=== PATIENT | female | born 1965 | race Caucasian/White ===

== ENCOUNTER 2019-08-15 15:04 | Outpatient (CLI) | payer MEDICARE, MEDICAID, SELFPAY ==
--- NOTE | ~2019-08-15 | MM_ITS ---
EXAMINATION: MM screening [facility] BI w maribel HISTORY: Screening mammogram TECHNIQUE: Craniocaudal and mediolateral oblique 3-D tomosynthesis images were obtained and synthetic 2-D images were generated. CAD analysis was submitted and interpreted. COMPARISON: 06/09/2018, 07/30/2016, 02/11/2015 BREAST PARENCHYMAL COMPOSITION: The breasts are almost entirely fatty. FINDINGS: There is no evidence of suspicious mass, calcification, or architectural distortion to sugg est malignancy in either breast. There has been no suspicious interval change. IMPRESSION: 1. No mammographic evidence of malignancy. 2. Recommend routine screening mammography in one year. BI-RADS Category 1: Negative Reviewed, dictated and finalized at location A.
== END 2019-08-15 15:05 | disposition home or self-care (01) ==
PROVIDERS: PCP Family Medicine; Visit Provider Student in an Organized Health Care Education/Training Program
DX: Z12.31 Encounter for screening mammogram for malignant neoplasm of breast (principal)
CPT/HCPCS: 77063; 77067

== ENCOUNTER 2019-12-21 09:03 | Outpatient (CLI) | payer MEDICARE, MEDICAID, SELFPAY ==
[2019-12-21 09:48] LABS: Alanine Aminotransferase 51 U/L (4-35); Albumin Level 4.1 g/dL (3.5-5.1); Alkaline Phosphatase 206 U/L (38-126); Anion Gap 9 mmol/L (8-16); Aspartate Amino Transferase 47 U/L (14-36); Bilirubin,Total 0.4 mg/dL (0.2-1.3); Blood Urea Nitrogen 17 mg/dL (7-17); Calcium 9.5 mg/dL (8.4-10.2); Carbon Dioxide 31 mmol/L (22-30); Chloride 97 mmol/L (98-107); Cholesterol 134 mg/dL (0-200); Estimated Glomerular Filt Rate > 60; Glucose 156 mg/dL (65-105); HDL Direct 33 mg/dL; Potassium 2.9 mmol/L (3.4-5.0); Sodium 137 mmol/L (137-145); Triglycerides 119 mg/dL (<150)
[2019-12-21 09:59] LABS: LDL Cholesterol Direct 84 mg/dL
[2019-12-21 10:09] LABS: Creatinine Urine 115.7 mg/dL
[2019-12-21 10:12] LABS: MALB Creatinine Ratio 16.4 mg/g (0-30)
== END 2019-12-21 09:04 | disposition home or self-care (01) ==
PROVIDERS: Referring Provider Internal Medicine Endocrinology, Diabetes & Metabolism; Visit Provider Internal Medicine Cardiovascular Disease
DX: E78.5 Hyperlipidemia, unspecified (principal); E11.9 Type 2 diabetes mellitus without complications
CPT/HCPCS: 36415; 80053; 80061; 82043; 83735

== ENCOUNTER 2019-12-28 09:49 | Outpatient (CLI) | payer MEDICARE, MEDICAID, SELFPAY ==
[2019-12-28 10:27] LABS: Potassium 3.7 mmol/L (3.4-5.0)
[2019-12-28 10:42] LABS: Anion Gap 8 mmol/L (8-16); Blood Urea Nitrogen 17 mg/dL (7-17); Carbon Dioxide 27 mmol/L (22-30); Chloride 102 mmol/L (98-107); Estimated Glomerular Filt Rate > 60; Glucose 201 mg/dL (65-105); Sodium 137 mmol/L (137-145)
== END 2019-12-28 09:50 | disposition home or self-care (01) ==
LOC: ANHLAB 09:53
PROVIDERS: PCP Internal Medicine Cardiovascular Disease; Visit Provider Internal Medicine Cardiovascular Disease
DX: R89.9 Unspecified abnormal finding in specimens from other organs, systems and tissues (principal)
CPT/HCPCS: 36415; 80048

== ENCOUNTER 2020-07-06 11:05 | Outpatient (CLI) | payer MEDICARE, MEDICAID, SELFPAY ==
--- NOTE | ~2020-07-06 | MR_ITS ---
EXAMINATION: MR lumbar spine wo con EXAM DATE: 07/06/2020 12:12 INDICATION: Low back pain. History of non-Hodgkin's lymphoma. TECHNIQUE: Multi-sequential, multiplanar MR images of the lumbar spine were obtained without contrast . Sagittal T1, T2, T2 fat saturation images. Axial T2 weighted images. Comparison is made to prior examination from 12/22/2016. FINDINGS: Previous exam had multiple abnormal bone signal abnormalities, probably due to hematologica l malignancy as above. These signal abnormalities have normalized following treatment. No abnormal pa raspinal soft tissue. Mild loss of the L3-4 disc height. The vertebral body and disc heights are otherwise well maintained. The vertebral bodies are aligned in the AP dimension. The conus medullaris terminates at the T12-L1 level and has normal signal intensity and morphology. Level by level evaluation: T12-L1: Disc does not extend beyond the endplate margin. Facet arthropathy: Mild bilateral. Neural foraminal stenosis: No stenosis. Central canal stenosis: No stenosis. L1-L2: Disc does not extend beyond the endplate margin. Facet arthropathy: Mild bilateral. Neural foraminal stenosis: No stenosis. Central canal stenosis: No stenosis. L2-L3: Disc does not extend beyond the endplate margin. Facet arthropathy: Mild to moderate bilateral. Neural foraminal stenosis: No stenosis. Central canal stenosis: No stenosis. L3-L4: There is a mild diffuse disc bulge. Facet arthropathy: Moderate bilateral. Neural foraminal stenosis: Mild bilateral. Central canal stenosis: No stenosis. L4-L5: There is a mild diffuse disc bulge. Facet arthropathy: Mild to moderate bilateral. Neural foraminal stenosis: Mild bilateral. Central canal stenosis: Mild. L5-S1: Disc does not extend beyond the endplate margin. Facet arthropathy: Mild bilateral. Neural foraminal stenosis: No stenosis. Central canal stenosis: No stenosis. IMPRESSION: 1. Mild lumbar spondylosis. 2. Interval resolution of previously seen infiltrative bone marrow process. Reviewed, dictated and finalized at location A. GER STARS
== END 2020-07-06 11:06 | disposition home or self-care (01) ==
PROVIDERS: Visit Provider Nurse Practitioner Family
DX: M47.896 Other spondylosis, lumbar region (principal)
CPT/HCPCS: 72148

== ENCOUNTER 2020-07-11 14:14 | Outpatient (CLI) | payer MEDICARE, MEDICAID, SELFPAY ==
[2020-07-11 16:29] LABS: Alanine Aminotransferase 38 U/L (4-35); Albumin Level 4.2 g/dL (3.5-5.1); Alkaline Phosphatase 173 U/L (38-126); Anion Gap 7 mmol/L (8-16); Aspartate Amino Transferase 31 U/L (14-36); Bilirubin,Total 0.3 mg/dL (0.2-1.3); Blood Urea Nitrogen 22 mg/dL (7-17); Calcium 9.9 mg/dL (8.4-10.2); Carbon Dioxide 31 mmol/L (22-30); Chloride 103 mmol/L (98-107); Estimated Glomerular Filt Rate 57; Glucose 174 mg/dL (65-105); Potassium 4.1 mmol/L (3.4-5.0); Sodium 141 mmol/L (137-145)
== END 2020-07-11 14:15 | disposition home or self-care (01) ==
PROVIDERS: Visit Provider Internal Medicine Endocrinology, Diabetes & Metabolism
DX: B37.9 Candidiasis, unspecified (principal); E11.65 Type 2 diabetes mellitus with hyperglycemia; Z79.4 Long term (current) use of insulin
CPT/HCPCS: 36415; 80053; 82607

== ENCOUNTER 2020-07-16 14:33 | Outpatient (CLI) | payer MEDICARE, MEDICAID, SELFPAY | END 2020-07-16 14:34 | disposition home or self-care (01) | LOC: ANHCOVIDVC 14:33 | PROVIDERS: PCP Student in an Organized Health Care Education/Training Program | DX: Z23 Encounter for immunization (principal) | CPT/HCPCS: 0001A; 91300 ==

== ENCOUNTER 2020-08-06 14:33 | Outpatient (CLI) | payer MEDICARE, MEDICAID, SELFPAY | END 2020-08-06 14:34 | disposition home or self-care (01) | LOC: ANHCOVIDVC 14:33 | PROVIDERS: PCP Student in an Organized Health Care Education/Training Program | DX: Z23 Encounter for immunization (principal) | CPT/HCPCS: 0002A; 91300 ==

== ENCOUNTER 2020-08-21 08:10 | Outpatient (CLI) | payer MEDICARE, MEDICAID, SELFPAY ==
--- NOTE | 2020-08-21 08:23 | ECHO_ITS ---
Patient Info Name: Evangelina Lovelace Age: 55 years : 1965 Gender: Female Ht: 63 in Wt: 198 lbs BSA: 2.04 m2 HR: 87 bpm BP: 120 / 67 mmHg Technical Quality: Good Exam Date: 08/21/2020 8:54 AM Exam Location: [facility] Patient Status: Outpatient Admit Date: 08/21/2020 Staff Ordering Physician: Sterling Penaloza DO Grinder Carbon Plant: Farzaneh Limon RDCS Attending Provider: Sterling Penaloza DO Exam Type: CA echo doppler color flow Study Info Complete two-dimensional, color flow and Doppler transthoracic echocardiogram is performed. Summary 1. Complete two-dimensional, color flow and Doppler transthoracic echocardiogram is performed. 2. Left ventricular chamber dimension is normal. 3. Left ventricular systolic function is normal, estimated at 60-65%. 4. The left ventricular diastolic function is grade I diastolic dysfunction. 5. E/e' 10 is mildly elevated. 6. There is mild aortic valve sclerosis. 7. There is mild aortic valve regurgitation. 8. No pulmonary hypertension, estimated pulmonary arterial systolic pressure is 23 mmHg. Left Ventricle E/e' 10 is mildly elevated. Left ventricular chamber dimension is normal. Left ventricular systolic function is normal, estimated at 60-65%. The left ventricular diastolic function is grade I diastolic dysfunction. Right Ventricle Right ventricular chamber dimension is normal. Right ventricular systolic function is normal. Left Atria Left atrial chamber dimension is normal. Right Atria Right atrial chamber dimension is normal. Aortic Valve The aortic valve is trileaflet. There is mild aortic valve sclerosis. There is no aortic valve stenosis. There is mild aortic valve regurgitation. Pulmonic Valve There is no pulmonic regurgitation. Mitral Valve There is no mitral valve stenosis. There is no mitral valve regurgitation. Tricuspid Valve There is no tricuspid valve regurgitation. No pulmonary hypertension, estimated pulmonary arterial systolic pressure is 23 mmHg. Pericardium/Pleural There is no pericardial effusion. Inferior Vena Cava Normal inferior vena cava with >50% collapse upon inspiration consistent with normal right atrial pressure, 5 mmHg. Aorta The aortic root size at the sinus of Valsalva is normal. Left Ventricular Outflow Tract Name Value Normal LVOT 2D LVOT Diameter 2.0 cm LVOT Doppler LVOT Peak Gradient 5 mmHg LVOT Mean Gradient 4 mmHg LVOT VTI 25 cm LVOT VTI/AV VTI Ratio 1.0 LVOT Stroke Volume 81 ml LVOT CO 17.6 l/min LVOT CI 8.7 l/min/m2 Pulmonic Valve Name Value Normal PV Doppler PV Peak Gradient 2 mmHg Mitral Valve -
== END 2020-08-21 08:11 | disposition home or self-care (01) ==
PROVIDERS: Visit Provider Internal Medicine Cardiovascular Disease
DX: I35.1 Nonrheumatic aortic (valve) insufficiency (principal)
CPT/HCPCS: 93306

== ENCOUNTER → 2020-08-28 12:34 | Outpatient (CLI) | payer MEDICARE, MEDICAID, SELFPAY ==
--- NOTE | ~2020-08-28 | XR_ITS ---
EXAMINATION: XR chest 2V 08/28/2020 12:44 INDICATION: Cough PROCEDURE: 2 view chest COMPARISON: Comparison to multiple prior studies sequentially, with oldest reviewed study dated 09/15. FINDINGS: The lungs are clear. The cardiomediastinal silhouette is within normal limits. There are no pleural effusions. There is no pneumothorax suspected. IMPRESSION: 1: NO ACUTE CARDIOPULMONARY DISEASE. Reviewed, dictated and finalized at location B.
== END ==
PROVIDERS: PCP Nurse Practitioner; Visit Provider Nurse Practitioner
DX: R05 Cough (principal)
CPT/HCPCS: 71046

== ENCOUNTER 2020-11-12 10:45 | Outpatient (CLI) | payer MEDICARE, MEDICAID, SELFPAY ==
[2020-11-12 20:53] LABS: Add Urine Microscopic? YES; Appearance Urine Clear (Clear); Bacteria Urine Trace /hpf; Bilirubin Urine Negative (Negative); Blood Urine Negative (Negative); Color Urine Straw (Yellow); Glucose Urine UA 3+ mg/dL (Negative); Ketones Urine Negative (Negative); Leukocyte Esterase Ur 2+ LEU/UL (Negative); Mucus Urine Rare /lpf; Nitrate Urine Negative (Negative); Protein Urine Negative (Negative); RBC Urine 0-2 /hpf (0-2); Specific Grav Ur 1.022 (1.001-1.035); Squamous Epithelial Cell Urine Occasional /hpf (Few); Urobilinogen Urine Negative mg/dL (<2.0); WBC Urine 31-50 /hpf
== END 2020-11-12 10:46 | disposition home or self-care (01) ==
LOC: ANHWCLAB 10:53
PROVIDERS: PCP Nurse Practitioner; Visit Provider Internal Medicine Endocrinology, Diabetes & Metabolism
DX: N39.0 Urinary tract infection, site not specified (principal)
CPT/HCPCS: 81001; 87077; 87086; 87088; 87186

== ENCOUNTER 2020-11-29 15:42 | Outpatient (CLI) | payer MEDICARE, MEDICAID, SELFPAY ==
--- NOTE | ~2020-11-29 | MM_ITS ---
EXAMINATION: MM screening [facility] BI w maribel HISTORY: Screening TECHNIQUE: Craniocaudal and mediolateral oblique 3-D tomosynthesis images were obtained and synthetic 2-D images were generated. CAD analysis was submitted and interpreted. COMPARISON: Comparison to multiple prior studies sequentially, with oldest reviewed study dated 01/31. BREAST PARENCHYMAL COMPOSITION: There are scattered areas of fibroglandular density. FINDINGS: There is a developing mass with associated pleomorphic calcifications in the upper outer qu adrant of the right breast anteriorly. The left breast is stable without evidence for malignancy. IMPRESSION: 1. Developing mass with pleomorphic calcifications upper outer quadrant of the right breast. 2. Additional mammographic views and possible breast ultrasound are recommended. BI-RADS Category 0: Incomplete: Needs additional imaging evaluation. Reviewed, dictated and finalized at location A. IMPRESSION: 1. Developing mass with pleomorphic calcifications upper outer quadrant of the right breast. 2. Additional mammographic views and possible breast ultrasound are recommended . BI-RADS Category 0: Incomplete: Needs additional imaging evaluation.
== END 2020-11-29 15:43 | disposition home or self-care (01) ==
LOC: ANHIMG 15:43
PROVIDERS: PCP Nurse Practitioner; Visit Provider Student in an Organized Health Care Education/Training Program
DX: Z12.31 Encounter for screening mammogram for malignant neoplasm of breast (principal); R92.8 Other abnormal and inconclusive findings on diagnostic imaging of breast
CPT/HCPCS: 77063; 77067

== ENCOUNTER → 2020-12-14 01:50 | Outpatient (CLI) | payer MEDICARE, MEDICAID, SELFPAY ==
[2020-12-14 17:52] LABS: SARS-CoV-2 RNA PCR Negative
== END ==
PROVIDERS: PCP Nurse Practitioner; Visit Provider Nurse Practitioner
DX: R68.89 Other general symptoms and signs (principal); Z20.822 Contact with and (suspected) exposure to COVID-19
CPT/HCPCS: C9803; U0003; U0005

== ENCOUNTER 2020-12-17 12:44 | Outpatient (CLI) | payer MEDICARE, MEDICAID, SELFPAY ==
--- NOTE | ~2020-12-17 | MM_ITS ---
EXAMINATION: MM diagnostic mammo unilat RT HISTORY: Indeterminate right breast calcifications on screening mammogram TECHNIQUE: Magnification views of the right breast were performed. CAD analysis was submitted and int erpreted. COMPARISON: 11/29/2020, 08/15/2019, 06/09/2018 FINDINGS: There are grouped coarse heterogeneous calcifications in the anterior of the upper outer qu adrant breast at the 10:00 location 6 cm from the nipple. IMPRESSION: 1. Suspicious right breast calcifications. 2. Stereotactic biopsy is recommended. BI-RADS category 4, suspicious findings. Reviewed, dictated and finalized at location A.
== END 2020-12-17 12:45 | disposition home or self-care (01) ==
LOC: ANHIMG 12:45
PROVIDERS: PCP Nurse Practitioner; Visit Provider Student in an Organized Health Care Education/Training Program
DX: R92.8 Other abnormal and inconclusive findings on diagnostic imaging of breast (principal)
CPT/HCPCS: 77065

== ENCOUNTER 2021-02-08 15:25 | Emergency (ER) | payer MEDICARE, MEDICAID, SELFPAY ==
[2021-02-08 15:33] VITALS: BP 94/67; PULSE 102; RESP 12; TEMP 37.1; O2SAT 97
--- NOTE | 2021-02-08 15:44 | PC.NURSE ---
in br to obtain ua spec.
--- NOTE | 2021-02-08 16:20 | ED.FEMALEGU ---
HPI - Female Genitourinary General Chief complaint: Urogenital-Female Stated complaint: UTI Time Seen by Provider: 02/08/21 16:15 Source: patient, RN notes reviewed and old records reviewed Mode of arrival: ambulatory History of Present Illness HPI Narrative: 55-year-old female who presents to [facility] with complaints of urgency, frequency, burning with urination since last night patient denies any fever chills or sweats denies any vaginal discharge or drainage no itching and no concern for any STD exposure. Patient states she has experienced some nausea this morning but denies any vomiting or any diarrhea. 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 Patient reports that she is diagnosed with diabetes about a year and a half ago and has had several UTI's since then. MD elicited complaint: dysuria and UTI Pertinent past history: recurrent UTIs and diabetes Onset (ago): day(s) (1 since last p.m.) Related Data Home Medications Medication Instructions Recorded Confirmed aripiprazole 10 mg tablet 10 mg PO DAILY 03/16/19 01/31/21 aspirin 81 mg tablet,delayed 81 mg PO DAILY 03/16/19 01/31/21 release cyclobenzaprine 10 mg tablet 10 mg PO TID PRN 03/16/19 01/31/21 mirtazapine 45 mg tablet 45 mg PO DAILY 03/16/19 01/31/21 quetiapine 300 mg tablet 300 mg PO DAILY tablet 03/16/19 01/31/21 cetirizine 10 mg capsule 10 mg PO DAILY PRN 07/04/20 01/31/21 glimepiride mg 02/08/21 vilazodone [Viibryd] mg 02/08/21 Allergies Allergy/AdvReac Type Severity Reaction Status Date / Time adhesive tape Allergy Unknown RASH Verified 01/31/21 13:08 codeine Allergy Unknown DEPTH Verified 01/31/21 13:08 PERCEPTION LOSS latex Allergy Unknown RASH-GLOVES Verified 01/31/21 13:08 metformin Allergy Unknown VOMITING Verified 01/31/21 13:08 bupropion AdvReac Severe INCOHERENT Verified 01/31/21 13:08 Sulfa (Sulfonamide AdvReac Mild VOMITING Verified 01/31/21 13:08 Antibiotics) amitriptyline AdvReac Unknown VOMITING Verified 01/31/21 13:08 morphine AdvReac Unknown ITCHING Verified 01/31/21 13:08 Review of Systems Review of Systems: CONSTITUTIONAL: Denies fever, chills, or sweats. EYES: Denies visual changes, redness, or discharge. ENT: Denies rhinorrhea, congestion, sore throat, or otalgia. CARDIOVASCULAR: Denies chest pain, palpitations, or edema. RESPIRATORY: Denies cough or dyspnea. GASTROINTESTINAL: Denies abdominal pain,positive for nausea, no vomiting, or diarrhea. GENITOURINARY:positive for dysuria or hematuria. SKIN: Denies rash or itching. MUSCULOSKELETAL: reports some chronic back pain, joint pain, or myalgia. NEUROLOGIC: Denies headache, numbness, or weakness. PSYCHIATRIC:Positive for history of anxiety or depression. All systems reviewed & are unremarkable except as noted in HPI and below PMFSH Past Medical History Medical History Anxiety Asthma Back pain Cancer Chest pain Depression Diabetes Fibromyalgia affecting forearm HPV (human papilloma virus) infection IBS (irritable colon syndrome) Lupus Migraines, neuralgic Missed x 3 Multiple sclerosis Non Hodgkin's lymphoma per patient, no documentation on PCP's note Obesity Psychiatric problem Seizure Urinary complications Surgical History Surgical History History of dilation and curettage History of hysterectomy, supracervical Hx of appendectomy Family History Family History Father Blood clot in vein Other ADD (attention deficit disorder) Alcoholism Anxiety Arthritis Asthma Back pain COPD (chronic obstructive pulmonary disease) Cancer Carotid artery disease Cerebrovascular accident Depression Diabetes mellitus Family history of alcoholism Family history of allergic disorder Family history of malignant neoplasm of breast in first degree relati
== END 2021-02-08 16:30 | disposition home or self-care (01) ==
PROVIDERS: Emergency Provider Registered Nurse
DX: N39.0 Urinary tract infection, site not specified (principal); F17.200 Nicotine dependence, unspecified, uncomplicated; J45.909 Unspecified asthma, uncomplicated; E11.9 Type 2 diabetes mellitus without complications; M79.7 Fibromyalgia; G35 Multiple sclerosis; G40.909 Epilepsy, unspecified, not intractable, without status epilepticus; Z79.82 Long term (current) use of aspirin; Z85.72 Personal history of non-Hodgkin lymphomas
CPT/HCPCS: 81003; 87077; 87086; 87186; 99213; G0463

== ENCOUNTER 2021-09-08 14:38 | Emergency (ER) | payer MEDICARE, MEDICAID, SELFPAY ==
--- NOTE | ~2021-09-08 | CT_ITS ---
EXAMINATION: CT abdomen pelvis w con DATE: 09/08/2021 19:47 INDICATION: abd pain TECHNIQUE: Computed tomography (CT) of the abdomen and pelvis was performed with 100 mL Omnipaque-300 intravenous contrast. Automated exposure control and iterative reconstruction technique were employe d. The dose-length product was 862.88 mGy-cm. COMPARISON: 03/17/18 FINDINGS: Lower thorax: Unremarkable Liver: Diffusely low density, otherwise normal Biliary/Gallbladder: Gallbladder is normal. No bile duct dilation. Spleen: Normal. Pancreas: No mass or duct dilation. Adrenals:No mass. Kidneys: Multiple bilateral renal cysts and hypodensities that are too small to characterize but also most likely represent cysts. No stone or hydronephrosis. GI tract: No small or large bowel dilation. Appendix not visualized. Mesentery/Peritoneum: No ascites, mass, or free air. Retroperitoneum: No mass. Pelvis: Uterus surgically absent. Ovaries not visualized. Soft Tissues: Mild transversely oriented subcutaneous stranding with subcentimeter lymph nodes in the supraumbilical subcutaneous abdominal wall fat. Bones: No acute osseous finding. IMPRESSION: Possible mild contusion or cellulitis of the anterior abdominal wall just above the umbilicus. No oth er acute abdominopelvic process detected. Hepatic steatosis. Reviewed, dictated and finalized at location K. IMPRESSION: Possible mild contusion or cellulitis of the anterior abdominal wall just above the umbilicus. No other acute abdominopelvic process detected. Hepatic steatos is.
--- NOTE | ~2021-09-08 | CT_ITS ---
EXAMINATION: CT brain wo con DATE: 09/08/2021 18:41 INDICATION: confusion TECHNIQUE: Computed tomography (CT) of the head was performed without intravenous contrast. The mA wa s adjusted according to patient size. Iterative reconstruction technique was employed. The dose-lengt h product was 529.67 mGy-cm. COMPARISON: 11/24/2014. FINDINGS: No acute intracranial hemorrhage or extra-axial fluid collection. No hydrocephalus, mass, or herniation. No acute ischemic infarct. Unremarkable dural venous sinus attenuation. No acute osseous abnormality. The aerated spaces are clear. IMPRESSION: No acute intracranial process. Reviewed, dictated and finalized at location K.
[2021-09-08 14:49] VITALS: BP 153/91; PULSE 117; RESP 20; TEMP 36.5; O2SAT 99
--- NOTE | 2021-09-08 14:53 | ECG_ITS ---
Measurements Intervals Hustler Rate: 101 P: 58 MO: 167 QRS: -18 QRSD: 88 T: 25 QT: 368 QTc: 479 Interpretive Statements SINUS TACHYCARDIA INCOMPLETE RIGHT BUNDLE BRANCH BLOCK BORDERLINE R WAVE PROGRESSION, ANTERIOR LEADS BORDERLINE T WAVE ABNORMALITY- ANT/INF LEADS BASELINE ARTIFACT- I, II, AVR BORDERLINE ECG Electronically Signed On 09-08-2021 15:10:55 CDT by Sterling Penaloza D.O.
[2021-09-08 15:14] LABS: Basophils Absolute Auto 0.1 K/mm3 (0.0-0.1); Basophils Percent Auto 0.5 % (0.2-1.2); Eosinophils Percent Auto 0.2 % (0-4.4); Hematocrit 54.2 % (37.0-47.0); Hemoglobin 17.5 g/dL (12.0-15.0); Immature Granulocyte Absolute 0.05 K/mm3 (0.00-0.031); Immature Granulocyte Percent A 0.4 % (0-0.5); Lymphocytes Absolute Auto 3.38 K/mm3 (0.9-3.2); Lymphocytes Percent Auto 24.5 % (18.3-44.2); Mean Corpuscular HGB Conc 32.3 g/dl (32-36); Mean Corpuscular Volume 86.7 fl (80-100); Mean Platelet Volume 9.7 fl (7.4-10.4); Monocytes Absolute Auto 1.1 K/mm3 (0.1-0.6); Monocytes Percent Auto 8.1 % (2.6-8.5); Neutrophils Absolute Auto 9.1 K/mm3 (1.3-6.7); Neutrophils Percent Auto 66.3 % (45.5-73.1); Platelet Count Result 273 k/mm3 (150-375); Red Blood Count 6.25 M/mm3 (4.2-5.4); Red Cell Distribution Width 15.4 % (11.5-14.5); White Blood Count 13.8 K/mm3 (4.5-10.0)
[2021-09-08 15:20] LABS: Alanine Aminotransferase 56 U/L (6-35); Albumin Level 5.3 g/dL (3.5-5.1); Alkaline Phosphatase 195 U/L (38-126); Anion Gap 13 mmol/L (8-16); Aspartate Amino Transferase 48 U/L (14-36); Bilirubin,Total 0.9 mg/dL (0.2-1.3); Blood Urea Nitrogen 20 mg/dL (7-17); Calcium 9.8 mg/dL (8.4-10.2); Carbon Dioxide 30 mmol/L (22-30); Chloride 95 mmol/L (98-107); Estimated CRCL calculation 77 ml/min; Estimated Glomerular Filt Rate > 60; Glucose 318 mg/dL (65-110); Potassium 4.3 mmol/L (3.4-5.0); Sodium 138 mmol/L (137-145)
[2021-09-08 15:27] LABS: INR 1.1; Partial Thromboplastin Time 25.3 SECONDS (22.3-36.8); Prothrombin Time 13.8 Seconds (11.1-14.7)
--- NOTE | 2021-09-08 18:16 | ED.GENADULT ---
HPI - General Adult General Chief complaint: Nausea/Vomiting/Diarrhea Stated complaint: n/v/d Time Seen by Provider: 09/08/21 17:07 History of Present Illness HPI narrative: 56-year-old female presents the emergency room for evaluation of generalized weakness, fatigue, and confusion. Patient is unable to to identify what day today is, and states that her family is concerned because she is losing days . Patient denies any injury, trauma, denies any abdominal pain, chest pain. Patient denies any recent changes to her medication Related Data Home Medications Medication Instructions Recorded Confirmed aripiprazole 10 mg tablet 10 mg PO DAILY 03/16/19 08/01/21 aspirin 81 mg tablet,delayed 81 mg PO DAILY 03/16/19 08/01/21 release cyclobenzaprine 10 mg tablet 10 mg PO TID PRN 03/16/19 08/01/21 mirtazapine 45 mg tablet 45 mg PO DAILY 03/16/19 08/01/21 quetiapine 300 mg tablet 300 mg PO DAILY tablet 03/16/19 08/01/21 cetirizine 10 mg capsule 10 mg PO DAILY PRN 07/04/20 08/01/21 vilazodone [Viibryd] mg 02/08/21 08/01/21 Allergies Allergy/AdvReac Type Severity Reaction Status Date / Time adhesive tape Allergy Unknown RASH Verified 08/01/21 13:14 codeine Allergy Unknown DEPTH Verified 08/01/21 13:14 PERCEPTION LOSS latex Allergy Unknown RASH-GLOVES Verified 08/01/21 13:14 metformin Allergy Unknown VOMITING Verified 08/01/21 13:14 bupropion AdvReac Severe INCOHERENT Verified 08/01/21 13:14 Sulfa (Sulfonamide AdvReac Mild VOMITING Verified 08/01/21 13:14 Antibiotics) amitriptyline AdvReac Unknown VOMITING Verified 08/01/21 13:14 morphine AdvReac Unknown ITCHING Verified 08/01/21 13:14 Review of Systems Review of Systems: CONSTITUTIONAL: Denies fever, chills, or sweats. EYES: Denies visual changes, redness, or discharge. ENT: Denies rhinorrhea, congestion, sore throat, or otalgia. CARDIOVASCULAR: Denies chest pain, palpitations, or edema. RESPIRATORY: Denies cough or dyspnea. GASTROINTESTINAL: Denies abdominal pain, nausea, vomiting, or diarrhea. GENITOURINARY: Denies dysuria or hematuria. SKIN: Denies rash or itching. MUSCULOSKELETAL: Denies back pain, joint pain, or myalgia. NEUROLOGIC: Reports confusion, weakness, malaise PSYCHIATRIC: Denies anxiety or depression. [facility] Past Medical History Medical History Anxiety Asthma Back pain Cancer Follicular Lymphoma Chest pain Depression Diabetes Fibromyalgia affecting forearm HPV (human papilloma virus) infection IBS (irritable colon syndrome) Lupus Migraines, neuralgic Missed x 3 Multiple sclerosis Non Hodgkin's lymphoma per patient, no documentation on PCP's note Psychiatric problem Seizure Surgical History Surgical History History of dilation and curettage History of hysterectomy, supracervical Hx of appendectomy Family History Family History Father Blood clot in vein Other ADD (attention deficit disorder) Alcoholism Anxiety Arthritis Asthma Back pain COPD (chronic obstructive pulmonary disease) Cancer Carotid artery disease Cerebrovascular accident Depression Diabetes mellitus Family history of alcoholism Family history of allergic disorder Family history of malignant neoplasm of breast in first degree relative Family history of mental disorder Migraines Obesity Psychiatric problem Social History Social History Social History: 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 She uses medical marijuana with her PCP Smoking status: Current every day smoker Tobacco type: e-cigarettes/vaping Second hand tobacco smoke exposure: No Smoking end date: 05/03/13 Alcohol intake: current Alcohol use details: 1 drink per month Substance use type: marijuana Other substan
[2021-09-08] MEDS: SODIUM CHLORIDE 0.9% IV 1,000 ML 999 ML IV CONT (18:28)
[2021-09-08] MEDS: ONDANSETRON INJ 4 MG/2 ML VIAL IV PUSH (18:29)
[2021-09-08 19:00] VITALS: BP 138/88; PULSE 80; RESP 18; TEMP 36.3; O2SAT 98
[2021-09-08 19:03] LABS: Appearance Urine Slightly Cloudy (Clear); Bilirubin Urine 2+ (Negative); Color Urine Yellow (Yellow); Glucose Urine UA 3+ mg/dL (Negative); Ketones Urine 1+ mg/dL (Negative); Leukocyte Esterase Ur Negative LEU/UL (Negative); Nitrate Urine Negative (Negative); Protein Urine 3+ mg/dL (Negative); Specific Grav Ur >= 1.030 (1.001-1.035); pH Urine 6.5 (5.0-9.0)
[2021-09-08 19:13] LABS: Lactic Acid Reflex 2.1 mmol/L (0.7-2.0)
[2021-09-08 19:14] LABS: Bacteria Urine Trace /hpf; Mucus Urine Heavy /lpf; Squamous Epithelial Cell Urine Many /hpf (Few)
[2021-09-08 19:15] LABS: Add Urine Microscopic? YES; Blood Urine Trace-Intact (Negative)
[2021-09-08 19:41] LABS: SARS-CoV-2 RNA PCR Negative
[2021-09-08 20:00] VITALS: BP 136/80; PULSE 80; RESP 16; TEMP 36.6; O2SAT 98
[2021-09-08 20:34] LABS: Glucose Point of Care 303 mg/dl (65-105)
[2021-09-08] MEDS: SODIUM CHLORIDE 0.9% IV 1,000 ML 150 ML IV CONT (20:42)
[2021-09-08 21:00] VITALS: BP 142/78; PULSE 83; RESP 16; TEMP 36.8; O2SAT 97
[2021-09-08 21:17] LABS: Glucose Point of Care 310 mg/dl (65-105)
[2021-09-08 21:59] LABS: Reflex Lactic Acid Yes or No Add Lactic
== END 2021-09-08 21:50 | disposition home or self-care (01) ==
PROVIDERS: Emergency Medicine; Emergency Provider Nurse Practitioner Family
DX: L03.311 Cellulitis of abdominal wall (principal); Z20.822 Contact with and (suspected) exposure to COVID-19; G35 Multiple sclerosis; J45.909 Unspecified asthma, uncomplicated; E11.9 Type 2 diabetes mellitus without complications; M79.7 Fibromyalgia; K58.9 Irritable bowel syndrome, unspecified; F41.9 Anxiety disorder, unspecified; F32.A Depression, unspecified; Z85.72 Personal history of non-Hodgkin lymphomas; Z87.891 Personal history of nicotine dependence; Z79.82 Long term (current) use of aspirin; Z79.4 Long term (current) use of insulin; Z79.899 Other long term (current) drug therapy; I45.10 Unspecified right bundle-branch block; R00.0 Tachycardia, unspecified; R94.31 Abnormal electrocardiogram [ECG] [EKG]
CPT/HCPCS: 36415; 70450; 74177; 80053; 81001; 82948; 83605; 84443; 85025; 85610; 85730; 93005; 96361; 96365; 96375; 99284; C9803; J0696; J2405; J7030; Q9967; U0003; U0005

== ENCOUNTER → 2021-09-10 10:20 | Outpatient (CLI) | payer MEDICARE, MEDICAID, SELFPAY ==
--- NOTE | ~2021-09-10 | XR_ITS ---
XR hand LT min 3V DATE: 09/10/2021 10:32 INDICATION: Injury TECHNIQUE: 3 views COMPARISON: None FINDINGS: There is a nondisplaced linear oblique fracture of the shaft of the middle phalanx of the f ourth digit. There are intra-articular fractures of the anterior base of the middle phalanges of the third and fou rth fingers. No other recent fracture or dislocation. No erosive change or chondrocalcinosis. IMPRESSION: Fractures of middle phalanges of third and fourth digits Reviewed, dictated and finalized at location B.
== END ==
PROVIDERS: PCP Family Medicine; Visit Provider Family Medicine
DX: S62.653A Nondisplaced fracture of middle phalanx of left middle finger, initial encounter for closed fracture (principal); S62.655A Nondisplaced fracture of middle phalanx of left ring finger, initial encounter for closed fracture; X58.XXXA Exposure to other specified factors, initial encounter
CPT/HCPCS: 73130

== ENCOUNTER 2021-11-14 10:12 | Outpatient (CLI) | payer MEDICARE, MEDICAID, SELFPAY ==
--- NOTE | ~2021-11-14 | XR_ITS ---
XR hand LT min 3V DATE: 11/14/2021 10:31 INDICATION: Fracture of middle and ring fingers TECHNIQUE: 3 views COMPARISON: 09/10/2021 left hand FINDINGS: There is soft tissue swelling of the fourth and fifth digits. There is no interval change in position or alignment at the nondisplaced fracture of the shafts of th e middle phalanx of the fourth digit. There is no 7 change in position or alignment at the anterior cortical avulsion fracture of the base of the middle phalanx of the third digit. No other fracture or dislocation or other significant change. IMPRESSION: There is any change of fractures of middle phalanges of third and fourth digits Reviewed, dictated and finalized at location A. IMPRESSION: There is any change of fractures of middle phalanges of third and f ourth digits
== END 2021-11-14 10:13 | disposition home or self-care (01) ==
PROVIDERS: PCP Family Medicine; Visit Provider Plastic Surgery
DX: S62.623D Displaced fracture of middle phalanx of left middle finger, subsequent encounter for fracture with routine healing (principal); S62.625D Displaced fracture of middle phalanx of left ring finger, subsequent encounter for fracture with routine healing; X58.XXXD Exposure to other specified factors, subsequent encounter
CPT/HCPCS: 73130

== ENCOUNTER 2022-01-27 09:53 | Outpatient (CLI) | payer MEDICARE, MEDICAID, SELFPAY ==
--- NOTE | ~2022-01-27 | MM_ITS ---
EXAMINATION: MM screening [facility] BI w maribel HISTORY: Screening mammogram TECHNIQUE: Craniocaudal and mediolateral oblique 3-D tomosynthesis images were obtained and synthetic 2-D images were generated. CAD analysis was submitted and interpreted. COMPARISON: 12/17/2020 diagnostic right mammogram 11/29/2020, 08/15/2019, , 07/30/2016 bilateral screening mammogram examinations BREAST PARENCHYMAL COMPOSITION: The breasts are almost entirely fatty. FINDINGS: There are focal coarse grouped microcalcifications in an area of relative fat attenuation i n the anterior upper central right breast. These are likely calcifications of benign fat necrosis. Occasional benign calcifications are noted elsewhere in the breasts. Biopsy marker on the left; history of prior benign left breast biopsy. There is no evidence of suspicious mass, calcification, or new architectural distortion to suggest m alignancy in either breast. There has been no suspicious interval change. IMPRESSION: 1. Benign findings No mammographic evidence of malignancy. 2. Recommend routine screening mammography in one year. BI-RADS Category 2: Benign finding(s). Reviewed, dictated and finalized at location A.
== END 2022-01-27 09:54 | disposition home or self-care (01) ==
PROVIDERS: PCP Family Medicine; Visit Provider Student in an Organized Health Care Education/Training Program
DX: Z12.31 Encounter for screening mammogram for malignant neoplasm of breast (principal)
CPT/HCPCS: 77063; 77067

== ENCOUNTER 2022-02-19 09:21 | Outpatient (CLI) | payer MEDICARE, MEDICAID, SELFPAY ==
[2022-02-19 20:14] LABS: Cholesterol 152 mg/dL (0-200); HDL Direct 41 mg/dL; Triglycerides 121 mg/dL (<150)
[2022-02-19 20:25] LABS: LDL Cholesterol Direct 93 mg/dL
== END 2022-02-19 09:22 | disposition home or self-care (01) ==
LOC: ANHGOSHLAB 09:28
PROVIDERS: PCP Family Medicine; Visit Provider Internal Medicine Cardiovascular Disease
DX: E78.5 Hyperlipidemia, unspecified (principal)
CPT/HCPCS: 36415; 80061

== ENCOUNTER 2022-04-06 12:35 | Outpatient (CLI) | payer MEDICARE, MEDICAID, SELFPAY ==
[2022-04-06 22:01] LABS: Creatinine Urine 66.4 mg/dL
[2022-04-06 22:13] LABS: Microalbumin Urine Random < 6.0 mg/L (0-16.7)
[2022-04-06 22:14] LABS: MALB Creatinine Ratio < 9.0 mg/g (0-30)
== END 2022-04-06 12:36 | disposition home or self-care (01) ==
LOC: ANHGOSHLAB 12:38
PROVIDERS: PCP Family Medicine; Visit Provider Internal Medicine Endocrinology, Diabetes & Metabolism
DX: E11.65 Type 2 diabetes mellitus with hyperglycemia (principal); Z79.4 Long term (current) use of insulin
CPT/HCPCS: 82043

== ENCOUNTER 2022-06-23 10:26 | Outpatient (CLI) | payer MEDICARE, MEDICAID, SELFPAY ==
--- NOTE | ~2022-06-23 | MR_ITS ---
MRI of the brain Clinical History: Seizure Technique: Axial and sagittal T1-weighted images were acquired. These were followed by axial T2-weigh ninfa, diffusion weighted, gradient, and FLAIR images. Findings: There is no acute infarct, intracranial hemorrhage, or mass lesion. There are several scatt ered focal areas of hyperintense signal in the periventricular white matter bilaterally on FLAIR imag es. Ventricles and subarachnoid spaces are unremarkable. Orbits are unremarkable. Paranasal sinuses and m astoid air cells are clear. Major intracranial flow voids are intact. Sagittal midline structures are intact. IMPRESSION: Several scattered focal areas of hyperintense signal in the periventricular and FLAIR images. Finding s likely represent chronic microvascular ischemic change. Alternative considerations could include de myelinating disease or postictal change. Correlate clinically. Reviewed, dictated and finalized at [facility]. CARE NURSE IMPRESSION: Several scattered focal areas of hyperintense signal in the periventricular and FLAIR images. Findings likely represent chronic microvascular ischemic change. Alternative considerations could include demyelinating disease or postictal ch kristin. Correlate clinically.
[2022-06-23 13:24] LABS: Alanine Aminotransferase 29 U/L (6-35); Albumin Level 4.4 g/dL (3.5-5.1); Alkaline Phosphatase 117 U/L (38-126); Anion Gap 7 mmol/L (8-16); Aspartate Amino Transferase 28 U/L (14-36); Bilirubin,Total 0.4 mg/dL (0.2-1.3); Blood Urea Nitrogen 21 mg/dL (7-17); Calcium 9.1 mg/dL (8.4-10.2); Carbon Dioxide 30 mmol/L (22-30); Chloride 98 mmol/L (98-107); Estimated Glomerular Filt Rate > 60; Glucose 254 mg/dL (65-110); Potassium 4.1 mmol/L (3.4-5.0); Sodium 135 mmol/L (137-145)
[2022-06-23 13:39] LABS: Creatinine Urine 75.4 mg/dL
[2022-06-23 13:43] LABS: MALB Creatinine Ratio 14.1 mg/g (0-30); Microalbumin Urine Random 10.6 mg/L (0-16.7)
[2022-06-23 13:44] LABS: Vitamin D 25 Hydroxy 41.5 ng/mL
--- NOTE | 2022-06-24 09:47 | WPDNEUROLOGY ---
Neurology EEG Report General Information Date of Study: 06/23/22 TEST eeg DIAGNOSIS possible seizure CONDITION OF RECORDING awake drowsy and sleep EEG NUMBER [id number] CLINICAL HISTORY patient reports she has episodes of uncontrollable twitching of whole body EEG DESCRIPTION background rhythm consists of low to medium voltage 6 to 7 hertz per 2nd theta admixed with poorly organized low voltage 8 to 9 hertz per 2nd alpha posteriorly but with poor alejandrina posterior gradient hyperventilation not done .photic stimulation produced normal drive. bilateral symmetrical sleep activity seen during sleep . Hyperventilation not done. Non paroxysmal nonfocal nonlateralizing IMPRESSION no significant abnormalities noted
== END 2022-06-23 10:27 | disposition home or self-care (01) ==
PROVIDERS: Internal Medicine Endocrinology, Diabetes & Metabolism; PCP Family Medicine; Visit Provider Student in an Organized Health Care Education/Training Program
DX: R56.9 Unspecified convulsions (principal); E11.65 Type 2 diabetes mellitus with hyperglycemia; Z79.4 Long term (current) use of insulin; R93.0 Abnormal findings on diagnostic imaging of skull and head, not elsewhere classified
CPT/HCPCS: 36415; 70551; 80053; 82043; 82306; 84443; 95816

== ENCOUNTER 2022-09-16 08:28 | Outpatient (CLI) | payer MEDICARE, MEDICAID, SELFPAY ==
--- NOTE | ~2022-09-16 | NM_ITS ---
EXAMINATION: NM albina stress w perfusion DATE: 09/16/2022 12:02 INDICATION: Chest pain. TECHNIQUE: Rest images were obtained following intravenous administration of 9.4 mCi Tc99m tetrofosmi n (Myoview). The patient was infused intravenously with Lexiscan (regadenoson). Then, 30.9 mCi Tc99m tetrofosmin (Myoview) was administered intravenously, and stress images were obtained. Data was recon structed into short axis and horizontal and vertical long axis SPECT images. Gated SPECT images were also obtained. COMPARISON: CT abdomen and pelvis 09/08/2021 FINDINGS: There is a small, mild, fixed perfusion defect involving apical lateral segment of left geraldo tricle, consistent with infarct. No reversible component to suggest ischemia. There is no segmental wall motion abnormality. Left ventricular ejection fraction measures 64%. IMPRESSION: 1. Small area of mild infarct involving apical lateral segment of left ventricle. 2. Normal left ventricular ejection fraction measuring 64%. Reviewed, dictated and finalized at location A. IMPRESSION: 1. Small area of mild infarct involving apical lateral segment of left ventricl e. 2. Normal left ventricular ejection fraction measuring 64%.
--- NOTE | 2022-09-16 08:52 | ECHO_ITS ---
Patient Info Name: Evangelina Lovelace Age: 57 years : 1965 Gender: Female Ht: 63 in Wt: 187 lbs BSA: 1.98 m2 HR: 89 bpm BP: 151 / 82 mmHg Heart Rhythm: Sinus Rhythm Technical Quality: Good Exam Date: 09/16/2022 9:01 AM Exam Location: [facility] Patient Status: Outpatient Admit Date: 09/16/2022 Staff Ordering Physician: Sterling Penaloza DO Tax Compliance Representative: Jeanine He RDCS Attending Provider: Sterling Penaloza DO Referring Physician: Tremaine XIONG; Exam Type: CA echo doppler color flow Study Info Indications I35.1 - Nonrheumatic aortic (valve) insufficiency R07.9 - Chest pain, unspecified Complete two-dimensional, color flow and Doppler transthoracic echocardiogram is performed. Summary 1. Complete two-dimensional, color flow and Doppler transthoracic echocardiogram is performed. 2. Left ventricular chamber dimension is normal. 3. Left ventricular systolic function is normal, estimated at 60-65%. 4. The left ventricular diastolic function is grade I diastolic dysfunction. 5. E/e' 9 is minimally elevated. 6. There is mild aortic valve regurgitation. Left Ventricle E/e' 9 is minimally elevated. Left ventricular chamber dimension is normal. Left ventricular systolic function is normal, estimated at 60-65%. The left ventricular diastolic function is grade I diastolic dysfunction. Right Ventricle Right ventricular chamber dimension is normal. Right ventricular systolic function is normal. Left Atria Left atrial chamber dimension is normal. Right Atria Right atrial chamber dimension is normal. Aortic Valve The aortic valve is trileaflet. There is no aortic valve stenosis. There is mild aortic valve regurgitation. Pulmonic Valve There is no pulmonic regurgitation. Mitral Valve There is no mitral valve stenosis. There is no mitral valve regurgitation. Tricuspid Valve There is no tricuspid valve regurgitation. Pericardium/Pleural There is no pericardial effusion. Inferior Vena Cava Normal inferior vena cava with >50% collapse upon inspiration consistent with normal right atrial pressure, 5 mmHg. Aorta The aortic root size at the sinus of Valsalva is normal. Left Ventricular Outflow Tract Name Value Normal LVOT 2D LVOT Diameter 1.6 cm LVOT Doppler LVOT Peak Gradient 3 mmHg LVOT Mean Gradient 1 mmHg LVOT VTI 20 cm LVOT VTI/AV VTI Ratio 0.6 LVOT Stroke Volume 38 ml LVOT CO 3.3 l/min LVOT CI 1.7 l/min/m2 Pulmonic Valve Name Value Normal RVOT Doppler RVOT Peak Gradient 1 mmHg PV Doppler PV Peak Gradient 2 mmHg Mitral Valve
--- NOTE | 2022-09-16 08:52 | EST_ITS ---
Patient Info Name: Evangelina Lovelace Age: 57 years : 1965 Gender: Female Ht: 63 in Wt: 187 lbs BSA: 1.98 m2 HR: 82 bpm BP: 135 / 75 mmHg Heart Rhythm: Sinus Rhythm Exam Date: 09/16/2022 10:47 AM Exam Location: [facility] Stress Patient Status: Outpatient Admit Date: 09/16/2022 Staff Ordering Physician: Sterling Penaloza DO Attending Provider: Sterling Penaloza DO Exercise Technologist: Rosita Reina RDCS Exercise Physician: Sterling Penaloza DO Exam Type: CA stress albina w NM Study Info A regadenoson stress test was performed. Summary 1. 1. Negative lexiscan stress test for ischemic ST changes by ECG criteria. 2. 2. Stable hemodynamics throughout the test. 3. 3. Nuclear scan to follow and will be reported separately. Please correlate with it. 4. 4. Patient informed of the above results. Protocol: Lexiscan Stress ECG Details Stage: REST Duration (min): 1 min : 55 sec HR (bpm): 84 SBP (mmHg): 135 DBP (mmHg): 75 Stage: REST Duration (min): 7 min : 38 sec HR (bpm): 82 SBP (mmHg): 135 DBP (mmHg): 75 Stage: STAGE 1 Duration (min): 1 min : 0 sec HR (bpm): 91 SBP (mmHg): 135 DBP (mmHg): 75 Stage: RECOVERY Duration (min): 1 min : 0 sec HR (bpm): 92 SBP (mmHg): 104 DBP (mmHg): 65 Stage: RECOVERY Duration (min): 2 min : 0 sec HR (bpm): 90 SBP (mmHg): 104 DBP (mmHg): 65 Stage: RECOVERY Duration (min): 3 min : 0 sec HR (bpm): 92 SBP (mmHg): 119 DBP (mmHg): 66 Stage: RECOVERY Duration (min): 4 min : 0 sec HR (bpm): 89 SBP (mmHg): 119 DBP (mmHg): 66 Stage: RECOVERY Duration (min): 4 min : 49 sec HR (bpm): 89 SBP (mmHg): 132 DBP (mmHg): 70 Rest HR: 82 bpm Peak HR: 93 bpm Rest Sys BP: 135 mmHg Peak Sys BP: 132 mmHg Max Pred HR: 162 bpm % Max Pred HR: 57 % Target HR: 138 bpm Max RPP: 12,276 bpm*mmHg Termination Reason: Completed protocol Cardiac Symptoms: Chest pain, Shortness of breath Total Time: 1 min : 0 sec Rest Pugh BP: 75 mmHg Peak Pugh BP: 70 mmHg Total Dose: 0.4 mg Resting ECG Sinus rhythm. Stress ECG No ST changes. Arrhythmias None. Report Signatures
== END 2022-09-16 08:29 | disposition home or self-care (01) ==
LOC: ANHCARD 08:31
PROVIDERS: PCP Family Medicine; Visit Provider Internal Medicine Cardiovascular Disease
DX: R07.9 Chest pain, unspecified (principal); I35.1 Nonrheumatic aortic (valve) insufficiency
CPT/HCPCS: 78452; 93017; 93306; A9502; J2785

== ENCOUNTER 2022-10-15 09:48 | Outpatient (CLI) | payer MEDICARE, MEDICAID, SELFPAY ==
[2022-10-15 16:56] LABS: Basophils Absolute Auto 0.1 K/mm3 (0.0-0.1); Basophils Percent Auto 0.7 % (0.2-1.2); Eosinophils Absolute Auto 0.2 K/mm3 (0-0.3); Eosinophils Percent Auto 2.9 % (0-4.4); Hematocrit 46.7 % (37.0-47.0); Hemoglobin 14.8 g/dL (12.0-15.0); Immature Granulocyte Absolute 0.02 K/mm3 (0.00-0.031); Immature Granulocyte Percent A 0.2 % (0-0.5); Lymphocytes Absolute Auto 2.65 K/mm3 (0.9-3.2); Lymphocytes Percent Auto 32.4 % (18.3-44.2); Mean Corpuscular HGB Conc 31.7 g/dl (32-36); Mean Corpuscular Hemoglobin 28.6 pg (26-34); Mean Corpuscular Volume 90.3 fl (80-100); Mean Platelet Volume 10.1 fl (7.4-10.4); Monocytes Absolute Auto 0.5 K/mm3 (0.1-0.6); Monocytes Percent Auto 6.6 % (2.6-8.5); Neutrophils Absolute Auto 4.7 K/mm3 (1.3-6.7); Neutrophils Percent Auto 57.2 % (45.5-73.1); Platelet Count Result 195 k/mm3 (150-375); Red Blood Count 5.17 M/mm3 (4.2-5.4); Red Cell Distribution Width 13.4 % (11.5-14.5); White Blood Count 8.2 K/mm3 (4.5-10.0)
[2022-10-15 19:30] LABS: Alanine Aminotransferase 30 U/L (6-35); Alkaline Phosphatase 121 U/L (38-126); Anion Gap 5 mmol/L (8-16); Aspartate Amino Transferase 30 U/L (14-36); Bilirubin,Total 0.3 mg/dL (0.2-1.3); Blood Urea Nitrogen 23 mg/dL (7-17); Calcium 9.6 mg/dL (8.4-10.2); Carbon Dioxide 37 mmol/L (22-30); Chloride 101 mmol/L (98-107); Estimated Glomerular Filt Rate 57; Glucose 66 mg/dL (65-110); Potassium 4.3 mmol/L (3.4-5.0); Sodium 143 mmol/L (137-145)
[2022-10-16 02:56] LABS: Hemoglobin A1C 7.1 % (<5.7)
== END 2022-10-15 09:49 | disposition home or self-care (01) ==
LOC: ANHGOSHLAB 09:50
PROVIDERS: PCP Family Medicine; Visit Provider Nurse Practitioner Family
DX: R56.9 Unspecified convulsions (principal); E11.65 Type 2 diabetes mellitus with hyperglycemia; Z79.4 Long term (current) use of insulin; I10 Essential (primary) hypertension
CPT/HCPCS: 36415; 80053; 83036; 85025

== ENCOUNTER 2022-10-23 10:25 | Outpatient (CLI) | payer MEDICARE, MEDICAID, SELFPAY ==
--- NOTE | ~2022-10-23 | MR_ITS ---
MRI of the lumbar spine Clinical History: Back pain Technique: Axial T2-weighted images, and sagittal T1-weighted, T2-weighted, and and T2 fat-sat images were acquired. COMPARISON: 07/06/2020 Findings: There is no fracture or subluxation of the lumbar spine. Vertebral bodies maintain normal h eight and alignment. No suspicious bone marrow signal abnormality seen. At L1-L2, there is mild to moderate facet arthropathy. No disc bulge or herniation. No spinal canal s tenosis or neural foraminal narrowing. At L2-L3, there is no significant disc bulge or herniation. There is moderate facet arthropathy. No c entral canal stenosis or neural foraminal narrowing. At L3-L4, there is minimal disc bulge with advanced facet arthropathy. No central canal stenosis or n eural foraminal narrowing. At L4-L5, there is minimal disc bulge with moderate to advanced facet arthropathy. No central canal s tenosis or neural foraminal narrowing. At L5-S1, there is no disc bulge or herniation. There is moderate facet arthropathy. No central canal stenosis or neural foraminal narrowing. Paravertebral soft tissues are unremarkable. Impression: Mild degenerative spondylosis. There is extensive facet joint arthropathy throughout the lumbar spine , but no central canal stenosis or neural foraminal narrowing evident. Reviewed, dictated and finalized at [facility]. Impression: Mild degenerative spondylosis. There is extensive facet joint arthropathy throu ghout the lumbar spine, but no central canal stenosis or neural foraminal narro wing evident.
== END 2022-10-23 10:26 | disposition home or self-care (01) ==
PROVIDERS: PCP Family Medicine; Visit Provider Nurse Practitioner Family
DX: M47.816 Spondylosis without myelopathy or radiculopathy, lumbar region (principal)
CPT/HCPCS: 72148

== ENCOUNTER 2022-11-17 01:32 | Day surgery (SDC) | payer MEDICARE, MEDICAID, SELFPAY ==
[2022-11-09 09:46] VITALS: BMI 33.0
[2022-11-17 10:02] VITALS: BP 123/71; PULSE 103; RESP 16; TEMP 36.1; O2SAT 99
--- NOTE | 2022-11-17 10:24 | PM.HPGS ---
History of Present Illness History of Present Illness Consent: Risks, benefits, and alternatives have been discussed and questions answered. Patient agrees to proceed with procedure. Chief complaint: neoplasm screening Narrative: Evangelina Lovelace is a 57 year old female Seen in referral from Dr. Montero's office for neoplasia screening. Patient presents today. She states she has irritable bowel syndrome with some diarrhea predominance has been more noticeable over the last 6 months. She does take dicyclomine which helps with cramping. Colonoscopy is requested for screening purposes. Patient denies any blood in her stools denies any weight loss. Past medical history is significant for bipolar illness. Review of Systems Review of Systems: Review of systems noncontributory. [facility]LY [facility], [facility] Past Medical History Medical History Anxiety Asthma Back pain Bipolar 1 disorder Cancer Follicular Lymphoma Chronic low back pain Cranial nerve palsy right Environmental allergies Essential (primary) hypertension Fibromyalgia Patient's sister states patient does not have fibromyalgia Genital herpes GERD without esophagitis HPV (human papilloma virus) infection Hypokalemia IBS (irritable colon syndrome) Lupus Patient's sister states patient does not have Lupus Missed x 3 Multiple sclerosis Patient's sister states patient does not have MS Seizure Stroke 01/23/2022 Surgical History Surgical History History of dilation and curettage History of hysterectomy, supracervical Hx of appendectomy Family History Family History Father Blood clot in vein Other ADD (attention deficit disorder) Alcoholism Anxiety Arthritis Asthma Back pain COPD (chronic obstructive pulmonary disease) Cancer Carotid artery disease Cerebrovascular accident Depression Diabetes mellitus Family history of alcoholism Family history of allergic disorder Family history of malignant neoplasm of breast in first degree relative Family history of mental disorder Migraines Obesity Psychiatric problem Social History Social History Social History: 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 She uses medical marijuana with her PCP Caffeine-daily Smoking status: Former smoker Tobacco type: cigarettes Second hand tobacco smoke exposure: No Smoking end date: 05/03/13 Additional smoking assessment comments: smokes occasional cigarette now or then Alcohol intake: current Alcohol use details: rare use Substance use: current Substance use type: marijuana Other substance usage details: medical marijuana card Lack of Transportation: No Lack of Food: Never True Current Housing: I Have Housing Concerned About Future Housing: No Difficulty Paying Gas/Electric Bills: Decline to Answer Difficulty Paying for Meds: YES Currently Unemployed: No Education: Trade/Vocational Certificate Difficulty w/ Childcare or Family Care: No Living arrangements: with friend(s) Occupation/Education: other Additional occupation/education comments: disabled Gender identity (if verbalized by the patient): Female Spiritual care concerns: No Meds Home Medications and Allergies Home Medications Medication Instructions Recorded Confirmed Type aripiprazole 10 mg tablet 10 mg PO DAILY 03/16/19 11/09/22 History aspirin 81 mg tablet,delayed 81 mg PO DAILY 03/16/19 11/09/22 History release cyclobenzaprine 10 mg tablet 10 mg PO TID PRN Muscle Pain 03/16/19 11/09/22 History mirtazapine 45 mg tablet 45 mg PO DAILY 03/16/19 11/09/22 History gabapentin 300 mg capsule 300 mg PO TID #90 caps 12/25/19 11/09/22 Rx albuterol sulfate 2.5 mg/3 mL 2.5 mg (3 mL) inhalation Q4-6H PRN
[2022-11-17 10:26] LABS: Glucose Point of Care 204 mg/dl (65-105)
[2022-11-17] MEDS: LACTATED RINGERS 1,000 ML 150 ML IV CONT (11:18)
[2022-11-17 11:46] VITALS: BP 107/62; PULSE 102; RESP 19; O2SAT 95
[2022-11-17 11:56] VITALS: BP 115/69; PULSE 99; RESP 18; O2SAT 98
[2022-11-17 12:06] VITALS: BP 121/75; PULSE 102; RESP 19; O2SAT 100
== END 2022-11-17 12:14 | disposition home or self-care (01) ==
PROVIDERS: PCP Family Medicine; Visit Provider Internal Medicine Gastroenterology
PROC: 0DJD8ZZ Inspection of Lower Intestinal Tract, Via Natural or Artificial Opening Endoscopic (ICD-10-PCS; CPT 45378; principal; 2022-11-17 11:00)
DX: Z12.11 Encounter for screening for malignant neoplasm of colon (principal); R19.7 Diarrhea, unspecified; I10 Essential (primary) hypertension; K21.9 Gastro-esophageal reflux disease without esophagitis; Z79.82 Long term (current) use of aspirin; F31.9 Bipolar disorder, unspecified; Z86.73 Personal history of transient ischemic attack (TIA), and cerebral infarction without residual deficits; Z79.51 Long term (current) use of inhaled steroids; F12.90 Cannabis use, unspecified, uncomplicated; Z72.0 Tobacco use
CPT/HCPCS: 45380; 82948; 88305; J2704; J7120

== ENCOUNTER 2022-12-20 09:18 | Emergency (ER) | payer MEDICARE, MEDICAID, SELFPAY ==
[2022-12-20 09:38] VITALS: BP 118/54; PULSE 102; RESP 16; TEMP 36.5; O2SAT 98
--- NOTE | 2022-12-20 10:03 | ED.EAR ---
HPI - Ear Problem General Chief complaint: Ear Stated complaint: Earache;Ear bleed Source: patient Mode of arrival: ambulatory Limitations: no limitations History of Present Illness HPI Narrative: Patient presents for evaluation of drainage from the right eye. Symptom onset 2 days ago. She indicates thick green/yellow drainage is coming from the right eye. Denies any visual disturbance. Denies any pain or pruritus. She does not wear contacts or glasses. No recent sick contacts to her knowledge. She reports a small amount of bleeding from the left ear that started last night. She woke from sleep with pain in her left ear. Denies tinnitus and hearing loss. Ibuprofen is not helping. She has had tramadol in the past, which seems to help. Despite underlying seizure disorder, tramadol has never induced seizure activity. Related Data Home Medications Medication Instructions Recorded Confirmed aripiprazole 10 mg tablet 10 mg PO DAILY 03/16/19 12/20/22 aspirin 81 mg tablet,delayed 81 mg PO DAILY 03/16/19 12/20/22 release cyclobenzaprine 10 mg tablet 10 mg PO TID PRN Muscle Pain 03/16/19 12/20/22 mirtazapine 45 mg tablet 45 mg PO DAILY 03/16/19 12/20/22 lamotrigine 100 mg tablet 100 mg PO DAILY 09/09/21 12/20/22 hydroxyzine pamoate 50 mg capsule 50 mg PO TID PRN Allergy Symptoms 09/11/21 12/20/22 propranolol 10 mg tablet 10 mg PO DAILY anxiety 09/11/21 12/20/22 quetiapine 300 mg tablet 600 mg PO QHS 09/11/21 12/20/22 vilazodone 40 mg tablet (Viibryd) 40 mg PO QAM 09/11/21 12/20/22 blood-glucose meter,continuous 05/21/22 11/09/22 potassium chloride 20 mEq 20 meq PO DAILY 08/11/22 12/20/22 tablet,extended release Allergies Allergy/AdvReac Type Severity Reaction Status Date / Time adhesive tape Allergy Unknown RASH Verified 12/20/22 09:36 latex Allergy Unknown RASH-GLOVES Verified 12/20/22 09:36 bupropion AdvReac Severe INCOHERENT Verified 12/20/22 09:36 Sulfa (Sulfonamide AdvReac Mild VOMITING Verified 12/20/22 09:36 Antibiotics) amitriptyline AdvReac Unknown VOMITING Verified 12/20/22 09:36 codeine AdvReac Unknown DEPTH Verified 12/20/22 09:36 PERCEPTION LOSS metformin AdvReac Unknown VOMITING Verified 12/20/22 09:36 morphine AdvReac Unknown ITCHING Verified 12/20/22 09:36 Review of Systems Review of Systems: CONSTITUTIONAL: Denies fever, chills, or sweats. EYES:Reports thick yellow/green drainage from the right eye. Reports redness to the right eye. Denies pruritis and pain in right eye. Denies visual disturbance ENT: Reports a small amount of blood from the left ear. Reports left-sided otalgia. Denies tinnitus or hearing loss. Denies sore throat and nasal congestion. CARDIOVASCULAR: Denies chest pain, palpitations, or edema. RESPIRATORY: Denies cough or dyspnea. GASTROINTESTINAL: Denies abdominal pain, nausea, vomiting, or diarrhea. GENITOURINARY: Denies dysuria or hematuria. SKIN: Denies rash or itching. MUSCULOSKELETAL: Denies back pain, joint pain, or myalgia. NEUROLOGIC: Denies headache, numbness, dizziness, or weakness. PSYCHIATRIC: Denies anxiety or depression. [facility] Past Medical History Medical History Anxiety Asthma Back pain Bipolar 1 disorder Cancer Follicular Lymphoma Chronic low back pain Cranial nerve palsy right Environmental allergies Essential (primary) hypertension Fibromyalgia Patient's sister states patient does not have fibromyalgia Genital herpes GERD without esophagitis HPV (human papilloma virus) infection Hypokalemia IBS (irritable colon syndrome) Lupus Patient's sister states patient does not have Lupus Missed x 3 Multiple sclerosis Patient's sister states patient does not have MS Otitis media of left ear with rupture of tympanic membrane Seizure Stroke 01/23/2022 Surgical History Surgical History History of dilat
== END 2022-12-20 10:04 | disposition home or self-care (01) ==
PROVIDERS: Emergency Provider Nurse Practitioner; PCP Family Medicine
DX: H66.92 Otitis media, unspecified, left ear (principal); H72.92 Unspecified perforation of tympanic membrane, left ear; H10.31 Unspecified acute conjunctivitis, right eye; Z72.0 Tobacco use; F12.90 Cannabis use, unspecified, uncomplicated; J45.909 Unspecified asthma, uncomplicated; I10 Essential (primary) hypertension; K21.9 Gastro-esophageal reflux disease without esophagitis; Z86.73 Personal history of transient ischemic attack (TIA), and cerebral infarction without residual deficits; F31.9 Bipolar disorder, unspecified; F41.9 Anxiety disorder, unspecified; Z79.82 Long term (current) use of aspirin
CPT/HCPCS: 99213; G0463

== ENCOUNTER 2022-12-24 10:23 | Outpatient (CLI) | payer MEDICARE, MEDICAID, SELFPAY ==
--- NOTE | ~2022-12-24 | MR_ITS ---
EXAMINATION: MR thoracic spine wo con DATE: 12/24/2022 11:24 INDICATION: Thoracic radiculopathy. TECHNIQUE: Magnetic resonance imaging (MRI) of the thoracic spine was performed without intravenous c ontrast. Sagittal localizer T1-weighted FSE of the cervical spine was obtained. Thoracic spine sequen dee dee included sagittal T2-weighted FSE, sagittal T1-weighted FSE, sagittal T2-weighted FS FSE, and axi al T2-weighted FSE. COMPARISON: None FINDINGS: There is 7 degrees levocurvature of thoracic spine. Vertebral body heights are normal. Inte rvertebral disc heights are normal. The discs do not extend beyond the endplate margins. There is mul tilevel facet joint osteoarthritis, severe on the right at T11-T12. On the right, there is mild neura l foraminal stenosis at T11-T12. On the left, there is mild neural foraminal stenosis at T11-T12. No central canal stenosis. The spinal cord signal intensity is normal. The conus medullaris is at L1-L2. There are cysts in left kidney measuring up to 2.0 cm. IMPRESSION: 1. Mild thoracic spondylosis. Reviewed, dictated and finalized at location A.
== END 2022-12-24 10:24 | disposition home or self-care (01) ==
PROVIDERS: PCP Family Medicine; Visit Provider Nurse Practitioner Family
DX: M47.894 Other spondylosis, thoracic region (principal)
CPT/HCPCS: 72146

== ENCOUNTER 2023-01-08 10:14 | Outpatient (CLI) | payer MEDICARE, MEDICAID, SELFPAY ==
--- NOTE | ~2023-01-08 | CT_ITS ---
Non-contrast Head CT History: Visual disturbance COMPARISON: 09/08/2021 Technique: Axial non-contrast imaging of the brain was performed. Dose reduction technique was used on this scan by utilizing automated exposure control and iterative reconstruction technique. The dose -length product (DLP) was 605.33 mGy-cm. Findings: There is no evidence of intracranial hemorrhage, mass lesion, or acute infarct. Brain par enchyma appears normal. The ventricles and subarachnoid spaces are normal in size. The calvarium ap pears normal. The visualized paranasal sinuses and mastoid air cells are clear. Impression: No significant abnormality seen. Reviewed, dictated and finalized at location . Impression: No significant abnormality seen.
== END 2023-01-08 10:15 | disposition home or self-care (01) ==
PROVIDERS: PCP Family Medicine; Visit Provider Nurse Practitioner Family
DX: H53.9 Unspecified visual disturbance (principal)
CPT/HCPCS: 70450

== ENCOUNTER 2023-01-13 09:25 | Emergency (ER) | payer MEDICARE, MEDICAID, SELFPAY ==
[2023-01-13] VITALS (24 sets, daily range): BP systolic 82–139; BP diastolic 48–91; PULSE 69–86; RESP 12–19; TEMP 36.4–36.5; O2SAT 93–100
[2023-01-13 09:51] LABS: Glucose Point of Care > 500 mg/dl (65-105)
[2023-01-13 10:20] LABS: Appearance Urine Clear (Clear); Bilirubin Urine Negative (Negative); Blood Urine Negative (Negative); Color Urine Yellow (Yellow); Glucose Urine UA 3+ mg/dL (Negative); Ketones Urine Negative (Negative); Leukocyte Esterase Ur Negative LEU/UL (Negative); Nitrate Urine Negative (Negative); Protein Urine Negative (Negative); Specific Grav Ur 1.023 (1.001-1.035); Urobilinogen Urine 0.2 mg/dL (<2.0); pH Urine 6.5 (5.0-9.0)
[2023-01-13 10:26] LABS: Add Urine Microscopic? NO
[2023-01-13 10:57] LABS: Basophils Absolute Auto 0.1 K/mm3 (0.0-0.1); Basophils Percent Auto 0.9 % (0.2-1.2); Eosinophils Absolute Auto 0.2 K/mm3 (0-0.3); Eosinophils Percent Auto 2.3 % (0-4.4); Hematocrit 44.9 % (37.0-47.0); Hemoglobin 14.2 g/dL (12.0-15.0); Immature Granulocyte Absolute 0.01 K/mm3 (0.00-0.031); Immature Granulocyte Percent A 0.2 % (0-0.5); Lymphocytes Absolute Auto 2.03 K/mm3 (0.9-3.2); Lymphocytes Percent Auto 31.6 % (18.3-44.2); Mean Corpuscular HGB Conc 31.6 g/dl (32-36); Mean Corpuscular Hemoglobin 28.8 pg (26-34); Mean Corpuscular Volume 91.1 fl (80-100); Mean Platelet Volume 10.3 fl (7.4-10.4); Monocytes Absolute Auto 0.5 K/mm3 (0.1-0.6); Monocytes Percent Auto 7.6 % (2.6-8.5); Neutrophils Absolute Auto 3.7 K/mm3 (1.3-6.7); Neutrophils Percent Auto 57.4 % (45.5-73.1); Platelet Count Result 179 k/mm3 (150-375); Red Blood Count 4.93 M/mm3 (4.2-5.4); Red Cell Distribution Width 13.2 % (11.5-14.5); White Blood Count 6.4 K/mm3 (4.5-10.0)
[2023-01-13] MEDS: SODIUM CHLORIDE 0.9% IV 1,000 ML 999 ML IV CONT (10:59)
[2023-01-13 11:10] LABS: Alanine Aminotransferase 35 U/L (6-35); Albumin Level 3.8 g/dL (3.5-5.1); Alkaline Phosphatase 149 U/L (38-126); Anion Gap 5 mmol/L (8-16); Aspartate Amino Transferase 29 U/L (14-36); Bilirubin,Total 0.4 mg/dL (0.2-1.3); Blood Urea Nitrogen 22 mg/dL (7-17); Calcium 9.2 mg/dL (8.4-10.2); Carbon Dioxide 32 mmol/L (22-30); Chloride 96 mmol/L (98-107); Estimated CRCL calculation 72 ml/min; Estimated Glomerular Filt Rate > 60; Glucose 464 mg/dL (65-110); Magnesium 2.1 mg/dL (1.6-2.3); Potassium 3.9 mmol/L (3.4-5.0); Sodium 133 mmol/L (137-145)
[2023-01-13 11:15] LABS: Beta-Hydroxybutyrate/Acetoacetate 0.05 mmol/L (0.02-0.27)
--- NOTE | 2023-01-13 11:30 | ED.GENADULT ---
HPI - General Adult General Chief complaint: Recheck/Abnormal Lab/Rx Stated complaint: Elv. Blood sugar Time Seen by Provider: 01/13/23 09:53 History of Present Illness HPI narrative: 57-year-old female presented the emergency department for evaluation of hyperglycemia. Patient has recently stopped her Ozempic and has been having her insulin increased. Patient does have a glucose monitor and this has been reading as high. Patient did have a recent ear infection with tympanic membrane rupture and complete her antibiotics and has been having follow-up with ENT. Patient denies any other current or recent infections. Patient was somnolent upon arrival but is alert and appropriate. Related Data Home Medications Medication Instructions Recorded Confirmed aripiprazole 10 mg tablet 10 mg PO DAILY 03/16/19 12/29/22 aspirin 81 mg tablet,delayed 81 mg PO DAILY 03/16/19 12/29/22 release cyclobenzaprine 10 mg tablet 10 mg PO TID PRN Muscle Pain 03/16/19 12/29/22 mirtazapine 45 mg tablet 45 mg PO DAILY 03/16/19 12/29/22 lamotrigine 100 mg tablet 100 mg PO DAILY 09/09/21 12/29/22 hydroxyzine pamoate 50 mg capsule 50 mg PO TID PRN Allergy Symptoms 09/11/21 12/29/22 propranolol 10 mg tablet 10 mg PO DAILY anxiety 09/11/21 12/29/22 quetiapine 300 mg tablet 600 mg PO QHS 09/11/21 12/29/22 vilazodone 40 mg tablet (Viibryd) 40 mg PO QAM 09/11/21 12/29/22 blood-glucose meter,continuous 05/21/22 12/29/22 potassium chloride 20 mEq 20 meq PO DAILY 08/11/22 12/29/22 tablet,extended release Allergies Allergy/AdvReac Type Severity Reaction Status Date / Time adhesive tape Allergy Unknown RASH Verified 01/13/23 09:39 latex Allergy Unknown RASH-GLOVES Verified 01/13/23 09:39 bupropion AdvReac Severe INCOHERENT Verified 01/13/23 09:39 Sulfa (Sulfonamide AdvReac Mild VOMITING Verified 01/13/23 09:39 Antibiotics) amitriptyline AdvReac Unknown VOMITING Verified 01/13/23 09:39 codeine AdvReac Unknown DEPTH Verified 01/13/23 09:39 PERCEPTION LOSS metformin AdvReac Unknown VOMITING Verified 01/13/23 09:39 morphine AdvReac Unknown ITCHING Verified 01/13/23 09:39 Review of Systems Review of Systems: All systems reviewed & are unremarkable except as noted in HPI and below PMFSH Past Medical History Medical History Anxiety Asthma Back pain Bipolar 1 disorder Cancer Follicular Lymphoma Chronic low back pain Cranial nerve palsy right Environmental allergies Essential (primary) hypertension Fibromyalgia Patient's sister states patient does not have fibromyalgia Genital herpes GERD without esophagitis HPV (human papilloma virus) infection Hypokalemia IBS (irritable colon syndrome) Lupus Patient's sister states patient does not have Lupus Missed x 3 Multiple sclerosis Patient's sister states patient does not have MS Otitis media of left ear with rupture of tympanic membrane Seizure Stroke 01/23/2022 Surgical History Surgical History History of dilation and curettage History of hysterectomy, supracervical Hx of appendectomy Family History Family History Father Blood clot in vein Other ADD (attention deficit disorder) Alcoholism Anxiety Arthritis Asthma Back pain COPD (chronic obstructive pulmonary disease) Cancer Carotid artery disease Cerebrovascular accident Depression Diabetes mellitus Family history of alcoholism Family history of allergic disorder Family history of malignant neoplasm of breast in first degree relative Family history of mental disorder Migraines Obesity Psychiatric problem Social History Social History Social History: 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 She uses medical marijuana with her PCP Caffeine-daily [place]
[2023-01-13 11:37] LABS: Glucose Point of Care 403 mg/dl (65-105)
[2023-01-13] MEDS: INSULIN HUMAN REGULAR (*BKC) 100 UNITS/ML 9 UNITS IV PUSH (11:39)
[2023-01-13 12:07] LABS: Glucose Point of Care 287 mg/dl (65-105)
[2023-01-13 13:46] LABS: Glucose Point of Care 156 mg/dl (65-105)
== END 2023-01-13 14:56 | disposition home or self-care (01) ==
PROVIDERS: Emergency Provider Emergency Medicine; PCP Family Medicine
DX: E11.65 Type 2 diabetes mellitus with hyperglycemia (principal); J45.909 Unspecified asthma, uncomplicated; I10 Essential (primary) hypertension; M79.7 Fibromyalgia; K21.9 Gastro-esophageal reflux disease without esophagitis; K58.9 Irritable bowel syndrome, unspecified; F31.9 Bipolar disorder, unspecified; F41.9 Anxiety disorder, unspecified; F17.210 Nicotine dependence, cigarettes, uncomplicated; Z86.73 Personal history of transient ischemic attack (TIA), and cerebral infarction without residual deficits; Z90.710 Acquired absence of both cervix and uterus; Z79.4 Long term (current) use of insulin; Z79.82 Long term (current) use of aspirin
CPT/HCPCS: 36415; 80053; 81003; 81025; 82010; 82948; 83735; 84100; 85025; 96361; 96374; 99284; J1815; J7030

== ENCOUNTER 2023-03-05 08:58 | Outpatient (CLI) | payer MEDICARE, MEDICAID, SELFPAY ==
[2023-03-05 18:41] LABS: Cholesterol 226 mg/dL (0-200); HDL Direct 64 mg/dL; Triglycerides 96 mg/dL (<150)
[2023-03-05 18:52] LABS: LDL Cholesterol Direct 140 mg/dL
== END 2023-03-05 08:59 | disposition home or self-care (01) ==
LOC: ANHGOSHLAB 09:00
PROVIDERS: PCP Family Medicine; Visit Provider Internal Medicine Cardiovascular Disease
DX: E78.5 Hyperlipidemia, unspecified (principal)
CPT/HCPCS: 36415; 80061

== ENCOUNTER 2023-03-31 09:00 | Outpatient (CLI) | payer MEDICARE, MEDICAID, SELFPAY ==
[2023-03-31 14:41] LABS: Alanine Aminotransferase 31 U/L (6-35); Albumin Level 4.2 g/dL (3.5-5.1); Alkaline Phosphatase 230 U/L (38-126); Anion Gap 8 mmol/L (8-16); Aspartate Amino Transferase 28 U/L (14-36); Bilirubin,Total 0.6 mg/dL (0.2-1.3); Blood Urea Nitrogen 20 mg/dL (7-17); Calcium 9.4 mg/dL (8.4-10.2); Carbon Dioxide 31 mmol/L (22-30); Chloride 99 mmol/L (98-107); Cholesterol 156 mg/dL (0-200); Estimated Glomerular Filt Rate > 60; Glucose 311 mg/dL (65-110); HDL Direct 48 mg/dL; Potassium 4.4 mmol/L (3.4-5.0); Sodium 138 mmol/L (137-145); Triglycerides 96 mg/dL (<150)
[2023-03-31 14:54] LABS: LDL Cholesterol Direct 91 mg/dL
== END 2023-03-31 09:01 | disposition home or self-care (01) ==
PROVIDERS: PCP Family Medicine; Visit Provider Internal Medicine Cardiovascular Disease
DX: E78.5 Hyperlipidemia, unspecified (principal)
CPT/HCPCS: 36415; 80053; 80061

== ENCOUNTER 2023-05-03 19:29 | Observation (INO) | payer MEDICARE, MEDICAID, SELFPAY ==
--- NOTE | ~2023-05-03 | CT_ITS ---
EXAMINATION: CTA brain carotid DATE: 05/03/2023 19:55 INDICATION: right side weakness, code stroke TECHNIQUE: Computed tomographic angiography (CTA) of the head and neck was performed with 100 mL Omni paque-350 intravenous contrast. Automated exposure control and iterative reconstruction technique wer e employed. The dose-length product was 1046.60 mGy-cm. Maximum intensity projection and volume rende red 3D-reconstructions were created by the technologist on a separate workstation. COMPARISON: CT brain, same date; MRI brain 06/23/2022.. FINDINGS: CTA HEAD: No large vessel occlusion, aneurysm, high flow vascular malformation, nidus or extravasation. Symmetr ic parenchymal enhancement. Patent cerebral veins. CTA NECK: Aortic arch and proximal great vessels: Mild arch calcification. Normal arch anatomy. Right common carotid, carotid bifurcation, and internal carotid artery: Calcified plaque at the bifur cation and common carotid.There is 5% stenosis of the proximal right internal carotid artery relative to normal distal artery lumen diameter (NASCET criteria). Left common carotid, carotid bifurcation, and internal carotid artery: No plaque.There is 0% stenosis of the proximal left internal carotid artery relative to normal distal artery lumen diameter (NASCET criteria). Vertebral arteries: No significant plaque or stenosis. Left vertebral artery is dominant. Minimal kapil cifications at the origins. Other findings: Sub-1.5 cm left thyroid nodule requiring no additional evaluation. Scattered sub-6 mm pulmonary nodules. IMPRESSION: No large vessel occlusion. No severe carotid or vertebral artery stenosis. Multiple sub-6 mm pulmonary nodules requiring no additional evaluation unless the patient is at high risk, in which case consider an optional low-dose noncontrast CT of the chest in 12 months. Reviewed, dictated and finalized at location K. E DISCHARGE PLANNER IMPRESSION: No large vessel occlusion. No severe carotid or vertebral artery stenosis. Multiple sub-6 mm pulmonary nodules requiring no additional evaluation unless t he patient is at high risk, in which case consider an optional low-dose noncont rast CT of the chest in 12 months.
--- NOTE | ~2023-05-03 | MR_ITS ---
MRI of the brain Clinical History: Right-sided facial droop, decreased overcaster strength Technique: Axial and sagittal T1-weighted images were acquired. These were followed by axial T2-weigh ninfa, diffusion weighted, gradient, and FLAIR images. Following intravenous administration of 80 cc Mu ltiHance gadolinium, T1-weighted fat-sat imaging was performed in the axial and coronal planes. COMPARISON: 06/23/2022 Findings: There is no acute infarct, intracranial hemorrhage, or mass lesion. There are mild to moder ate chronic white matter lesions in the periventricular white matter bilaterally. Ventricles and subarachnoid spaces are unremarkable. Orbits are unremarkable. Paranasal sinuses and m astoid air cell are clear. Major intracranial flow voids appear intact. Sagittal midline structures are intact. No abnormal postcontrast enhancement identified. IMPRESSION: Mild to moderate chronic white matter disease, likely chronic microvascular ischemic change. Correlat e for any possibility of demyelinating disease. No acute infarct, internal hemorrhage, or mass lesion. Reviewed, dictated and finalized at location M. TRIC OPERATOR IMPRESSION: Mild to moderate chronic white matter disease, likely chronic microvascular isc hemic change. Correlate for any possibility of demyelinating disease. No acute infarct, internal hemorrhage, or mass lesion.
--- NOTE | ~2023-05-03 | XR_ITS ---
EXAMINATION: XR chest 1V portable Exam Date/Time: 05/03/2023 20:00 PLASTIC EXTRUDING MACHINE OPERATOR HISTORY: code stroke, right side weakness Comparison: 08/28/2020. RESULT: Lines, tubes, and devices: None. Lungs and pleura: Clear. Cardiomediastinal silhouette: Stable. Other: No acute osseous or upper abdominal finding. IMPRESSION: No acute cardiopulmonary process. Reviewed, dictated and finalized at location K. TIC EXTRUDING MACHINE OPERATOR
--- NOTE | ~2023-05-03 | CT_ITS ---
EXAMINATION: CT brain wo con DATE: 05/03/2023 19:43 INDICATION: code stroke, right side weakness . TECHNIQUE: Computed tomography (CT) of the head was performed without intravenous contrast. The mA wa s adjusted according to patient size. Iterative reconstruction technique was employed. The dose-lengt h product was 605.33 mGy-cm. COMPARISON: 01/08/2023 and 09/08/2021; MRI brain 06/23/2022. FINDINGS: No acute intracranial hemorrhage or extra-axial fluid collection. No hydrocephalus, mass, or herniation. No acute ischemic infarct. Unremarkable dural venous sinus attenuation. No acute osseous abnormality. The aerated spaces are clear. Mild scattered chronic white matter change. 9 mm CSF density lesion in the right posterior basal gang dejon, may represent old lacunar infarct or prominent Virchow Covarrubias space/sulcus. IMPRESSION: No acute intracranial process. Results reported telephonically to Dr. Greene by Dr. Urbano at 7:48 PM on 05/03/2023. Reviewed, dictated and finalized at location K. IR WELDER IMPRESSION: No acute intracranial process. Results reported telephonically to Dr. Greene by Dr. Urbano at 7:48 PM on 05/03.
--- NOTE | 2023-05-03 19:38 | ECG_ITS ---
Measurements Intervals Chauncey Rate: 79 P: 55 DC: 194 QRS: -2 QRSD: 103 T: 34 QT: 425 QTc: 488 Interpretive Statements SINUS RHYTHM LOW QRS VOLTAGE IN PRECORDIAL LEADS BORDERLINE R WAVE PROGRESSION, ANTERIOR LEADS BORDERLINE T WAVE ABNORMALITY- ANT/INF LEADS BORDERLINE ECG COMPARED TO ECG 09/08/2021 15:01:31 SINUS RHYTHM NOW PRESENT Electronically Signed On 05-04-2023 7:28:00 [employer] MANAGER by Sterling Penaloza D.O.
--- NOTE | 2023-05-03 19:38 | ED.NEUROSD ---
HPI - Neuro Symptoms/Deficit General Chief Complaint: Suspected CVA Stated Complaint: code stroke Time Seen by Provider: 05/03/23 19:36 History of Present Illness HPI Narrative: Patient is a 49-year-old female presenting as a code stroke. Patient states that approximately 1 hour ago she was having difficulty using her right hand. Then she noticed a right-sided facial droop so she called EMS. She continues to feel somewhat weak in the right arm. States that she had a stroke over the summer that was diagnosed by her eye doctor after she started seeing double. Denies weakness in her legs. No dysarthria or aphasia. No vision changes today. No further complaints. Related Data Home Medications Medication Instructions Recorded Confirmed aripiprazole 10 mg tablet 10 mg PO DAILY 03/16/19 05/03/23 cyclobenzaprine 10 mg tablet 10 mg PO TID PRN Muscle Pain 03/16/19 05/03/23 mirtazapine 45 mg tablet 45 mg PO DAILY 03/16/19 05/03/23 lamotrigine 100 mg tablet 100 mg PO DAILY 09/09/21 05/03/23 hydroxyzine pamoate 50 mg capsule 50 mg PO TID PRN Allergy Symptoms 09/11/21 05/03/23 propranolol 10 mg tablet 10 mg PO DAILY anxiety 09/11/21 05/03/23 quetiapine 300 mg tablet 600 mg PO QHS 09/11/21 05/03/23 vilazodone 40 mg tablet (Viibryd) 40 mg PO QAM 09/11/21 05/03/23 insulin regular hum U-500 conc 500 80 unit subcut QAM 04/28/23 05/04/23 unit/mL(3 mL) subcut pen insulin regular hum U-500 conc 500 30 unit subcut BIDWMEAL 05/04/23 05/04/23 unit/mL(3 mL) subcut pen (Humulin R U-500 (Conc) Insulin Kwikpen) Allergies Allergy/AdvReac Type Severity Reaction Status Date / Time adhesive tape Allergy Unknown RASH Verified 05/03/23 23:29 latex Allergy Unknown RASH-GLOVES Verified 05/03/23 23:29 bupropion AdvReac Severe INCOHERENT Verified 05/03/23 23:29 Sulfa (Sulfonamide AdvReac Mild VOMITING Verified 05/03/23 23:29 Antibiotics) amitriptyline AdvReac Unknown VOMITING Verified 05/03/23 23:29 codeine AdvReac Unknown DEPTH Verified 05/03/23 23:29 PERCEPTION LOSS metformin AdvReac Unknown VOMITING Verified 05/03/23 23:29 morphine AdvReac Unknown ITCHING Verified 05/03/23 23:29 Review of Systems Review of Systems: All systems reviewed & are unremarkable except as noted in HPI and below PMFSH Past Medical History Medical History (Updated 05/04/23 @ 13:54 by AMITA Harper) Anxiety Asthma Atypical mole Back pain Bipolar 1 disorder Cancer Follicular Lymphoma Chronic low back pain Cranial nerve palsy right Environmental allergies Essential (primary) hypertension Fibromyalgia Patient's sister states patient does not have fibromyalgia Fungal skin infection Genital herpes GERD without esophagitis HPV (human papilloma virus) infection Hypokalemia IBS (irritable colon syndrome) Lung nodules Lupus Patient's sister states patient does not have Lupus Missed x 3 Multiple sclerosis Patient's sister states patient does not have MS Otitis media of left ear with rupture of tympanic membrane Seizure Stroke 01/23/2022 Surgical History Surgical History H/O colonoscopy Jan 2023 History of dilation and curettage History of hysterectomy, supracervical Hx of appendectomy Family History Family History (Updated 05/03/23 @ 23:39 by Papo Smith RN) Father Blood clot in vein Alcoholism Carotid artery disease Cerebrovascular accident Other ADD (attention deficit disorder) Family history of malignant neoplasm of breast in first degree relative Mother Anxiety Sibling Anxiety Arthritis Asthma COPD (chronic obstructive pulmonary disease) Depression Sibling Anxiety Depression Sibling Anxiety Depression Sibling Anxiety Depression Grandparent Arthritis Social History Social History Social History: 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 She uses medic
[2023-05-03 19:49] LABS: Basophils Absolute Auto 0.1 K/mm3 (0.0-0.1); Basophils Percent Auto 0.8 % (0.2-1.2); Eosinophils Absolute Auto 0.4 K/mm3 (0-0.3); Eosinophils Percent Auto 4.3 % (0-4.4); Hematocrit 42.3 % (37.0-47.0); Hemoglobin 13.7 g/dL (12.0-15.0); Immature Granulocyte Absolute 0.02 K/mm3 (0.00-0.031); Immature Granulocyte Percent A 0.2 % (0-0.5); Lymphocytes Absolute Auto 2.59 K/mm3 (0.9-3.2); Lymphocytes Percent Auto 28.9 % (18.3-44.2); Mean Corpuscular HGB Conc 32.4 g/dl (32-36); Mean Corpuscular Volume 86.5 fl (80-100); Mean Platelet Volume 10.4 fl (7.4-10.4); Monocytes Absolute Auto 0.6 K/mm3 (0.1-0.6); Monocytes Percent Auto 7.1 % (2.6-8.5); Neutrophils Absolute Auto 5.3 K/mm3 (1.3-6.7); Neutrophils Percent Auto 58.7 % (45.5-73.1); Platelet Count Result 191 k/mm3 (150-375); Red Blood Count 4.89 M/mm3 (4.2-5.4); Red Cell Distribution Width 13.3 % (11.5-14.5)
[2023-05-03 19:57] VITALS: BP 113/58; PULSE 80; RESP 14; TEMP 37; O2SAT 94
[2023-05-03 19:59] LABS: Estimated Glomerular Filt Rate > 60
[2023-05-03 20:00] VITALS: BP 112/56; PULSE 79; RESP 18; TEMP 37; O2SAT 97
[2023-05-03 20:00] LABS: Alanine Aminotransferase 32 U/L (6-35); Albumin Level 3.7 g/dL (3.5-5.1); Alkaline Phosphatase 155 U/L (38-126); Anion Gap 9 mmol/L (8-16); Aspartate Amino Transferase 30 U/L (14-36); Bilirubin,Total 0.4 mg/dL (0.2-1.3); Blood Urea Nitrogen 13 mg/dL (7-17); Calcium 8.9 mg/dL (8.4-10.2); Carbon Dioxide 27 mmol/L (22-30); Chloride 103 mmol/L (98-107); Estimated Glomerular Filt Rate > 60; Glucose 99 mg/dL (65-110); Potassium 2.9 mmol/L (3.4-5.0); Sodium 139 mmol/L (137-145)
[2023-05-03 20:02] LABS: Partial Thromboplastin Time 22.4 SECONDS (22.3-36.8)
[2023-05-03 20:08] VITALS: BP 112/56; PULSE 82; RESP 17; O2SAT 97
[2023-05-03 20:11] LABS: Troponin I < 0.012 ng/mL (0.000-0.034)
[2023-05-03 20:58] LABS: Glucose Point of Care 59 mg/dl (65-105)
--- NOTE | 2023-05-03 21:00 | PC.NURSE ---
RN was notified by Dr. Greene that the pt told her she felt like her blood sugar was dropping due to her taking insulin prior to calling EMS. Pt blood glucose found to be 59. Given apple juice, crackers, and peanut butter at this time.
[2023-05-03] MEDS: POTASSIUM CHLORIDE INJ 40 MEQ in SODIUM CHLORIDE 0.9% IV 500 ML 130 MEQ IVPB (21:05)
[2023-05-03 21:09] VITALS: BP 131/77; PULSE 80; RESP 15; O2SAT 95
[2023-05-03 21:59] LABS: Appearance Urine Clear (Clear); Bacteria Urine Rare /hpf; Bilirubin Urine Negative (Negative); Blood Urine Negative (Negative); Color Urine Yellow (Yellow); Glucose Urine UA Negative (Negative); Ketones Urine Negative (Negative); Leukocyte Esterase Ur 1+ LEU/UL (Negative); Nitrate Urine Negative (Negative); Non Pathogenic Casts 0-2; Protein Urine Negative (Negative); RBC Urine 0-2 /hpf (0-2); Squamous Epithelial Cell Urine Moderate /hpf (Few); Urobilinogen Urine 0.2 mg/dL (<2.0)
[2023-05-03 22:08] LABS: Specific Grav Ur 1.056 (1.001-1.035)
[2023-05-03 22:09] LABS: Add Urine Microscopic? YES
[2023-05-03 22:11] LABS: Amphetamine Screen Urine Negative (Negative); Barbiturate Screen Urine Negative (Negative); Benzodiazepines Screen Urine Negative (Negative); Cannabinoid Screen Urine Positive (Negative); Cocaine Screen Urine Negative (Negative); Methadone Screen Urine Negative (Negative); Opiate Screen Urine Negative (Negative); Phencyclidine Screen Urine Negative (Negative)
[2023-05-03 22:32] LABS: Glucose Point of Care 132 mg/dl (65-105)
--- NOTE | 2023-05-03 22:52 | PC.NURSE ---
Called to give report to RN. RNs unavailable. Awaiting call back
[2023-05-03 23:01] VITALS: BP 113/57; PULSE 83; RESP 15; O2SAT 98
--- NOTE | 2023-05-03 23:20 | ADMGEN ---
This patient, Evangelina Lovelace, was admitted to Medical Room 344-01. Patient/family oriented to hospital policies and general routines including ID bracelet, bed and alarms, visiting hours, pain management, procedures, bathroom and other care routines, personal items, smoking policy, room service/diet, and visiting hours. Information on how to activate the Rapid Response Team has been discussed. Patient/Family are encouraged to report perceived risks to care and to ask questions if they do not understand what they are told or what they should do.
--- NOTE | 2023-05-03 23:30 | PM.IMHP ---
H&P: HPI History of Present Illness Date/Time: 05/03/23 23:30 Chief Complaint: He patient brought to the ER for evaluation due to right-sided weakness and facial droop since 6:30 p.m. Narrative: Very pleasant lady who was at home when she started having right-sided weakness and facial droop around 6:30 p.m. She also had some difficulty using her right hand. She has a history of stroke in October 2022 that for diagnosed by eye doctor due to blurred and double vision. EMS was called and she was brought to the ER for evaluation. Workup was done which showed mild right facial droop and mild weakness in the right arm. Neurology was consulted as well as the stroke team. Possibility of administering tPA was discussed with the patient given mild weakness of the right which she refused as her symptoms were neither disabling nor distressing. She also was found to be hypoglycemic and hypokalemic which are being addressed. She is being placed under observation status for close monitoring, neurology evaluation and further workup. Review of Systems Review of Systems: 14 systems were reviewed with pertinent positives and negatives per HPI. Except as documented in the HPI/progress notes, all other systems were reviewed and are negative. All systems reviewed & are unremarkable except as noted in HPI and below PMFSH Past Medical History Medical History (Updated 05/03/23 @ 23:45 by Mckay Corado MD) Anxiety Asthma Atypical mole Back pain Bipolar 1 disorder Cancer Follicular Lymphoma Chronic low back pain Cranial nerve palsy right Environmental allergies Essential (primary) hypertension Fibromyalgia Patient's sister states patient does not have fibromyalgia Fungal skin infection Genital herpes GERD without esophagitis HPV (human papilloma virus) infection Hypokalemia IBS (irritable colon syndrome) Lung nodules Lupus Patient's sister states patient does not have Lupus Missed x 3 Multiple sclerosis Patient's sister states patient does not have MS Otitis media of left ear with rupture of tympanic membrane Seizure Stroke 01/23/2022 Surgical History Surgical History H/O colonoscopy Jan 2023 History of dilation and curettage History of hysterectomy, supracervical Hx of appendectomy Family History Family History (Updated 05/03/23 @ 23:39 by Papo Smith RN) Father Blood clot in vein Alcoholism Carotid artery disease Cerebrovascular accident Other ADD (attention deficit disorder) Family history of malignant neoplasm of breast in first degree relative Mother Anxiety Sibling Anxiety Arthritis Asthma COPD (chronic obstructive pulmonary disease) Depression Sibling Anxiety Depression Sibling Anxiety Depression Sibling Anxiety Depression Grandparent Arthritis Social History Social History Social History: 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 She uses medical marijuana with her PCP Caffeine-daily Smoking packs per day: 2 Smoking cigarettes per day: 40.0 Years smoked: 33 Smoking pack-years: 66.00 Smoking status: Current every day smoker Tobacco type: cigarettes Second hand tobacco smoke exposure: No Smoking end date: 05/03/13 Additional smoking assessment comments: smokes seldom at current date Alcohol intake: current Alcohol use details: rare use Substance use: current Substance use type: marijuana Other substance usage details: medical marijuana card Do You Feel Safe in your Home?: Yes Lack of Transportation: No Lack of Food: Never True Current Housing: I Have Housing Concerned About Future Housing: No Difficulty Paying Gas/Electric Bills: Decline to Answer Difficulty Paying for Meds: YES Currently Unemployed: No Education: Trade/Vocational Certificate Difficulty w/ Childcare or Family Care: No Living a
[2023-05-03 23:33] VITALS: BMI 36.5
[2023-05-04] VITALS (8 sets, daily range): BP systolic 125–151; BP diastolic 52–94; PULSE 87–95; RESP 18–20; TEMP 36.1–36.7; O2SAT 93–99; BMI 36.5
[2023-05-04 00:36] LABS: Thyroid Stimulating Hormone Reflex 0.808 uIU/mL (0.465-4.68)
--- NOTE | 2023-05-04 01:13 | PC.NURSE ---
Pt doesnt have a med list w her. She states she takes concentrated 500u insulin of 80u in the am and 30u before lunch and dinner. These orders are unusual and Dr. Ugalde
--- NOTE | 2023-05-04 01:16 | PC.NURSE ---
pt doesnt have med list and states she takes 500u concentrated insulin. 80u in the am and 30u for lunch and dinner. Dr. Corado asks we confirm w her physician cause the dose is unusual.
[2023-05-04 05:50] LABS: Basophils Absolute Auto 0.1 K/mm3 (0.0-0.1); Basophils Percent Auto 1.1 % (0.2-1.2); Eosinophils Absolute Auto 0.3 K/mm3 (0-0.3); Eosinophils Percent Auto 4.7 % (0-4.4); Hematocrit 42.4 % (37.0-47.0); Hemoglobin 13.4 g/dL (12.0-15.0); Immature Granulocyte Absolute 0.03 K/mm3 (0.00-0.031); Immature Granulocyte Percent A 0.4 % (0-0.5); Lymphocytes Absolute Auto 2.08 K/mm3 (0.9-3.2); Lymphocytes Percent Auto 28.7 % (18.3-44.2); Mean Corpuscular HGB Conc 31.6 g/dl (32-36); Mean Corpuscular Hemoglobin 27.3 pg (26-34); Mean Corpuscular Volume 86.5 fl (80-100); Mean Platelet Volume 10.3 fl (7.4-10.4); Monocytes Absolute Auto 0.5 K/mm3 (0.1-0.6); Monocytes Percent Auto 6.5 % (2.6-8.5); Neutrophils Absolute Auto 4.2 K/mm3 (1.3-6.7); Neutrophils Percent Auto 58.6 % (45.5-73.1); Platelet Count Result 189 k/mm3 (150-375); Red Cell Distribution Width 13.4 % (11.5-14.5); White Blood Count 7.2 K/mm3 (4.5-10.0)
[2023-05-04 06:02] LABS: Anion Gap 7 mmol/L (8-16); Blood Urea Nitrogen 9 mg/dL (7-17); Calcium 8.6 mg/dL (8.4-10.2); Carbon Dioxide 25 mmol/L (22-30); Chloride 105 mmol/L (98-107); Estimated CRCL calculation 94 ml/min; Estimated Glomerular Filt Rate > 60; Glucose 135 mg/dL (65-110); Magnesium 1.9 mg/dL (1.6-2.3); Phosphorus 3.4 mg/dL (2.5-4.5); Potassium 3.1 mmol/L (3.4-5.0); Sodium 137 mmol/L (137-145)
[2023-05-04] MEDS: MIRTAZAPINE 15 MG TABLET 45 MG PO (08:42)
[2023-05-04 08:43] LABS: Glucose Point of Care 217 mg/dl (65-105)
[2023-05-04] MEDS: PROPRANOLOL HCL 10 MG TABLET PO (08:43)
[2023-05-04] MEDS: GABAPENTIN 300 MG CAPSULE PO ×2 (08:43→13:06)
[2023-05-04] MEDS: ATORVASTATIN 40 MG TABLET 80 MG PO (08:43)
[2023-05-04] MEDS: MICONAZOLE NITRATE 2% CREAM 30 GM TUBE 1 APPLIC TOPICAL (08:44)
[2023-05-04] MEDS: lamoTRIgine 100 MG TABLET PO (08:44)
[2023-05-04] MEDS: ARIPiprazole 10 MG TABLET PO (08:44)
[2023-05-04] MEDS: INSULIN ASPART (*BKC) 100 UNITS/ML SUB-Q ×2 (08:48→12:22)
[2023-05-04] MEDS: PANTOPRAZOLE 40 MG TABLET PO (08:48)
[2023-05-04] MEDS: POTASSIUM CHLORIDE 20 MEQ PACKET (FOR LIQUID) 40 MEQ PO (08:48)
--- NOTE | 2023-05-04 09:54 | WPDNEURCNPN ---
Assessment and Plan Assessment and plan (1) Stroke-like symptoms: Code(s): R29.90 - Unspecified symptoms and signs involving the nervous system Status: Acute Plan peripheral 7th nerve palsy versus the possibility of brainstem stroke patient is going to have the MRI in the meantime treatment will be continued as such. Consult date: 05/04/23 HPI: Evangelina Lovelace is a 57 year old female admitted to the hospital through the emergency room where she presented as a code stroke and with information that about [id number] ago she was having difficulties in using her right hand followed by right-sided facial droop when she called the EMS she continued to feel somewhat weak in the right upper extremity and also mentioned that she has had a stroke over the summer when she was diagnosed by her eye doctor after she started having double vision. She gave no history of weakness in the lower extremities, no history of dysarthria or dysphagia, she has history of taking multiple medications which include Abilify 10mg daily, Flexeril 10mg 3 times a day, mirtazapine 45mg daily, lamotrigine 100mg daily, Seroquel 300mg 2 of them at night daily, Viibryd 40mg daily, and insulin accordingly. She has multiple allergies as documented. And past history is consistent with multiple problems particularly anxiety, bipolar disorder, seizure disorder, history of stroke, and chronic back pain as well. She is a former smoker. Currently alcohol intake but rarely, currently substance user, having the medical marijuana card, initial exam in the emergency room documented no significant abnormalities except the decreased strength in the right upper extremity and positive right-sided facial droop. Vital signs were normal, CBC was normal, BMP was abnormal with low potassium, and drug screen was positive only for cannabinoids, CT scan of the head was negative for the bleed, head and neck CTA was negative for any occlusion of the large vessel but incidental finding of his multiple sub 6mm pulmonary nodules were noted. [facility] Past Medical History Medical History (Updated 05/03/23 @ 23:45 by Mckay Corado MD) Anxiety Asthma Atypical mole Back pain Bipolar 1 disorder Cancer Follicular Lymphoma Chronic low back pain Cranial nerve palsy right Environmental allergies Essential (primary) hypertension Fibromyalgia Patient's sister states patient does not have fibromyalgia Fungal skin infection Genital herpes GERD without esophagitis HPV (human papilloma virus) infection Hypokalemia IBS (irritable colon syndrome) Lung nodules Lupus Patient's sister states patient does not have Lupus Missed x 3 Multiple sclerosis Patient's sister states patient does not have MS Otitis media of left ear with rupture of tympanic membrane Seizure Stroke 01/23/2022 Surgical History Surgical History H/O colonoscopy Jan 2023 History of dilation and curettage History of hysterectomy, supracervical Hx of appendectomy Family History Family History (Updated 05/03/23 @ 23:39 by Papo Smith RN) Father Blood clot in vein Alcoholism Carotid artery disease Cerebrovascular accident Other ADD (attention deficit disorder) Family history of malignant neoplasm of breast in first degree relative Mother Anxiety Sibling Anxiety Arthritis Asthma COPD (chronic obstructive pulmonary disease) Depression Sibling Anxiety Depression Sibling Anxiety Depression Sibling Anxiety Depression Grandparent Arthritis Social History Social History Social History: 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 She uses medical marijuana with her PCP Caffeine-daily Smoking packs per day: 2 Smoking cigarettes per day: 40.0 Years smoked: 33 Smoking pack-years: 66.00 Smoking status: Current every day smoker Tobacco type:
[2023-05-04 11:43] LABS: Glucose Point of Care 238 mg/dl (65-105)
--- NOTE | 2023-05-04 13:41 | PM.DS ---
DS: Admitting Diagnosis Discharge Date 05/04/2023 Admitting Diagnosis Stroke like symptoms DS: Discharge Diagnosis Discharge Diagnosis (1) Stroke-like symptoms: Code(s): R29.90 - Unspecified symptoms and signs involving the nervous system Status: Acute Assessment and Plan: Pt was examined by Neurology and he believes her to have a 7th cranial nerve palsy. MRI brain without any acute findings. CT brain without any acute findings CTA Head and neck without any acute findings. Neuro advised to discharge on all home medications without any change in regimen. (2) Hypoglycemia: Code(s): E16.2 - Hypoglycemia, unspecified Status: Resolved (3) Type 2 diabetes mellitus with hyperglycemia: Qualifiers: Diabetes mellitus vermin exterminator insulin use: with vermin exterminator use Qualified Code(s): E11.65 - Type 2 diabetes mellitus with hyperglycemia; Z79.4 - FPC (current) use of insulin Code(s): E11.65 - Type 2 diabetes mellitus with hyperglycemia Status: Chronic Assessment and Plan: COntinue all home medications (4) Bipolar 1 disorder: Code(s): F31.9 - Bipolar disorder, unspecified Status: Chronic Assessment and Plan: Continue all home medications DS: Summary Hospital Course Reason for hospitalization: Stroke like symptoms Hospital Course: This 57 year old female pt with PMH significant of CVA in 2021 and also in 10/2022 was admitted to the hospital overnight for monitoring and for Neurology evaluation with a suspected new CVA. She has concomitant dx of Asthma, anxiety, Bipolar disorder, Lymphoma, CN6 palsy, HTN, Fibromyalgia, GERD and HPV. The pt presented yesterday with concern for possible CVA, but all workup and Neurological evaluation has been benign. Per Neurology, Dr. Lynch, it is OK to discharge with no change in medications. She can follow up in his office. Status at Discharge Cognitive/behavioral status at discharge: At baseline Functional status at discharge: independent ambulation Overall status at discharge: patient is back to baseline Time Spent with Patient Time attestation: Total time spent providing and/or coordinating discharge services: Time spent: Greater than 30 minutes Specific discharge activities: Follow up planning and discharge planning. DS: Data Data Completed and Pending Completed studies during hospitalization: ITS Impressions Head CT 05/03/23 19:44 IMPRESSION: No acute intracranial process. Results reported telephonically to Dr. Greene by Dr. Urbano at 7:48 PM on 05/03/2023. Head/Neck CTA 05/03/23 19:57 IMPRESSION: No large vessel occlusion. No severe carotid or vertebral artery stenosis. Multiple sub-6 mm pulmonary nodules requiring no additional evaluation unless the patient is at high risk, in which case consider an optional low-dose noncontrast CT of the chest in 12 months. Chest X-Ray 05/03/23 20:14 IMPRESSION: No acute cardiopulmonary process. Brain MRI 05/04/23 12:32 IMPRESSION: Mild to moderate chronic white matter disease, likely chronic microvascular ischemic change. Correlate for any possibility of demyelinating disease. No acute infarct, internal hemorrhage, or mass lesion. Labs on day of discharge: Labs from last 24 hours 05/04/23 05/04/23 05/04/23 11:41 08:41 05:27 WBC 7.2 RBC 4.90 Hgb 13.4 Hct 42.4 MCV 86.5 MCH 27.3 MCHC 31.6 L RDW 13.4 Plt Count 189 MPV 10.3 Immature Gran % (Auto) 0.4 Neut % (Auto) 58.6 Lymph % (Auto) 28.7 Lanier % (Auto) 6.5 Eos % (Auto) 4.7 H Baso % (Auto) 1.1 Lymph # (Auto) 2.08 Lanier # (Auto) 0.5 Eos # (Auto) 0.3 Baso # (Auto) 0.1 Abs Immat Gran (auto) 0.03 Absolute Neuts (auto) 4.2 Absolute Nucleated RBC 0.0 Nucleated RBC % 0.0 PT INR APTT Sodium 137 Potassium 3.1 L Chloride 105 Carbon Dioxide 25 Anion Gap 7
[2023-05-07 13:41] LABS: Glucose Point of Care 103 mg/dl (65-105)
== END 2023-05-04 15:21 | disposition home or self-care (01) ==
LOC: ANHED 21:57 → ANH3MED 23:01
PROVIDERS: Admitting Provider Family Medicine; Emergency Provider Emergency Medicine; PCP Family Medicine; Visit Provider Family Medicine
DX: R29.810 Facial weakness (principal); E16.2 Hypoglycemia, unspecified; E87.6 Hypokalemia; F41.9 Anxiety disorder, unspecified; R56.9 Unspecified convulsions; J45.909 Unspecified asthma, uncomplicated; F31.9 Bipolar disorder, unspecified; G89.29 Other chronic pain; M54.50 Low back pain, unspecified; E66.9 Obesity, unspecified; Z68.36 Body mass index [BMI] 36.0-36.9, adult; I10 Essential (primary) hypertension; E11.65 Type 2 diabetes mellitus with hyperglycemia; G47.33 Obstructive sleep apnea (adult) (pediatric); Z99.89 Dependence on other enabling machines and devices; Z91.09 Other allergy status, other than to drugs and biological substances; I35.1 Nonrheumatic aortic (valve) insufficiency; R91.8 Other nonspecific abnormal finding of lung field; K58.0 Irritable bowel syndrome with diarrhea; Z86.73 Personal history of transient ischemic attack (TIA), and cerebral infarction without residual deficits; F17.210 Nicotine dependence, cigarettes, uncomplicated; F10.90 Alcohol use, unspecified, uncomplicated; Z79.51 Long term (current) use of inhaled steroids; Z79.4 Long term (current) use of insulin; Z79.899 Other long term (current) drug therapy; Z82.3 Family history of stroke; Z84.89 Family history of other specified conditions; Z81.8 Family history of other mental and behavioral disorders
CPT/HCPCS: 36415; 70450; 70496; 70498; 70553; 71045; 80048; 80053; 80307; 81001; 82607; 82948; 83735; 84100; 84443; 84484; 85025; 85610; 85730; 87086; 87088; 93005; 96374; 99285; A9270; A9577; G0378; J1815; J3480; J7040; Q9967

== ENCOUNTER 2023-05-10 11:14 | Outpatient (CLI) | payer MEDICARE, MEDICAID, SELFPAY ==
[2023-05-10 13:19] LABS: D Dimer 0.45 ug/mL (<0.48)
[2023-05-10 13:22] LABS: Alanine Aminotransferase 31 U/L (6-35); Alkaline Phosphatase 176 U/L (38-126); Anion Gap 7 mmol/L (8-16); Aspartate Amino Transferase 45 U/L (14-36); Bilirubin,Total 0.4 mg/dL (0.2-1.3); Blood Urea Nitrogen 14 mg/dL (7-17); Calcium 9.4 mg/dL (8.4-10.2); Carbon Dioxide 33 mmol/L (22-30); Chloride 99 mmol/L (98-107); Estimated Glomerular Filt Rate > 60; Glucose 240 mg/dL (65-110); Potassium 4.2 mmol/L (3.4-5.0); Sodium 139 mmol/L (137-145)
[2023-05-10 13:27] LABS: NT Pro B Type Natriuretic Pept 269 pg/mL (19.9-100)
[2023-05-10 13:48] LABS: Creatinine Urine 69.9 mg/dL
[2023-05-10 13:50] LABS: MALB Creatinine Ratio 15.5 mg/g (0-30); Microalbumin Urine Random 10.8 mg/L (0-16.7)
== END 2023-05-10 11:15 | disposition home or self-care (01) ==
PROVIDERS: PCP Family Medicine; Visit Provider Nurse Practitioner Family
DX: G50.9 Disorder of trigeminal nerve, unspecified (principal); I50.9 Heart failure, unspecified; R29.90 Unspecified symptoms and signs involving the nervous system; R60.9 Edema, unspecified; R74.8 Abnormal levels of other serum enzymes; E11.9 Type 2 diabetes mellitus without complications; Z13.29 Encounter for screening for other suspected endocrine disorder
CPT/HCPCS: 36415; 80053; 82043; 83880; 84443; 85380

== ENCOUNTER 2023-07-07 11:16 | Outpatient (CLI) | payer MEDICARE, MEDICAID, SELFPAY ==
[2023-07-07 20:57] LABS: Anion Gap 7 mmol/L (8-16); Blood Urea Nitrogen 25 mg/dL (7-17); Calcium 9.6 mg/dL (8.4-10.2); Carbon Dioxide 32 mmol/L (22-30); Chloride 100 mmol/L (98-107); Estimated Glomerular Filt Rate > 60; Glucose 107 mg/dL (65-110); Magnesium 2.4 mg/dL (1.6-2.3); Potassium 3.6 mmol/L (3.4-5.0); Sodium 139 mmol/L (137-145)
== END 2023-07-07 11:17 | disposition home or self-care (01) ==
LOC: ANHGOSHLAB 11:18
PROVIDERS: PCP Family Medicine; Visit Provider Internal Medicine Cardiovascular Disease
DX: R60.9 Edema, unspecified (principal)
CPT/HCPCS: 36415; 80048; 83735

== ENCOUNTER 2023-08-24 10:45 | Outpatient (RCR) | payer MEDICARE, MEDICAID, SELFPAY ==
[2023-05-27 11:06] VITALS: BMI 37.0
[2023-07-08 12:55] VITALS: BMI 37.0; BMI 37.8
== END 2023-08-26 13:56 | disposition home or self-care (01) ==
LOC: ANHDMC 10:45
PROVIDERS: PCP Family Medicine; Visit Provider Internal Medicine Endocrinology, Diabetes & Metabolism
DX: E11.65 Type 2 diabetes mellitus with hyperglycemia (principal); Z71.3 Dietary counseling and surveillance
CPT/HCPCS: 97802; 97803; G0108

== ENCOUNTER 2023-11-30 10:45 | Outpatient (RCR) | payer MEDICARE, MEDICAID, SELFPAY ==
[2023-09-14 13:28] VITALS: BMI 36.8
== END 2023-12-13 10:17 | disposition home or self-care (01) ==
LOC: ANHDMC 10:45
PROVIDERS: PCP Family Medicine; Visit Provider Internal Medicine Endocrinology, Diabetes & Metabolism
DX: E11.65 Type 2 diabetes mellitus with hyperglycemia (principal); Z71.3 Dietary counseling and surveillance; Z71.89 Other specified counseling
CPT/HCPCS: 97803; G0108

== ENCOUNTER 2023-12-03 09:48 | Outpatient (CLI) | payer MEDICARE, MEDICAID, SELFPAY ==
[2023-12-03 13:04] LABS: Basophils Absolute Auto 0.1 K/mm3 (0.0-0.1); Basophils Percent Auto 0.9 % (0.2-1.2); Eosinophils Absolute Auto 0.2 K/mm3 (0-0.3); Eosinophils Percent Auto 2.4 % (0-4.4); Hematocrit 48.2 % (37.0-47.0); Hemoglobin 15.5 g/dL (12.0-15.0); Immature Granulocyte Absolute 0.01 K/mm3 (0.00-0.031); Immature Granulocyte Percent A 0.1 % (0-0.5); Lymphocytes Absolute Auto 2.68 K/mm3 (0.9-3.2); Mean Corpuscular HGB Conc 32.2 g/dl (32-36); Mean Corpuscular Hemoglobin 27.6 pg (26-34); Mean Corpuscular Volume 85.8 fl (80-100); Mean Platelet Volume 10.7 fl (7.4-10.4); Monocytes Absolute Auto 0.4 K/mm3 (0.1-0.6); Monocytes Percent Auto 5.1 % (2.6-8.5); Neutrophils Absolute Auto 5.2 K/mm3 (1.3-6.7); Neutrophils Percent Auto 60.5 % (45.5-73.1); Platelet Count Result 220 k/mm3 (150-375); Red Blood Count 5.62 M/mm3 (4.2-5.4); Red Cell Distribution Width 13.8 % (11.5-14.5); White Blood Count 8.7 K/mm3 (4.5-10.0)
[2023-12-03 13:38] LABS: Alanine Aminotransferase 27 U/L (6-35); Albumin Level 4.5 g/dL (3.5-5.1); Alkaline Phosphatase 164 U/L (38-126); Anion Gap 9 mmol/L (4-12); Aspartate Amino Transferase 52 U/L (14-36); Bilirubin,Total 0.3 mg/dL (0.2-1.3); Blood Urea Nitrogen 25 mg/dL (7-17); Calcium 9.2 mg/dL (8.4-10.2); Carbon Dioxide 35 mmol/L (22-30); Chloride 96 mmol/L (98-107); Cholesterol 139 mg/dL (0-200); Estimated Glomerular Filt Rate 57; Glucose 159 mg/dL (65-110); HDL Direct 44 mg/dL; Potassium 3.4 mmol/L (3.4-5.0); Sodium 140 mmol/L (137-145); Triglycerides 79 mg/dL (<150)
[2023-12-03 13:49] LABS: LDL Cholesterol Direct 76 mg/dL
[2023-12-03 22:22] LABS: Vitamin D 25 Hydroxy 36.8 ng/mL
== END 2023-12-03 09:49 | disposition home or self-care (01) ==
PROVIDERS: PCP Family Medicine; Visit Provider Nurse Practitioner Family
DX: R41.3 Other amnesia (principal); E78.5 Hyperlipidemia, unspecified; E55.9 Vitamin D deficiency, unspecified; I10 Essential (primary) hypertension
CPT/HCPCS: 36415; 80053; 80061; 82306; 84443; 85025

== ENCOUNTER 2024-05-05 11:58 | Emergency (ER) | payer MEDICARE, MEDICAID, SELFPAY ==
[2024-05-05 12:04] VITALS: BP 141/92; PULSE 79; RESP 18; TEMP 36.6; O2SAT 97
--- NOTE | 2024-05-05 14:45 | PC.NURSE ---
Pt. called x1 in [facility] for VS. No answer.
--- NOTE | 2024-05-05 15:12 | PC.NURSE ---
Pt. called for MSE in [facility]. No answer.
== END 2024-05-05 17:11 | disposition left against medical advice (07) ==
PROVIDERS: PCP Family Medicine
DX: R11.2 Nausea with vomiting, unspecified (principal)
CPT/HCPCS: 99199

== ENCOUNTER 2024-08-16 08:09 | Emergency (ER) | payer MEDICARE, MEDICAID, SELFPAY ==
--- NOTE | ~2024-08-16 | XR_ITS ---
EXAMINATION: XR ankle LT min 3V, XR foot LT min 3V DATE: 08/16/2024 08:46 INDICATION: Inversion injury with medial and lateral malleolar pain at the left ankle TECHNIQUE: 1. Anteroposterior, mortise, additional oblique and lateral view of the left ankle were obtained. 2. Dorsoplantar, two oblique and lateral views of the left foot were obtained. COMPARISON: None. FINDINGS: Alignment of the foot and ankle is normal. No fracture. Mild polyarticular osteoarthritis at the left ankle and multiple joints throughout the left foot. Small Achilles calcaneal spur. No ankle joint ef fusion. The soft tissues are unremarkable. IMPRESSION: 1. No acute osseous abnormality. Reviewed, dictated and finalized at location A. IMPRESSION: 1. No acute osseous abnormality.
[2024-08-16 08:22] VITALS: BP 126/71; PULSE 84; RESP 16; TEMP 36.1; O2SAT 95
--- NOTE | 2024-08-16 08:25 | ED.LOWEXIN ---
HPI - Extremity Injury (Lower) General Chief Complaint: Extremity Injury, Lower Stated Complaint: Lft foot injury Time Seen by Provider: 08/16/24 08:40 Source: patient Mode of arrival: ambulatory Limitations: no limitations History of Present Illness HPI Narrative: Patient presents today complaining of left foot and ankle pain after falling down one stair yesterday morning. She states that her shoe got caught on the stair. Patient currently rates her pain 8/10. She has been taking tramadol at home for pain relief. She is able to put weight on it. No numbness, tingling, or radiation at this time. Related Data Home Medications ?Medication ?Instructions ?Recorded ?Confirmed ?Last Taken ?Type aripiprazole 10 mg tablet 10 mg PO DAILY 03/16/19 08/03/24 Unknown History cyclobenzaprine 10 mg tablet 10 mg PO TID PRN Muscle Pain 03/16/19 08/03/24 Unknown History mirtazapine 45 mg tablet 45 mg PO DAILY 03/16/19 08/03/24 Unknown History lamotrigine 100 mg tablet 100 mg PO DAILY 09/09/21 08/03/24 Unknown History hydroxyzine pamoate 50 mg capsule 50 mg PO TID PRN Allergy Symptoms 09/11/21 08/03/24 Unknown History propranolol 10 mg tablet 10 mg PO DAILY anxiety 09/11/21 08/03/24 Unknown History quetiapine 300 mg tablet 600 mg PO QHS 09/11/21 08/03/24 Unknown History vilazodone 40 mg tablet (Viibryd) 40 mg PO QAM 09/11/21 08/03/24 Unknown History Allergies Allergy/AdvReac Type Severity Reaction Status Date / Time adhesive tape Allergy Unknown RASH Verified 08/16/24 08:34 latex Allergy Unknown RASH-GLOVES Verified 08/16/24 08:34 bupropion AdvReac Severe INCOHERENT Verified 08/16/24 08:34 Sulfa (Sulfonamide AdvReac Mild VOMITING Verified 08/16/24 08:34 Antibiotics) amitriptyline AdvReac Unknown VOMITING Verified 08/16/24 08:34 codeine AdvReac Unknown DEPTH Verified 08/16/24 08:34 PERCEPTION LOSS metformin AdvReac Unknown VOMITING Verified 08/16/24 08:34 morphine AdvReac Unknown ITCHING Verified 08/16/24 08:34 Review of Systems Review of Systems: CONSTITUTIONAL: Denies body aches, fever, chills EYES: Denies visual changes ENT: Denies rhinorrhea, congestion CARDIOVASCULAR: Denies chest pain, palpitations, or edema. RESPIRATORY: Denies cough or dyspnea. SKIN: Denies rash, itching, or wounds. MUSCULOSKELETAL: reports left foot and ankle pain. NEUROLOGIC: Denies headache, numbness, tingling, or weakness. All systems reviewed & are unremarkable except as noted in HPI and below PMFSH Past Medical History Medical History Cranial nerve disorder Edema Lung nodules Atypical mole Stroke 01/23/2022 Cranial nerve palsy right Environmental allergies Chronic low back pain Essential (primary) hypertension GERD without esophagitis Bipolar 1 disorder Genital herpes Fibromyalgia Patient's sister states patient does not have fibromyalgia Missed x 3 HPV (human papilloma virus) infection IBS (irritable colon syndrome) Multiple sclerosis Patient's sister states patient does not have MS Lupus Patient's sister states patient does not have Lupus Seizure Cancer Follicular Lymphoma Back pain Asthma Anxiety Surgical History Surgical History H/O colonoscopy Jan 2023 History of dilation and curettage History of hysterectomy, supracervical Hx of appendectomy Family History Family History Father Blood clot in vein Alcoholism Carotid artery disease Cerebrovascular accident Other ADD (attention deficit disorder) Family history of malignant neoplasm of breast in first degree relative Mother Anxiety Sibling Anxiety Arthritis Asthma COPD (chronic obstructive pulmonary disease) Depression Sibling Anxiety Depression Sibling Anxiety Depression Sibling Anxiety Depression Grandparent Arthritis Social History Social History Social History: 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 She uses medical marijuana with her PCP Caffeine-daily Smoking packs per day: 2 Smoking cigarettes per day: 40.0 Years smoked: 33 Smoking pack-years: 66.00 Smoking status: Former smoker Tobacco type: cigarettes Second hand tobacco smoke exposure: No Smoking end date: 05/03/13 Additional smoking assessment comments: smokes seldom at current date Alcohol intake: never Alcohol use details: rare use Substance use: current Substance use type: marijuana Other substance usage details: medical marijuana card Do You Feel Safe in your Home?: Yes Lack of Transportation: No Lack of Food: Sometimes True Current Housing: I Have Housing Concerned About Future Housing: YES Difficulty Paying Gas/Electric Bills: No Difficulty Paying for Meds: No Currently Unemployed: No Education: High School Diploma/GED Difficulty w/ Childcare or Family Care: No Living arrangements: with friend(s) Occupation/Education: other Additional occupation/education comments: disabled Gender identity (if verbalized by the patient): Female Spiritual care concerns: No Comments At time of signature, I have reviewed and agree with nursing past medical, surgical, social and family history unless otherwise noted. Please see nursing chart for further information. There is no relevant family history pertinent to the presenting complaint. Exam Narrative: MUSCULOSKELETAL EXAM GENERAL: Well-appearing, well-nourished, and in no acute distress. HEAD: Normocephalic, atraumatic. NECK: Supple. CHEST: Speaks in full sentences. No respiratory distress. HEART: Regular rate and rhythm. Normal and equal peripheral pulses. EXTREMITIES: Left foot and ankle has normal strength and sensation, normal range of motion with flexion/extension/rotation, but endorses pain with movement. Edema, ecchymosis, and point tenderness noted to L medial mid foot and L lateral ankle. No open wounds, skin tenting, or obvious deformity; alignment normal, pulse palpable and equal bilaterally, skin warm, dry, pink. Capillary refill less than 3 seconds. SKIN: Warm, dry, no rash. NEURO: Alert and oriented x3. PSYCH: Normal mood and affect Course Course Level of Care: Express Care Visit Vital Signs Vital signs: Vital Signs Temperature 97 F L 08/16/24 08:22 Pulse Rate 84 08/16/24 08:22 Respiratory Rate 16 08/16/24 08:22 Blood Pressure 126/71 08/16/24 08:22 Pulse Oximetry 95 08/16/24 08:22 Oxygen Delivery Room Air 08/16/24 08:22 Temperature 97 F L 08/16/24 08:22 Pulse Rate 84 08/16/24 08:22 Respiratory Rate 16 08/16/24 08:22 Blood Pressure 126/71 08/16/24 08:22 Pulse Oximetry 95 08/16/24 08:22 Oxygen Delivery Room Air 08/16/24 08:22 MDM - Extremity Injury (Lower) MDM Narrative Medical decision making narrative: Discussed physical exam findings and xray. Advised supportive measures and signs/symptoms to go to the ER. Pt is appropriate for outpatient treatment and follow up. Differential Diagnosis Differential diagnosis: Likely ankle sprain and strain, ankle fracture and other (foot fracture) Imaging Data Radiologist's impression: Patient: Evangelina Franklin : 1965 MR#: [id number] Age: 59 Acct:[id number] Loc: [facility] ADM Date: 08/16/24Attending Dr: Ordering Physician: Gege Conway APRN Date of Service: 08/16/24 Procedure(s): XR ankle LT min 3V; XR foot LT min 3V Accession Number(s): [id number]; [id number] cc: Gege Conway APRN; Rand Whalen MD~ EXAMINATION: XR ankle LT min 3V, XR foot LT min 3V DATE: 08/16/2024 08:46 INDICATION: Inversion injury with medial and lateral malleolar pain at the left ankle TECHNIQUE: 1. Anteroposterior, mortise, additional oblique and lateral view of the left ankle were obtained. 2. Dorsoplantar, two oblique and lateral views of the left foot were obtained. COMPARISON: None. FINDINGS: Alignment of the foot and ankle is normal. No fracture. Mild polyarticular osteoarthritis at the left ankle and multiple joints throughout the left foot. Small Achilles calcaneal spur. No ankle joint effusion. The soft tissues are unremarkable. IMPRESSION: 1. No acute osseous abnormality. Critical Care Time Critical Care Time Critical Care Time: No Discharge Plan Discharge Clinical Impression: Foot and ankle pain Patient Disposition: Home Condition: Stable Instructions: Ankle Sprain (ED), Foot Sprain (ED) Additional Instructions: Rest. Avoid pushing, pulling, lifting --running or excessive walking-- or anything that worsens the symptoms Tylenol 1000mg every 8 hours as needed You can alternate with ibuprofen 600mg Alternate ice/heat to the site. Lidocaine or salon pas pain patch or use pain cream like icy/hot or biofreeze. You may follow-up with an orthopedic doctor for further evaluation. Follow up with your primary care provider as needed in 1 week. Go to the ER for worsening symptoms or concerns. Patient Language: Estonian Prescriptions: No Action Viibryd 40 mg tablet 40 mg PO QAM mirtazapine 45 mg tablet 45 mg PO DAILY cyclobenzaprine 10 mg tablet 10 mg PO TID PRN (Reason: Muscle Pain) aripiprazole 10 mg tablet 10 mg PO DAILY quetiapine 300 mg tablet 600 mg PO QHS Jardiance 25 mg tablet 25 mg PO DAILY Qty: 90 1RF lamotrigine 100 mg tablet 100 mg PO DAILY propranolol 10 mg tablet 10 mg PO DAILY hydroxyzine pamoate 50 mg capsule 50 mg PO TID PRN (Reason: Allergy Symptoms) insulin regular hum U-500 conc 500 unit/mL (3 mL) insulin pen 125 unit subcut DAILY Qty: 24 1RF Rx Instructions: U 500 insulin 85 units before breakfast, 20 units before lunch and 20 units before dinner gabapentin 300 mg capsule 300 mg PO TID Qty: 90 3RF albuterol sulfate 2.5 mg /3 mL (0.083 %) solution for nebulization 2.5 mg inhalation Q4-6H PRN (Reason: shortness of breath or wheezing) Qty: 180 3RF albuterol sulfate [Ventolin HFA] 90 mcg/actuation HFA aerosol inhaler 1 inh INHALATION Q4H PRN (Reason: shortness of breath or wheezing) Qty: 8.5 5RF (DME) FreeStyle Kadeem 3 [place] Misc See Rx Instructions .Route Qty: 1 0RF Rx Instructions: As directed (DME) FreeStyle Kadeem 3 Sensor Device See Rx Instructions .Route Qty: 6 0RF Rx Instructions: change every 14 days triamterene-hydrochlorothiazid 37.5-25 mg tablet See Rx Instructions .ROUTE .COMPLEX Qty: 90 2RF Dose Instruction: TAKE 1 TABLET BY MOUTH EVERY MORNING Rx Instructions: TAKE 1 TABLET BY MOUTH EVERY MORNING potassium chloride 20 mEq tablet extended release See Rx Instructions .ROUTE .COMPLEX Qty: 90 2RF Dose Instruction: TAKE 1 TABLET BY MOUTH EVERY DAY Rx Instructions: TAKE 1 TABLET BY MOUTH EVERY DAY nystatin 100,000 unit/gram cream 1 applic topical BID Qty: 15 1RF hydrochlorothiazide 12.5 mg tablet 12.5 mg PO DAILY Qty: 90 1RF atorvastatin 80 mg tablet See Rx Instructions .ROUTE .COMPLEX Qty: 90 2RF Dose Instruction: TAKE ONE TABLET BY MOUTH ONCE DAILY Rx Instructions: TAKE ONE TABLET BY MOUTH ONCE DAILY dicyclomine 20 mg tablet See Rx Instructions .ROUTE .COMPLEX Qty: 360 1RF Dose Instruction: TAKE 1 TABLET BY MOUTH FOUR TIMES DAILY NEEDED FOR STOMACH CRAMPING Rx Instructions: TAKE 1 TABLET BY MOUTH FOUR TIMES DAILY NEEDED FOR STOMACH CRAMPING pantoprazole 40 mg tablet,delayed release (DR/EC) See Rx Instructions .ROUTE .COMPLEX Qty: 90 1RF Dose Instruction: TAKE 1 TABLET BY MOUTH EVERY DAY Rx Instructions: TAKE 1 TABLET BY MOUTH EVERY DAY Januvia 100 mg tablet 100 mg PO DAILY Qty: 90 0RF Follow-up/Referrals: Lazarus Whalen MD [Primary Care Provider] - Shivam Ramirez MD [Physician] -
--- OUTSIDE RECORDS SUMMARY | 2024-08-16 08:25 | XMS_ITS | Clinical Summary ---
Author Organization [facility] Address [address] [place] [phone] Phone Care Team Providers Care Assistant At Surgery Name Role Phone Unavailable Primary Care Provider Unavailabl e Allergies Active Allergy Reactions Criticality Noted Date Comments Amitriptyline Nausea and Vomiting Low 01/31/2014 Codeine Other (See Comments) 01/31/2014 Depth perception Latex Other (See Comments) 01/31/2014 blisters Metformin Rash Low 01/08/2017 Morphine Other (See Comments) 01/08/2017 Not listed Penicillins Other (See Comments) 01/08/2017 Not listed Sulfa (Sulfonamide Antibiotics) Nausea and Vomiting Low 01/31/2014 Trazodone Other (See Comments) 01/08/2017 Knocks her out Medications lamoTRIgine (LAMICTAL) 100 mg tablet Take 100 mg by mouth daily . Active fentaNYL (DURAGESIC) 50 mcg/hr patch Apply 1 Patch to skin as directed every third day. Active oxyCODONE-aceta minophen (XARTEMIS) 7.5-325 mg Extended Release tablet Take by mouth 4 times daily as needed. Active aspirin (KARISHMA CHEWABLE) 81 mg Tablet, Chewable Take 81 mg by mouth daily. Active cetirizine (ZYRTEC) 10 mg tablet Take 10 mg by mouth daily. Active gabapentin (NEURONTIN) 300 mg capsuleIndicati ons:Night sweats Take 1 Cap (300 mg) by mouth Daily LATE. 30 Cap 6 5 Active Additional Information Patient taking differently:300 mg OralTHREE TIMES DAILY, Reported on 01/08/2017 multivitamin (DAILY-SALOME) tablet Take 1 Tablet by mouth daily One daily gummy vites 200 mcg chewable tablet . Active albuterol HFA 90 mcg inhaler Take 2 Puffs by inhalation every 6 hours as needed for Shortness of Breath. Active vilazodone (VIIBRYD) 40 mg Tablet Take 40 mg by mouth daily. Active tamsulosin (FLOMAX) 0.4 mg capsule Take 0.4 mg by mouth daily. Active cholecalciferol , vitamin D3, 5,000 unit Take 400 Units by mouth daily. Active ezetimibe (ZETIA) 10 mg tablet Take 10 mg by mouth daily. Active atorvastatin (LIPITOR) 40 mg tablet Take 40 mg by mouth late in the day. Active dicyclomine (BENTYL) 10 mg capsule Take 10 mg by mouth 4 times daily 1-2 tabs qid. Active pantoprazole (PROTONIX) 40 mg Tablet, Delayed Release (E.C.) Take 40 mg by mouth daily. Active oxybutynin chloride (DITROPAN) 5 mg tablet Take 5 mg by mouth 3 times daily. Active meloxicam (MOBIC) 7.5 mg tablet Take 7.5 mg by mouth daily. Active montelukast (SINGULAIR) 10 mg tablet Take 10 mg by mouth daily. Active QUEtiapine (SEROquel) 300 mg tablet Take 600 mg by mouth daily at bedtime. Active fluticasone (FLONASE) 50 mcg/spray [place], Suspension Administer 2 Sprays in each nostril daily. Active viatamin B complex-vitamin W-[id number]-jrnh -folic acid 106 mg iron- 1 mg Tablet Take 1 Tablet by mouth daily. Active Saccharomyces boulardii (FLORASTOR) 250 mg Capsule Take 500 mg by mouth daily. Active potassium gluconate 2.5 mEq Tablet Take by mouth 595 mg daily po . Active ARIPiprazole (ABILIFY) 5 mg tablet Take 5 mg by mouth daily. Active mirtazapine (REMERON) 30 mg tablet Take 30 mg by mouth daily at bedtime 1/2 - 1 tab daily q hs . Active hydrOXYzine pamoate (VISTARIL) 50 mg capsule Take 50 mg by mouth 3 times daily as needed for Itching. Active Active Problems Problem Noted Date Diagnosed Date Lytic bone lesions on xray 01/08/2017 Severe aortic regurgitation 08/09/2014 Overview (08/09/2014): For possible AVR CAD (coronary artery disease) 08/09/2014 Overview (08/09/2014): S/p cardiac cath at [facility] following Dr. Herman EF 40 %, AR stage 4, and RCA 50% Hepatic steatosis 08/09/2014 MS (multiple sclerosis) 03/01/2014 Fibromyalgia 03/01/2014 Hyperglycemia 03/01/2014 Neurogenic bladder 03/01/2014 IBS (irritable bowel syndrome) 03/01/2014 Immunizations Immunization Administration Dates Next Due Influenza Vaccine Split 3+ Yrs IM 02/26/2014 Family History Medical History Relation Name Comments Unknown Brother Cancer Father Stroke Father Unknown Maternal Grandfather Unknown Maternal Grandmother Other Mother Unknown Paternal Grandfather Unknown Paternal Grandmother Unknown Sister Celiac Disease Neg Hx Colon Cancer Neg Hx Colon Polyps Neg Hx Crohn's Disease Neg Hx Inflammatory Bowel Disease Neg Hx Kidney Disease Neg Hx Liver Disease Neg Hx Pancreatic Cancer Neg Hx Ulcerative Colitis Neg Hx Ulcers Neg Hx Relation Name Status Comments Brother Father Alive Maternal Grandfather Maternal Grandmother Mother Paternal Grandfather Paternal Grandmother Sister Alive Social History Tobacco Use Types Packs/Day Years Used Date Smoking Tobacco: Light Smoker E-Cigarett e/Mist Inhalation Device Smokeless Tobacco: Never Tobacco Cessation:Ready to Q uit: Yes Alcohol Use Standard Drinks/Week Comments No 0 (1 standard drink = 0.6 oz pur e alcohol) Comments No Sex and Gender Information Value Date Recorded Sex Assigned at Not on file Legal Sex Female 6:13 PM CDT Gender Identity Not on file Sexual Orientation Not on file Occupation Industry Job Start Date Job End Date Not on file Not on file Not on file Not on file Last Filed Vital Signs Vital Sign Reading Time Taken Comments Blood Pressure 99/75 03/24/2017 3:03 PM [employer] Pulse 107 03/24/2017 3:03 PM [employer] Temperature 36.9 C (98.5 F) 03/24/2017 3:03 PM [employer] Respiratory Rate 18 02/22/2017 1:24 PM CDT Oxygen Saturation 95% 09/21/2014 1:11 PM CDT Inhaled Oxygen Concentration - - Weight 84.1 kg (185 lb 6.4 oz) 03/24/2017 3:03 P M [employer] Height 160 cm (5' 3 ) 03/24/2017 3:03 PM [employer] Body Mass Index 32.84 03/24/2017 3:03 PM [employer] Plan of Treatment Health Maintenance Due Date Last Done Comments PNEUMOCOCCAL VACCINE 0-49 YEARS (1 of 2 - PCV) 971 DTAP/TDAP/TD VACCINES (1 - Tdap) 1983 HPV/Cotest (21-29) 1985 PAP SMEAR 1985 CERVICAL CANCER SCREENING 1994 HPV/Cotest (30-65) 1994 PAP SMEAR 1994 BREAST CANCER SCREENING 2004 COLORECTAL SCREENING 2009 FIT-DNA Q 3 years 2009 FIT/FOBT Q 1 year 2009 ZOSTER VACCINE (1 of 2) 2014 Colorectal Cancer Screening 09/22/2019 Flex Sig/CT Colonography Q 5 years 09/22/20192014 INFLUENZA VACCINE (#1) 2023 02/26/2014 HEPATITIS B VACCINES (1 of 3 - Risk 3-dose series) RSV VACCINE (60+ or ) (1 - Risk 60-74 years 1-dose series) [address] [place] [address] MEDICARE PART A AND B MEDICAID [place] Advance Directives For more information, please contact: [phone] Documents on File Type Date Recorded Patient Etl Lead Expl anation Advance Directive POA 10/24/2014 11:30 AM Advance Directive POA * Full Code (Latest Code Status on File) Date Activated Date Inactivated Comments 09/21/2014 12:04 PM 09/21/2014 3:21 PM
--- OUTSIDE RECORDS SUMMARY | 2024-08-16 08:25 | XMS_ITS ---
Author Organization [facility] Address [address] [place] [address] Care Team Providers Care Utilization Specialist Name Role Phone Rudy Keenan Primary Care Provider REASON FOR VISIT refills Medications Medication SIG (Take, Route, Frequency, Duration) Notes Start Date End Date Status Propranolol HCl 10 MG TAKE 1 TABLET BY M OUTH TWICE A DAY for 5 days Active QUEtiapine Fumarate 300 MG 2 tablets in the evening Once a day for 5 days Active Vilazodone HCl 40 MG 1 tablet with food Once a day for 5 days Active hydrOXYzine Pamoate 50 MG 1 capsule Orally three times a day for 5 days As needed for anxiety Active ARIPiprazole 10 MG 1 tablet Once a day for 5 days Active Social History Sex Assigned At : Social History Observation Description Sex Assigned At Female Encounters Encounter Location Date Provider Diagnosis [address] [place] [address] 08/10/2024 Rudy Keenan Bipolar 1 disorder, depressed, moderate F31.32 and Generalized anxiety disorder F41.1 Assessments Encounter Date Diagnosis (ICD Code) Assessment Notes Treatment Notes Treatment Clinical Notes Section Notes 08/10/2024 Bipolar 1 disorder, depressed, moderate (ICD-10 - F31.32) 08/10/2024 Generalized anxiety disorder (ICD-10 - F41.1) Plan Of Treatment Medication Medication Name Sig Start Date Stop Date Notes Propranolol HCl 10 MG TAKE 1 TABLET BY M OUTH TWICE A DAY for 5 days QUEtiapine Fumarate 300 MG 2 tablets in the evening Once a day for 5 days Vilazodone HCl 40 MG 1 tablet with food Once a day for 5 days hydrOXYzine Pamoate 50 MG 1 capsule Oral ly three times a day for 5 days ARIPiprazole 10 MG 1 tablet Once a day for 5 days Progress Notes * Evangelina BARLOW SDOB:0 1965 (59 yo F)Acc No.[id number]:08/10/2024 Patient: Evangelina DENIS :1965 A ge:59 Y S ex:Female Address:[address] [place] [address] , [place], [address] * Refills Refill ARIPiprazole Tablet, 10 MG, 5 Tablet, 1 tablet, Once a day, 5 days, Refills=0 Refill Vilazodone HCl Tablet, 40 MG, 5 Tablet, 1 tablet with food, Once a day, 5 days, Refills=0 Refill hydrOXYzine Pamoate Capsule, 50 MG, 15, 1 capsule Orally three times a day, 5 days, Refills=0 Refill Propranolol HCl Tablet, 10 MG, 10, TAKE 1 TABLET BY MOUTH TWICE A DAY, 5 days, Refills=0 Refill QUEtiapine Fumarate Tablet, 300 MG, 10 Tablet, 2 tablets in the evening, Once a day, 5 days, Refills=0 * true * Date: Generated for Nawaf lozano/Rimma/Seanitting on: 0 08/16/2024 08:25 AM CDT
--- OUTSIDE RECORDS SUMMARY | 2024-08-16 08:25 | XMS_ITS | Continuity of Care Document ---
Author Organization [facility] Address [address] [place] [address] [facility] [address] [place] [address] Phone Care Team Providers Care Fire Tender Name Role Phone Colin Tyson Unavailable Unavailable Procedures Procedure Date Eye Exam, New Patient Advance Directives Directive Yes / No Effective Date File Name No Information Encounters Encounter Description Practice Location Reason(s) For Visit Diagnoses Date Provider Providers Copied on Encounter [facility], [address] [place] [address] [address], [place], [place], [id number], [place] tel:[phone] [facility] No Information [phone] Marbella Colin. [address] [facility] [address], [place], [address], [place]. tel:[phone] Family History Family Member Type Diagnosis Age At Onset No Information Payers Payer name Insurance type Covered alliance party ID Authoriza tion(s) Medicare [facility] [id number] Medicaid [facility] [id number] Social History Type Description Quantity Date Captured [...]
--- OUTSIDE RECORDS SUMMARY | 2024-08-16 08:25 | XMS_ITS | Encounter Summary ---
Author Organization [facility] Address [address] [place] [address] Care Team Providers Care Human Resources Office Assistant Name Role Phone Unavailable Primary Care Provider Unavailabl e Encounter Details Date Type Department Care Team (Late st Contact Info) Description 08/28/2022 Abstract [facility] Oncology and Hematology - [address] [place] [id number] Yasir Hong, RN Social History Tobacco Use Types Packs/Day Years Used Date Smoking Tobacco: Light Smoker E-Cigarett e/Mist Inhalation Device Smokeless Tobacco: Never Alcohol Use Standard Drinks/Week Comments No 0 [...] file Not on file Not on file documented as of this encounter Plan of Treatment Not on file documented as of this encounter Visit Diagnoses Not on filedocumented in this encounter
--- OUTSIDE RECORDS SUMMARY | 2024-08-16 08:25 | XMS_ITS ---
Author Organization [facility] Address [address] [place] [address] Care Team Providers Care Steam Finisher Name Role Phone Rudy Keenan Primary Care Provider [phone] Allergies Allergen (clinical drug ingredient) Drug/Non Drug Allergy documented on EMR Reaction Allergy Type Onset Date Status fluoxetine PROzac Unknown Drug Allergy Active interferon beta-1a Avonex Pen Unknown Drug Allergy Active amitriptyline Amitriptyline Unknown Drug Allergy Active bupropion Bupropion Unknown Drug Allergy Active codeine Codeine Unknown Drug Allergy Active Substance with sulfonamide structure and antibacterial mechanism of action (substance) Sulfa Antibiotics Unknown Drug Allergy Active trazodone Trazodone Unknown Drug Allergy Active REASON FOR VISIT 3 month f/u Medications Medication SIG (Take, Route, Frequency, Duration) Notes Start Date End Date Status Atorvastatin Calcium 40 MG 1 tablet Oral ly Once a day Active Gabapentin 300 MG 1 capsule Orally Once a day Active Aspirin 81 81 MG 1 tablet Orally Once a day Active hydroCHLOROthiazide 12.5 MG 1 capsule in the morning Orally Once a day Active HumuLIN R U-500 KwikPen 500 UNIT/ML as directed Subcutaneous Active Cyclobenzaprine HCl 10 MG 1 tablet at be dtime as needed Orally Once a day Active Pantoprazole Sodium 40 MG 1 tablet Orall y Once a day Active Vilazodone HCl 40 MG 1 tablet with food Once a day for 90 days Active QUEtiapine Fumarate 300 MG 2 tablets in the evening Once a day for 90 days Active Januvia 25 MG as directed Orally Active Mirtazapine 45 MG 1 tablet at bedtime Orally Once a day for 90 days Active hydrOXYzine Pamoate 50 MG 1 capsule Orally three times a day for 90 days As needed for anxiety Active lamoTRIgine 100 MG 1 tablet Once a day for 90 days Active ARIPiprazole 10 MG 1 tablet Once a day for 90 days Active Ozempic (0.25 or 0.5 MG/DOSE) 2 MG/1.5ML as directed Subcutaneous Not-Taking Propranolol HCl 10 MG TAKE 1 TABLET BY MOUTH TWICE A DAY for 90 days Active Jardiance 10 MG 1 tablet Orally Once a day for 30 day(s) Active Social History Sex Assigned At : Social History Observation Description Sex Assigned At Female Encounters Encounter Location Date Provider Diagnosis [address] [address] 08/15/2024 Rudy Keenan Bipolar 1 disorder, depressed, moderate F31.32 and Generalized anxiety disorder F41.1 Assessments Encounter Date Diagnosis (ICD Code) Assessment Notes Treatment Notes Treatment Clinical Notes Section Notes 08/15/2024 Bipolar 1 disorder, depressed, moderate (ICD-10 - F31.32) Client doing well, no tx plan changes needed. 08/15/2024 Generalized anxiety disorder (ICD-10 - F41.1) Client doing well, no tx plan changes needed. 08/15/2024 Other Discussed sleep hygiene and caffeine intake with encouragement to limit electronic devices an hour before bed and to limit caffeine after 3:00pm. Exercise benefits for mood and health discussed. Psychoeducation regarding psychiatric illness provided. Client was educated about risks and benefits of medication, alternatives to medication, off label uses of medication, suicidal ideation with SSRIs, self-administrati on and compliance with medication along with how to safely store medication. Verbal informed consent obtained. Client agrees to return sooner if symptoms worsen or if suicidal or homicidal ideations occur. Client has the phone number to the 24-hour crisis line at [facility]. Questions addressed. Client verbalized understanding of all information and is agreeable to treatment plan. Client doing well, no tx plan changes needed. Plan Of Treatment Medication Medication Name Sig Start Date Stop Date Notes Vilazodone HCl 40 MG 1 tablet with food Once a day for 90 days QUEtiapine Fumarate 300 MG 2 tablets in the evening Once a day for 90 days Mirtazapine 45 MG 1 tablet at bedtime Orally Once a day for 90 days hydrOXYzine Pamoate 50 MG 1 capsule Oral ly three times a day for 90 days lamoTRIgine 100 MG 1 tablet Once a day for 90 days ARIPiprazole 10 MG 1 tablet Once a day for 90 days Propranolol HCl 10 MG TAKE 1 TABLET BY M OUT TWICE A DAY for 90 days Treatment Notes Assessment Notes Other Discussed sleep hygi andre and caffeine intake with encouragement to limit electronic devices an hour before bed and to limit caffeine after 3:00pm. Exercise benefits for mood and health discussed. Psychoeducation regarding psychiatric illness provided. Client was educated about risks and benefits of medication, alternatives to medication, off label uses of medication, suicidal ideation with SSRIs, self-administration and compliance with medication along with how to safely store medication. Verbal informed consent obtained. Client agrees to return sooner if symptoms worsen or if suicidal or homicidal ideations occur. Client has the phone number to the 24-hour crisis line at [facility]. Questions addressed. Client verbalized understanding of all information and is agreeable to treatment plan. Next Appt Details Follow Up: 3 Months, Reason: Psych F/U - In-Person or Telehealth Progress Notes * AFSHANEvangelina KYLE SDOB:0 1965 (59 yo F)Acc No.[id number]:08/15/2024 Patient: Evangelina DENIS Provider: Negin Keenan DNP, PMHNP-BC :1965 A ge:59 Y S ex:Female Date:08/15/2024 Address:[address] [place] [address] [address] [facility] Subjective: * Chief Complaints: * 3 month f/u * HPI: I nterim History: Emergency room visit N o. W as hospitalized N o.? D epression Screening: PHQ-9 L ittle interest or pleasure in doing things N ot at all, F eeling down, depressed, or hopeless N ot at all, T rouble falling or staying asleep, or sleeping too much N ot at all, F eeling tired or having little energy S everal days, P oor appetite or overeating S everal days, F eeling bad about yourself or that you are a failure, or have let yourself or your family down N ot at all, T rouble concentrating on things, such as reading the newspaper or watching television S everal days, M oving or speaking so slowly that other people could have noticed; or the opposite, being so fidgety or restless that you have been moving around a lot more than usual N ot at all, T houghts that you would be better off or of hurting yourself in some way N ot at all, T otal Score 3 , I nterpretation M inimal Depression. I ntervention D epression Screening Findings?Positive, F ollow-Up for Depression N o Referral necessary, patient involved in behavioral health treatment .. S creening: [place] Suicide Severity Rating Scale (LF) D o you want to initiate with S creener form, I nterpretation: L ow Risk, 6 . Suicide Behavior Question: Have you ever done anything,started to do anything, or prepared to end your life? N o, 2. Suicidal Thoughts: Have you actually had any thoughts of killing yourself? N o, 1 . Wish to be : Have you wished you were or wished you could go to sleep and not wake up? N o. C SSRS Interpretation and Follow Up Plan: CSSRS Interpretation and Follow Up Plan C SSRS Screen documented using SF Y es, R isk Disposition from SF L ow - No Follow Up Plan Required, F ollow Up Plan N o Follow Up Plan required at this time., T imeframe of Screening T dileep.? C onstitutional: Session conducted telephonically with client's consent. Client is pleasant, conversational. HPI: I'm moving because I have to. But I'm okay with it. I've been doing good. Evangelina Yen is a 59-year-old female who reports that her depression and anxiety have been under control lately. She mentions that her medications are working well, and she has not experienced any seizures in the last few weeks. Evangelina is currently in the process of moving, which has been stressful, but she feels her blood sugar has been stable, and she hasn't had any episodes of low blood sugars. She recently underwent a procedure (trigger injections) that reduced her lower back pain from a level of 7.5-8 down to 3, which she finds promising. Evangelina is also dealing with the logistics of moving her belongings into storage and finding a new place to live. States she is living with her power plant assistant Sherry until she finds a suitable apartment. States her cat Ariel is keeping her company. BF relationship going well though they had a tiff when moving stuff. She states she feels stable with her mental health medications and wants no changes. States she has no side effects. She has been counseled on polypharmacy and the potential dangers of this but states we have it down to a science She feels her medications are finally working well and does not want them changed. Her BF is her second submissive and is aware of her other 2 submissives. It is an open relationship, participates in [facility] culture. State she has frequent labwork monitored per her PCP. Side effects: none Depression: Denies Anxiety: Good Appt: Fair - decreased due to ozymepic (was at 220 pounds now 202 pounds) Sleep: Fair currently. wakes up in middle of night due to back pain. Wears CPAP mask. Caffeine: did not report. SI: none HI: none Cigg/vap: uses e-cigg. Drug/alcohol: none Therapy: none - refusing LABS: has not yet had drawn. PCP : DR. Mcgregor. Neurologist was DR. Pugh in [place]. New neurologist Dr. Ellis (female) DR. [facility] Color Grinder is DR. Lamas in [place]. Pain Management- [facility] in [place]. PAST PSYCHOTROPIC MEDICATIONS: Triazolam 0.25 mg (sleep), Ambien 10 mg bedtime (had sleep eating), Doxepin 100mg for sleep, Klonopin 0.5 mg, Trazodone ( It builds up in my system, then I go into a coma. History of seizures), Restoril 15 mg bedtime (sleep), PSYCHOSOCIAL/FAMILY HISTORY MEDICAL HISTORY: History of seizures (non-epileptic, reports from [place] and no medication has helped), Diverticulitis, GERD, hypercholesterolemia, IBS, Lupus, Multiple Sclerosis, Torn right aortic valve. 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 has received her two COVID injections. Receiving Epidural injections , has non- epileptic seizures. States no medications are prescribed. ALLERGIES:Codeine=rash; Wellbutrin; Trazodone; PCN- rash; Amitriptyline- emesis; Sulfa- emesis; Prozac MEDICAL MEDICATIONS: Victoza insulin, Toujeo insulin, Glyburide for Diabetes, Pantoprazole , Gabapentin. PCP : DR. Mcgregor. Neurologist is DR. Pugh in [place] DR. [facility] Color Grinder is DR. Lamas in [place]. Pain Management- [facility] in [place]. States in friends basement. Has one cat, Miss Reyes. Has in home helper, Sherry, who helps her with her medications. Has a boyfriend of 3 years. * ROS: P sych ROS: Constitutional D enies. E yes D enies. E ars/Nose/Mouth/Throat D enies. R espiratory D enies. A llergic/Immunologic D enies.?Cardiovascular D enies. G I D enies. G U D enies. M usculoskeletal R eports, b ack pain. N eurological D enies. I ntegumentary D enies. E ndocrine R eports, D M. H ematological/Lymphatic D enies. * PSYCH ROS2: Elevated mood symptoms D enies. m ood swings D enies. T houghts of self harm D enies. D enies H omicidal thoughts. D enies A nxiety. D enies A uditory/visual hallucinations. D enies D elusions. D enies D epressed mood. A dmits D ifficulty sleeping, o n occasion , difficulty maintaining sleep. A dmits S tressors, I mmediate Family. D enies S ubstance abuse. D enies?Suicidal thoughts. * Medical History: * Surgical History: e pidural injections to back * Hospitalization/Major Diagno stic Procedure: E xtreme Dehydration & Out of control blood sugars - [facility] 09/08/2021Tripped and Fell on [place], breaking 2 fingers 09/08/2021 * Family History: F ather: . M other: . 2 brother(s) , 3 sister(s) - healthy. . * Social History: P rimary Social History: L iving Arrangement L iving Arrangement: Dependent Living , Living with: Friend , Is this a supportive environment? Yes .. A lcohol Use A lcohol Use Frequency: N ever. I llicit Substance Usage I llicit Substance Usage: N o. E mployment Status E mployment Status: O n Disability. * Medications: T akingJanuvia 25 MG Tablet as directed Orally Cyclobenzaprine HCl 10 MG Tablet 1 tablet at bedtime as needed Orally Once a day Pantoprazole Sodium 40 MG Tablet Delayed Release 1 tablet Orally Once a day hydroCHLOROthiazide 12.5 MG Capsule 1 capsule in the morning Orally Once a day HumuLIN R U-500 KwikPen 500 UNIT/ML Solution Pen-injector as directed Subcutaneous Atorvastatin Calcium 40 MG Tablet 1 tablet Orally Once a day Gabapentin 300 MG Capsule 1 capsule Orally Once a day Aspirin 81 81 MG Tablet Chewable 1 tablet Orally Once a day Jardiance 10 MG Tablet 1 tablet Orally Once a day Mirtazapine 45 MG Tablet 1 tablet at bedtime Orally Once a day lamoTRIgine 100 MG Tablet 1 tablet Once a day ARIPiprazole 10 MG Tablet 1 tablet Once a day Vilazodone HCl 40 MG Tablet 1 tablet with food Once a day hydrOXYzine Pamoate 50 MG Capsule 1 capsule Orally three times a day As needed for anxietyPropranolol HCl 10 MG Tablet TAKE 1 TABLET BY MOUTH TWICE A DAY QUEtiapine Fumarate 300 MG Tablet 2 tablets in the evening Once a day Taking Januvia 25 MG Tablet as directed Orally Taking Cyclobenzaprine HCl 10 MG Tablet 1 tablet at bedtime as needed Orally Once a day Taking Pantoprazole Sodium 40 MG Tablet Delayed Release 1 tablet Orally Once a day Taking hydroCHLOROthiazide 12.5 MG Capsule 1 capsule in the morning Orally Once a day Taking HumuLIN R U-500 KwikPen 500 UNIT/ML Solution Pen-injector as directed Subcutaneous Taking Atorvastatin Calcium 40 MG Tablet 1 tablet Orally Once a day Taking Gabapentin 300 MG Capsule 1 capsule Orally Once a day Taking Aspirin 81 81 MG Tablet Chewable 1 tablet Orally Once a day Taking Jardiance 10 MG Tablet 1 tablet Orally Once a day Taking Mirtazapine 45 MG Tablet 1 tablet at bedtime Orally Once a day Taking lamoTRIgine 100 MG Tablet 1 tablet Once a day Taking ARIPiprazole 10 MG Tablet 1 tablet Once a day Taking Vilazodone HCl 40 MG Tablet 1 tablet with food Once a day Taking hydrOXYzine Pamoate 50 MG Capsule 1 capsule Orally three times a day As needed for anxietyTaking Propranolol HCl 10 MG Tablet TAKE 1 TABLET BY MOUTH TWICE A DAY Taking QUEtiapine Fumarate 300 MG Tablet 2 tablets in the evening Once a day Not-TakingOzempic (0.25 or 0.5 MG/DOSE) 2 MG/1.5ML Solution Pen-injector as directed Subcutaneous Not-Taking Ozempic (0.25 or 0.5 MG/DOSE) 2 MG/1.5ML Solution Pen-injector as directed Subcutaneous * Allergies: C odeineTrazodoneAmitriptylineSulfa AntibioticsPROzacBupropionAvonex Penno[Allergies Verified] Objective: * Vitals: * Examination: G eneral Examination: PSYCH: speech clear, no auditory or visual hallucinations, thought content without suicidal ideation or delusions, alert, oriented x4, cooperative with exam, cognitive function intact, thought process logical, goal directed. Assessment: * Assessment: 1. B ipolar 1 disorder, depressed, moderate - F31.32 (Primary) 2 . G eneralized anxiety disorder - F41.1 Client doing well, no tx raul n changes needed. Plan: * Treatment: 2. G eneralized anxiety disorder Refill Propranolol HCl Tablet, 10 MG, TAKE 1 TABLET BY MOUTH TWICE A DAY, 90 days, 180, Refills 0;?Refill hydrOXYzine Pamoate Capsule, 50 MG, 1 capsule Orally three times a day As needed for anxiety, 90 days, 270, Refills 0. 3. O thers Notes: Discussed sleep hygiene and caffeine intake with encouragement to limit electronic devices an hour before bed and to limit caffeine after 3:00pm. Exercise benefits for mood and health discussed. Psychoeducation regarding psychiatric illness provided. Client was educated about risks and benefits of medication, alternatives to medication, off label uses of medication, suicidal ideation with SSRIs, self-administration and compliance with medication along with how to safely store medication. Verbal informed consent obtained. Client agrees to return sooner if symptoms worsen or if suicidal or homicidal ideations occur. Client has the phone number to the 24-hour crisis line at [facility]. Questions addressed. Client verbalized understanding of all information and is agreeable to treatment plan.? * Procedure Codes: G 2024 [facility] EST PATIENT [id number] NEG SCR D PT NOT ELIG F/U/PLN DOC * Follow Up: 3 Months (Reason: Psych F/U - In-Person or Telehealth) * * Sign off status: Completed true * Provider: Negin Keenan DNP, PMHNP- Date: 0 08/15/2024 Generated for Nawaf lozano/Rimma/Kaila on: 0 08/16/2024 08:25 AM CDT History and Physical Notes * HPI (History of Present Illness) Category Sub-Category Detail Notes Category Not es Interim History Was hospitalized No Emergency room visit No Depression Screening PHQ-9 Little inte rest or pleasure in doing things: Not at all Feeling down, depressed, or hopeless: No t at all Trouble falling or staying asleep, or sl eeping too much: Not at all Feeling tired or having little energy: S everal days Poor appetite or overeating: Several day s Feeling bad about yourself o r that you are a failure, or have let yourself or your family down: Not at all Trouble concentrating on thi ngs, such as reading the newspaper or watching television: Several days Moving or speaking so slowly that other people could have noticed; or the opposite, being so fidgety or restless that you have been moving around a lot more than usual: Not at all Thoughts that you would be b renée off or of hurting yourself in some way: Not at all Total Score: 3 Interpretation: Minimal Depression Intervention Depression Screening Findings: P ositive Follow-Up for Depression: No Referral necessary, patient involved in behavioral health treatment . Screening [place] Suicide Sev erity Rating Scale (LF) Do you want to initiate with: Screener form Interpretation:: Low Risk 6. Suicide Behavior Question: Have you ever done anything,started to do anything, or prepared to end your life?: No 2. Suicidal Thoughts: Have you actually had any thoughts of killing yourself?: No 1. Wish to be : Have you wished you were or wished you could go to sleep and not wake up?: No CSSRS Interpretation and Follow Up Plan CSSRS Interpretation and Follow Up Plan CSSRS Screen documented using SF: Yes Risk Disposition from SF: Low - No Follo w Up Plan Required Follow Up Plan: No Follow Up Plan requir ed at this time. Timeframe of Screening: Today Examination Category Sub-Category Detail Notes Category Not es General Examination PSYCH: speech clear , no auditory or visual hallucinations, thought content without suicidal ideation or delusions, alert, oriented x4, cooperative with exam, cognitive function intact, thought process logical, goal directed
--- OUTSIDE RECORDS SUMMARY | 2024-08-16 08:25 | XMS_ITS ---
Author Organization [facility] Address [address] [place] [address] Care Team Providers Care Associate Professor Of Kinesiology Name Role Phone Nereida Ramirez MD Unavailable Rand Whalen MD Primary Care Provider Active Problems Problem Noted Date Diagnosed Date Abnormal findings on diagnostic imaging of sam t 01/27/2021 Follicular lymphoma C82.98 09/23/2017 CAD (coronary artery disease) 08/09/2014 Overview (10/12/2017): Overview: S/p cardiac cath at [facility] following Dr. Herman EF 40 %, AR stage 4, and RCA 50% Hepatic steatosis 08/09/2014 Severe aortic regurgitation 08/09/2014 Overview (10/12/2017): Overview: For possible AVR Arthralgia of multiple joints 05/04/2014 Fibromyalgia 03/01/2014 Hyperglycemia 03/01/2014 IBS (irritable bowel syndrome) 03/01/2014 Neurogenic bladder 03/01/2014 MS (multiple sclerosis) 10/13/2012 Current Treatment and Therapy Plans No current plan information found. Past Treatment and Therapy Plans No past plan information found. Lifetime Dose Tracking * Chemical Lifetime Dose Automatic Entry Manual Entr y Fluoro Time 0.1 minutes 0.1 minutes 0 minutes Air kerma at the reference point (Ka,r) 1 mGy 1 mGy 0 mGy DLP 4,547 mGycm 4,547 mGycm 0 mGycm
--- OUTSIDE RECORDS SUMMARY | 2024-08-16 08:25 | XMS_ITS | Encounter Summary ---
Author Organization [facility] Address [address] [place] [address] Care Team Providers Care Livestock Nutrition Territory Manager Name Role Phone Félix Pineda MD Unavailable [phone] Rajiv Sherman MD Unavailable [phone] Davi Herman MD Unavailable [phone] Rand Whalen MD Primary Care Provider Reason for Referral * Consultation (Routine) - Closed Specialty Diagnoses / Procedures Referred By Contjose t Referred To Contact Neurology Diagnoses Nonintractable epilepsy without status epilepticus, unspecified epilepsy type (HCC) Liliane Johnson MD [address] [place] [address] Phone: tel: fax: [facility] - Neurology [address] [place] [id number] Phone: tel: fax: Referral ID Status Reason Start Date Expiration Date V isits Requested Visits Authorized [id number] Closed Specialty Services Required 03/31/2024 03/31/2025 1 1 SERVICE OBSERVER Encounter Details Date Type Department Care Team (Latest Contact Info) Description 03/31/2024 Transcribe Orders [facility] - Centralized Scheduling [facility] [place] [address] Liliane Johnson MD [address] [place] [address] Nonintractable epilepsy without status epilepticus, unspecified epilepsy type Social History Tobacco Use Types Packs/Day Years Used Date Smoking Tobacco: Former Cigarettes Alcohol Use Standard Drinks/Week Comments No 0 (1 standard drink = 0.6 oz pur e alcohol) Comments Unknown Sex and Gender Information Value Date Recorded Sex Assigned at Not on file Legal Sex Female 4:34 PM CDT Gender Identity Not on file Sexual Orientation Not on file documented as of this encounter Plan of Treatment Scheduled Referrals Name Type Priority Associated Diagnoses Orde r Schedule AMB REFERRAL TO NEUROLOGY Outpatient Referral Routine Nonintractable epilepsy without status epilepticus, unspecified epilepsy type 1 Occurrences starting 03/31/2024 until 03/31/2025 documented as of this encounter Visit Diagnoses Diagnosis Nonintractable epilepsy without status epilepticus, unspecified epilepsy type (HCC)- Primary documented in this encounter Care Teams Livestock Nutrition Territory Manager Relationship Specialty Start Date End Date Rand Whalen MD [address] [place] [address] PCP - General 10/11/21 Félix Pineda MD Family Medicine 07/31/14 Rajiv Sherman MD Neurology 10/13/12 Davi Herman MD [address] [address] [facility] 06/22/14 documented as of this encounter
--- OUTSIDE RECORDS SUMMARY | 2024-08-16 08:25 | XMS_ITS | Clinical Summary ---
Author Organization [facility] Address [address] [place] [address] Care Team Providers Care Multimedia Designer Name Role Phone Nereida Ramirez MD Unavailable [phone] Rand Whalen MD Primary Care Provider Allergies Active Allergy Reactions Criticality Noted Date Comments Amitriptyline Nausea And Vomiting,Rash Medium 01/31/2014 Bupropion Hives Medium 08/18/2023 Codeine Unknown,Other (See comments) Low 01/31/2014 Depth perception Fluoxetine Hives Medium 08/18/2023 Interferon Beta-1a Rash Medium 08/18/2023 Latex Other (See comments),Nausea & Vomiting,Rash Medium 01/31/2014 blisters blisters blisters Metformin Rash Medium 02/21/2016 Morphine Unknown,Hives Medium 01/08/2017 Not listed Not listed Not listed Peas Unknown Low 03/05/2014 Penicillins Unknown,Hives Medium 01/08/2017 Not listed Sulfa (Sulfonamide Antibiotics) Nausea And Vomiting,Unknown,Ra sh Medium 01/31/2014 Sulfasalazine Rash Medium 08/02/2014 Trazodone Other (See comments),Rash,Urti caria Medium 01/08/2017 Knocks her out Knocks her out Knocks her out Medications albuterol HFA (PROVENTIL HFA,VENTOLIN HFA) 90 mcg/actuation inhaler Inhale 2 puffs every 6 hours as needed Active ARIPiprazole (ABILIFY) 5 mg tablet Take 1 tablet (5 mg total) by mouth Active atorvastatin (LIPITOR) 40 mg tablet Take 1 tablet (40 mg total) by mouth Active cyclobenzaprine (FLEXERIL) 10 mg tablet TAKE ONE TABLET BY MOUTH THREE TIMES A DAY 10/03/19 14 Active dicyclomine (BENTYL) 10 mg capsule Take 1 capsule (10 mg total) by mouth Active gabapentin (NEURONTIN) 300 mg capsule Take 1 capsule (300 mg total) by mouth 11/15/19 15 Active lamoTRIgine (LaMICtal) 100 mg tablet Take 1 tablet (100 mg total) by mouth Active mirtazapine (REMERON) 30 mg tablet Take 1 tablet (30 mg total) by mouth Active vilazodone (VIIBRYD) 40 mg tabletIndication s:major depressive disorder Take 1 tablet (40 mg total) by mouth daily Active tamsulosin (FLOMAX) 0.4 mg extended release capsule Take 1 capsule (0.4 mg total) by mouth daily Active UNABLE TO FIND Med Name: [facility]- 1 1/2 months 05/05/18 2.50 oz a month-oils and smoking, gummies Active insulin aspart U-100 (NovoLOG) 100 unit/mL injection Inject 40 Units under the skin 3 (three) times a day before meals Active insulin glargine U-300 conc 300 unit/mL (1.5 mL) insulin pen Inject 70 Units under the skin Active pantoprazole DR (PROTONIX) 40 mg EC tablet PANTOPRAZOLE SODIUM 40 MG ORAL TABLET DELAYED RELEASE 05/03/18 70 Active hydroCHLOROthiaz zoë (MICROZIDE) 12.5 mg capsule Take 1 capsule (12.5 mg total) by mouth daily Active hydrOXYzine (ATARAX) 50 mg tablet Take 1 tablet (50 mg total) by mouth 3 (three) times a day as needed for itching Active QUEtiapine (SEROquel) 300 mg tablet Take 1 tablet (300 mg total) by mouth nightly Active melatonin 10 mg tablet Active cetirizine (ZyrTEC) 10 mg tablet Take 1 tablet (10 mg total) by mouth daily Active HYDROcodone-acet aminophen (NORCO) 10-325 mg per tablet Take 1 tablet by mouth 3 (three) times a day as needed for pain 08/14/19 22 Active hydrOXYzine (VISTARIL) 50 mg capsule TAKE 1 CAPSULE BY MOUTH THREE TIMES A DAY NEEDED FOR SEVERE ANXIETY 30 DAYS 08/14/19 22 Active NovoLOG 70/30 100 unit/mL pen for injection TAKE 50 UNITS BEFORE BREAKFAST AND 40 UNITS BEFORE DINNER UNDER THE SKIN 05/19/19 22 Active ketoconazole (NIZORAL) 2 % cream APPLY 1 APPLICATION TOPICALLY ON THE SKIN TWICE A DAY 07/26/19 22 Active propranoloL (INDERAL) 10 mg tablet TAKE 1 TABLET BY MOUTH TWICE A DAY FOR 30 DAYS 08/15/19 22 Active HumuLIN R U-500 500 unit/mL (3 mL) CONCENTRATED pen for injection 07/09/19 23 Active potassium chloride ER 20 mEq CR tablet Take 1 tablet (20 mEq total) by mouth daily 04/21/20 22 Active zaleplon (SONATA) 5 mg capsule TAKE 1 CAPSULE BY MOUTH AT BEDTIME NEEDED 06/28/19 23 Active Ozempic 1 mg/dose (4 mg/3 mL) pen injector injection INJECT 1 MG (0.75 ML) SUBCUTANEOUSLY ONCE WEEKLY 06/11/19 23 Active Active Problems Problem Noted Date Diagnosed Date Abnormal findings on diagnostic imaging of sam t 01/27/2021 Follicular lymphoma C82.98 09/23/2017 CAD (coronary artery disease) 08/09/2014 Overview (10/12/2017): Overview: S/p cardiac cath at [facility] following Dr. Herman EF 40 %, AR stage 4, and RCA 50% Hepatic steatosis 08/09/2014 Severe aortic regurgitation 08/09/2014 Overview (10/12/2017): Overview: For possible AVR Arthralgia of multiple joints 05/04/2014 Fibromyalgia 03/01/2014 Hyperglycemia 03/01/2014 IBS (irritable bowel syndrome) 03/01/2014 Neurogenic bladder 03/01/2014 MS (multiple sclerosis) 10/13/2012 Encounters Date Type Department Care Team Description 08/09/2024 Telephone [facility] [address] [place] [address] Essie Leal, RN confirm appts from Last 3 Months Immunizations Immunization Administration Dates Next Due Influenza, Quadrivalent, Leah l Culture-based MDCK, Antibiotic Free, Intramuscular 02/13/2019 Influenza, Quadrivalent, Leah l Culture-based MDCK, Preservative Free, Antibiotic Free, Intramuscular 02/19/2022,02/26/2021 Influenza, Quadrivalent, Spl it, Preservative Free, Intramuscular 03/05/2020,03/08/2018,04/07/2016 Influenza, Split 03/03/2018 Influenza, Trivalent, IM (MDV) 02/26/2014 Pfizer SARS-CoV-2 Monovalent Vaccination (12+ Yrs) PURPLE 02/26/2021,08/06/2020,07/16/2020 Pneumococcal Conjugate PCV 13 03/08/2018 Pneumococcal Polysaccharide PPV23 04/07/2016 Surgical History Surgery Date Site/Laterality Comments PORT REMOVAL 11/15/2019 N/A BREAST BIOPSY APPENDECTOMY HYSTERECTOMY DILATION AND CURETTAGE OF UTERUS BREAST BIOPSY 01/27/2021 Right Medical History Medical History Date Comments Personal history of other di seases of the nervous system and sense organs History of migraine - (Added by TW Conv) Other chronic pain Chronic pain - (Added by TW Conv) Personal history of other di seases of the nervous system and sense organs Personal history of mu ltiple sclerosis - (Added by TW Conv) Personal history of other co mplications of , childbirth and the puerperium History of spontaneous abort ion - (Added by TW Conv) Bipolar disorder (HCC) Bipolar d isorder (manic depression) - (Added by TW Conv) Convulsions (HCC) Seizures - (Ad ded by TW Conv) 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, soft tissue, 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) Motion sickness Coronary artery disease Sleep apnea Irritable bowel syndrome MS (multiple sclerosis) (HCC) Generalized headaches Depression Diabetes mellitus type I (HCC) Arthritis Family History Medical History Relation Name Comments Skin cancer Father Breast cancer Mother's Sister Lupus Sister Family history of systemic lupus erythematosus - (Added by TW Conv) Relation Name Status Comments Father Mother's Sister Sister Social History Tobacco Use Types Packs/Day Years Used Date Smoking Tobacco: Every Day E-cigarettes Last attempted to quit: 05/05/2013 Smokeless Tobacco: Never Tobacco Cessation:Ready to Q uit: Not Asked; Counseling Given: Not Answered Comments:eciggs last 5 years Alcohol Use Standard Drinks/Week Comments Defer 0 (1 standard drink = 0.6 oz pur e alcohol) Comments No Sex and Gender Information Value Date Recorded Sex Assigned at Not on file Legal Sex Female 6:51 AM 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 Gender Identity Not on file Sexual Orientation Not on file Obstetrics History Last Filed Vital Signs Vital Sign Reading Time Taken Comments Blood Pressure 114/78 09/09/2023 10:07 AM CDT Pulse 87 09/09/2023 10:07 AM CDT Temperature 36.4 C (97.5 F) 09/09/2023 10:07 AM CDT Respiratory Rate 18 09/09/2023 10:07 AM CDT Oxygen Saturation 93% 09/09/2023 10:07 AM CDT Inhaled Oxygen Concentration - - Weight 94.5 kg (208 lb 6.4 oz) 09/09/2023 10:07 AM CDT Height 160 cm (5' 2.99 ) 09/09/2023 10:07 AM CDT Body Mass Index 36.93 09/09/2023 10:07 AM CDT Plan of Treatment Health Maintenance Due Date Last Done Comments Breast Cancer Screening-Mammogram 1965 Colon Cancer Screening-Colonoscopy 1964 Depression Screening 1964 DTaP/Tdap/Td Vaccine (1 - Tdap) 1975 Hepatitis B Screening 1982 Regular Well Visit/Exam 18-64 1982 Zoster Vaccine (1 of 2) 1983 Pneumococcal vaccine <65 (3 of 3 - PPSV23, PCV20 or PCV21) 04/07/2021 03/08/2018, 04/07/2016 Covid-19 Vaccine (4 - 2023-2 5 season) 2024 02/26/2021, 08/06/2020, 07/16/2020 Influenza Vaccine (Season Ended) 2025 02/19/2022, 02/26/2021, 03/05/2020, Additional history exists Hepatitis C Screening Completed 05/13/2017 Procedures Procedure Name Priority Date/Time Associated Diagnosis Comments HEPATITIS C ANTIBODY Routine Gen Lab 05/13/2017 4:52 PM 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 from Last 3 Months or Most Recently Relevant to Health Maintenance Results * Hepatitis C antibody (05/13/2017 4:52 PM 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) Hep C Ab Nonreactive Nonreactive PATRICIA DALY Comment: Interpretive Data Positive and greyzone results should be confirmed by a molecular method. If positive or greyzone, a second separately collected sample should be submitted for Hepatitis C Virus RNA. Detection and Quantitation by Real-Time Reverse Publishing Director-PCR.Current Interpretive data was last revised on 2016. Blood specimen (specimen) 05/13/2017 4:52 PM 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 05/13/2017 5:18 PM 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 Narrative [facility] - 05/14/2017 9:38 AM 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 us Nereida Ramirez MD LAB MICROBIOLOGY - GENERAL ORDERABLES Edited Result - Final [facility] Department [place] [address] from Last 3 Months or Most Recently Relevant to Health Maintenance Insurance [facility] OTHER Address: [address] [place] [address] [place] [address] MEDICARE IDAR Advance Directives For more information, please contact: [phone] * Full Code (Latest Code Status on File) Date Activated Date Inactivated Comments 11/15/2019 2:35 PM 11/15/2019 7:49 PM Care Teams Multimedia Designer Relationship Specialty Start Date End Date Rnad Whalen MD [address] [place] [address] [address] PCP - General Family Practice 03/27/24 Nereida Ramirez MD Medical Oncologist/Physician Assistant Psychiatry Medical Oncology 06/13/20
--- OUTSIDE RECORDS SUMMARY | 2024-08-16 08:25 | XMS_ITS ---
Author Organization [facility] Address [address] [place] [address] Care Team Providers Care Finance Administrator Name Role Phone Rudy Keenan Primary Care Provider [phone] REASON FOR VISIT med refill Medications Medication SIG (Take, Route, Fr equency, Duration) Notes Start Date End Date Status lamoTRIgine 100 MG 1 tablet Once a day for 8 days Active Mirtazapine 45 MG 1 tablet at bedtime Orally Once a day for 8 days Active Social History Sex Assigned At : Social History Observation Description Sex Assigned At Female Encounters Encounter Location Date Provider Diagnosis [address] [place] [address] 08/08/2024 Rudy Keenan Bipolar 1 disorder, depressed, moderate F31.32 Assessments Encounter Date Diagnosis (ICD Code) Assessment Notes Treatment Notes Treatment Clinical Notes Section Notes 08/08/2024 Bipolar 1 disorder, depressed, moderate (ICD-10 - F31.32) Plan Of Treatment Medication Medication Name Sig Start Date Stop Date Notes lamoTRIgine 100 MG 1 tablet Once a day for 8 days Mirtazapine 45 MG 1 tablet at bedtime Orally Once a day for 8 days Progress Notes * Evangelina BARLOW SDOB:0 1965 (59 yo F)Acc No.[id number]:08/08/2024 Patient: Evangelina DENIS :1965 A ge:59 Y S ex:Female Address:[address] [place], [address] * Refills Continue Mirtazapine Tablet, 45 MG, Orally, 8 Tablet, 1 tablet at bedtime, Once a day, 8 days Continue lamoTRIgine Tablet, 100 MG, 8 Tablet, 1 tablet, Once a day, 8 days * true * Date: Generated for Nawaf lozano/Rimma/Kaila on: 0 08/16/2024 08:24 AM CDT
--- OUTSIDE RECORDS SUMMARY | 2024-08-16 08:25 | XMS_ITS | Clinical Summary ---
Author Organization [facility] Address [address] [place] [address] Care Team Providers Care Internal Combustion Engineer Name Role Phone Félix Pineda MD Unavailable [phone] Rajiv Sherman MD Unavailable [phone] Davi Herman MD Unavailable [phone] Rand Whalen MD Primary Care Provider Source Comments [facility],non-owned Affiliates and Associated Physician Practices is amultiple site organization consisting of ambulatory clinics and hospital sitesin [place], [place], [place] and [place]. This disclosure is being madepursuant to the Care Everywhere program and may not contain all information available regarding this patient. Last updated 18.[facility] Allergies Active Allergy Reactions Criticality Noted Date Comments Amitriptyline 09/13/2014 Bupropion Unknown 08/18/2023 Codeine 09/13/2014 Fluoxetine Unknown 08/18/2023 Interferon Beta-1a Unknown 08/18/2023 Latex Other,Unknown Low 01/31/2014 blisters blisters Metformin Rash Medium 01/08/2017 Morphine Unknown 01/08/2017 Not listed Not listed Pea Extract Unknown 05/04/2014 Penicillins Unknown 01/08/2017 Not listed Sulfa Drugs 09/13/2014 Trazodone Other,Urticaria Medium 01/08/2017 Knocks her out Knocks her out Medications * Be aware that medications may not be up to date on this document. Alwaysverify current medications with the patient. citalopram (CELEXA) 20 MG tablet Take by mouth at bedtime. Active lamoTRIgine (LAMICTAL) 100 MG tablet Take by mouth 2 times daily. Active vilazodone (VIIBRYD) 40 MG tablet Take by mouth every morning. Active estrogens, conjugated, (PREMARIN) 0.45 MG tablet Take by mouth once daily. Active traZODone (DESYREL) 100 MG tablet Take 3 Tabs by mouth at bedtime. Active hydrocodone-ruben taminophen (LORCET) 10-650 MG tablet Take 1 Tab by mouth every 8 hours as needed. 50 Tab 0 10/13/2012 Active cyclobenzaprine (FLEXERIL) 10 MG tablet TAKE ONE TABLET BY MOUTH THREE TIMES A DAY 90 Tab 3 10/02/2013 Active Aspirin (SB LOW DOSE ASA EC) 81 MG TBEC Take 1 Tab by mouth once daily. Active carBAMazepine (TEGRETOL) 200 MG tablet Take 400 mg by mouth 3 times daily with meals. Active clonazePAM (KLONOPIN) 1 MG tablet Take 1 mg by mouth 2 times daily. Active fentaNYL (DURAGESIC) 50 MCG/HR patch Apply 1 Patch to skin every 3 days. Do not apply heat over patch. Active meloxicam (MOBIC) 15 MG tablet Take 15 mg by mouth once daily. Active Multiple Vitamin (MV-ONE PO) Take by mouth. Active oxybutynin (DITROPAN) 5 MG tablet Take 5 mg by mouth 2 times daily. Active albuterol HFA (Proventil; Ventolin; Proair) 108 (90 Base) MCG/ACT inhaler Inhale 2 (two) puffs by mouth every 6 hours as needed Active ARIPiprazole (Abilify) 5 MG tablet Take 1 (one) tablet by mouth Active aspirin (Aspirin) 81 MG chew tablet 1 tablet Orally Once a day Active atorvastatin (Lipitor) 80 MG tablet 80 MG ORALLY DAILY 06/04/2023 Active dicyclomine (Bentyl) 10 MG capsule Take 1 (one) capsule by mouth Active Refresh Tears 0.5 % ophthalmic solution INSTILL ONE DROP INTO EACH EYE 2 TO 3 TIMES PER DAY NEEDED FOR DRY EYE(S) 05/05/2023 Active cyclobenzaprine (Flexeril) 10 MG tablet 1 tablet at bedtime as needed Orally Once a day Active cetirizine (ZyrTEC) 10 MG tablet Take 1 (one) tablet by mouth once daily Active ketoconazole (Nizoral) 2 % shampooIndicati ons:Seborrheic dermatitis Apply to wet hair, leave on for 3 minutes, then rinse; wash daily. 120 mL 11 08/18/2023 Active Active Problems Problem Noted Date Diagnosed Date MS (multiple sclerosis) 10/13/2012 Family History Medical History Relation Name Comments Stroke Father Aneurysm Mother Relation Name Status Comments Father Mother Social History Tobacco Use Types Packs/Day Years Used Date Smoking Tobacco: Former Cigarettes Alcohol Use Standard Drinks/Week Comments No 0 (1 standard drink = 0.6 oz pur e alcohol) Comments Unknown Sex and Gender Information Value Date Recorded Sex Assigned at Not on file Legal Sex Female 4:34 PM CDT Gender Identity Not on file Sexual Orientation Not on file Last Filed Vital Signs Vital Sign Reading Time Taken Comments Blood Pressure 115/69 09/13/2014 9:30 AM CDT Pulse 72 10/25/2014 12:14 PM CDT Temperature - - Respiratory Rate 12 10/25/2014 12:14 PM CDT Oxygen Saturation 100% 09/13/2014 9:30 AM CDT Inhaled Oxygen Concentration - - Weight 83.9 kg (185 lb) 10/25/2014 12:14 PM CDT Height 160 cm (5' 3 ) 10/25/2014 12:14 PM CDT Body Mass Index 32.77 10/25/2014 12:14 PM CDT Plan of Treatment Health Maintenance Due Date Last Done Comments COLOGUARD (AGES 45-75) - COLON CA SCREENING 1964 COLON MONITORING 1964 COLONOSCOPY - COLON CA SCREENING 1964 CT COLONOGRAPHY - COLON CA SCREENING 1964 Colorectal Cancer Screening 1964 FIT - COLON CA SCREENING 1964 FLEX SIG - COLON CA SCREENING 1964 MAMMOGRAM 1965 MEDICARE AWV 12 MONTHS 1964 PAP SMEAR 1964 HIV SCREENING 1979 HEPATITIS C SCREENING 06/17/1982 DTAP/TDAP/TD VACCINES (1 - Tdap) 1983 PNEUMOCOCCAL VACCINE 50+ (1 of 1 - PCV) 2014 ZOSTER VACCINE (1 of 2) 2014 COVID-19 VACCINE ( - season) 2024 02/26/2021, 08/06/2020, 07/16/2020 DEPRESSION SCREENING 05/03/2024 INFLUENZA VACCINE (Season Ended) 2025 02/19/2022, 02/26/2021, 03/05/2020, Additional history exists Respiratory Syncytial Virus (RSV) Vaccine Pt: or over 60 yrs (1 - 1-dose 75+ series) 2039 HEPATITIS B VACCINE Aged Out No longe r eligible based on patient's age to complete this topic HIB VACCINE Aged Out No longer eligi ble based on patient's age to complete this topic HPV VACCINE Aged Out No longer eligi ble based on patient's age to complete this topic MENINGOCOCCAL (Group B) VACCINE SHARED DECISION-MAKING Aged Out No longer eligible based on patient's age to complete this topic MENINGOCOCCAL GROUPS A/C/Y/W VACCINE Aged Out No longer eligible based on patient's age to complete [place] [address] MEDICARE [facility] MEDICARE MEDICARE MEDICAID - OUT OF [facility] MEDICARE MEDICAID - OUT OF STATE MEDICARE MEDICAID - OUT OF STATE MEDICARE Care Teams Internal Combustion Engineer Relationship Specialty Start Date End Date Rand Whalen MD [address] [place] [address] PCP - General 10/11/21 Félxi Pineda MD Family Medicine 07/31/14 Rajiv Sherman MD Neurology 10/13/12 Davi Herman MD [address] [address] Head Of Geography Cardiology 06/22/14
--- OUTSIDE RECORDS SUMMARY | 2024-08-16 08:25 | XMS_ITS | Encounter Summary ---
Author Organization [facility] Address [address] [place] [address] Care Team Providers Care Sales Support Assistant Name Role Phone Spencer Fuentes MD Primary Care Provider [phone] Nereida Ramirez MD Unavailable Rand Whalen MD Primary Care Provider Rand Whalen MD Primary Care Provider Encounter Details Date Type Department Care Team (Late st Contact Info) Description 11/13/2019 Telephone [facility] [address] [place] [address] Fabby Almendarez, RT Social History Tobacco Use Types Packs/Day Years Used Date Smoking Tobacco: Former E-cigarettes Quit: 05/05/2013 Smokeless Tobacco: Never Comments:eciggs last 5 years Comments Unknown Sex and Gender Information Value Date Recorded Sex Assigned at Not on file 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 Gender Identity Not on file Sexual Orientation Not on file documented as of this encounter Plan of Treatment Not on file documented as of this encounter Visit Diagnoses Not on filedocumented in this encounter Care Teams Sales Support Assistant Relationship Specialty Start Date End Date Spencer Fuentes MD [address] [place] [address] PCP - General 04/01/17 01/26/21 Rand Whalen MD [address] [place] [address] PCP - General Family Practice 01/27/21 03/26/24 Rand Whalen MD [address] [address] [place] [address] [place] [address] PCP - General Family Practice 03/27/24 Nereida Ramirez MD [address] [place] [address] Medical Oncologist/Racehorse Trainer Medical Oncology 06/13/20 documented as of this encounter
--- OUTSIDE RECORDS SUMMARY | 2024-08-16 08:25 | XMS_ITS | Patient Health Record ---
Author Organization [facility] Address [address] [place] [address] Care Team Providers Care Cost Consultant Name Role Phone Rudy Keenan Primary Care Provider Allergies Allergen (clinical drug ingredient) Drug/Non Drug [...] Active trazodone Trazodone Unknown Drug Allergy Active Reason For Referral No Information Medications Medication SIG (Take, Route, Frequency, Duration) Notes Start Date End Date Status Propranolol HCl 10 MG TAKE 1 TABLET BY MOUTH TWICE A DAY for 90 days Active Mirtazapine 45 MG 1 tablet at bedtime Orally Once a day for 90 days Active hydrOXYzine Pamoate 50 MG 1 capsule Orally three times a day for 90 days As needed for anxiety Active Atorvastatin Calcium 40 MG 1 tablet Oral ly Once a day Active Gabapentin 300 MG 1 capsule Orally Once a day Active Aspirin 81 81 MG 1 tablet Orally Once a day Active Jardiance 10 MG 1 tablet Orally Once a day for 30 day(s) Active Cyclobenzaprine HCl 10 MG 1 tablet at be dtime as needed Orally Once a day Active Pantoprazole Sodium 40 MG 1 tablet Orall y Once a day Active hydroCHLOROthiazide 12.5 MG 1 capsule in the morning Orally Once a day Active HumuLIN R U-500 KwikPen 500 UNIT/ML as directed Subcutaneous Active Ozempic (0.25 or 0.5 MG/DOSE) 2 MG/1.5ML as directed Subcutaneous Not-Taking Januvia 25 MG as directed Orally Active lamoTRIgine 100 MG 1 tablet Once a day for 90 days Active ARIPiprazole 10 MG 1 tablet Once a day for 90 days Active Vilazodone HCl 40 MG 1 tablet with food Once a day for 90 days Active QUEtiapine Fumarate 300 MG 2 tablets in the evening Once a day for 90 days Active Immunizations Vaccine Route Administration Date Status Comme nts FLU VAC NO PRSV 4VAL 6 mo+ IM Intramuscular 02/26/2021 Administered Given at [facility]. Man:Seqirus. Lot:[id number] COVID-19 Pfizer Vaccine 1ST IM Intramuscular 02/26/2021 Administered Given at [facility]. Lot#[id number]. Social History Tobacco Use: Social History Observation Description Date Details (start date - stop date) Never Smoker NA - NA Sex Assigned At : Social History Observation Description Sex Assigned At Female Tobacco Control (Standard) Question Answer Notes Tobacco use: Nonsmoker Problems Problem Type SNOMED Code ICD Code Onset Dates Problem Status W/U Status Risk Notes Problem Generalized anxiety disorder (00063095) Generalized anxiety disorder (F41.1) Active confirmed Problem 28698870 Bipolar 1 disorder, depressed, moderate (F31.32) Active confirmed Vital Signs Heart Rate 71 /min 03/09/2024 Temperature 97.1 degrees Fahrenheit 03/09/2024 Respiratory Rate 14 /min 03/09/2024 Blood pressure diastolic 62 mm Hg 03/09/2024 Oximetry 95 % 03/09/2024 Height 63 in 03/09/2024 Blood pressure systolic 100 mm Hg 03/09/2024 Weight 205.2 lbs 03/09/2024 BMI 36.35 kg/m2 03/09/2024 Encounters Encounter Location Date Provider Diagnosis [address] [place] [address] 08/31/2023 Rudy Keenan Bipolar 1 disorder, depressed, moderate F31.32 and Generalized anxiety disorder F41.[address] [place] [address] 11/25/2023 Rudy Keenan Bipolar 1 disorder, depressed, moderate F31.32 and Generalized anxiety disorder F41.[address] [place] [address] 03/09/2024 Rudykarla Keenan Bipolar 1 disorder, depressed, moderate F31.32 and Generalized anxiety disorder F41.[address] [address] 08/15/2024 Rudykarla Keenan Bipolar 1 disorder, depressed, moderate F31.32 and Generalized anxiety disorder F41.[address] [address] 05/29/2024 Rudykarla Keenan [address] [address] 08/08/2024 Rudykarla Keenan Bipolar 1 disorder, depressed, moderate F31.[address] [address] 08/10/2024 Rudykarla Keenan Bipolar 1 disorder, depressed, moderate F31.32 and Generalized anxiety disorder F41.1 Assessments Encounter Date Diagnosis (ICD Code) Assessment Notes Treatment Notes Treatment Clinical Notes Section Notes 08/31/2023 Bipolar 1 disorder, depressed, moderate (ICD-10 - F31.32) Client refuses any treatment plan suggested changes (such as discontinuing aripiprazole or quetiapine and not being on both). Client doing well overall. 11/25/2023 Bipolar 1 disorder, depressed, moderate (ICD-10 - F31.32) 03/09/2024 Bipolar 1 disorder, depressed, moderate (ICD-10 - F31.32) 08/08/2024 Bipolar 1 disorder, depressed, moderate (ICD-10 - F31.32) 08/10/2024 Bipolar 1 disorder, depressed, moderate (ICD-10 - F31.32) 08/15/2024 Bipolar 1 disorder, depressed, moderate (ICD-10 - F31.32) Client doing well, no tx plan changes needed. 08/15/2024 Generalized anxiety disorder (ICD-10 - F41.1) Client doing well, no tx plan changes needed. 08/10/2024 Generalized anxiety disorder (ICD-10 - F41.1) 03/09/2024 Generalized anxiety disorder (ICD-10 - F41.1) 11/25/2023 Generalized anxiety disorder (ICD-10 - F41.1) 08/31/2023 Generalized anxiety disorder (ICD-10 - F41.1) Client refuses any treatment plan suggested changes (such as discontinuing aripiprazole or quetiapine and not being on both). Client doing well overall. 08/31/2023 Other Discussed sleep hygiene and caffeine intake with encouragement to limit electronic devices an hour before bed and to limit caffeine after 3:00pm. Exercise benefits for mood and health discussed. Psychoeducation regarding psychiatric illness provided. Client was educated about risks and benefits of medication, alternatives to medication, off label uses of medication, suicidal ideation with SSRIs, self-administratio n and compliance with medication along with how to safely store medication. Verbal informed consent obtained. Client agrees to return sooner if symptoms worsen or if suicidal or homicidal ideations occur. Client has the phone number to the 24-hour crisis line at [facility]. Questions addressed. Client verbalized understanding of all information and is agreeable to treatment plan. Client refuses any treatment plan suggested changes (such as discontinuing aripiprazole or quetiapine and not being on both). Client doing well overall. 11/25/2023 Other Discussed sleep hygiene and caffeine intake with encouragement to limit electronic devices an hour before bed and to limit caffeine after 3:00pm. Exercise benefits for mood and health discussed. Psychoeducation regarding psychiatric illness provided. Client was educated about risks and benefits of medication, alternatives to medication, off label uses of medication, suicidal ideation with SSRIs, self-administratio n and compliance with medication along with how to safely store medication. Verbal informed consent obtained. Client agrees to return sooner if symptoms worsen or if suicidal or homicidal ideations occur. Client has the phone number to the 24-hour crisis line at [facility]. Questions addressed. Client verbalized understanding of all information and is agreeable to treatment plan. 03/09/2024 Other Discussed sleep hygiene and caffeine intake with encouragement to limit electronic devices an hour before bed and to limit caffeine after 3:00pm. Exercise benefits for mood and health discussed. Psychoeducation regarding psychiatric illness provided. Client was educated about risks and benefits of medication, alternatives to medication, off label uses of medication, suicidal ideation with SSRIs, self-administratio n and compliance with medication along with how to safely store medication. Verbal informed consent obtained. Client agrees to return sooner if symptoms worsen or if suicidal or homicidal ideations occur. Client has the phone number to the 24-hour crisis line at [facility]. Questions addressed. Client verbalized understanding of all information and is agreeable to treatment plan. 08/15/2024 Other Discussed sleep hygiene and caffeine intake with encouragement to limit electronic devices an hour before bed and to limit caffeine after 3:00pm. Exercise benefits for mood and health discussed. Psychoeducation regarding psychiatric illness provided. Client was educated about risks and benefits of medication, alternatives to medication, off label uses of medication, suicidal ideation with SSRIs, self-administratio n and compliance with medication along with how to safely store medication. Verbal informed consent obtained. Client agrees to return sooner if symptoms worsen or if suicidal or homicidal ideations occur. Client has the phone number to the 24-hour crisis line at [facility]. Questions addressed. Client verbalized understanding of all information and is agreeable to treatment plan. Client doing well, no tx plan changes needed. Plan Of Treatment No Information Insurance Providers Payer Name Payer Address Payer Phone Subscriber Number Group Number Insured Name Patient Relationship to Insured Coverage Start Date Coverage End Date MEDICARE PART A [address] [place] [address] [id number] Kartik-Evangelina Corrales Self - patient is the insured 3 [facility] [address] [address] [place] [address] [id number] Kartik-Evangelina Corrales Self - patient is the insured 2 2 [facility] Claims Department [address] [place] [address] [id number] Kartik-Sa Evangelina purcell Self - patient is the insured 1 MEDICAID [address] [place] [address] [id number] Kartik-Sa rgSherrie lorenzonda Self - patient is the insured 3 3 Medical (General) History Medical History History ICD Code Seizures (non-epileptic, 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
--- OUTSIDE RECORDS SUMMARY | 2024-08-16 08:25 | XMS_ITS | Encounter Summary ---
Author Organization [facility] Address 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 Report feedback to Dr Pineda Associated Symptoms: recently started on her old medications that she had been. Pt has been incoherent, not able walk as well (hx of MS) declining Onset: 4 days Location: Neuro Pain Assessment: 1 - 10 with 10 being the most severe pain Denies Treatment so far for current presenting problem: Denies History (Clinical Problems): MS, Fibromyalgia, CAD< Heaptic statosis Medications: Meds revewied with caller Per How do you roll? Medication reactions: Amitripyline, Codeine, Latex and Sulfa <<<<<<<< TRIAGE NOTE >>>>>>>> Triage Note: Dry Heat Cabinet Attendant Shereen Shoemaker added this note on Nov 24 2014 3:35PM: Med were stopped October and started last Wednesday, Meds that were resterted Fentanyl, Hydrocodone, Xartemis, Baclofen, Carbamazemine, Klonzepam, Jean Paul Pentin, Lamictal, Pravastatin, trazadone, Vilazodone. Dr Whitehead called back and advised that she should go ahead and be seen in the Emergency room. Called Caller back and updated on plan of care <<<<<<<< TRIAGE/OUTCOME >>>>>>>> Guideline Title: Confusion, Disorientation, Agitation ; Confusion, Disorientation, Agitation Recommended Disposition: See ED Immediately Original Inclination: Call Provider/See in 24 Override Disposition: Redirection Page Intended Action: Call Provider Immediately Physician Contacted: No New or worsening confusion, disorientation, or agitation ? YES documented in this encounter Plan of Treatment Not on file documented as of this encounter Visit Diagnoses Not on filedocumented in this encounter Care Teams Cell Tower Climber Relationship Specialty Start Date End Date Spencer Fuentes MD [address] [place] [address] PCP - General Family Practice 01/08/17 03/02/22 documented as of this encounter
--- OUTSIDE RECORDS SUMMARY | 2024-08-16 08:25 | XMS_ITS | Referral Summary ---
Author Organization [facility] Address [address] [place] [address] Care Team Providers Care Battery Tester And Repairer Name Role Phone Nereida Ramirez MD Unavailable Rand Whalen MD Primary Care Provider Encounters Date Type Department Care Team Description 08/09/2024 [id number] [place] [address] Essie Leal, EZEQUIEL confirm appts from Last 3 Months Allergies Active Allergy Reactions Criticality Noted Date [...] daily Active UNABLE TO FIND Med Name: medical [facility]- 1 1/2 months 05/05/18 2.50 oz a [...] Overview (10/12/2017): Overview: S/p cardiac cath at [facility] following Dr. Herman EF 40 %, AR stage 4, and RCA 50% Hepatic steatosis 08/09/2014 Severe aortic regurgitation 08/09/2014 Overview (10/12/2017): Overview: For possible AVR Arthralgia of multiple joints 05/04/2014 Fibromyalgia 03/01/2014 Hyperglycemia 03/01/2014 IBS (irritable bowel syndrome) 03/01/2014 Neurogenic bladder 03/01/2014 MS (multiple sclerosis) 10/13/2012 Immunizations Immunization Administration Dates Next Due Influenza, Quadrivalent, Leah l Culture-based MDCK, Antibiotic Free, Intramuscular 02/13/2019 Influenza, Quadrivalent, Leah l Culture-based MDCK, Preservative Free, Antibiotic Free, Intramuscular 02/19/2022,02/26/2021 Influenza, Quadrivalent, Spl it, Preservative Free, Intramuscular 03/05/2020,03/08/2018,04/07/2016 Influenza, Split 03/03/2018 Influenza, Trivalent, IM (MDV) 02/26/2014 Pfizer SARS-CoV-2 Monovalent Vaccination (12+ Yrs) PURPLE 02/26/2021,08/06/2020,07/16/2020 Pneumococcal Conjugate PCV 13 03/08/2018 Pneumococcal Polysaccharide PPV23 04/07/2016 Social History Tobacco Use Types Packs/Day Years [...] on file Legal Sex Female 6:51 AM [employer] Gender Identity Not on file Sexual Orientation [...] 09/09/2023 10:07 AM CDT Plan of Treatment Not on file Procedures Procedure Name Priority Date/Time Associated Diagnosis Comments HEPATITIS C ANTIBODY Routine Gen Lab 05/13/2017 4:52 PM [employer] from Last 3 Months or Most Recently Relevant to Health Maintenance Results * Hepatitis C antibody (05/13/2017 4:52 PM [employer]) Hep C Ab Nonreactive Nonreactive [facility] Comment: Interpretive Data Positive and greyzone results should be confirmed by a molecular method. If positive or greyzone, a second separately collected sample should be submitted for Hepatitis C Virus RNA. Detection and Quantitation by Real-Time Reverse Automation Control Integrator-PCR.Current Interpretive data was last revised on 2016. Blood specimen (specimen) 05/13/2017 4:52 PM [employer] 05/13/2017 5:18 PM [employer] Narrative [facility] - 05/14/2017 9:38 AM [employer] us Nereida Ramirez MD LAB MICROBIOLOGY - GENERAL ORDERABLES Edited Result - Final [facility] Department [place] [address] from Last 3 Months or Most Recently Relevant to Health Maintenance Insurance [facility] MEDICARE [facility]MT [facility] [place] [address] MEDICARE IDPA Advance Directives For more information, please contact: [phone] * Full Code (Latest Code Status on File) Date Activated Date Inactivated Comments 11/15/2019 2:35 PM 11/15/2019 7:49 PM Care Teams Battery Tester And Repairer Relationship Specialty Start Date End Date Rand Whalen MD [address] [place] [address] [address] PCP - General Family Practice 03/27/24 Nereida Ramirez MD Medical Oncologist/Manufacturing Executive Medical Oncology 06/13/20
--- OUTSIDE RECORDS SUMMARY | 2024-08-16 08:34 | XMS_ITS | Continuity of Care Document ---
Author Organization [facility] Address [address] [place] [address] [facility] [address] [place] [address] Phone Care Team Providers Care Requirements Analyst Name Role Phone Colin Tyson Unavailable Unavailable Procedures Procedure Date Eye Exam, New Patient Advance Directives Directive Yes / No Effective Date File Name No Information Encounters Encounter Description Practice Location Reason(s) For Visit Diagnoses Date Provider Providers Copied on Encounter [facility], [id number] [place] [address] [address], [place], [place], [id number], [place] tel:[phone] [facility] No Information 3-201 0 Marbella Colin. [address] [facility] [address], [place], [address], [place]. tel:[phone] Family History Family Member Type Diagnosis Age At Onset No Information Payers Payer name Insurance type Covered republican ID Authoriza tion(s) Medicare [facility] [id number] Medicaid [facility] [id number] Social History Type Description Quantity Date Captured [...]
== END 2024-08-16 09:08 | disposition home or self-care (01) ==
PROVIDERS: PCP Family Medicine
DX: M79.672 Pain in left foot (principal); M25.572 Pain in left ankle and joints of left foot; I10 Essential (primary) hypertension; Z85.72 Personal history of non-Hodgkin lymphomas; Z87.891 Personal history of nicotine dependence; W10.9XXA Fall (on) (from) unspecified stairs and steps, initial encounter
CPT/HCPCS: 73610; 73630; 99213; G0463

== ENCOUNTER 2024-08-24 10:50 | Outpatient (CLI) | payer MEDICARE, MEDICAID, SELFPAY ==
--- NOTE | ~2024-08-24 | MR_ITS ---
MRI of the lumbar spine Clinical History: Back pain Technique: Axial T2-weighted images, and sagittal T1-weighted, T2-weighted, and T2 fat-sat images wer e acquired. COMPARISON: 10/22/2022 Findings: There is no fracture or subluxation of the lumbar spine. Vertebral bodies maintain alignmen t and alignment. No bone marrow signal abnormality seen. At L1-L2, there is no disc bulge or herniation. There is moderate facet arthropathy. No central canal stenosis or neural foraminal narrowing. At L2-L3, there is no disc bulge or herniation. There is moderate to advanced facet arthropathy. No c entral canal stenosis or neural foraminal narrowing. At L3-L4, there is mild disc bulge with severe facet arthropathy. No central canal stenosis or defini te neural foraminal narrowing. At L4-L5, there is minimal disc bulge with moderate to advanced facet arthropathy. No central canal s tenosis or neural foraminal narrowing. At L5-S1, there is moderate facet arthropathy. No disc bulge or herniation. No spinal canal stenosis or neural foraminal narrowing. Paravertebral soft tissues are unremarkable. Impression: Mild degenerative spondylosis overall, as detailed above, similar to prior exam. Reviewed, dictated and finalized at location . Impression: Mild degenerative spondylosis overall, as detailed above, similar to prior exam .
--- OUTSIDE RECORDS SUMMARY | 2024-08-24 12:21 | XMS_ITS | Referral Summary ---
Author Organization [facility] Address [address] [place] [address] Care Team Providers Care Adzing And Boring Machine Helper Name Role Phone Nereida Ramirez MD Unavailable Rand Whalen MD Primary Care Provider Encounters Date Type Department Care Team Description 08/09/2024 Telephone [facility] [address] [place] [address] Essie Leal, EZEQUIEL confirm appts [...] Active UNABLE TO FIND Med Name: medical [facility]- 1 1/2 months 05/05/18 2.50 oz [...] Abnormal findings on diagnostic imaging of sam ryder 01/27/2021 Follicular lymphoma C82.98 09/23/2017 CAD (coronary artery disease) 08/09/2014 Overview (10/12/2017): Overview: S/p cardiac cath at [facility] following Dr. 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 If positive or greyzone, a second separately collected sample should be submitted for Hepatitis C Virus RNA. Detection and Quantitation by Real-Time Reverse Shipping And Receiving Coordinator-PCR.Current Interpretive data was last revised on 2016. Blood specimen (specimen) 05/13/2017 4:52 PM PRODUCTION FINISHER 05/13/2017 5:18 PM PRODUCTION FINISHER Narrative [facility] - 05/14/2017 9:38 AM PRODUCTION FINISHER us Nereida Ramirez MD LAB MICROBIOLOGY - GENERAL ORDERABLES Edited Result - Final [facility] Department [place] [address] from Last 3 Months or Most Recently Relevant to Health Maintenance Insurance [facility] MEDICARE ADVANTAGE MEDICARE ID[place] [facility] OTHER Address: [address] [place] [id number] MEDICARE [place] Advance Directives For more information, please contact: [phone] * Full Code (Latest Code Status on File) Date Activated Date Inactivated Comments 11/15/2019 2:35 PM 11/15/2019 7:49 PM Care Teams Adzing And Boring Machine Helper Relationship Specialty Start Date End Date Rand Whalen MD [address] [place] [address] [address] PCP - General Family Practice 03/27/24 Nereida Ramirez MD Medical Oncologist/Compress Machine Operator Medical Oncology 06/13/20
--- OUTSIDE RECORDS SUMMARY | 2024-08-24 12:21 | XMS_ITS | Encounter Summary ---
Author Organization [facility] Address [address] [place] [address] Care Team Providers Care Manager Baby Name Role Phone Unavailable Primary Care Provider Unavailabl e Encounter Details Date Type Department Care Team (Late st Contact Info) Description 08/28/2022 Abstract [facility] Oncology and Hematology - [address] [place] [id number] Yasir Hong, RN Social History Tobacco Use [...]
--- OUTSIDE RECORDS SUMMARY | 2024-08-24 12:21 | XMS_ITS | Continuity of Care Document ---
Author Organization [facility] Address [address] [place] [address] [facility] [address] [place] [address] Phone Care Team Providers Care Lining Stitcher Name Role Phone Colin Tyson Unavailable Unavailable Procedures Procedure Date Eye Exam, New Patient Advance Directives Directive Yes / No Effective Date File Name No Information Encounters Encounter Description Practice Location Reason(s) For Visit Diagnoses Date Provider Providers Copied on Encounter [facility], [address] [place] [address] [address], [place], [place], [address], [place] tel:[phone] [facility] No Information 3-201 0 Marbella Colin. [address] [facility] [address], [place], [address], [place]. tel:[phone] Family History Family Member Type Diagnosis Age At Onset No Information Payers Payer name Insurance type Covered alliance party ID Authoriza tion(s) Medicare [facility] [id number] Medicaid [facility] [id number] Social History Type Description Quantity Date Captured [...]
--- OUTSIDE RECORDS SUMMARY | 2024-08-24 12:21 | XMS_ITS | Encounter Summary ---
Author Organization [facility] Address [address] [place] [address] Care Team Providers Care Escrow Agent Name Role Phone Spencer Fuentes MD Primary Care Provider [phone] Encounter Details Date Type Department Care Team [...] Type: Triage Call Addendum Date and Time [id number] Presenting Problem: Caregiver Roslyn She is incoherent. [...] statosis Medications: Meds revewied with caller Per Eco Cuizine Medication reactions: Amitripyline, Codeine, Latex and Sulfa <<<<<<<< TRIAGE NOTE >>>>>>>> Triage Note: Digital Strategy Specialist Shereen Shoemaker added this note on Nov [...] on filedocumented in this encounter Care Teams Escrow Agent Relationship Specialty Start Date End Date Spencer Fuentes MD [address] [place] [address] PCP - General Family Practice 01/08/17 03/02/22 documented as of this encounter
--- OUTSIDE RECORDS SUMMARY | 2024-08-24 12:21 | XMS_ITS ---
Author Organization [facility] Address [address] [place] [address] Care Team Providers Care Assistant To The Dean Name Role Phone Nereida Ramirez MD Unavailable Rand Whalen MD Primary Care Provider Active Problems Problem Noted Date Diagnosed Date Abnormal findings on diagnostic imaging of sam t 01/27/2021 Follicular lymphoma C82.98 09/23/2017 CAD (coronary artery disease) 08/09/2014 Overview (10/12/2017): Overview: S/p cardiac cath at [facility] following Dr. Herman EF 40 %, [...]
--- OUTSIDE RECORDS SUMMARY | 2024-08-24 12:21 | XMS_ITS | Clinical Summary ---
Author Organization [facility] Address [address] [place] [address] Care Team Providers Care Charging Manipulator Name Role Phone Félix Pineda MD Unavailable [phone] Rajiv Sherman MD Unavailable [phone] Davi Herman MD Unavailable [phone] Rand Whalen MD Primary Care Provider Source Comments [facility],non-owned Affiliates and Associated Physician Practices is amultiple site organization consisting of ambulatory clinics and hospital sitesin [place], [place], [place] and [place]. This disclosure is being madepursuant to the Care Everywhere program and may not contain all information available regarding this patient. Last updated 18.[facility] Allergies Active Allergy Reactions Criticality Noted [...] patient's age to complete [place] [address] MEDICARE [facility] MEDICARE MEDICARE MEDICAID - OUT OF [facility] MEDICARE MEDICAID - OUT OF STATE MEDICARE MEDICAID - OUT OF STATE MEDICARE Care Teams Charging Manipulator Relationship Specialty Start Date End Date Rand Whalen MD [address] [place] [address] PCP - General 10/11/21 Félix Pineda MD Family Medicine 07/31/14 Rajiv Sherman MD Neurology 10/13/12 Davi Herman MD [address] [address] Lasting Room Machine Operator Cardiology 06/22/14
--- OUTSIDE RECORDS SUMMARY | 2024-08-24 12:21 | XMS_ITS | Encounter Summary ---
Author Organization [facility] Address [address] [place] [address] Care Team Providers Care Handle Finisher Name Role Phone Spencer Fuentes MD Primary Care Provider [phone] Nereida Ramirez MD Unavailable [phone] Rand Whalen MD Primary Care Provider Rand Whalen MD Primary Care Provider Encounter Details Date Type Department Care Team (Late st Contact Info) Description 11/13/[address] 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 MECHANIC Gender Identity Not on file Sexual Orientation Not on file documented as of this encounter Plan of Treatment Not on file documented as of this encounter Visit Diagnoses Not on filedocumented in this encounter Care Teams Handle Finisher Relationship Specialty Start Date End Date Spencer Fuentes MD [address] [place] [address] PCP - General 04/01/17 01/26/21 Rand Whalen MD [address] [place] [address] PCP - General Family Practice 01/27/21 03/26/24 Rand Whalen MD [address] [facility] [address] [address] [place] [address] PCP - General Family Practice 03/27/24 Nereida Ramirez MD [address] [place] [address] Medical Oncologist/Night Nurse Medical Oncology 06/13/20 documented as of this encounter
--- OUTSIDE RECORDS SUMMARY | 2024-08-24 12:21 | XMS_ITS | Clinical Summary ---
Author Organization [facility] Address [address] [place] [address] Phone Care Team Providers Care .Net Developer Name Role Phone Unavailable Primary Care Provider [...] at bedtime. Active fluticasone (FLONASE) 50 mcg/spray [place], Suspension Administer 2 Sprays in each nostril daily. Active viatamin B complex-vitamin I-lxrrweay-qbvq -folic acid 106 mg iron- 1 mg [...] 08/09/2014 Overview (08/09/2014): S/p cardiac cath at [facility] following Dr. Herman EF 40 %, AR [...] Comments Blood Pressure 99/75 03/24/2017 3:03 PM POT ROOM SUPERVISOR Pulse 107 03/24/2017 3:03 PM POT ROOM SUPERVISOR Temperature 36.9 C (98.5 F) 03/24/2017 3:03 PM POT ROOM SUPERVISOR Respiratory Rate 18 02/22/2017 1:24 PM CDT Oxygen Saturation 95% 09/21/2014 1:11 PM CDT Inhaled Oxygen Concentration - - Weight 84.1 kg (185 lb 6.4 oz) 03/24/2017 3:03 P M POT ROOM SUPERVISOR Height 160 cm (5' 3 ) 03/24/2017 3:03 PM POT ROOM SUPERVISOR Body Mass Index 32.84 03/24/2017 3:03 PM POT ROOM SUPERVISOR Plan of Treatment Health Maintenance Due Date Last Done Comments DTAP/TDAP/TD VACCINES (1 - Tdap) 1983 HPV/Cotest (21-29) 1985 CERVICAL CANCER SCREENING 1994 HPV/Cotest (30-65) [...] Risk 60-74 years 1-dose series) 2024 Insurance MEDICARE PART A AND B MEDICAID [place] Advance Directives For more information, please contact: [phone] Documents on File Type Date Recorded Patient Head Setter Expl anation Advance Directive POA 10/24/2014 11:30 AM Advance Directive POA * Full Code (Latest Code Status on File) Date Activated Date Inactivated Comments 09/21/2014 12:04 PM 09/21/2014 3:21 PM
--- OUTSIDE RECORDS SUMMARY | 2024-08-24 12:21 | XMS_ITS | Encounter Summary ---
Author Organization [facility] Address [address] [place] [address] Care Team Providers Care Class A Truck Driver Name Role Phone Félix Pineda MD Unavailable [phone] Rajiv Sherman MD Unavailable [phone] Davi Herman MD Unavailable [phone] Rand Whalen MD Primary Care Provider Reason for Referral * Consultation (Routine) - Closed Specialty Diagnoses / Procedures Referred By Contjose t Referred To Contact Neurology Diagnoses Nonintractable epilepsy without status epilepticus, unspecified epilepsy type (HCC) Liliane Johnson MD [address] [place] [address] Phone: tel: fax: [facility] - Neurology [address] [place] [address] Phone: tel: fax: Referral ID Status Reason Start Date Expiration Date V isits Requested Visits Authorized [id number] Closed Specialty Services Required 03/31/2024 03/31/[address] PRODUCTION MANAGER Encounter Details Date Type Department Care Team (Latest Contact Info) Description 03/31/2024 Transcribe Orders [facility] - Centralized Scheduling [facility] [place] [address] Liliane Johnson MD [address] [place] [address] Nonintractable epilepsy without status epilepticus, unspecified epilepsy [...] Primary documented in this encounter Care Teams Class A Truck Driver Relationship Specialty Start Date End Date Rand Whalen MD [address] [place] [address] PCP - General 10/11/21 Félix Pineda MD Family Medicine 07/31/14 Rajiv Sherman MD Neurology 10/13/12 Davi Herman MD [address] [address] Blanket Inspector Cardiology 06/22/14 documented as of this encounter
--- OUTSIDE RECORDS SUMMARY | 2024-08-24 12:21 | XMS_ITS | Patient Health Record ---
Author Organization [facility] Address [address] [place] [address] Care Team Providers Care Engineer Rf Deployment Name Role Phone Rudy Keenan Primary Care [...] mo+ IM Intramuscular 02/26/2021 Administered Given at [facility]. Man:Seqirus. Lot:[id number] COVID-19 Pfizer Vaccine 1ST IM Intramuscular 02/26/2021 Administered Given at [facility]. Lot#[id number]. Social History Tobacco Use: Social History Observation Description Date Details (start date - stop date) Never Smoker NA - NA Sex Assigned At : Social History Observation Description Sex Assigned At Female Tobacco Control (Standard) Question Answer Notes Tobacco use: Nonsmoker Problems Problem Type SNOMED Code ICD Code Onset Dates Problem Status W/U Status Risk Notes Problem Generalized anxiety disorder (22905590) Generalized anxiety disorder (F41.1) Active confirmed Problem 67272998 Bipolar 1 disorder, depressed, moderate (F31.32) Active confirmed Vital Signs Heart Rate 71 /min 03/09/2024 Temperature 97.1 degrees Fahrenheit 03/09/2024 Respiratory Rate 14 /min 03/09/2024 Blood pressure diastolic 62 mm Hg 03/09/2024 Oximetry 95 % 03/09/2024 Height 63 in 03/09/2024 Blood pressure systolic 100 mm Hg 03/09/2024 Weight 205.2 lbs 03/09/2024 BMI 36.35 kg/m2 03/09/2024 Encounters Encounter Location Date Provider Diagnosis [address] [place] [address] 08/31/2023 Rudy Keenan Bipolar 1 disorder, depressed, moderate F31.32 and Generalized anxiety disorder F41.[address] [place] [address] 11/25/2023 Rudy Keenan Bipolar 1 disorder, depressed, moderate F31.32 and Generalized anxiety disorder F41.[address] [place] [address] 03/09/2024 Rudy Keenan Bipolar 1 disorder, depressed, moderate F31.32 and Generalized anxiety disorder F41.[address] [address] 08/15/2024 Rudykarla Keenan Bipolar 1 disorder, depressed, moderate F31.32 and Generalized anxiety disorder F41.[address] [address] 05/29/2024 Rudy Keenan [address] [address] 08/08/2024 Rudykarla Keenan Bipolar 1 disorder, depressed, moderate F31.[address] [address] 08/10/2024 Rudykarla Keenan Bipolar 1 disorder, depressed, moderate F31.32 and Generalized anxiety disorder F41.1 Assessments Encounter Date Diagnosis (ICD Code) Assessment Notes Treatment Notes Treatment Clinical Notes Section Notes 11/25/2023 Bipolar 1 disorder, depressed, moderate (ICD-10 - F31.32) 08/15/2024 Bipolar 1 disorder, depressed, moderate (ICD-10 - F31.32) Client doing well, no tx plan changes needed. 08/08/2024 Bipolar 1 disorder, depressed, moderate (ICD-10 - F31.32) 08/10/2024 Bipolar 1 disorder, depressed, moderate (ICD-10 - F31.32) 08/31/2023 Bipolar 1 disorder, depressed, moderate (ICD-10 - F31.32) Client refuses any treatment plan suggested changes (such as discontinuing aripiprazole or quetiapine and not being on both). Client doing well overall. 03/09/2024 Bipolar 1 disorder, depressed, moderate (ICD-10 - F31.32) 08/31/2023 Generalized anxiety disorder (ICD-10 - F41.1) Client refuses any treatment plan suggested changes (such as discontinuing aripiprazole or quetiapine and not being on both). Client doing well overall. 03/09/2024 Generalized anxiety disorder (ICD-10 - F41.1) 11/25/2023 Generalized anxiety disorder (ICD-10 - F41.1) 08/10/2024 Generalized anxiety disorder (ICD-10 - F41.1) 08/15/2024 Generalized anxiety disorder (ICD-10 - F41.1) Client doing well, no tx plan changes needed. 08/31/2023 Other Discussed sleep hygiene and caffeine [...] number to the 24-hour crisis line at [facility]. Questions addressed. Client verbalized understanding of [...] number to the 24-hour crisis line at [facility]. Questions addressed. Client verbalized understanding of [...] number to the 24-hour crisis line at [facility]. Questions addressed. Client verbalized understanding of [...] number to the 24-hour crisis line at [facility]. Questions addressed. Client verbalized understanding of all information and is agreeable to treatment plan. Client doing well, no tx plan changes needed. Plan Of Treatment No Information Insurance Providers Payer Name Payer Address Payer Phone Subscriber Number Group Number Insured Name Patient Relationship to Insured Coverage Start Date Coverage End Date MEDICARE PART A [address] [place] [address] [id number] Kartik-Evangelina Corrales Self - patient is the insured 3 [facility] [address] [address] [place] [address] [id number] Kartik-Evangelina Corrales Self - patient is the insured 2 2 [facility] Claims Department [address] [place] [address] [id number] Kartik-Sa Evangelina purcell Self - patient is the insured 1 MEDICAID [address] [place] [address] [id number] Kartik-Sa rgSherrie lorenzonda Self - patient is [...] History Reason Date(Month/Year) Tripped and Fell on [place], breaking 2 fingers 09/08/2021 Extreme Dehydration & Out of control blood sugars - [facility] 09/08/2021
--- OUTSIDE RECORDS SUMMARY | 2024-08-24 12:21 | XMS_ITS | Clinical Summary ---
Author Organization [facility] Address [address] [place] [address] Care Team Providers Care Spindle Plumber Name Role Phone Nereida Ramirez MD Unavailable Rand Whalen MD Primary Care Provider Allergies [...] daily Active UNABLE TO FIND Med Name: [facility]- 1 1/2 months 05/05/18 2.50 oz a [...] Date Abnormal findings on diagnostic imaging of breas t 01/27/2021 Follicular lymphoma C82.98 09/23/2017 CAD (coronary artery disease) 08/09/2014 Overview (10/12/2017): Overview: S/p cardiac cath at [facility] following Dr. Herman EF 40 %, AR stage 4, and RCA 50% Hepatic steatosis 08/09/2014 Severe aortic regurgitation 08/09/2014 Overview (10/12/2017): Overview: For possible AVR Arthralgia of multiple joints 05/04/2014 Fibromyalgia 03/01/2014 Hyperglycemia 03/01/2014 IBS (irritable bowel syndrome) 03/01/2014 Neurogenic bladder 03/01/2014 MS (multiple sclerosis) 10/13/2012 Encounters Date Type Department Care Team Description 08/09/2024 Telephone [facility] [address] [place] [address] Essie Leal, RN confirm appts [...] on file Legal Sex Female 6:51 AM COLLECTIONS TECHNICIAN Gender Identity Not on file Sexual [...] ANTIBODY Routine Gen Lab 05/13/2017 4:52 PM COLLECTIONS TECHNICIAN from Last 3 Months or Most Recently Relevant to Health Maintenance Results * Hepatitis C antibody (05/13/2017 4:52 PM COLLECTIONS TECHNICIAN) Hep C Ab Nonreactive Nonreactive PATRICIA BJ Comment: Interpretive Data Positive and greyzone results should be confirmed by a molecular method. If positive or greyzone, a second separately collected sample should be submitted for Hepatitis C Virus RNA. Detection and Quantitation by Real-Time Reverse Pack Worker Supervisor-PCR.Current Interpretive data was last revised on 2016. Blood specimen (specimen) 05/13/2017 4:52 PM COLLECTIONS TECHNICIAN 05/13/2017 5:18 PM COLLECTIONS TECHNICIAN Narrative PATRICIA DALY - 05/14/2017 9:38 AM COLLECTIONS TECHNICIAN us Nereida Ramirez MD LAB MICROBIOLOGY - GENERAL ORDERABLES Edited Result - Final PATRICIA DALY [facility] Department [place] [address] from Last 3 Months or Most Recently Relevant to Health Maintenance Insurance [facility] MEDICARE ADVANTAGE MEDICARE IDPA [facility] MEDICARE IDPA Advance Directives For more information, please contact: [phone] * Full Code (Latest Code Status on File) Date Activated Date Inactivated Comments 11/15/2019 2:35 PM 11/15/2019 7:49 PM Care Teams Spindle Plumber Relationship Specialty Start Date End Date Rand Whalen MD [address] [place] [address] [address] PCP - General Family Practice 03/27/24 Nereida Ramirez MD Medical Oncologist/Head Machinist Medical Oncology 06/13/20
== END 2024-08-24 10:51 | disposition home or self-care (01) ==
PROVIDERS: PCP Family Medicine; Visit Provider Nurse Practitioner Family
DX: M47.896 Other spondylosis, lumbar region (principal)
CPT/HCPCS: 72148

== ENCOUNTER 2024-10-05 10:59 | Outpatient (CLI) | payer MEDICARE, MEDICAID, SELFPAY ==
--- OUTSIDE RECORDS SUMMARY | 2024-10-05 12:05 | XMS_ITS ---
Author Organization [facility] Address [address] [place] [address] Care Team Providers Care Ventilating Engineer Name Role Phone Nereida Ramirez MD Unavailable [phone] No Crow NP Primary Care Provider [phone] Active Problems Problem Noted Date Diagnosed Date Pyelonephritis 09/22/2024 Abnormal findings on diagnostic imaging of breas t 01/27/2021 Follicular lymphoma C82.98 09/23/2017 CAD (coronary artery disease) 08/09/2014 Overview (10/12/2017): Overview: S/p cardiac cath at [facility] following Dr. Herman EF 40 %, [...]
--- OUTSIDE RECORDS SUMMARY | 2024-10-05 12:05 | XMS_ITS | Encounter Summary ---
Author Organization [facility] Address [address] [place] [address] Phone Care Team Providers Care Continuous Washer Operator Name Role Phone Nereida Ramirez MD Unavailable [phone] Rand Whalen MD Primary Care Provider No Crow NP Primary Care Provider [phone] Encounter Details Date Type Department Care Team (Latest Contact Info) Description 08/24/2024 Orders Only [facility] Scanning, Provider Social History Tobacco Use Types Packs/Day Years Used Date Smoking Tobacco: Every Day E-cigarettes Last attempted to quit: 05/05/2013 Smokeless Tobacco: Never Comments:[place] last 5 years Alcohol Use Standard Drinks/Week Comments Defer 0 (1 standard drink = 0.6 oz pur e alcohol) Comments No Sex and Gender Information Value Date Recorded Sex Assigned at Not on file Legal Sex Female 6:51 AM CAMP TENDER Gender Identity Not on file Sexual Orientation Not on file documented as of this encounter Plan of Treatment Not on file documented as of this encounter Procedures Procedure Name Priority Date/Time Associated Diagnosis Comments SCAN - RADIOLOGY/IMAGING 08/24/2024 documented in this encounter Results * SCAN - RADIOLOGY/IMAGING (08/24/2024) Anatomical Region Laterality Modality Other us Provider Scanning Final Result documented in this encounter Visit Diagnoses Not on filedocumented in this encounter Care Teams Continuous Washer Operator Relationship Specialty Start Date End Date Rand Whalen MD [address] [place] [address] [place] [address] PCP - General Family Practice 03/27/24 09/20/24 No Crow NP [address] [place] [address] PCP - General Family Medicine 09/21/24 Nereida Ramirez MD Medical Oncologist/Deputy County Counsel Medical Oncology 06/13/20 documented as of this encounter
--- OUTSIDE RECORDS SUMMARY | 2024-10-05 12:05 | XMS_ITS | Referral Summary ---
Author Organization [facility] Address [address] [place] [phone] Care Team Providers Care Pullman Conductor Name Role Phone Nereida Ramirez MD Unavailable [phone] No Crow NP Primary Care Provider [phone] Encounters Date Type Department Care Team Description 10/03/2024 Orders Only [facility] [address] [place] [phone] Teena Crowe Follicular 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) (Primary Dx) 09/29/2024 [facility] Post Discharge Follow up phone call [facility] [address] [place] [address] Maite Valdez RN 09/28/2024 11:17 PM CDT - 09/29/2024 3:28 AM CDT Emergency [facility] Emergency Department [address] [place] [address] Leland Nunez MD Dysuria (Primary Dx) Discharge Disposition: Discharge to home or self care 09/28/2024 10:45 AM CDT Lab [facility] - Lab Collection [address] [place] [id number] Follicular lymphoma C82.98 09/28/2024 11:30 AM CDT Office Visit [facility] [address] [place] [phone] Nereida Ramirez MD Follicular lymphoma C82.98 (Primary Dx); Follicular 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) 09/28/2024 10:30 AM CDT Lab [facility] Lab [facility] [address] [phone] 09/26/2024 Telephone [facility] [address] [place] [phone] Teresa Arellano, RMLexx 09/21/2024 10:37 PM CDT - 09/26/2024 1:53 PM CDT Hospital Encounter [facility] [address] [place] [phone] Tangela Mcarthur MD Huynh, Kiet T., MD Kheirkhahan, Nazanin, MD Nations, Matthew Austin, DO Pyelonephritis (Primary Dx) Discharge Disposition: Discharge to home or self care 09/05/2024 Documentation [facility] [address] [place] [phone] DaveyAugust, RMA Appointment 09/01/2024 Telephone [facility] [address] [place] [phone] Teresa Arellano, RMA 08/24/2024 Orders Only [facility] Scanning, Provider 08/09/2024 Telephone [facility] [address] [place] [phone] Essie Leal, RN confirm appts from Last 3 Months Allergies [...] TABLET BY MOUTH THREE TIMES A DAY 014 Active dicyclomine (BENTYL) 10 mg capsule Take 1 capsule (10 mg total) by mouth Active gabapentin (NEURONTIN) 300 mg capsule Take 1 capsule (300 mg total) by mouth 3 (three) times a day 015 Active lamoTRIgine (LaMICtal) 100 mg tablet Take [...] daily Active UNABLE TO FIND Med Name: [facility]- 1 1/2 months 05/05/18 2.50 oz a month-oils and smoking, gummies Active insulin aspart U-100 (NovoLOG) 100 unit/mL injection Inject 40 Units under the skin 3 (three) times a day before meals Active pantoprazole DR (PROTONIX) 40 mg EC tablet PANTOPRAZOLE SODIUM 40 MG ORAL TABLET DELAYED RELEASE 970 Active hydrOXYzine (ATARAX) 50 mg tablet Take 1 tablet (50 mg total) by mouth 3 (three) times a day as needed for itching Active QUEtiapine (SEROquel) 300 mg tablet Take 1 tablet (300 mg total) by mouth nightly Active melatonin 10 mg tablet Active cetirizine (ZyrTEC) 10 mg tablet Take 1 tablet (10 mg total) by mouth daily Pt states she takes this every other day. She took it yesterday. Active hydrOXYzine (VISTARIL) 50 mg capsule TAKE 1 CAPSULE BY MOUTH THREE TIMES A DAY NEEDED FOR SEVERE ANXIETY 30 DAYS 022 Active ketoconazole (NIZORAL) 2 % cream APPLY 1 APPLICATION TOPICALLY ON THE SKIN TWICE A DAY 022 Active HumuLIN R U-500 500 unit/mL (3 mL) CONCENTRATED pen for injection 023 Active zaleplon (SONATA) 5 mg capsule TAKE 1 CAPSULE BY MOUTH AT BEDTIME NEEDED 023 Active potassium chloride ER 20 mEq CR tablet Take 1 tablet (20 mEq total) by mouth 2 (two) times a day for 3 days 6 tablet 025 Active aspirin 81 mg enteric coated tabletIndication s:Follicular 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) Take by mouth 015 Active Jardiance 10 mg tabletIndication s:Follicular 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) daily Active Januvia 100 mg tabletIndication s:Follicular 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) Take 1 tablet (100 mg total) by mouth daily 025 Active terbinafine (LamiSIL) 250 mg tabletIndication s:Follicular 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) Take 1 tablet (250 mg total) by mouth daily 025 Active triamterene-hydr oCHLOROthiazide 37.5-25 mg per tabletIndication s:Follicular 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) Take 1 tablet/capsule by mouth every morning 025 Active insulin glargine U-300 conc 300 unit/mL (1.5 mL) insulin pen Inject 70 Units under the skin 2024 Discontinued(T herapy completed) hydroCHLOROthiaz zoë (MICROZIDE) 12.5 mg capsule Take 1 capsule (12.5 mg total) by mouth daily 2024 Discontinued(S top Taking at Discharge) HYDROcodone-acet aminophen (NORCO) 10-325 mg per tablet Take 1 tablet by mouth 3 (three) times a day as needed for pain 022 2024 Discontinued(T herapy completed) NovoLOG 70/30 100 unit/mL pen for injection TAKE 50 UNITS BEFORE BREAKFAST AND 40 UNITS BEFORE DINNER UNDER THE SKIN 2024 Discontinued(T herapy completed) propranoloL (INDERAL) 10 mg tablet TAKE 1 TABLET BY MOUTH TWICE A DAY FOR 30 DAYS 022 2024 Discontinued(T herapy completed) potassium chloride ER 20 mEq CR tablet Take 1 tablet (20 mEq total) by mouth daily 2024 Discontinued Ozempic 1 mg/dose (4 mg/3 mL) pen injector injection INJECT 1 MG (0.75 ML) SUBCUTANEOUSLY ONCE WEEKLY 023 2024 Discontinued(T herapy completed) cephalexin (KEFLEX) 500 mg capsuleIndicatio ns:Urinary Tract/Genitourin jerry Infection Take 1 capsule (500 mg total) by mouth 4 (four) times a day for 24 doses 24 capsule 025 2024 ondansetron ODT (ZOFRAN-ODT) 4 mg disintegrating tablet Take 1 tablet (4 mg total) by mouth every 8 (eight) hours as needed for nausea or vomiting for up to 7 days 20 tablet 025 2024 Active Problems Problem Noted Date Diagnosed Date Pyelonephritis 09/22/2024 Abnormal findings on diagnostic imaging of breas t 01/27/2021 Follicular lymphoma C82.98 09/23/2017 CAD (coronary artery disease) 08/09/2014 Overview (10/12/2017): Overview: S/p cardiac cath at [facility] following Dr. Herman EF 40 %, [...] Influenza, Quadrivalent, Spl it, Preservative Free, Intramuscular 02/26/2021,03/05/2020,03/08/2018,04/07 Influenza, Split 03/03/2018 Influenza, Trivalent, IM (MDV) [...] drink = 0.6 oz pur e alcohol) [facility] Utilities Answer Date Recorded In the past 12 months has [employer], gas, oil, or water [employer] threatened to shut off services in your home? No 09/22/2024 Social Connection and Isolation Panel [NHANES] A nswer Date Recorded In a typical week, how many times do you talk on the phone with family, friends, or neighbors? Three times a week 09/22/2024 How often do you get togethe r with friends or relatives? Three times a week 09/22/2024 How often do you attend chur ch or amish services? Never 09/22/2024 Do you belong to any clubs o r organizations such as mandaeism groups, unions, fraternal or athletic groups, or school groups? No 09/22/2024 How often do you attend meet ings of the clubs or organizations you belong to? Never 09/22/2024 Are you , , di vorced, , never , or living with a partner? 09/22/2024 Overall Financial Resource Strain (CARDIA) Answe r Date Recorded How hard is it for you to pa y for the very basics like food, housing, medical care, and heating? Hard 09/22/2024 Hunger Vital Sign Answer Date Recorded Within the past 12 months, y ou worried that your food would run out before you got the money to buy more. Never true 09/23/19 25 Within the past 12 months, t he food you bought just didn't last and you didn't have money to get more. Never true 09/22/2024 PRAPARE - Transportation Answer Date Re corded In the past 12 months, has l ack of transportation kept you from medical appointments or from getting medications? No 09/01 In the past 12 months, has l ack of transportation kept you from meetings, work, or from getting things needed for daily living? No 09/22/2024 Housing Stability Vital Sign Answer Haja e Recorded In the last 12 months, was t here a time when you were not able to pay the mortgage or rent on time? Yes 09/22/2024 In the past 12 months, how m any times have you moved where you were living? 1 09/22/2024 At any time in the past 12 m [facility], were you homeless or living in a correction (including now)? Yes 09/22/2024 Personal Safety Answer Date Recorded Have you ever been in or are you currently in a harmful physical or emotional relationship or is someone making you feel afraid or unsafe? 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 Gender Identity Not on file Sexual Orientation Not on file Last Filed Vital Signs Vital Sign Reading Time Taken Comments Blood Pressure 143/66 09/29/2024 2:45 AM CDT Pulse 90 09/29/2024 2:45 AM CDT Temperature 35.9 C (96.6 F) 09/28/2024 10:53 PM CDT Respiratory Rate 18 09/29/2024 2:45 AM CDT Oxygen Saturation 96% 09/29/2024 2:45 AM CDT Inhaled Oxygen Concentration - - Weight 91.2 kg (201 lb) 09/28/2024 5:23 PM CDT Height 160 cm (5' 3) 09/28/2024 5:23 PM CDT Body Mass Index 35.61 09/28/2024 5:23 PM CDT Plan of Treatment Not on file Procedures Procedure Name Priority Date/Time Associated Diagnosis Comments URINALYSIS AND REFLEX TO MICROSCOPIC AND CULTURE STAT 09/29/2024 12:20 AM CDT EGFR STAT 09/28/2024 11:47 PM CDT DIFFERENTIAL AUTO STAT 09/28/2024 11: 47 PM CDT SEPSIS LACTATE WITH REFLEX STAT 09/28/2024 11:47 PM CDT COMPREHENSIVE METABOLIC PANEL STAT 09/28/2024 11:47 PM CDT CBC WITH AUTO DIFFERENTIAL STAT 09/28/2024 11:47 PM CDT POCT GLUCOSE DEVICE Routine 09/28/2024 1 0:58 PM CDT URINALYSIS, MICROSCOPIC ONLY STAT 09/28/2024 5:31 PM CDT URINE CULTURE STAT 09/28/2024 5:31 PM CDT URINALYSIS AND REFLEX TO MICROSCOPIC AND CULTURE STAT 09/28/2024 5:31 PM CDT EGFR Routine 09/28/2024 10:40 AM CDT Follicular lymphoma C82.98 DIFFERENTIAL AUTO Routine 09/28/2024 10: 40 AM CDT Follicular lymphoma C82.98 CBC WITH AUTO DIFFERENTIAL Routine 09/28/2024 10:40 AM CDT Follicular lymphoma C82.98 COMPREHENSIVE METABOLIC PANEL Routine 09/28/2024 10:40 AM CDT Follicular lymphoma C82.98 LACTATE DEHYDROGENASE Routine 09/28/2024 10:40 AM CDT Follicular lymphoma C82.98 POCT GLUCOSE DEVICE Routine 09/26/2024 1 1:22 AM CDT POCT GLUCOSE DEVICE Routine 09/26/2024 7 :43 AM CDT MAGNESIUM Add-On 09/26/2024 5:27 AM CDT EGFR Routine 09/26/2024 5:27 AM CDT BASIC METABOLIC PANEL Routine 09/26/2024 5:27 AM CDT POCT GLUCOSE DEVICE Routine 09/26/2024 2 :39 AM CDT POCT GLUCOSE DEVICE Routine 09/25/2024 8 :09 PM CDT POCT GLUCOSE DEVICE Routine 09/25/2024 4 :46 PM CDT POCT GLUCOSE DEVICE Routine 09/25/2024 1 1:42 AM CDT EGFR Routine 09/25/2024 7:47 AM CDT CBC WITHOUT DIFFERENTIAL Routine 09/25/2024 7:47 AM CDT BASIC METABOLIC PANEL Routine 09/25/2024 7:47 AM CDT POCT GLUCOSE DEVICE Routine 09/25/2024 7 :44 AM CDT POCT GLUCOSE DEVICE Routine 09/25/2024 2 :57 AM CDT POCT GLUCOSE DEVICE Routine 09/24/2024 7 :27 PM CDT POCT GLUCOSE DEVICE Routine 09/24/2024 4 :30 PM CDT POCT GLUCOSE DEVICE Routine 09/24/2024 1 1:14 AM CDT POCT GLUCOSE DEVICE Routine 09/24/2024 7 :41 AM CDT EGFR Routine 09/24/2024 7:28 AM CDT BASIC METABOLIC PANEL Routine 09/24/2024 7:28 AM CDT CBC WITHOUT DIFFERENTIAL Routine 09/24/2024 7:28 AM CDT POCT GLUCOSE DEVICE Routine 09/24/2024 2 :59 AM CDT POCT GLUCOSE DEVICE Routine 09/23/2024 7 :56 PM CDT POCT GLUCOSE DEVICE Routine 09/23/2024 4 :47 PM CDT POTASSIUM LEVEL Routine 09/23/2024 4:05 PM CDT POCT GLUCOSE DEVICE Routine 09/23/2024 1 1:46 AM CDT POCT GLUCOSE DEVICE Routine 09/23/2024 7 :57 AM CDT EGFR Routine 09/23/2024 5:22 AM CDT DIFFERENTIAL AUTO Routine 09/23/2024 5:2 2 AM CDT COMPREHENSIVE METABOLIC PANEL Routine 09/23/2024 5:22 AM CDT CBC WITH AUTO DIFFERENTIAL Routine 09/23/2024 5:22 AM CDT POCT GLUCOSE DEVICE Routine 09/23/2024 1 :59 AM CDT POCT GLUCOSE DEVICE Routine 09/22/2024 7 :50 PM CDT BLOOD CULTURE Routine 09/22/2024 6:29 PM CDT BLOOD CULTURE Routine 09/22/2024 6:29 PM CDT POCT GLUCOSE DEVICE Routine 09/22/2024 3 :31 PM CDT POCT GLUCOSE DEVICE Routine 09/22/2024 1 2:05 PM CDT HEMOGLOBIN A1C Add-On 09/22/2024 10:43 AM CDT EGFR Routine 09/22/2024 10:43 AM CDT MAGNESIUM Routine 09/22/2024 10:43 AM CDT BASIC METABOLIC PANEL Routine 09/22/2024 10:43 AM CDT CBC WITHOUT DIFFERENTIAL Routine 09/22/2024 10:43 AM CDT POCT GLUCOSE DEVICE Routine 09/22/2024 8 :04 AM CDT BLOOD CULTURE STAT 09/22/2024 2:52 AM CDT TROPONIN T HIGH-SENSITIVITY 6-HOUR Timed 09/22/2024 2:49 AM CDT BLOOD CULTURE STAT 09/22/2024 2:49 AM CDT SEPSIS LACTATE WITH REFLEX Timed 09/22/2024 1:[address] ABDOMEN PELVIS WO CONTRAST ED 09/22/2024 12:24 AM CDT URINALYSIS, MICROSCOPIC ONLY STAT 09/21/2024 11:42 PM CDT URINE CULTURE STAT 09/21/2024 11:42 PM CDT URINALYSIS AND REFLEX TO MICROSCOPIC AND CULTURE STAT 09/21/2024 11:42 PM CDT TROPONIN T HIGH-SENSITIVITY 2-HOUR Timed 09/21/2024 11:09 PM CDT SEPSIS LACTATE WITH REFLEX STAT 09/21/2024 11:09 PM CDT ECG 12-LEAD STAT 09/21/2024 11:[address] HEAD WO CONTRAST ED 09/21/2024 9 :19 PM CDT XR CHEST 1 VIEW ED 09/21/2024 8:54 PM CDT XR KUB ED 09/21/2024 8:54 PM CDT POCT GLUCOSE DEVICE Routine 09/21/2024 8 :45 PM CDT TROPONIN T HIGH-SENSITIVITY SERIES (BASELINE, 2HR, 4HR, 6HR) STAT 09/21/2024 8:35 PM CDT EGFR STAT 09/21/2024 8:35 PM CDT DIFFERENTIAL AUTO STAT 09/21/2024 8:3 5 PM CDT LIPASE STAT 09/21/2024 8:35 PM CDT COMPREHENSIVE METABOLIC PANEL STAT 09/21/2024 8:35 PM CDT CBC WITH AUTO DIFFERENTIAL STAT 09/21/2024 8:35 PM CDT SCAN - RADIOLOGY/IMAGING 08/24/2024 HEPATITIS C ANTIBODY Routine Gen Lab 05/13/2017 4:52 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 pH may affect urinary stone formation. For example, urine pH below 6.0 may help reduce the tendency for calcium phosphate stones and pH greater than 6.0 may reduce the tendency for uric acid stone formation. Source: [facility] [employer] Current Interpretive Data was last revised on 2017 Protein, ur ql Negative Negative [facility] ([place]) Glucose, ur ql 4+(A) Negative [facility] ([place]) Ketones, ur Negative Negative [facility] ([place]) Bilirubin, ur Negative Negative [facility] ([place]) Blood, ur Negative Negative [facility] ([place]) Urobilinogen, ur <2.0 <2.0 mg/dL [facility] ([place]) Nitrite, ur Negative Negative [facility] ([place]) Leukocyte esterase, ur Negative Negative [facility] ([place]) UA reflex comment Reflex conditions for microscopic UA and culture not met. [facility] ([place]) Urine, bladder 09/29/2024 12 :20 AM CDT 09/29/2024 12:23 AM CDT Bria [facility] LAB MICROBIOLOGY - GENERA L ORDERABLES Final Result PATRICIA WYATT ([place]) 1 [facility] [place] [address] * Sepsis Lactate w/ Reflex (09/28/2024 11:47 PM CDT) Sepsis Lactate 1.3 0.7 - 2.0 mmol/L Blood 09/28/2024 11:4 7 PM CDT 09/28/2024 11:51 PM CDT Bria [facility] LAB BLOOD ORDERABLES Emelyn l Result PATRICIA WYATT ([place]) 1 [facility] [place] [address] * eGFR (09/28/2024 11:47 PM CDT) eGFR 61 >=60 mL/min/1. 73 m2 Comment: Interpretive Data Reference Interval Normal >/= 90 mL/min/1.73m2 Mildly decreased* 60 - 89 mL/min/1.73m2 Mildly to moderately decreased 45 - 59 mL/min/1.73m2 Moderately to severely decreased 30 - 44 mL/min/1.73m2 Severely decreased 15 - 29 mL/min/1.73m2 Kidney Failure < 15 mL/min/1.73m2 *Relative to young adult level Estimated glomerular filtration rate is determined by the 2020 CKD-EPI equation recommended by the National Kidney Foundation (A Unifying Approach to GFR Estimation: Recommendations of the NKF-ASK Task Force on Reassessing the Inclusion of Race in Diagnosing Kidney Disease, JASN 2020). The CKD-EPI equation should not be used for patients with unstable renal function and has not been validated in children and those over 70. Current interpretive data was last reviewed 2021. Blood 09/28/2024 11:4 7 PM CDT 09/28/2024 11:51 PM CDT Bria [facility] LAB BLOOD ORDERABLES Emelyn l Result [facility] ([place]) 1 [facility] Department [place] [address] * (ABNORMAL) Differential, auto (09/28/2024 11:47 PM CDT) Neutrophil abs 5.04 1.50 - 6.50 K/cumm Imm gran abs 0.14(H) 0.00 - 0.10 K/cumm [facility] ([place]) Lymphocyte abs 2.61 0.80 - 3.30 K/cumm [facility] ([place]) Monocyte abs 0.53 0.20 - 0.80 K/cumm [facility] ([place]) Eosinophil abs 0.16 0.00 - 0.50 K/cumm [facility] ([place]) Basophil abs 0.05 0.00 - 0.10 K/cumm [facility] ([place]) Neutrophil pct 59.1 % [facility] ([place]) Comment: Interpretive Data Percent cell count reference ranges are not reported, since discordance with absolute values may lead to misinterpretation of CBC data. Current Interpretive Data was last revised on 2017. Imm gran pct 1.6 % [facility] ([place]) Comment: Interpretive Data Percent cell count reference ranges are not reported, since discordance with absolute values may lead to misinterpretation of CBC data. Current Interpretive Data was last revised on 2017. Lymphocyte pct 30.6 % [facility] ([place]) Comment: Interpretive Data Percent cell count reference ranges are not reported, since discordance with absolute values may lead to misinterpretation of CBC data. Current Interpretive Data was last revised on 2017. Monocyte pct 6.2 % [facility] ([place]) Comment: Interpretive Data Percent cell count reference ranges are not reported, since discordance with absolute values may lead to misinterpretation of CBC data. Current Interpretive Data was last revised on 2017. Eosinophil pct 1.9 % [facility] ([place]) Comment: Interpretive Data Percent cell count reference ranges are not reported, since discordance with absolute values may lead to misinterpretation of CBC data. Current Interpretive Data was last revised on 2017. Basophil pct 0.6 % [facility] ([place]) Comment: Interpretive Data Percent cell count reference ranges are not reported, since discordance with absolute values may lead to misinterpretation of CBC data. Current Interpretive Data was last revised on 2017. Blood 09/28/2024 11:4 7 PM CDT 09/28/2024 11:51 PM CDT Bria [facility] BLOOD ORDERABLES Emelyn evans Result LIZZANNE WYATT ([place]) 1 [facility] Department [place] [address] * (ABNORMAL) CBC with auto differential (09/28/2024 11:47 PM CDT) WBC 8.53 3.80 - 9.90 K/cumm Hgb 13.5 11.9 - 15.5 g/dL [facility] ([place]) Hct 41.6 35.6 - 45.5 % PATRICIA [facility] ([place]) Plt 288 150 - 400 K/cumm [facility] ([place]) MPV 8.9(L) 9.1 - 12.3 fL [facility] ([place]) RBC 4.88 3.90 - 5.20 M/cumm [facility] ([place]) MCV 85.2 81.3 - 96.4 fL [facility] ([place]) MCH 27.7 27.1 - 33.3 pg [facility] ([place]) MCHC 32.5 32.3 - 35.7 g/dL [facility] ([place]) RDW CV 16.2(H) 11.1 - 14.9 % [facility] ([place]) RDW SD 50.2(H) 35.7 - 48.1 fL [facility] ([place]) NRBC abs 0.00 0.00 - 0.01 K/cumm [facility] ([place]) Blood 09/28/2024 11:4 7 PM CDT 09/28/2024 11:51 PM CDT Bria [facility] LAB BLOOD ORDERABLES Emelyn evans Result [facility] ([place]) 1 [facility] Department of Laboratories [place] [id number] * (ABNORMAL) Comprehensive metabolic panel (09/28/2024 11:47 PM CDT) Sodium 137 135 - 145 mmol/L Potassium, pl 4.2 3.3 - 4.9 mmol/L [facility] ([place]) Comment:Moderately Hemolyzed Specimen. Results may be affected. Chloride 97 97 - 110 mmol/L [facility] ([place]) CO2 25 22 - 32 mmol/L [facility] ([place]) Anion gap 16(H) 2 - 15 mmol/L [facility] ([place]) BUN 14 6 - 25 mg/dL [facility] ([place]) Creatinine 1.05 0.60 - 1.10 mg/dL [facility] ([place]) Glucose 131 70 - 199 mg/dL [facility] ([place]) Comment: Interpretive Data Fasting glucose >/= 126 mg/dl is diagnostic for diabetes. Fasting is defined as no caloric intake for at least 8 hours. Fasting glucose between 100 mg/dl to 125 mg/dl is diagnostic of prediabetes. In a patient with classic symptoms of hyperglycemia or hyperglycemic crisis, a random glucose >/= 200 mg/dl is diagnostic for diabetes. In the absence of unequivocal hyperglycemia, results should be confirmed by repeat testing. The classification and Diagnosis of Diabetes Diabetes Care 2021; 46: S19-S40. Current interpretive data was last revised 2022. Calcium 8.8 8.5 - 10.3 mg/dL [facility] ([place]) Bilirubin, total 0.5 0.1 - 1.2 mg/dL [facility] ([place]) Protein, pl 6.9 6.5 - 8.5 g/dL [facility] ([place]) Albumin 3.4(L) 3.5 - 5.0 g/dL [facility] ([place]) Alk phos 177(H) 40 - 130 Units/L [facility] ([place]) ALT 45 7 - 45 Units/L [facility] ([place]) Comment: Hemolysis present. Results may be affected. Moderately Hemolyzed Specimen AST 61(H) 10 - 45 Units/L [facility] ([place]) Comment: Hemolysis present. Results may be affected. Moderately Hemolyzed Specimen Blood 09/28/2024 11:4 7 PM CDT 09/28/2024 11:51 PM CDT us Bria White PA LAB BLOOD ORDERABLES Emelyn l Result Performing Organization Address City/[facility]/ZIP Co de Phone Number PATRICIA WYATT ([place]) 1 [facility] [place] [address] * POCT glucose (09/28/2024 10:58 PM CDT) [facility] Signature Glucose, POC 154 70 - 199 mg/dL Blood 09/28/2024 10:5 8 PM CDT 09/28/2024 10:58 PM CDT us Notinfile Unknown LAB POCT ORDERABLES - DEVICE F inal Result Performing Organization Address City/[facility]/ZIP Co de Phone Number PATRICIA WYATT ([place]) 1 [facility] Department [place] [address] * (ABNORMAL) Urinalysis reflex to microscopic and culture Urine (09/28/2024 5:31 PM CDT) Color, ur Yellow Yellow Clarity, ur Turbid(A) Clear [facility] ([place]) Specific gravity, ur 1.014 1.003 - 1.030 [facility] ([place]) pH, urine 6.0 [facility] ([place]) Comment: Interpretive Data U rine pH is affected by diet, medications, systemic acid-base disturbances, and renal tubular function. pH may affect urinary stone formation. For example, urine pH below 6.0 may help reduce the tendency for calcium phosphate stones and pH greater than 6.0 may reduce the tendency for uric acid stone formation. Source: [facility] Current Interpretive Data was last revised on 2017 Protein, ur ql Negative Negative [facility] ([place]) Glucose, ur ql 3+(A) Negative [facility] ([place]) Ketones, ur Negative Negative [facility] ([place]) Bilirubin, ur Negative Negative [facility] ([place]) Blood, ur 1+(A) Negative [facility] ([place]) Urobilinogen, ur <2.0 <2.0 mg/dL [facility] ([place]) Nitrite, ur Negative Negative [facility] ([place]) Leukocyte esterase, ur 3+(A) Negative [facility] ([place]) UA reflex comment Reflex to microscopic UA will be performed. [facility] ([place]) Urine 09/28/2024 5:31 PM CDT 09/28/2024 5:39 PM CDT us Leland Nunez MD LAB MICROBIOLOGY - GENERAL OR DERABLES Final Result PATRICIA WYATT ([place]) 1 [facility] Department [place] [address] * (ABNORMAL) Urinalysis, microscopic only (09/28/2024 5:31 PM CDT) WBC, ur 11-20(A) 0 - 5 /HPF RBC, ur 6-10(A) 0 - 2 /HPF [facility] ([place]) Epithelial cells, squamous, ur 11-20(A) 0 - 5 /HPF [facility] ([place]) Bacteria, ur Trace(A) [facility] ([place]) Culture Reflex Comment Reflex to urine culture will be performed. [facility] ([place]) Urine 09/28/2024 5:31 PM CDT 09/28/2024 5:39 PM CDT us Leland Nunez MD LAB URINE ORDERABLES Final Re sult [facility] ([place]) [address] [facility] [place] [address] * Urine culture Urine (09/28/2024 5:31 PM CDT) Report Final Report: Less than 100,000 colonies/mL (clinically insignificant growth based on current clinical standards) Comment:Testing performed by : [facility], [address] [facility] [place] [address] Organism (CLINICALLY INSIGNIFICANT GROWTH [facility] ([place]) Urine 09/28/2024 5:31 PM CDT 09/28/2024 8:14 PM CDT Narrative [facility] ([place]) - 09/30/2024 12:42 AM CDT Urine culture reflexed based upon urinalysis results. Testing performed by [facility] Microbiology [facility] ([phone]) us Fco Corrigan MD LAB MICROBIOLOGY - GENERAL O RDERABLES Final Result [facility] ([place]) [address] [facility] [place] [address] * (ABNORMAL) eGFR (09/28/2024 10:40 AM CDT) eGFR 53(L) >=60 mL/min/1. 73 m2 Comment: Interpretive Data Reference Interval Normal >/= 90 mL/min/1.73m2 Mildly decreased* 60 - 89 mL/min/1.73m2 Mildly to moderately decreased 45 - 59 mL/min/1.73m2 Moderately to severely decreased 30 - 44 mL/min/1.73m2 Severely decreased 15 - 29 mL/min/1.73m2 Kidney Failure < 15 mL/min/1.73m2 *Relative to young adult level Estimated glomerular filtration rate is determined by the 2020 CKD-EPI equation recommended by the National Kidney Foundation (A Unifying Approach to GFR Estimation: Recommendations of the NKF-ASK Task Force on Reassessing the Inclusion of Race in Diagnosing Kidney Disease, JASN 2020). The CKD-EPI equation should not be used for patients with unstable renal function and has not been validated in children and those over 70. Current interpretive data was last reviewed 2021. Blood 09/28/2024 10:4 0 AM CDT 09/28/2024 10:59 AM CDT Inna Stahl PARAMEDICAL AIDE LAB BLOOD ORDERABLES Final Result [facility] One [facility] [place] [address] * Differential, auto (09/28/2024 10:40 AM CDT) Neutrophil abs 5.92 1.50 - 6.50 K/cumm Comment:Testing performed by : [facility]e [facility], [address] [place] [phone] Lymphocyte abs 1.87 0.80 - 3.30 K/cumm [facility] Comment:Testing performed by : [facility], [address] [place] [address] Monocyte abs 0.21 0.20 - 0.80 K/cumm [facility] Comment:Testing performed by : [facility], [address] [place] [address] Eosinophil abs 0.11 0.00 - 0.50 K/cumm [facility] Comment:Testing performed by : [facility], [address] [place] [phone] Basophil abs 0.07 0.00 - 0.10 K/cumm [facility] Comment:Testing performed by : [facility], [address] [place] [phone] Neutrophil pct 72.4 % [facility] Comment: Interpretive Data Percent cell count reference ranges are not reported, since discordance with absolute values may lead to misinterpretation of CBC data. Current Interpretive Data was last revised on 2017. Testing performed by: [facility], [address] [place] [phone] Lymphocyte pct 22.8 % [facility] Comment: Interpretive Data Percent cell count reference ranges are not reported, since discordance with absolute values may lead to misinterpretation of CBC data. Current Interpretive Data was last revised on 2017. Testing performed by: [facility], [address] [place] [phone] Monocyte pct 2.6 % [facility] Comment: Interpretive Data Percent cell count reference ranges are not reported, since discordance with absolute values may lead to misinterpretation of CBC data. Current Interpretive Data was last revised on 2017. Testing performed by: [facility], [address] [place], [place] [id number] Eosinophil pct 1.4 % [facility] Comment: Interpretive Data Percent cell count reference ranges are not reported, since discordance with absolute values may lead to misinterpretation of CBC data. Current Interpretive Data was last revised on 2017. Testing performed by: [facility], [address] [place] [phone] Basophil pct 0.8 % [facility] Comment: Interpretive Data Percent cell count reference ranges are not reported, since discordance with absolute values may lead to misinterpretation of CBC data. Current Interpretive Data was last revised on 2017. Testing performed by: [facility], [address] [place] [phone] Blood 09/28/2024 10:4 0 AM CDT 09/28/2024 10:57 AM CDT Inna Stahl PARAMEDICAL AIDE LAB BLOOD ORDERABLES Final Result [facility] One [facility] [place] [address] * (ABNORMAL) CBC with auto differential (09/28/2024 10:40 AM CDT) WBC 8.18 3.80 - 9.90 K/cumm Comment:Testing performed by : [facility], [address] [place] [address] Hgb 14.0 11.9 - 15.5 g/dL [facility] Comment:Testing performed by : [facility], [address] [place] [address] Hct 41.0 35.6 - 45.5 % [facility] Comment:Testing performed by : [facility], [address] [place] [address] Plt 324 150 - 400 K/cumm [facility] Comment:Testing performed by : [facility], [address] [place] [address] MPV 7.4 6.8 - 10.4 fL [facility] Comment:Testing performed by : [facility], [address] [place] [address] RBC 5.01 3.90 - 5.20 M/cumm [facility] Comment:Testing performed by : [facility], [address] [place] [address] MCV 81.7 81.3 - 96.4 fL [facility] Comment:Testing performed by : [facility], [address] [place] [address] MCH 27.9 27.1 - 33.3 pg [facility] Comment:Testing performed by : [facility], [address] [place] [address] MCHC 34.1 32.3 - 35.7 g/dL [facility] Comment:Testing performed by : [facility], [address] [place] [address] RDW CV 16.0(H) 11.1 - 14.9 % [facility] Comment:Testing performed by : [facility], [address] [place] [phone] NRBC abs 0.00 0.00 - 0.01 K/cumm [facility] Comment:Testing performed by : [facility], [address] [place] [phone] Blood 09/28/2024 10:4 0 AM CDT 09/28/2024 10:57 AM CDT Inna Stahl NP LAB BLOOD ORDERABLES Final Result Performing Organization Address City/[facility]/ZIP Co de Phone Number [facility] Department [place] [address] * (ABNORMAL) Lactate dehydrogenase (LD) (09/28/2024 10:40 AM CDT) [facility] Lactate dehydrogenase (LDH) 254(H) 100 - 250 Units/L Blood 09/28/2024 10:4 0 AM CDT 09/28/2024 10:59 AM CDT Inna Stahl NP LAB BLOOD ORDERABLES Final Result Performing Organization Address [facility]/ZIP Co de Phone Number [facility] Department [place] [address] * (ABNORMAL) Comprehensive metabolic panel (09/28/2024 10:40 AM CDT) [facility] Sodium 142 135 - 145 mmol/L Potassium, pl 3.6 3.3 - 4.9 mmol/L [facility] Chloride 103 97 - 110 mmol/L [facility] CO2 28 22 - 32 mmol/L [facility] Anion gap 11 2 - 15 mmol/L [facility] BUN 17 6 - 25 mg/dL [facility] Creatinine 1.17(H) 0.60 - 1.10 mg/dL [facility] Glucose 83 70 - 199 mg/dL [facility] Comment: Interpretive Data Fasting glucose >/= 126 mg/dl is diagnostic for diabetes. Fasting is defined as no caloric intake for at least 8 hours. Fasting glucose between 100 mg/dl to 125 mg/dl is diagnostic of prediabetes. In a patient with classic symptoms of hyperglycemia or hyperglycemic crisis, a random glucose >/= 200 mg/dl is diagnostic for diabetes. In the absence of unequivocal hyperglycemia, results should be confirmed by repeat testing. The classification and Diagnosis of Diabetes Diabetes Care 2021; 46: S19-S40. Current interpretive data was last revised 2022. Calcium 9.5 8.5 - 10.3 mg/dL [facility] Bilirubin, total 0.4 0.1 - 1.2 mg/dL [facility] Protein, pl 7.0 6.5 - 8.5 g/dL [facility] Albumin 3.5 3.5 - 5.0 g/dL [facility] Alk phos 192(H) 40 - 130 Units/L [facility] ALT 51(H) 7 - 45 Units/L [facility] AST 68(H) 10 - 45 Units/L [facility] Blood 09/28/2024 10:4 0 AM CDT 09/28/2024 10:59 AM CDT Inna Stahl PARAMEDICAL AIDE LAB BLOOD ORDERABLES Final Result [facility] One [facility] [place] [address] * POCT glucose (09/26/2024 11:22 AM CDT) [facility] Signature Glucose, POC 111 70 - 199 mg/dL Blood 09/26/2024 11:2 2 AM CDT 09/26/2024 11:22 AM CDT Demetris Kapadia LAB POCT ORDERABLES - DEVICE Final Result [facility] ([place]) [address] [facility] Department [place] [address] * POCT glucose (09/26/2024 7:43 AM CDT) Glucose, POC 182 70 - 199 mg/dL Blood 09/26/2024 7:43 AM CDT 09/26/2024 7:43 AM CDT Demetris Kapadia DO LAB POCT ORDERABLES - DEVICE Final Result Performing Organization Address City/[facility]/ZIP Co de Phone Number [facility] ([place]) [address] [facility] [place] [address] * eGFR (09/26/2024 5:27 AM CDT) eGFR 81 >=60 mL/min/1. 73 m2 Comment: Interpretive Data Reference Interval Normal >/= 90 mL/min/1.73m2 Mildly decreased* 60 - 89 mL/min/1.73m2 Mildly to moderately decreased 45 - 59 mL/min/1.73m2 Moderately to severely decreased 30 - 44 mL/min/1.73m2 Severely decreased 15 - 29 mL/min/1.73m2 Kidney Failure < 15 mL/min/1.73m2 *Relative to young adult level Estimated glomerular filtration rate is determined by the 2020 CKD-EPI equation recommended by the National Kidney Foundation (A Unifying Approach to GFR Estimation: Recommendations of the NKF-ASK Task Force on Reassessing the Inclusion of Race in Diagnosing Kidney Disease, JASN 2020). The CKD-EPI equation should not be used for patients with unstable renal function and has not been validated in children and those over 70. Current interpretive data was last reviewed 2021. Blood 09/26/2024 5:27 AM CDT 09/26/2024 6:04 AM CDT us Palma Blount MD LAB BLOOD ORDERABLES Emelyn l Result [facility] ([place]) [address] [facility] [place] [address] * Magnesium (09/26/2024 5:27 AM CDT) Magnesium 1.8 1.4 - 2.5 mg/dL Blood 09/26/2024 5:27 AM CDT 09/26/2024 8:36 AM CDT Demetris Kapadia DO LAB BLOOD ORDERABLES F inal Result [facility] ([place]) [address] [facility] Department [place] [address] * (ABNORMAL) Basic metabolic panel (09/26/2024 5:27 AM CDT) Sodium 139 135 - 145 mmol/L Potassium, pl 3.0(C) 3.3 - 4.9 mmol/L [facility] ([place]) Comment:Critical Result call ed by [id number] at 2024-09-26 06:56:59. Result Read Back by Shivani Rosales RN [facility] Chloride 97 97 - 110 mmol/L [facility] ([place]) CO2 26 22 - 32 mmol/L [facility] ([place]) Anion gap 16(H) 2 - 15 mmol/L [facility] ([place]) BUN 13 6 - 25 mg/dL [facility] ([place]) Creatinine 0.83 0.60 - 1.10 mg/dL [facility] ([place]) Glucose 148 70 - 199 mg/dL [facility] ([place]) Comment: Interpretive Data Fasting glucose >/= 126 mg/dl is diagnostic for diabetes. Fasting is defined as no caloric intake for at least 8 hours. Fasting glucose between 100 mg/dl to 125 mg/dl is diagnostic of prediabetes. In a patient with classic symptoms of hyperglycemia or hyperglycemic crisis, a random glucose >/= 200 mg/dl is diagnostic for diabetes. In the absence of unequivocal hyperglycemia, results should be confirmed by repeat testing. The classification and Diagnosis of Diabetes Diabetes Care 2021; 46: S19-S40. Current interpretive data was last revised 2022. Calcium 9.0 8.5 - 10.3 mg/dL [facility] ([place]) Blood 09/26/2024 5:27 AM CDT 09/26/2024 6:04 AM CDT us Palma Blount MD LAB BLOOD ORDERABLES Emelyn l Result [facility] ([place]) 1 [facility] [place] [address] * POCT glucose (09/26/2024 2:39 AM CDT) Glucose, POC 132 70 - 199 mg/dL Blood 09/26/2024 2:39 AM CDT 09/26/2024 2:39 AM CDT us Palma Blount MD LAB POCT ORDERABLES - DEV ICE Final Result Performing Organization Address [facility] Co de Phone Number [facility] ([place]) 1 [facility] [place] [address] * POCT glucose (09/25/2024 8:09 PM CDT) Glucose, POC 113 70 - 199 mg/dL Blood 09/25/2024 8:09 PM CDT 09/25/2024 8:09 PM CDT us Palma Blount MD LAB POCT ORDERABLES - DEV ICE Final Result Performing Organization Address [facility] Co de Phone Number [facility] ([place]) 1 [facility] [place] [address] * POCT glucose (09/25/2024 4:46 PM CDT) Glucose, POC 139 70 - 199 mg/dL Blood 09/25/2024 4:46 PM CDT 09/25/2024 4:46 PM CDT us Palma Blount MD LAB POCT ORDERABLES - DEV ICE Final Result [facility] ([place]) 1 [facility] [place] [address] * POCT glucose (09/25/2024 11:42 AM CDT) Glucose, POC 130 70 - 199 mg/dL Blood 09/25/2024 11:4 2 AM CDT 09/25/2024 11:42 AM CDT us Palma Blount MD LAB POCT ORDERABLES - DEV ICE Final Result Performing Organization Address [facility] Co de Phone Number [facility] ([place]) 1 [facility] [place] [address] * eGFR (09/25/2024 7:47 AM CDT) eGFR 81 >=60 mL/min/1. 73 m2 Comment: Interpretive Data Reference Interval Normal >/= 90 mL/min/1.73m2 Mildly decreased* 60 - 89 mL/min/1.73m2 Mildly to moderately decreased 45 - 59 mL/min/1.73m2 Moderately to severely decreased 30 - 44 mL/min/1.73m2 Severely decreased 15 - 29 mL/min/1.73m2 Kidney Failure < 15 mL/min/1.73m2 *Relative to young adult level Estimated glomerular filtration rate is determined by the 2020 CKD-EPI equation recommended by the National Kidney Foundation (A Unifying Approach to GFR Estimation: Recommendations of the NKF-ASK Task Force on Reassessing the Inclusion of Race in Diagnosing Kidney Disease, JASN 2020). The CKD-EPI equation should not be used for patients with unstable renal function and has not been validated in children and those over 70. Current interpretive data was last reviewed 2021. Blood 09/25/2024 7:47 AM CDT 09/25/2024 8:00 AM CDT us Palma Blount MD LAB BLOOD ORDERABLES Emelyn l Result [facility] ([place]) [address] [facility] Department [place] [address] * (ABNORMAL) CBC without differential (09/25/2024 7:47 AM CDT) Pathologist [facility] WBC 7.49 3.80 - 9.90 K/cumm Hgb 13.7 11.9 - 15.5 g/dL [facility] ([place]) Hct 40.2 35.6 - 45.5 % [facility] ([place]) Plt 144(L) 150 - 400 K/cumm [facility] ([place]) MPV 10.5 9.1 - 12.3 fL [facility] ([place]) RBC 4.93 3.90 - 5.20 M/cumm [facility] ([place]) MCV 81.5 81.3 - 96.4 fL [facility] ([place]) MCH 27.8 27.1 - 33.3 pg [facility] ([place]) MCHC 34.1 32.3 - 35.7 g/dL [facility] ([place]) RDW CV 15.5(H) 11.1 - 14.9 % [facility] ([place]) RDW SD 46.1 35.7 - 48.1 fL [facility] ([place]) NRBC abs 0.00 0.00 - 0.01 K/cumm [facility] ([place]) Blood 09/25/2024 7:47 AM CDT 09/25/2024 7:59 AM CDT us Palma Blount MD LAB BLOOD ORDERABLES Emelyn l Result [facility] ([place]) [address] [facility] Department [place] [address] * (ABNORMAL) Basic metabolic panel (09/25/2024 7:47 AM CDT) Pathologist [facility] Sodium 138 135 - 145 mmol/L Potassium, pl 3.1(L) 3.3 - 4.9 mmol/L [facility] ([place]) Chloride 99 97 - 110 mmol/L [facility] ([place]) CO2 24 22 - 32 mmol/L [facility] ([place]) Anion gap 15 2 - 15 mmol/L [facility] ([place]) BUN 12 6 - 25 mg/dL [facility] ([place]) Creatinine 0.83 0.60 - 1.10 mg/dL [facility] ([place]) Glucose 166 70 - 199 mg/dL [facility] ([place]) Comment: Interpretive Data Fasting glucose >/= 126 mg/dl is diagnostic for diabetes. Fasting is defined as no caloric intake for at least 8 hours. Fasting glucose between 100 mg/dl to 125 mg/dl is diagnostic of prediabetes. In a patient with classic symptoms of hyperglycemia or hyperglycemic crisis, a random glucose >/= 200 mg/dl is diagnostic for diabetes. In the absence of unequivocal hyperglycemia, results should be confirmed by repeat testing. The classification and Diagnosis of Diabetes Diabetes Care 2021; 46: S19-S40. Current interpretive data was last revised 2022. Calcium 8.5 8.5 - 10.3 mg/dL [facility] ([place]) Blood 09/25/2024 7:47 AM CDT 09/25/2024 7:59 AM CDT us Palma Blount MD LAB BLOOD ORDERABLES Emelyn l Result [facility] ([place]) 1 [facility] [place] [place] [address] * POCT glucose (09/25/2024 7:44 AM CDT) Glucose, POC 136 70 - 199 mg/dL Blood 09/25/2024 7:44 AM CDT 09/25/2024 7:44 AM CDT Palma Blount MD LAB POCT ORDERABLES - DEV ICE Final Result Performing Organization Address City/[facility]/ZIP Co de Phone Number [facility] 1 [facility] [place] [address] * POCT glucose (09/25/2024 2:57 AM CDT) Glucose, POC 121 70 - 199 mg/dL Blood 09/25/2024 2:57 AM CDT 09/25/2024 2:57 AM CDT Palma Blount MD LAB POCT ORDERABLES - DEV ICE Final Result [facility] ([place]) 1 [facility] [place] [address] * POCT glucose (09/24/2024 7:27 PM CDT) Glucose, POC 130 70 - 199 mg/dL Blood 09/24/2024 7:27 PM CDT 09/24/2024 7:27 PM CDT Palma Blount MD LAB POCT ORDERABLES - DEV ICE Final Result Performing Organization Address City/[facility]/ZIP Co de Phone Number [facility] ([place]) 1 [facility] [place] [address] * POCT glucose (09/24/2024 4:30 PM CDT) Glucose, POC 126 70 - 199 mg/dL Blood 09/24/2024 4:30 PM CDT 09/24/2024 4:30 PM CDT us Palma Blount MD LAB POCT ORDERABLES - DEV ICE Final Result [facility] ([place]) 1 [facility] [place] [address] * POCT glucose (09/24/2024 11:14 AM CDT) Glucose, POC 156 70 - 199 mg/dL Blood 09/24/2024 11:1 4 AM CDT 09/24/2024 11:14 AM CDT Palma Blount MD LAB POCT ORDERABLES - DEV ICE Final Result [facility] [place] 1 [facility] [place] [address] * POCT glucose (09/24/2024 7:41 AM CDT) Glucose, POC 148 70 - 199 mg/dL Blood 09/24/2024 7:41 AM CDT 09/24/2024 7:41 AM CDT Palma Blount MD LAB POCT ORDERABLES - DEV ICE Final Result Performing Organization Address City/[facility] de Phone Number [facility] ([place]) 1 [facility] [place] [address] * eGFR (09/24/2024 7:28 AM CDT) eGFR 70 >=60 mL/min/1. 73 m2 Comment: Interpretive Data Reference Interval Normal >/= 90 mL/min/1.73m2 Mildly decreased* 60 - 89 mL/min/1.73m2 Mildly to moderately decreased 45 - 59 mL/min/1.73m2 Moderately to severely decreased 30 - 44 mL/min/1.73m2 Severely decreased 15 - 29 mL/min/1.73m2 Kidney Failure < 15 mL/min/1.73m2 *Relative to young adult level Estimated glomerular filtration rate is determined by the 2020 CKD-EPI equation recommended by the National Kidney Foundation (A Unifying Approach to GFR Estimation: Recommendations of the NKF-ASK Task Force on Reassessing the Inclusion of Race in Diagnosing Kidney Disease, JASN 2020). The CKD-EPI equation should not be used for patients with unstable renal function and has not been validated in children and those over 70. Current interpretive data was last reviewed 2021. Blood 09/24/2024 7:28 AM CDT 09/24/2024 8:12 AM CDT Palma Blount MD LAB BLOOD ORDERABLES Emelyn evans Result [facility] ([place]) 1 [facility] [place] [address] * (ABNORMAL) CBC without differential (09/24/2024 7:28 AM CDT) WBC 7.29 3.80 - 9.90 K/cumm Hgb 13.3 11.9 - 15.5 g/dL [facility] ([place]) Hct 40.2 35.6 - 45.5 % [facility] ([place]) Plt 124(L) 150 - 400 K/cumm [facility] ([place]) MPV 11.3 9.1 - 12.3 fL [facility] ([place]) RBC 4.79 3.90 - 5.20 M/cumm [facility] ([place]) MCV 83.9 81.3 - 96.4 fL [facility] ([place]) MCH 27.8 27.1 - 33.3 pg [facility] ([place]) MCHC 33.1 32.3 - 35.7 g/dL [facility] ([place]) RDW CV 15.4(H) 11.1 - 14.9 % [facility] ([place]) RDW SD 47.2 35.7 - 48.1 fL [facility] ([place]) NRBC abs 0.00 0.00 - 0.01 K/cumm [facility] ([place]) Blood 09/24/2024 7:28 AM CDT 09/24/2024 8:12 AM CDT us Palma Blount MD LAB BLOOD ORDERABLES Emelyn evans Result [facility] ([place]) 1 [facility] [place] [address] * (ABNORMAL) Basic metabolic panel (09/24/2024 7:28 AM CDT) Pathologist [facility] Sodium 136 135 - 145 mmol/L Potassium, pl 3.6 3.3 - 4.9 mmol/L [facility] ([place]) Chloride 98 97 - 110 mmol/L [facility] ([place]) CO2 23 22 - 32 mmol/L [facility] ([place]) Anion gap 15 2 - 15 mmol/L [facility] ([place]) BUN 14 6 - 25 mg/dL [facility] ([place]) Creatinine 0.93 0.60 - 1.10 mg/dL [facility] ([place]) Glucose 138 70 - 199 mg/dL [facility] ([place]) Comment: Interpretive Data Fasting glucose >/= 126 mg/dl is diagnostic for diabetes. Fasting is defined as no caloric intake for at least 8 hours. Fasting glucose between 100 mg/dl to 125 mg/dl is diagnostic of prediabetes. In a patient with classic symptoms of hyperglycemia or hyperglycemic crisis, a random glucose >/= 200 mg/dl is diagnostic for diabetes. In the absence of unequivocal hyperglycemia, results should be confirmed by repeat testing. The classification and Diagnosis of Diabetes Diabetes Care 2021; 46: S19-S40. Current interpretive data was last revised 2022. Calcium 8.4(L) 8.5 - 10.3 mg/dL [facility] ([place]) Blood 09/24/2024 7:28 AM CDT 09/24/2024 8:12 AM CDT us Palma Blount MD LAB BLOOD ORDERABLES Emelyn l Result [facility] ([place]) 1 [facility] Department [place] [address] * POCT glucose (09/24/2024 2:59 AM CDT) [facility] Signature Glucose, POC 134 70 - 199 mg/dL Blood 09/24/2024 2:59 AM CDT 09/24/2024 2:59 AM CDT Palma Blount MD LAB POCT ORDERABLES - DEV ICE Final Result Performing Organization Address City/[facility]/ZIP Co de Phone Number [facility] ([place]) 1 [facility] [place] [address] * POCT glucose (09/23/2024 7:56 PM CDT) Glucose, POC 142 70 - 199 mg/dL Blood 09/23/2024 7:56 PM CDT 09/23/2024 7:56 PM CDT Palma Blount MD LAB POCT ORDERABLES - DEV ICE Final Result [facility] ([place]) 1 [place] [address] * POCT glucose (09/23/2024 4:47 PM CDT) Glucose, POC 147 70 - 199 mg/dL Blood 09/23/2024 4:47 PM CDT 09/23/2024 4:47 PM CDT Palma Blount MD LAB POCT ORDERABLES - DEV ICE Final Result PATRICIA WYATT ([place]) 1 [facility] [place] [address] * Potassium (09/23/2024 4:05 PM CDT) Potassium, pl 3.9 3.3 - 4.9 mmol/L Blood 09/23/2024 4:05 PM CDT 09/23/2024 4:18 PM CDT Palma Blount MD LAB BLOOD ORDERABLES Emelyn l Result PATRICIA WYATT ([place]) 1 [facility] [place] [address] * POCT glucose (09/23/2024 11:46 AM CDT) Glucose, POC 128 70 - 199 mg/dL Blood 09/23/2024 11:4 6 AM CDT 09/23/2024 11:46 AM CDT Palma Blount MD LAB POCT ORDERABLES - DEV ICE Final Result PATRICIA WYATT ([place]) [address] [place] [address] [place] [address] * POCT glucose (09/23/2024 7:57 AM CDT) Pathologist [facility] Glucose, POC 137 70 - 199 mg/dL Blood 09/23/2024 7:57 AM CDT 09/23/2024 7:57 AM CDT Palma Blount MD LAB POCT ORDERABLES - DEV ICE Final Result Performing Organization Address City/[facility] Co de Phone Number [facility] ([place]) 1 [facility] [place] [address] * (ABNORMAL) eGFR (09/23/2024 5:22 AM CDT) [facility] eGFR 48(L) >=60 mL/min/1. 73 m2 Comment: Interpretive Data Reference Interval Normal >/= 90 mL/min/1.73m2 Mildly decreased* 60 - 89 mL/min/1.73m2 Mildly to moderately decreased 45 - 59 mL/min/1.73m2 Moderately to severely decreased 30 - 44 mL/min/1.73m2 Severely decreased 15 - 29 mL/min/1.73m2 Kidney Failure < 15 mL/min/1.73m2 *Relative to young adult level Estimated glomerular filtration rate is determined by the 2020 CKD-EPI equation recommended by the National Kidney Foundation (A Unifying Approach to GFR Estimation: Recommendations of the NKF-ASK Task Force on Reassessing the Inclusion of Race in Diagnosing Kidney Disease, JASN 2020). The CKD-EPI equation should not be used for patients with unstable renal function and has not been validated in children and those over 70. Current interpretive data was last reviewed 2021. Blood 09/23/2024 5:22 AM CDT 09/23/2024 6:21 AM CDT us Tangela Mcarthur MD LAB BLOOD ORDERABLES Emelyn cristina Result [facility] ([place]) 1 [facility] Department [place] [address] * (ABNORMAL) Differential, auto (09/23/2024 5:22 AM CDT) Neutrophil abs 8.33(H) 1.50 - 6.50 K/cumm Imm gran abs 0.06 0.00 - 0.10 K/cumm [facility] ([place]) Lymphocyte abs 0.67(L) 0.80 - 3.30 K/cumm [facility] ([place]) Monocyte abs 0.69 0.20 - 0.80 K/cumm [facility] ([place]) Eosinophil abs 0.07 0.00 - 0.50 K/cumm [facility] ([place]) Basophil abs 0.03 0.00 - 0.10 K/cumm [facility] ([place]) Neutrophil pct 84.6 % [facility] ([place]) Comment: Interpretive Data Percent cell count reference ranges are not reported, since discordance with absolute values may lead to misinterpretation of CBC data. Current Interpretive Data was last revised on 2017. Imm gran pct 0.6 % [facility] ([place]) Comment: Interpretive Data Percent cell count reference ranges are not reported, since discordance with absolute values may lead to misinterpretation of CBC data. Current Interpretive Data was last revised on 2017. Lymphocyte pct 6.8 % [facility] ([place]) Comment: Interpretive Data Percent cell count reference ranges are not reported, since discordance with absolute values may lead to misinterpretation of CBC data. Current Interpretive Data was last revised on 2017. Monocyte pct 7.0 % [facility] ([place]) Comment: Interpretive Data Percent cell count reference ranges are not reported, since discordance with absolute values may lead to misinterpretation of CBC data. Current Interpretive Data was last revised on 2017. Eosinophil pct 0.7 % [facility] ([place]) Comment: Interpretive Data Percent cell count reference ranges are not reported, since discordance with absolute values may lead to misinterpretation of CBC data. Current Interpretive Data was last revised on 2017. Basophil pct 0.3 % [facility] ([place]) Comment: Interpretive Data Percent cell count reference ranges are not reported, since discordance with absolute values may lead to misinterpretation of CBC data. Current Interpretive Data was last revised on 2017. Blood 09/23/2024 5:22 AM CDT 09/23/2024 6:21 AM CDT Tangela Mcarthur MD LAB BLOOD ORDERABLES Emelyn evans Result [facility] ([place]) 1 [facility] Department [place] [address] * (ABNORMAL) CBC with auto differential (09/23/2024 5:22 AM CDT) WBC 9.85 3.80 - 9.90 K/cumm Hgb 12.3 11.9 - 15.5 g/dL [facility] ([place]) Hct 36.7 35.6 - 45.5 % [facility] ([place]) Plt 120(L) 150 - 400 K/cumm [facility] ([place]) MPV 10.5 9.1 - 12.3 fL [facility] ([place]) RBC 4.41 3.90 - 5.20 M/cumm [facility] ([place]) MCV 83.2 81.3 - 96.4 fL [facility] ([place]) MCH 27.9 27.1 - 33.3 pg [facility] ([place]) MCHC 33.5 32.3 - 35.7 g/dL [facility] ([place]) RDW CV 15.0(H) 11.1 - 14.9 % [facility] ([place]) RDW SD 46.4 35.7 - 48.1 fL [facility] ([place]) NRBC abs 0.00 0.00 - 0.01 K/cumm [facility] ([place]) Blood 09/23/2024 5:22 AM CDT 09/23/2024 6:21 AM CDT us Tangela Mcarthur MD LAB BLOOD ORDERABLES Emelyn cristina Result [facility]IA [facility] ([place]) 1 [facility] Department [place] [address] * (ABNORMAL) Comprehensive metabolic panel (09/23/2024 5:22 AM CDT) Sodium 135 135 - 145 mmol/L Potassium, pl 2.7(C) 3.3 - 4.9 mmol/L [facility] ([place]) Comment:Critical Result call ed by [email or web address] at 2024-09-23 07:13:16. Result Read Back by Devyn Spicer Chloride 95(L) 97 - 110 mmol/L [facility] ([place]) CO2 24 22 - 32 mmol/L [facility] ([place]) Anion gap 16(H) 2 - 15 mmol/L [facility] ([place]) BUN 21 6 - 25 mg/dL [facility] ([place]) Creatinine 1.27(H) 0.60 - 1.10 mg/dL [facility] ([place]) Glucose 127 70 - 199 mg/dL [facility] ([place]) Comment: Interpretive Data Fasting glucose >/= 126 mg/dl is diagnostic for diabetes. Fasting is defined as no caloric intake for at least 8 hours. Fasting glucose between 100 mg/dl to 125 mg/dl is diagnostic of prediabetes. In a patient with classic symptoms of hyperglycemia or hyperglycemic crisis, a random glucose >/= 200 mg/dl is diagnostic for diabetes. In the absence of unequivocal hyperglycemia, results should be confirmed by repeat testing. The classification and Diagnosis of Diabetes Diabetes Care 2021; 46: S19-S40. Current interpretive data was last revised 2022. Calcium 8.0(L) 8.5 - 10.3 mg/dL [facility] ([place]) Bilirubin, total 0.4 0.1 - 1.2 mg/dL [facility] ([place]) Protein, pl 5.9(L) 6.5 - 8.5 g/dL [facility] ([place]) Albumin 2.9(L) 3.5 - 5.0 g/dL [facility] ([place]) Alk phos 158(H) 40 - 130 Units/L [facility] ([place]) ALT 37 7 - 45 Units/L [facility] ([place]) AST 43 10 - 45 Units/L [facility] ([place]) Comment:Slightly Hemolyzed S pecimen Blood 09/23/2024 5:22 AM CDT 09/23/2024 6:21 AM CDT Tangela Mcarthur MD LAB BLOOD ORDERABLES Emelyn l Result PATRICIA WYATT ([place]) 1 [facility] [place] [place] [address] * POCT glucose (09/23/2024 1:59 AM CDT) Glucose, POC 166 70 - 199 mg/dL Blood 09/23/2024 1:59 AM CDT 09/23/2024 1:59 AM CDT Palma Blount MD LAB POCT ORDERABLES - DEV ICE Final Result PATRICIA WYATT ([place]) 1 [facility] [place] [place] [address] * POCT glucose (09/22/2024 7:50 PM CDT) Glucose, POC 155 70 - 199 mg/dL Blood 09/22/2024 7:50 PM CDT 09/22/2024 7:50 PM CDT Palma Blount MD LAB POCT ORDERABLES - DEV ICE Final Result PATRICIA WYATT ([place]) 1 [facility] Department [place] [address] * Blood culture Blood (09/22/2024 6:29 PM CDT) Report Final Report: No growth Comment:Testing performed by : [facility], 1 [place] [address] Blood 09/22/2024 6:29 PM CDT 09/22/2024 10:02 PM CDT Narrative PATRICIA WYATT ([place]) - 09/27/2024 7:00 AM CDT From a different site than #1. Collection->Peripheral 1. Blood cultures are incubated for 4 days on a continuously monitored blood culture system. The first report of a negative culture is issued within 24 hours of receipt of the specimen in the laboratory. 2. Positive culture results are reported as soon as they are detected. 3. The most important factor for detection of microbes in the setting of bloodstream infection is the volume of blood submitted for culture. Failure to collect an optimal blood volume can result in false negative blood cultures. 4. For pediatric patients, the recommended blood volume to collect follows a weight based strategy. See the electronic test catalog for collection instructions. 5. For positive blood cultures, a rapid molecular test may be performed for organism identification using the chase ePlex blood culture identification panel for gram positive (BCID-GP) and gram negative (BCID-GN) organisms. This nucleic acid amplification test detects microbial DNA in positive blood culture broth. This assay has been cleared by the [place] Food and Drug Administration and its performance characteristics have been verified by the [facility]. For questions about this culture, contact the Microbiology Laboratory at [phone]. Interpretive data was last revised on 24. Palma Blount MD LAB MICROBIOLOGY - GENERA L ORDERABLES Final Result PATRICIA WYATT ([place]) 1 [facility] Department [place] [address] * Blood culture Blood (09/22/2024 6:29 PM CDT) Report Final Report: No growth Comment:Testing performed by : [facility], 1 [facility], [place]., [address] Blood 09/22/2024 6:29 PM CDT 09/22/2024 10:01 PM CDT Narrative PATRICIA WYATT ([place]) - 09/27/2024 7:00 AM CDT Collection->Peripheral 1. Blood cultures are incubated for 4 days on a continuously monitored blood culture system. The first report of a negative culture is issued within 24 hours of receipt of the specimen in the laboratory. 2. Positive culture results are reported as soon as they are detected. 3. The most important factor for detection of microbes in the setting of bloodstream infection is the volume of blood submitted for culture. Failure to collect an optimal blood volume can result in false negative blood cultures. 4. For pediatric patients, the recommended blood volume to collect follows a weight based strategy. See the electronic test catalog for collection instructions. 5. For positive blood cultures, a rapid molecular test may be performed for organism identification using the chase ePlex blood culture identification panel for gram positive (BCID-GP) and gram negative (BCID-GN) organisms. This nucleic acid amplification test detects microbial DNA in positive blood culture broth. This assay has been cleared by the [place] Food and Drug Administration and its performance characteristics have been verified by the [facility]. For questions about this culture, contact the Microbiology Laboratory at [phone]. Interpretive data was last revised on 24. Palma Blount MD LAB MICROBIOLOGY - GENERA L ORDERABLES Final Result PATRICIA YOSELIN ([place]) 1 [facility] Department [place] [address] * POCT glucose (09/22/2024 3:31 PM CDT) Glucose, POC 132 70 - 199 mg/dL Blood 09/22/2024 3:31 PM CDT 09/22/2024 3:31 PM CDT Palma Blount MD LAB POCT ORDERABLES - DEV ICE Final Result PATRICIA WYATT ([place]) 1 [facility] [place] [address] * (ABNORMAL) POCT glucose (09/22/2024 12:05 PM CDT) Glucose, POC 256(H) 70 - 199 mg/dL Blood 09/22/2024 12:0 5 PM CDT 09/22/2024 12:05 PM CDT Palma Blount MD LAB POCT ORDERABLES - DEV ICE Final Result Performing Organization Address City/[facility] Co de Phone Number PATRICIA WYATT ([place]) 1 [facility] [place] [address] * (ABNORMAL) eGFR (09/22/2024 10:43 AM CDT) eGFR 38(L) >=60 mL/min/1. 73 m2 Comment: Interpretive Data Reference Interval Normal >/= 90 mL/min/1.73m2 Mildly decreased* 60 - 89 mL/min/1.73m2 Mildly to moderately decreased 45 - 59 mL/min/1.73m2 Moderately to severely decreased 30 - 44 mL/min/1.73m2 Severely decreased 15 - 29 mL/min/1.73m2 Kidney Failure < 15 mL/min/1.73m2 *Relative to young adult level Estimated glomerular filtration rate is determined by the 2020 CKD-EPI equation recommended by the National Kidney Foundation (A Unifying Approach to GFR Estimation: Recommendations of the NKF-ASK Task Force on Reassessing the Inclusion of Race in Diagnosing Kidney Disease, JASN 202). The CKD-EPI equation should not be used for patients with unstable renal function and has not been validated in children and those over 70. Current interpretive data was last reviewed 2021. Blood 09/22/2024 10:4 3 AM CDT 09/22/2024 10:55 AM CDT us Palma Blount MD LAB BLOOD ORDERABLES Emelyn l Result [facility] ([place]) 1 [facility] [place] [address] * (ABNORMAL) CBC without differential (09/22/2024 10:43 AM CDT) WBC 17.83(H) 3.80 - 9.90 K/cumm Hgb 13.1 11.9 - 15.5 g/dL [facility] ([place]) Hct 38.3 35.6 - 45.5 % [facility] ([place]) Plt 122(L) 150 - 400 K/cumm [facility] ([place]) MPV 10.3 9.1 - 12.3 fL [facility] ([place]) RBC 4.62 3.90 - 5.20 M/cumm [facility] ([place]) MCV 82.9 81.3 - 96.4 fL [facility] ([place]) MCH 28.4 27.1 - 33.3 pg [facility] ([place]) MCHC 34.2 32.3 - 35.7 g/dL [facility] ([place]) RDW CV 14.7 11.1 - 14.9 % [facility] ([place]) RDW SD 44.5 35.7 - 48.1 fL [facility] ([place]) NRBC abs 0.00 0.00 - 0.01 K/cumm [facility] ([place]) Blood 09/22/2024 10:4 3 AM CDT 09/22/2024 10:55 AM CDT us Palma Blount MD LAB BLOOD ORDERABLES Emelyn l Result [facility] ([place]) 1 [facility] [place] [address] * Magnesium (09/22/2024 10:43 AM CDT) Magnesium 2.4 1.4 - 2.5 mg/dL Blood 09/22/2024 10:4 3 AM CDT 09/22/2024 10:55 AM CDT Palma Blount MD LAB BLOOD ORDERABLES Emelyn l Result Performing Organization Address [facility] Co de Phone Number PATRICIA WYATT ([place]) 1 [place] [address] * (ABNORMAL) Hemoglobin A1c (09/22/2024 10:43 AM CDT) Hgb A1C 7.4(H) 4.0 - 5.6 % Estimated Average Glucose 166 mg/dL [facility] ([place]) Comment: The ADA recommends reporting an estimated Average Glucose (eAG) with all Hemoglobin A1c results using the equation derived from a study of 507 normal and diabetic adults. Minority populations were underrepresented and children were not included. (Diabetes Care 31:6293-8353, 2008). The eAG is not equivalent to a fasting glucose. Blood 09/22/2024 10:4 3 AM CDT 09/22/2024 11:41 AM CDT Palma Blount MD LAB BLOOD ORDERABLES Emelyn l Result Performing Organization Address City/[facility] Co de Phone Number PATRICIA WYATT ([place]) 1 [place] [address] * (ABNORMAL) Basic metabolic panel (09/22/2024 10:43 AM CDT) Sodium 131(L) 135 - 145 mmol/L Potassium, pl 3.6 3.3 - 4.9 mmol/L [facility] ([place]) Chloride 93(L) 97 - 110 mmol/L [facility] ([place]) CO2 22 22 - 32 mmol/L [facility] ([place]) Anion gap 16(H) 2 - 15 mmol/L [facility] ([place]) BUN 34(H) 6 - 25 mg/dL [facility] ([place]) Creatinine 1.54(H) 0.60 - 1.10 mg/dL [facility] ([place]) Glucose 267(H) 70 - 199 mg/dL PATRICIA WYATT ([place]) Comment: Interpretive Data Fasting glucose >/= 126 mg/dl is diagnostic for diabetes. Fasting is defined as no caloric intake for at least 8 hours. Fasting glucose between 100 mg/dl to 125 mg/dl is diagnostic of prediabetes. In a patient with classic symptoms of hyperglycemia or hyperglycemic crisis, a random glucose >/= 200 mg/dl is diagnostic for diabetes. In the absence of unequivocal hyperglycemia, results should be confirmed by repeat testing. The classification and Diagnosis of Diabetes Diabetes Care 2021; 46: S19-S40. Current interpretive data was last revised 2022. Calcium 8.1(L) 8.5 - 10.3 mg/dL PATRICIA WYATT ([place]) Blood 09/22/2024 10:4 3 AM CDT 09/22/2024 10:55 AM CDT Palma Blount MD LAB BLOOD ORDERABLES Emelyn l Result [facility] ([place]) 1 [facility] [place] [address] * POCT glucose (09/22/2024 8:04 AM CDT) Glucose, POC 171 70 - 199 mg/dL Blood 09/22/2024 8:04 AM CDT 09/22/2024 8:04 AM CDT Palma Blount MD LAB POCT ORDERABLES - DEV ICE Final Result [facility] ([place]) 1 [facility] [place] [address] * (ABNORMAL) Blood culture Blood Blood (09/22/2024 2:52 AM CDT) Direct Specimen Exam Stain: Gram Negative Bacilli Time to culture positivity (aerobic media): 9.0 hours Comment:Testing performed by : [facility], [address] [place]., [address] Report Final Report: Escherichia coli For susceptibility results, refer to accession number [id number] on the blood culture from 09/22/2024 (.) PATRICIA WYATT ([place]) Comment:Testing performed by : [facility], [address] [place]., [address] Organism ESCHERICHIA COLI LIZZ WYATT ([place]) Blood (Blood) 09/22/2024 2:5 2 AM CDT 09/22/2024 6:44 AM CDT Narrative PATRICIA WYATT ([place]) - 09/28/2024 2:53 PM CDT Collection->Peripheral Received only aerobic blood culture bottle 1. Blood cultures are incubated for 4 days on a continuously monitored blood culture system. The first report of a negative culture is issued within 24 hours of receipt of the specimen in the laboratory. 2. Positive culture results are reported as soon as they are detected. 3. The most important factor for detection of microbes in the setting of bloodstream infection is the volume of blood submitted for culture. Failure to collect an optimal blood volume can result in false negative blood cultures. 4. For pediatric patients, the recommended blood volume to collect follows a weight based strategy. See the electronic test catalog for collection instructions. 5. For positive blood cultures, a rapid molecular test may be performed for organism identification using the chase ePlex blood culture identification panel for gram positive (BCID-GP) and gram negative (BCID-GN) organisms. This nucleic acid amplification test detects microbial DNA in positive blood culture broth. This assay has been cleared by the [place] Food and Drug Administration and its performance characteristics have been verified by the [facility]. For questions about this culture, contact the Microbiology Laboratory at [phone]. Interpretive data was last revised on 24. us Tangela Mcarthur MD LAB MICROBIOLOGY - GENERA L ORDERABLES Final Result PATRICIA WYATT ([place]) 1 [facility] Department [place] [place] [address] * (ABNORMAL) Troponin T high-sensitivity 6-hour (09/22/2024 2:49 AM CDT) Trop T hs 17(H) <=14 ng/L Comment: Interpretive Data For further hscTnT resources including the diagnostic algorithm and an aid in interpretation, copy and paste this link: https://nrl.testcatalog.org/show/hsTrop Current Interpretive Data last revised 2020. Trop T hs delta -2 ng/L [facility] ([place]) Trop T hs interp Insignificant [facility] ([place]) Blood 09/22/2024 2:49 AM CDT 09/22/2024 2:55 AM CDT Tangela Mcarthur MD LAB BLOOD ORDERABLES Emelyn evans Result PATRICIA WYATT ([place]) 1 [facility] Department [place] [address] * (ABNORMAL) Blood culture Blood Blood (09/22/2024 2:49 AM CDT) Direct Specimen Exam Molecular Analysis: Presumptive Escherichia coli detected by chase ePlex BCID-GN panel. This test does not exclude the possibility of a mixed bacterial infection. Notification of: Presumptive Escherichia coli called to and read back by: Mirta García MT [phone] on 09/22/2024 17:32:03 by: Esperanza Sands MT Test result called to and read back by Marbella Guzman RN [facility] on 09/22/2024 17:56:28 by Mirta García. Comment:Testing performed by : [facility], 1 [facility], [place]., [address] Direct Specimen Exam Stain: Gram Negative Bacilli Time to culture positivity (anaerobic media): 8.1 hours Time to culture positivity (aerobic media): 9.1 hours Notification of: Gram Negative Bacilli called to and read back by: Danae [email or web address].LA [phone] on 09/22/2024 15:22:29 by: Gayatri [email or web address] Test result called to and read back by Marbella Guzman RN [facility] on 09/22/2024 16:15:54 by Mirta García. PATRICIA WYATT ([place]) Comment:Testing performed by : [facility], [address] [place]., [address] Report Final Report: Escherichia coli (.) PATRICIA WYATT ([place]) Comment:Testing performed by : [facility], [address] [place]., [address] Organism ESCHERICHIA COLI PATRICIA WYATT ([place]) Blood (Blood) 09/22/2024 2:4 9 AM CDT 09/22/2024 6:44 AM CDT Narrative PATRICIA WYATT ([place]) - 09/25/2024 1:57 PM CDT Collection->Peripheral 1. Blood cultures are incubated for 4 days on a continuously monitored blood culture system. The first report of a negative culture is issued within 24 hours of receipt of the specimen in the laboratory. 2. Positive culture results are reported as soon as they are detected. 3. The most important factor for detection of microbes in the setting of bloodstream infection is the volume of blood submitted for culture. Failure to collect an optimal blood volume can result in false negative blood cultures. 4. For pediatric patients, the recommended blood volume to collect follows a weight based strategy. See the electronic test catalog for collection instructions. 5. For positive blood cultures, a rapid molecular test may be performed for organism identification using the chase ePlex blood culture identification panel for gram positive (BCID-GP) and gram negative (BCID-GN) organisms. This nucleic acid amplification test detects microbial DNA in positive blood culture broth. This assay has been cleared by the [place] Food and Drug Administration and its performance characteristics have been verified by the [facility]. For questions about this culture, contact the Microbiology Laboratory at [phone]. Interpretive data was last revised on 24. Organism Antibiotic Method Susceptibility Escherichia coli Ampicillin INTERPRETATION Resistant Escherichia coli Cefazolin INTERPRETATION Susceptible Escherichia coli Gentamicin INTERPRETATION Susceptible Escherichia coli Ampicillin with Sulbactam INTERPRETAT ION Intermediate Escherichia coli Trimethoprim with Sulfamethoxazole IN TERPRETATION Susceptible Escherichia coli Meropenem INTERPRETATION Susceptible Escherichia coli Cefepime INTERPRETATION Susceptible Escherichia coli Ciprofloxacin INTERPRETATION Susceptible Escherichia coli Ceftazidime INTERPRETATION Susceptible Escherichia coli Ceftriaxone INTERPRETATION Susceptible Escherichia coli Piperacillin/Tazobactam INTERPRETATIO N Susceptible us Tangela Mcarthur MD LAB MICROBIOLOGY - GENERA L ORDERABLES Final Result PATRICIA WYATT [place]) 1 [facility] Department [place] [address] * Sepsis Lactate w/ Reflex (09/22/2024 1:53 AM CDT) Sepsis Lactate 1.3 0.7 - 2.0 mmol/L Blood 09/22/2024 1:53 AM CDT 09/22/2024 1:58 AM CDT us Tangela Mcarthur MD LAB BLOOD ORDERABLES Emelyn l Result Performing Organization Address [facility] Co de Phone Number PATRICIA WYATT [place]) 1 [facility] [place] [address] * CT Abdomen Pelvis WO Contrast (09/22/2024 12:24 AM CDT) Anatomical Region Laterality Modality Body N/A Computed Tomogra phy 09/22/2024 12:3 3 AM CDT Narrative 09/22/2024 12:35 AM CDT EXAM DESCRIPTION: CT ABDOMEN PELVIS WO CONTRAST REASON FOR STUDY: abd pain Patient complains of abdominal pain, vomiting and constipation x 2 [address] TECHNIQUE: CT scan of the abdomen and pelvis performed without intravenous and without oral contrast using helical scanning technique. Reconstructed coronal and sagittal MPR images reviewed. All images stored on PACS. Automated exposure control was used as a dose optimization technique for this examination. COMPARISON: 08/21/2021 FINDINGS: The sensitivity for detection of visceral lesions is diminished without the use of intravenous contrast. LOWER CHEST: No significant pulmonary abnormalities. No effusion. LIVER: Normal size. No identified cystic or solid masses. GALLBLADDER: Unremarkable BILE DUCTS: No intrahepatic or extrahepatic ductal dilatation. SPLEEN: Normal size. No focal lesions. PANCREAS: No identified cystic or solid masses. No significant calcifications. No adjacent inflammation or peripancreatic fluid collections. Pancreatic duct not dilated. ADRENALS: Normal. KIDNEYS/URINARY TRACT: Mild stranding is seen about the right kidney. No hydronephrosis is seen. No renal or ureteral stone is identified. 1 or 2 small suspected cysts are seen of the kidneys. Urinary bladder is unremarkable. GI: No dilated bowel loops. No obvious wall thickening. The appendix not seen. No significant diverticular disease. No evidence of constipation is seen. PERITONEUM: No ascites or free air. RETROPERITONEUM: No mass or adenopathy. REPRODUCTIVE: No significant abnormality. VASCULATURE: No abdominal aortic aneurysm. MUSCULOSKELETAL: No significant abnormality. OTHER: No other abnormality. IMPRESSION: Mild stranding is seen about the right kidney. No hydronephrosis is seen. No renal or ureteral stone is identified. Findings are nonspecific but could be related to pyelonephritis. THIS IS AN ELECTRONICALLY VERIFIED FINAL REPORT 09/22/2024 12:35 AM - Electronically signed by Dandre Kang M.D. KH: ARUN Report ID: [id number] Reading Location: [id number] Procedure Note Dandre Kang MD - 09/22/2024 EXAM DESCRIPTION: CT ABDOMEN PELVIS WO CONTRAST REASON FOR STUDY: abd pain Patient complains of abdominal pain, vomiting and constipation x 2 days. TECHNIQUE: CT scan of the abdomen and pelvis performed without intravenousand without oral contrast using helical scanning technique. Reconstructed coronal and sagittal MPR images reviewed. All images stored on PACS.Automated exposure control was used as a dose optimization technique for this examination. COMPARISON: 08/21/2021 FINDINGS: The sensitivity for detection of visceral lesions is diminished withoutthe use of intravenous contrast. LOWER CHEST: No significant pulmonary abnormalities. No effusion. LIVER: Normal size. No identified cystic or solid masses. GALLBLADDER: Unremarkable BILE DUCTS: No intrahepatic or extrahepatic ductal dilatation. SPLEEN: Normal size. No focal lesions. PANCREAS: No identified cystic or solid masses. No significant calcifications. No adjacent inflammation or peripancreatic fluidcollections. Pancreatic duct not dilated. ADRENALS: Normal. KIDNEYS/URINARY TRACT: Mild stranding is seen about the right kidney.No hydronephrosis is seen. No renal or ureteral stone is identified. 1 or 2 small suspected cysts are seen of the kidneys. Urinary bladder is unremarkable. GI: No dilated bowel loops. No obvious wall thickening. The appendixnot seen. No significant diverticular disease. No evidence of constipationis seen. PERITONEUM: No ascites or free air. RETROPERITONEUM: No mass or adenopathy. REPRODUCTIVE: No significant abnormality. VASCULATURE: No abdominal aortic aneurysm. MUSCULOSKELETAL: No significant abnormality. OTHER: No other abnormality. IMPRESSION: Mild stranding is seen about the right kidney. No hydronephrosis is seen.No renal or ureteral stone is identified. Findings are nonspecific but couldbe related to pyelonephritis. THIS IS AN ELECTRONICALLY VERIFIED FINAL REPORT 09/22/2024 12:35 AM - Electronically signed by Dandre Kang M.D. KH: ARUN Report ID: [id number] Reading Location: [place] [id number] Tangela Mcarthur MD IMG CT PROCEDURES Final R esult * (ABNORMAL) Urinalysis reflex to microscopic and culture Urine (09/21/2024 11:42 PM CDT) Color, ur Yellow Yellow Clarity, ur Turbid(A) Clear [facility] ([place]) Specific gravity, ur 1.013 1.003 - 1.030 [facility] ([place]) pH, urine 5.5 [facility] ([place]) Comment: Interpretive Data U rine pH is affected by diet, medications, systemic acid-base disturbances, and renal tubular function. pH may affect urinary stone formation. For example, urine pH below 6.0 may help reduce the tendency for calcium phosphate stones and pH greater than 6.0 may reduce the tendency for uric acid stone formation. Source: [email or web address] Current Interpretive Data was last revised on 2017 Protein, ur ql 1+(A) Negative [facility] ([place]) Glucose, ur ql 4+(A) Negative [facility] ([place]) Ketones, ur Negative Negative [facility] ([place]) Bilirubin, ur Negative Negative [facility] ([place]) Blood, ur 1+(A) Negative [facility] ([place]) Urobilinogen, ur <2.0 <2.0 mg/dL [facility] ([place]) Nitrite, ur Negative Negative [facility] ([place]) Leukocyte esterase, ur 4+(A) Negative [facility] ([place]) UA reflex comment Reflex to microscopic UA will be performed. [facility] ([place]) Urine 09/21/2024 11:4 2 PM CDT 09/21/2024 11:50 PM CDT Tangela Mcarthur MD LAB MICROBIOLOGY - GENERA L ORDERABLES Final Result Performing Organization Address City/[facility]/ZIP Co de Phone Number [facility] ([place]) [address] [facility] [employer] [place] [place] [address] * (ABNORMAL) Urinalysis, microscopic only (09/21/2024 11:42 PM CDT) WBC, ur >50(A) 0 - 5 /HPF RBC, ur 6-10(A) 0 - 2 /HPF [facility] ([place]) Epithelial cells, squamous, ur 1-5 0 - 5 /HPF [facility] ([place]) Bacteria, ur 1+(A) [facility] ([place]) Mucous, ur Present(A) [facility] ([place]) Culture Reflex Comment Reflex to urine culture will be performed. [facility] ([place]) Urine 09/21/2024 11:4 2 PM CDT 09/21/2024 11:50 PM CDT us Leland Nunez MD LAB URINE ORDERABLES Final Re sult Performing Organization Address City/[facility]/ZIP Co de Phone Number [facility] ([place]) [address] [facility] [employer] [place] [address] * (ABNORMAL) Urine culture Urine (09/21/2024 11:42 PM CDT) Report Final Report: Greater than or equal to 100,000 colonies/mL of Escherichia coli Greater than or equal to 100,000 colonies/mL of Escherichia coli #2 (.) Comment:Testing performed by : [facility], [address] [facility] [place] [address] Organism ESCHERICHIA COLI [facility] ([place]) Organism ESCHERICHIA COLI [facility] ([place]) Urine 09/21/2024 11:4 2 PM CDT 09/22/2024 3:36 AM CDT Narrative [facility] ([place]) - 09/24/2024 10:10 AM CDT Urine culture reflexed based upon urinalysis results. Testing performed by [facility] ([phone]) Organism Antibiotic Method Susceptibility Escherichia coli Ampicillin INTERPRETATION Resistant Escherichia coli Cefazolin INTERPRETATION Susceptible Escherichia coli Nitrofurantoin INTERPRETATION Susceptible Escherichia coli Gentamicin INTERPRETATION Susceptible Escherichia coli Trimethoprim with Sulfamethoxazole IN TERPRETATION Susceptible Escherichia coli Meropenem INTERPRETATION Susceptible Escherichia coli Cefepime INTERPRETATION Susceptible Escherichia coli Ciprofloxacin INTERPRETATION Susceptible Escherichia coli Ceftazidime INTERPRETATION Susceptible Escherichia coli Ceftriaxone INTERPRETATION Susceptible Escherichia coli Piperacillin/Tazobactam INTERPRETATIO N Susceptible Escherichia coli Cephalexin INTERPRETATION Susceptible Escherichia coli Cefuroxime-axetil INTERPRETATION Susceptible Escherichia coli Cefdinir INTERPRETATION Susceptible Escherichia coli Ampicillin INTERPRETATION Resistant Escherichia coli Cefazolin INTERPRETATION Susceptible Escherichia coli Nitrofurantoin INTERPRETATION Susceptible Escherichia coli Gentamicin INTERPRETATION Susceptible Escherichia coli Trimethoprim with Sulfamethoxazole IN TERPRETATION Susceptible Escherichia coli Meropenem INTERPRETATION Susceptible Escherichia coli Cefepime INTERPRETATION Susceptible Escherichia coli Ciprofloxacin INTERPRETATION Susceptible Escherichia coli Ceftazidime INTERPRETATION Susceptible Escherichia coli Ceftriaxone INTERPRETATION Susceptible Escherichia coli Piperacillin/Tazobactam INTERPRETATIO N Susceptible Escherichia coli Cephalexin INTERPRETATION Susceptible Escherichia coli Cefuroxime-axetil INTERPRETATION Susceptible Escherichia coli Cefdinir INTERPRETATION Susceptible Leland Nunez MD LAB MICROBIOLOGY - GENERAL OR DERABLES Final Result [facility] ([place]) [address] [facility] Department [place] [address] * (ABNORMAL) Troponin T high-sensitivity 2-hour (09/21/2024 11:09 PM CDT) Trop T hs 21(H) <=14 ng/L Comment: Interpretive Data For further hscTnT resources including the diagnostic algorithm and an aid in interpretation, copy and paste this link: https://nrl.testcatalog.org/show/hsTrop Current Interpretive Data last revised 2020. Trop T hs delta 2 ng/L [facility] ([place]) Trop T hs interp Insignificant [facility] ([place]) Blood 09/21/2024 11:0 9 PM CDT 09/21/2024 11:15 PM CDT Tangela Mcarthur MD LAB BLOOD ORDERABLES Emelyn l Result [facility]IA [facility] ([place]) 1 [facility] [place] [employer] [address] * (ABNORMAL) Sepsis Lactate w/ Reflex (09/21/2024 11:09 PM CDT) Sepsis Lactate 3.9(H) 0.7 - 2.0 mmol/L Blood 09/21/2024 11:0 9 PM CDT 09/21/2024 11:15 PM CDT Tangela Mcarthur MD LAB BLOOD ORDERABLES Emelyn l Result Performing Organization Address City/[facility]/ZIP Co de Phone Number [place] 1 [facility] [place] [address] * ECG 12 lead (09/21/2024 11:08 PM CDT) 09/21/2024 11:0 8 PM CDT Narrative [facility] - 09/22/2024 9:30 AM CDT Vent Rate: 101 bpm RR Interval: 594 msec [place] Interval: 163 msec QRS Duration: 94 msec QT Interval: 278 msec QTC Interval: 336 msec P-R-T [place]: 34 - -22 - 47 degrees IMPRESSION: SINUS TACHYCARDIA MINIMAL VOLTAGE CRITERIA FOR LVH, CONSIDER NORMAL VARIANT [MEETS CRITERIA IN ONE OF: R(aVL), S(V1), R(V5), R(V5/V6)+S(V1)] POSSIBLE ANTERIOR MYOCARDIAL INFARCTION , PROBABLY OLD [30 ms Q WAVE IN V3/V4, OR R < 0.2 mV IN V4] ABNORMAL RHYTHM ECG Electronically Signed By: Gunnar Covington MD us Tangela Mcarthur MD ECG ORDERABLES Final Res ult [facility] * CT Head WO Contrast (09/21/2024 9:19 PM CDT) Anatomical Region Laterality Modality Head and Neck N/A Computed Tomogra phy 09/21/2024 9:24 PM CDT Narrative 09/21/2024 9:28 PM CDT EXAM DESCRIPTION: CT HEAD WO CONTRAST REASON FOR STUDY: Mental status change, unknown cause Altered mental status, high blood sugar today. TECHNIQUE: Axial images acquired through the brain without intravenous contrast. Images stored on PACS. Automated exposure control was used as a dose optimization technique for this examination. COMPARISON: None FINDINGS: BRAIN: No gross intraparenchymal hemorrhage, mass or edema. Mild periventricular white matter hypoattenuation, likely chronic small vessel ischemic disease. No hydrocephalus. EXTRA-AXIAL SPACES: No fluid collections. No masses. CALVARIUM: No fracture. SINUSES/MASTOIDS: No fluid or mucosal thickening. ORBITS: No significant abnormality. OTHER: No other significant abnormality. IMPRESSION: 1. No gross acute intracranial abnormality. Of note, MRI is more sensitive to detection of cerebral ischemia. THIS IS AN ELECTRONICALLY VERIFIED FINAL REPORT 09/21/2024 9:28 PM - Electronically signed by Manuel Haro M.D. AG: ALEX Report ID: [id number] Reading Location: [id number] Procedure Note Manuel Haro MD - 09/21/2024 EXAM DESCRIPTION: CT HEAD WO CONTRAST REASON FOR STUDY: Mental status change, unknown cause Altered mental status, high blood sugar today. TECHNIQUE: Axial images acquired through the brain without intravenous contrast. Images stored on PACS. Automated exposure control was used asa dose optimization technique for this examination. COMPARISON: None FINDINGS: BRAIN: No gross intraparenchymal hemorrhage, mass or edema. Mild periventricular white matter hypoattenuation, likely chronic small vessel ischemic disease. No hydrocephalus. EXTRA-AXIAL SPACES: No fluid collections. No masses. CALVARIUM: No fracture. SINUSES/MASTOIDS: No fluid or mucosal thickening. ORBITS: No significant abnormality. OTHER: No other significant abnormality. IMPRESSION: 1. No gross acute intracranial abnormality. Of note, MRI is moresensitive to detection of cerebral ischemia. THIS IS AN ELECTRONICALLY VERIFIED FINAL REPORT 09/21/2024 9:28 PM - Electronically signed by Manuel Haro M.D. AG: ALEX Report ID: [id number] Reading Location: [id number] Georgette LUGO [facility] CT PROCEDURES Final Result * XR Kub (Abd 1 View) (09/21/2024 8:54 PM CDT) Anatomical Region Laterality Modality Body, Abdomen N/A Computed Radiogr aphy 09/21/2024 9:23 PM CDT Narrative 09/21/2024 9:24 PM CDT EXAM DESCRIPTION: XR KUB REASON FOR STUDY: severe constipation Vomiting since Wednesday also c/o constipation and high blood sugar pt alert and oriented x 4 TECHNIQUE: Frontal radiographic view of the abdomen. COMPARISON: None FINDINGS: Gaseous distention of the colon with relative paucity of bowel gas within the pelvis. IMPRESSION: 1. Nonspecific bowel gas pattern with gas-filled loops of colon and relative paucity of bowel gas within the pelvis. A CT is recommended for further evaluation. THIS IS AN ELECTRONICALLY VERIFIED FINAL REPORT 09/21/2024 9:24 PM - Electronically signed by Manuel Haro M.D. AG: ALEX Report ID: [id number] Reading Location: [id number] Procedure Note Manuel Haro MD - 09/21/2024 EXAM DESCRIPTION: XR KUB REASON FOR STUDY: severe constipation Vomiting since Wednesday also c/o constipation and high blood sugar pt alertand oriented x 4 TECHNIQUE: Frontal radiographic view of the abdomen. COMPARISON: None FINDINGS: Gaseous distention of the colon with relative paucity of bowel gas withinthe pelvis. IMPRESSION: 1. Nonspecific bowel gas pattern with gas-filled loops of colon andrelative paucity of bowel gas within the pelvis. A CT is recommended for further evaluation. THIS IS AN ELECTRONICALLY VERIFIED FINAL REPORT 09/21/2024 9:24 PM - Electronically signed by Manuel Haro M.D. AG: ALEX Report ID: [id number] Reading Location: [id number] Tangela Mcarthur MD IMG XR PROCEDURES Final R esult * XR Chest 1 View (09/21/2024 8:54 PM CDT) Anatomical Region Laterality Modality Body, Chest N/A Computed Radiogr aphy 09/21/2024 9:28 PM CDT Narrative 09/21/2024 9:29 PM CDT EXAM DESCRIPTION: XR CHEST 1 VIEW REASON FOR STUDY: cough Vomiting since Wednesday also c/o constipation and high blood sugar pt alert and oriented x 4 TECHNIQUE: Frontal radiographic view(s) of the chest. COMPARISON: 01/12/2019 FINDINGS: Prominent interstitial markings are noted without overt pulmonary edema. No consolidation. No significant pleural effusion or pneumothorax. Heart size and mediastinal contours are normal. IMPRESSION: No acute cardiopulmonary abnormality. THIS IS AN ELECTRONICALLY VERIFIED FINAL REPORT 09/21/2024 9:29 PM - Electronically signed by Manuel Haro M.D. AG: ALEX Report ID: [id number] Reading Location: [id number] Procedure Note Manuel Haro MD - 09/21/2024 EXAM DESCRIPTION: XR CHEST 1 VIEW REASON FOR STUDY: cough Vomiting since Wednesday also c/o constipation and high blood sugar pt alertand oriented x 4 TECHNIQUE: Frontal radiographic view(s) of the chest. COMPARISON: 01/12/2019 FINDINGS: Prominent interstitial markings are noted without overt pulmonary edema.No consolidation. No significant pleural effusion or pneumothorax. Heart size and mediastinal contours are normal. IMPRESSION: No acute cardiopulmonary abnormality. THIS IS AN ELECTRONICALLY VERIFIED FINAL REPORT 09/21/2024 9:29 PM - Electronically signed by Manuel Haro M.D. AG: AG Report ID: [id number] Reading Location: [place] [address] us Leland Nunez MD IMG XR PROCEDURES Final Resul t * (ABNORMAL) POCT glucose (09/21/2024 8:45 PM CDT) Glucose, POC 293(H) 70 - 199 mg/dL Blood 09/21/2024 8:45 PM CDT 09/21/2024 8:45 PM CDT us Notinfile Unknown LAB POCT ORDERABLES - DEVICE F inal Result Performing Organization Address City/[facility] Co de Phone Number [facility] ([place]) [address] [facility] [employer] [place] [id number] * (ABNORMAL) Troponin T high-sensitivity series (baseline, 2hr, 4hr, 6hr) (09/21/2024 8:35 PM CDT) Trop T hs 19(H) <=14 ng/L Comment: Interpretive Data For further hscTnT resources including the diagnostic algorithm and an aid in interpretation, copy and paste this link: https://nrl.testcatalog.org/show/hsTrop Current Interpretive Data last revised 2020. Blood 09/21/2024 8:35 PM CDT 09/21/2024 10:59 PM CDT us Tangela Mcarthur MD LAB BLOOD ORDERABLES Emelyn l Result Performing Organization Address City/[facility]/ZIP Co de Phone Number [facility] ([place]) [address] Department [place] [address] * (ABNORMAL) eGFR (09/21/2024 8:35 PM CDT) [facility] eGFR 32(L) >=60 mL/min/1. 73 m2 Comment: Interpretive Data Reference Interval Normal >/= 90 mL/min/1.73m2 Mildly decreased* 60 - 89 mL/min/1.73m2 Mildly to moderately decreased 45 - 59 mL/min/1.73m2 Moderately to severely decreased 30 - 44 mL/min/1.73m2 Severely decreased 15 - 29 mL/min/1.73m2 Kidney Failure < 15 mL/min/1.73m2 *Relative to young adult level Estimated glomerular filtration rate is determined by the 2020 CKD-EPI equation recommended by the National Kidney Foundation (A Unifying Approach to GFR Estimation: Recommendations of the NKF-ASK Task Force on Reassessing the Inclusion of Race in Diagnosing Kidney Disease, JASN 2020). The CKD-EPI equation should not be used for patients with unstable renal function and has not been validated in children and those over 70. Current interpretive data was last reviewed 2021. Blood 09/21/2024 8:35 PM CDT 09/21/2024 9:18 PM CDT us Tangela Mcarthur MD LAB BLOOD ORDERABLES Emelyn evans Result [facility]) [address] [facility] Department [place] [address] * (ABNORMAL) Differential, auto (09/21/2024 8:35 PM CDT) Pathologist [facility] Neutrophil abs 13.47(H) 1.50 - 6.50 K/cumm Imm gran abs 0.19(H) 0.00 - 0.10 K/cumm [facility] ([place]) Lymphocyte abs 0.57(L) 0.80 - 3.30 K/cumm [facility] ([place]) Monocyte abs 0.39 0.20 - 0.80 K/cumm [facility] ([place]) Eosinophil abs 0.01 0.00 - 0.50 K/cumm [facility] ([place]) Basophil abs 0.06 0.00 - 0.10 K/cumm [facility] ([place]) Neutrophil pct 91.6 % [facility] ([place]) Comment: Interpretive Data Percent cell count reference ranges are not reported, since discordance with absolute values may lead to misinterpretation of CBC data. Current Interpretive Data was last revised on 2017. Imm gran pct 1.3 % [facility] ([place]) Comment: Interpretive Data Percent cell count reference ranges are not reported, since discordance with absolute values may lead to misinterpretation of CBC data. Current Interpretive Data was last revised on 2017. Lymphocyte pct 3.9 % [facility] ([place]) Comment: Interpretive Data Percent cell count reference ranges are not reported, since discordance with absolute values may lead to misinterpretation of CBC data. Current Interpretive Data was last revised on 2017. Monocyte pct 2.7 % [facility] ([place]) Comment: Interpretive Data Percent cell count reference ranges are not reported, since discordance with absolute values may lead to misinterpretation of CBC data. Current Interpretive Data was last revised on 2017. Eosinophil pct 0.1 % [facility] ([place]) Comment: Interpretive Data Percent cell count reference ranges are not reported, since discordance with absolute values may lead to misinterpretation of CBC data. Current Interpretive Data was last revised on 2017. Basophil pct 0.4 % [facility] ([place]) Comment: Interpretive Data Percent cell count reference ranges are not reported, since discordance with absolute values may lead to misinterpretation of CBC data. Current Interpretive Data was last revised on 2017. Blood 09/21/2024 8:35 PM CDT 09/21/2024 8:59 PM CDT us Tangela Mcarthur MD LAB BLOOD ORDERABLES Emelyn evans Result [facility] ([place]) [address] [facility] Department [place] [address] * (ABNORMAL) CBC with auto differential (09/21/2024 8:35 PM CDT) WBC 14.69(H) 3.80 - 9.90 K/cumm Hgb 16.3(H) 11.9 - 15.5 g/dL [facility] ([place]) Hct 48.2(H) 35.6 - 45.5 % [facility] ([place]) Plt 158 150 - 400 K/cumm [facility] ([place]) MPV 9.9 9.1 - 12.3 fL [facility] ([place]) RBC 5.87(H) 3.90 - 5.20 M/cumm [facility] ([place]) MCV 82.1 81.3 - 96.4 fL [facility] ([place]) MCH 27.8 27.1 - 33.3 pg [facility] ([place]) MCHC 33.8 32.3 - 35.7 g/dL [facility] ([place]) RDW CV 14.6 11.1 - 14.9 % [facility] ([place]) RDW SD 43.6 35.7 - 48.1 fL [facility] ([place]) NRBC abs 0.00 0.00 - 0.01 K/cumm [facility] ([place]) Blood 09/21/2024 8:35 PM CDT 09/21/2024 8:59 PM CDT Tangela Mcarthur MD LAB BLOOD ORDERABLES Emelyn l Result Performing Organization Address City/[facility]/ZIP Co de Phone Number [facility] ([place]) [address] [facility] [place] [address] * Lipase (09/21/2024 8:35 PM CDT) Lipase 25 10 - 99 Units/L Blood 09/21/2024 8:35 PM CDT 09/21/2024 9:18 PM CDT Tangela Mcarthur MD LAB BLOOD ORDERABLES Emelyn l Result Performing Organization Address City/[facility]/ZIP Co de Phone Number [facility] ([place]) [address] [facility] Department [place] [address] * (ABNORMAL) Comprehensive metabolic panel (09/21/2024 8:35 PM CDT) Sodium 129(L) 135 - 145 mmol/L Potassium, pl 2.5(C) 3.3 - 4.9 mmol/L [facility] ([place]) Comment:Critical Result call ed by [email or web address] at 2024-09-21 22:02:23. Result Read Back by Jayna Yusuf ER charge Chloride 87(L) 97 - 110 mmol/L [facility] ([place]) CO2 25 22 - 32 mmol/L [facility] ([place]) Anion gap 18(H) 2 - 15 mmol/L [facility] ([place]) BUN 32(H) 6 - 25 mg/dL [facility] ([place]) Creatinine 1.78(H) 0.60 - 1.10 mg/dL [facility] ([place]) Glucose 257(H) 70 - 199 mg/dL [facility] ([place]) Comment: Interpretive Data Fasting glucose >/= 126 mg/dl is diagnostic for diabetes. Fasting is defined as no caloric intake for at least 8 hours. Fasting glucose between 100 mg/dl to 125 mg/dl is diagnostic of prediabetes. In a patient with classic symptoms of hyperglycemia or hyperglycemic crisis, a random glucose >/= 200 mg/dl is diagnostic for diabetes. In the absence of unequivocal hyperglycemia, results should be confirmed by repeat testing. The classification and Diagnosis of Diabetes Diabetes Care 2021; 46: S19-S40. Current interpretive data was last revised 2022. Calcium 9.4 8.5 - 10.3 mg/dL [facility] ([place]) Bilirubin, total 0.5 0.1 - 1.2 mg/dL [facility] ([place]) Protein, pl 7.8 6.5 - 8.5 g/dL [facility] ([place]) Albumin 3.9 3.5 - 5.0 g/dL [facility] ([place]) Alk phos 255(H) 40 - 130 Units/L [facility] ([place]) ALT 51(H) 7 - 45 Units/L [facility] ([place]) AST 52(H) 10 - 45 Units/L [facility] ([place]) Blood 09/21/2024 8:35 PM CDT 09/21/2024 9:18 PM CDT us Tangela Mcarthur MD LAB BLOOD ORDERABLES Emelyn l Result [facility] ([place]) [address] [facility] Department of Laboratories [place] [phone] * SCAN - RADIOLOGY/IMAGING (08/24/2024) Anatomical Region Laterality Modality Other Provider Scanning Final Result * Hepatitis C antibody (05/13/2017 4:52 PM SYSTEMS AUDITOR) Hep C Ab Nonreactive Nonreactive [facility] Comment: Interpretive Data Positive and greyzone results should be confirmed by a molecular method. If positive or greyzone, a second separately collected sample should be submitted for Hepatitis C Virus RNA. Detection and Quantitation by Real-Time Reverse Machine Load Clerk-PCR.Current Interpretive data was last revised on 2016. Blood specimen (specimen) 05/13/2017 4:52 PM SYSTEMS AUDITOR 05/13/2017 5:18 PM SYSTEMS AUDITOR Narrative PATRICIA [facility] - 05/14/2017 9:38 AM SYSTEMS AUDITOR us Nereida Ramirez MD LAB MICROBIOLOGY - GENERAL ORDERABLES Edited Result - Final Performing Organization Address City/[facility]/ZIP Co de Phone Number [place] [facility] [place] [address] from Last 3 Months or Most Recently Relevant to Health Maintenance Insurance [facility] MEDICARE ADVANTAGE [facility] MEDICARE Address: [address] [address] [place] [address] MEDICARE IDMD [facility] IDPA [facility] MEDICARE ADVANTAGE [facility] MEDICARE Address: [address] [address] [place] [address] Advance Directives For more information, please contact: [phone] * Full Code (Latest Code Status on File) Date Activated Date Inactivated Comments 09/22/2024 2:44 PM 09/26/2024 5:53 PM * Full Code Date Activated Date Inactivated Comments 11/15/2019 2:35 PM 11/15/2019 7:49 PM Care Teams Pullman Conductor Relationship Specialty Start Date End Date No Crow NP [address] [place] [address] PCP - General Family Medicine 09/21/24 Nereida Ramirez MD Medical Oncologist/Order Entry Administrator Medical Oncology 06/13/20
--- OUTSIDE RECORDS SUMMARY | 2024-10-05 12:05 | XMS_ITS | Clinical Summary ---
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 Herman EF 40 %, AR stage 4, and RCA 50% Hepatic steatosis 08/09/2014 Severe aortic regurgitation 08/09/2014 Overview (10/12/2017): Overview: For possible AVR Arthralgia of multiple joints 05/04/2014 Fibromyalgia 03/01/2014 Hyperglycemia 03/01/2014 IBS (irritable bowel syndrome) 03/01/2014 Neurogenic bladder 03/01/2014 MS (multiple sclerosis) 10/13/2012 Encounters Date Type Department Care Team Description 10/03/2024 Orders Only [facility] Oncology [address] [facility] Floor 6 [place] [address] Teena Crowe 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 Post Discharge Follow up phone call [facility] [address] [place] [address] Maite Valdez RN 09/28/2024 11:17 PM CDT - 09/29/2024 3:28 AM CDT Emergency [facility] Emergency Department [address] [place] [phone] Leland Nunez MD Dysuria (Primary Dx) Discharge Disposition: Discharge to home or self care 09/28/2024 11:30 AM CDT Office Visit [facility] Oncology [address] [place] [phone] Nereida Ramirez MD Follicular lymphoma C82.98 (Primary Dx); Follicular 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) 09/28/2024 10:45 AM CDT Lab [facility] - Lab Collection [address] [place] [id number] Follicular lymphoma C82.98 09/28/2024 10:30 AM CDT Lab [facility] Oncology Lab [address] [place] [phone] 09/26/2024 Telephone [facility] Oncology [address] [place] [phone] Teresa Arellano RMA 09/21/2024 10:37 PM CDT - 09/26/2024 1:53 PM CDT Hospital Encounter [facility] [address] [place] [address] Tangela Mcarthur MD Huynh, Kiet T., MD Kheirkhahan, Nazanin, MD Nations, Matthew Austin, DO Pyelonephritis (Primary Dx) Discharge Disposition: Discharge to home or self care 09/05/2024 Documentation [facility] Oncology [address] [place] [phone] August, A Appointment 09/01/2024 Telephone [facility] Oncology [address] [place] [phone] Teresa Arellano RMA 08/24/2024 Orders Only [facility] Scanning, Provider 08/09/2024 Telephone [facility] [address] [place] [phone] Essie Leal, RN confirm appts from Last [...] drink = 0.6 oz pur e alcohol) [facility] Utilities Answer Date Recorded In the past 12 months has th e electric, gas, oil, or water company threatened to shut off services in your [...] often do you attend chur ch or oriental orthodox services? 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 Gender Identity Not on file Sexual Orientation [...] 09/28/2024 5:23 PM CDT Plan of Treatment Health Maintenance [...] Influenza Vaccine (Season Ended) 2025 02/19/2022, 02/26/2021, 02/26/2021, Additional history exists Hepatitis C Screening Completed [...] ANTIBODY Routine Gen Lab 05/13/2017 4:52 PM HAND 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 pH may affect urinary stone formation. For example, urine pH below 6.0 may help reduce the tendency for calcium phosphate stones and pH greater than 6.0 may reduce the tendency for uric acid stone formation. Source: [facility] [employer] Current Interpretive Data was last revised on [...] GENERA L ORDERABLES Final Result PATRICIA WYATT ([place]) 1 [facility] [place] [address] * Sepsis Lactate w/ Reflex (09/28/2024 11:47 PM CDT) Pathologist [facility] Sepsis Lactate 1.3 0.7 - 2.0 mmol/L Blood 09/28/2024 11:4 7 PM CDT 09/28/2024 11:51 PM CDT Bria LUGO LAB BLOOD ORDERABLES Emelyn l Result PATRICIA WYATT ([place]) 1 [facility] [place] [address] * eGFR (09/28/2024 11:47 PM CDT) eGFR [...] CDT 09/28/2024 11:51 PM CDT us Bria LUGO LAB BLOOD ORDERABLES Emelyn evans Result [facility]ICIA [facility] ([place]) 1 [facility] [place] [address] * (ABNORMAL) Differential, auto (09/28/2024 11:47 PM [...] revised on 2017. Monocyte pct 6.2 % [facility] ([place]) Comment: Interpretive Data Percent cell [...] revised on 2017. Basophil pct 0.6 % [facility]IA [facility] ([place]) Comment: Interpretive Data Percent cell count reference ranges are not reported, since discordance with absolute values may lead to misinterpretation of CBC data. Current Interpretive Data was last revised on 2017. Blood 09/28/2024 11:4 7 PM CDT 09/28/2024 11:51 PM CDT Bria LUGO LAB BLOOD ORDERABLES Emelyn evans Result PATRICIA YOSELIN ([place]) 1 [facility] [place] [address] * (ABNORMAL) CBC with auto differential (09/28/2024 11:47 PM CDT) WBC 8.53 3.80 - 9.90 K/cumm Hgb 13.5 11.9 - 15.5 g/dL PATRICIA WYATT ([place]) Hct 41.6 35.6 - 45.5 % PATRICIA WYATT ([place]) Plt 288 150 - 400 K/cumm PATRICIA WYATT ([place]) MPV 8.9(L) 9.1 - 12.3 fL [facility] ([place]) RBC 4.88 3.90 - 5.20 M/cumm [facility] ([place]) MCV 85.2 81.3 - 96.4 fL [facility] ([place]) MCH 27.7 27.1 - 33.3 pg [facility] ([place]) MCHC 32.5 32.3 - 35.7 g/dL [facility] ([place]) RDW CV 16.2(H) 11.1 - 14.9 % [facility] ([place]) RDW SD 50.2(H) 35.7 - 48.1 fL [facility] ([place]) NRBC abs 0.00 0.00 - 0.01 K/cumm [facility] ([place] Blood 09/28/2024 11:4 7 PM CDT 09/28/2024 11:51 PM CDT Bria [facility] LAB BLOOD ORDERABLES Emelyn evans Result [facility] ([place]) 1 [facility] [place] [address] * (ABNORMAL) Comprehensive metabolic panel (09/28/2024 11:47 PM CDT) Sodium 137 135 - 145 mmol/L Potassium, pl 4.2 3.3 - 4.9 mmol/L [facility] ([place]) Comment:Moderately Hemolyzed Specimen. Results may be affected. Chloride 97 97 - 110 mmol/L [facility] ([place]) CO2 25 22 - 32 mmol/L [facility] ([place]) Anion gap 16(H) 2 - 15 mmol/L [facility] ([place]) BUN 14 6 - 25 mg/dL [facility] ([place]) Creatinine 1.05 0.60 - 1.10 mg/dL [facility] ([place]) Glucose 131 70 - 199 mg/dL [facility] ([place]) Comment: Interpretive Data Fasting glucose [...] ORDERABLES Emelyn l Result Performing Organization Address City/[facility]/ZIP Co de Phone Number [facility] ([place]) 1 [facility] [place] [address] * POCT glucose (09/28/2024 10:58 PM CDT) [facility] Glucose, POC 154 70 - 199 mg/dL Blood 09/28/2024 10:5 8 PM CDT 09/28/2024 10:58 PM CDT us Notinfile Unknown LAB POCT ORDERABLES - DEVICE F inal Result Performing Organization Address City/[facility]/ZIP Co de Phone Number [facility] ([place]) 1 [facility] [place] [address] * (ABNORMAL) Urinalysis reflex to microscopic and [...] tendency for uric acid stone formation. Source: [facility] [employer] Current Interpretive Data was last revised on 2017 Protein, ur ql Negative Negative [facility] ([place]) Glucose, ur ql 3+(A) Negative [facility] ([place]) Ketones, ur Negative Negative CERNER A ([place]) Bilirubin, ur Negative Negative [facility] ([place]) Blood, ur 1+(A) Negative [facility] ([place]) Urobilinogen, ur <2.0 <2.0 mg/dL [facility] ([place]) Nitrite, ur Negative Negative [facility]ER A ([place]) Leukocyte esterase, ur 3+(A) Negative [facility] ([place]) UA reflex comment Reflex to microscopic UA will be performed. [facility] ([place]) Urine 09/28/2024 5:31 PM CDT 09/28/2024 5:39 PM CDT us Leland Nunez MD LAB MICROBIOLOGY - GENERAL OR DERABLES Final Result [facility] ([place]) 1 [facility] [place] [address] * (ABNORMAL) Urinalysis, microscopic only (09/28/2024 5:31 PM CDT) WBC, ur 11-20(A) 0 - 5 /HPF RBC, ur 6-10(A) 0 - 2 /HPF [facility] ([place]) Epithelial cells, squamous, ur 11-20(A) 0 - 5 /HPF [facility] ([place]) Bacteria, ur Trace(A) [facility] ([place]) Culture Reflex Comment Reflex to urine culture will be performed. PATRICIA [facility] ([place]) Urine 09/28/2024 5:31 PM CDT 09/28/2024 5:39 PM CDT us Leland Nunez MD LAB URINE ORDERABLES Final Re sult PATRICIA WYATT ([place]) 1 [facility] [employer] [place] [address] * Urine culture Urine (09/28/2024 5:31 PM CDT) Report Final Report: Less than 100,000 colonies/mL (clinically insignificant growth based on current clinical standards) Comment:Testing performed by : [facility], 1 [facility] [place] [address] Organism (CLINICALLY INSIGNIFICANT GROWTH PATRICIA [facility] ([place]) Urine 09/28/2024 5:31 PM CDT 09/28/2024 8:14 PM CDT Narrative PATRICIA WYATT ([place]) - 09/30/2024 12:42 AM CDT Urine culture reflexed based upon urinalysis results. Testing performed by [facility] Microbiology Laboratory ([phone]) us Fco Corrigan MD LAB MICROBIOLOGY - GENERAL O RDERABLES Final Result PATRICIA WYATT ([place]) 1 [facility] [place] [address] * (ABNORMAL) eGFR (09/28/2024 10:40 AM CDT) [...] CDT 09/28/2024 10:59 AM CDT Inna Stahl COMMUNITY SERVICE REPRESENTATIVE LAB BLOOD ORDERABLES Final Result [facility] One [facility] Department [place] [address] * Differential, auto (09/28/2024 10:40 AM CDT) Neutrophil abs 5.92 1.50 - 6.50 K/cumm Comment:Testing performed by : [facility], [address] [place], [place] [phone] Lymphocyte abs 1.87 0.80 - 3.30 K/cumm PATRICIA [facility] Comment:Testing performed by : [facility], [address] [place] [phone] Monocyte abs 0.21 0.20 - 0.80 K/cumm PATRICIA DALY Comment:Testing performed by : [facility], [address] [place] [phone] Eosinophil abs 0.11 0.00 - 0.50 K/cumm PATRICIA DALY Comment:Testing performed by : [facility], [address] [place] [phone] Basophil abs 0.07 0.00 - 0.10 K/cumm PATRICIA [facility] Comment:Testing performed by : [facility], [address] [place] [phone] Neutrophil pct 72.4 % CERNER [facility]J Comment: Interpretive Data Percent cell count reference ranges are not reported, since discordance with absolute values may lead to misinterpretation of CBC data. Current Interpretive Data was last revised on 2017. Testing performed by: [facility], [address] [place] [phone] Lymphocyte pct 22.8 % C[facility] Comment: Interpretive Data Percent cell count reference ranges are not reported, since discordance with absolute values may lead to misinterpretation of CBC data. Current Interpretive Data was last revised on 2017. Testing performed by: [facility], [address] [place] [phone] Monocyte pct 2.6 % [facility] Comment: Interpretive Data Percent cell count reference ranges are not reported, since discordance with absolute values may lead to misinterpretation of CBC data. Current Interpretive Data was last revised on 2017. Testing performed by: [facility], [address] [place] [phone] Eosinophil pct 1.4 % [facility] Comment: Interpretive Data Percent cell count reference ranges are not reported, since discordance with absolute values may lead to misinterpretation of CBC data. Current Interpretive Data was last revised on 2017. Testing performed by: [facility], [address] [place] [phone] Basophil pct 0.8 % [facility] Comment: Interpretive Data Percent cell count reference ranges are not reported, since discordance with absolute values may lead to misinterpretation of CBC data. Current Interpretive Data was last revised on 2017. Testing performed by: [facility], [address] [place] [phone] Blood 09/28/2024 10:4 0 AM CDT 09/28/2024 10:57 AM CDT Inna Stahl COMMUNITY SERVICE REPRESENTATIVE LAB BLOOD ORDERABLES Final Result PATRICIA [facility] One [facility] Department [place] [address] * (ABNORMAL) CBC with auto differential (09/28/2024 10:40 AM CDT) WBC 8.18 3.80 - 9.90 K/cumm Comment:Testing performed by : [facility], [address] [place] [address] Hgb 14.0 11.9 - 15.5 g/dL CERANNE DALY Comment:Testing performed by : [facility], [address] [place] [address] Hct 41.0 35.6 - 45.5 % CERANNE BJ Comment:Testing performed by : [facility], [address] [place] [address] Plt 324 150 - 400 K/cumm CERANNE DAYL Comment:Testing performed by : [facility], [address] [place] [address] MPV 7.4 6.8 - 10.4 fL CERANNE BJ Comment:Testing performed by : [facility], [address] [place] [address] RBC 5.01 3.90 - 5.20 M/cumm CERANNE BJ Comment:Testing performed by : [facility], [address] [place] [address] MCV 81.7 81.3 - 96.4 fL CERANNE BJ Comment:Testing performed by : [facility], [address] [place] [address] MCH 27.9 27.1 - 33.3 pg CERANNE BJ Comment:Testing performed by : [facility], [address] [place] [address] MCHC 34.1 32.3 - 35.7 g/dL C[facility]ER BJ Comment:Testing performed by : [facility], [address] [place] [address] RDW CV 16.0(H) 11.1 - 14.9 % CERANNE BJ Comment:Testing performed by : [facility], [address] [place] [phone] NRBC abs 0.00 0.00 - 0.01 K/cumm [facility] Comment:Testing performed by : [facility], [address] [place] [phone] Blood 09/28/2024 10:4 0 AM CDT 09/28/2024 10:57 AM CDT Inna Stahl NP LAB BLOOD ORDERABLES Final Result Performing Organization Address City/[facility]/ZIP Co de Phone Number [facility] [place] [address] * (ABNORMAL) Lactate dehydrogenase (LD) (09/28/2024 10:40 AM CDT) [facility] Lactate dehydrogenase (LDH) 254(H) 100 - 250 Units/L Blood 09/28/2024 10:4 0 AM CDT 09/28/2024 10:59 AM CDT [facility] LAB BLOOD ORDERABLES Final Result Performing Organization Address [facility] Co de Phone Number [facility] [place] [address] * (ABNORMAL) Comprehensive metabolic panel (09/28/2024 10:40 AM CDT) Pathologist [facility] Sodium 142 135 - 145 mmol/L Potassium, pl 3.6 3.3 - 4.9 mmol/L [facility] Chloride 103 97 - 110 mmol/L [facility] CO2 28 22 - 32 mmol/L [facility] Anion gap 11 2 - 15 mmol/L [facility] BUN 17 6 - 25 mg/dL [facility] Creatinine 1.17(H) 0.60 - 1.10 mg/dL [facility] Glucose 83 70 - 199 mg/dL [facility] Comment: Interpretive Data Fasting glucose >/= 126 [...] 2022. Calcium 9.5 8.5 - 10.3 mg/dL C[facility]ER [facility] Bilirubin, total 0.4 0.1 - 1.2 mg/dL [facility] Protein, pl 7.0 6.5 - 8.5 g/dL [facility] Albumin 3.5 3.5 - 5.0 g/dL C[facility]ER [facility] Alk phos 192(H) 40 - 130 Units/L C[facility] ALT 51(H) 7 - 45 Units/L [facility] AST 68(H) 10 - 45 Units/L [facility] Blood 09/28/2024 10:4 0 AM CDT 09/28/2024 10:59 AM CDT us Inna Stahl COMMUNITY SERVICE REPRESENTATIVE LAB BLOOD ORDERABLES Final Result PATRICIA DALY One [facility] Department [place] [address] * POCT glucose (09/26/2024 11:22 AM CDT) [facility] Glucose, POC 111 70 - 199 mg/dL Blood 09/26/2024 11:2 2 AM CDT 09/26/2024 11:22 AM CDT us Demetris Kapadia DO LAB POCT ORDERABLES - DEVICE Final Result PATRICIA [facility] ([place]) 1 [facility] [place] [address] * POCT glucose (09/26/2024 7:43 AM CDT) Glucose, POC 182 70 - 199 mg/dL Blood 09/26/2024 7:43 AM CDT 09/26/2024 7:43 AM CDT Demetris Adria Kapadia DO LAB POCT ORDERABLES - DEVICE Final Result Performing Organization Address City/[facility]/ZIP Co de Phone Number PATRICIA WYATT ([place]) [address] [place] [address] [place] [address] * eGFR (09/26/2024 5:27 AM CDT) eGFR [...] BLOOD ORDERABLES Emelyn l Result [facility] [place]) 1 [facility] [place] [address] * Magnesium (09/26/2024 5:27 AM CDT) Magnesium 1.8 1.4 - 2.5 mg/dL Blood 09/26/2024 5:27 AM CDT 09/26/2024 8:36 AM CDT Demetris Kapadia DO LAB BLOOD ORDERABLES F inal Result [facility] ([place]) 1 [facility] Department [place] [address] * (ABNORMAL) Basic metabolic panel (09/26/2024 5:27 AM CDT) Sodium 139 135 - 145 mmol/L Potassium, pl 3.0(C) 3.3 - 4.9 mmol/L [facility] ([place]) Comment:Critical Result call ed by [email or web address] at 2024-09-26 06:56:59. Result Read Back by Shivani Rosales RN [facility] Chloride 97 97 - 110 mmol/L [facility] ([place]) CO2 26 22 - 32 mmol/L [facility] ([place]) Anion gap 16(H) 2 - 15 mmol/L [facility] ([place]) BUN 13 6 - 25 mg/dL [facility] ([place]) Creatinine 0.83 0.60 - 1.10 mg/dL [facility] ([place]) Glucose 148 70 - 199 mg/dL [facility] ([place]) [...] classification and Diagnosis of Diabetes Diabetes Care 202; 46: S19-S40. Current interpretive data was last revised 2022. Calcium 9.0 8.5 - 10.3 mg/dL [facility] ([place]) Blood 09/26/2024 5:27 AM CDT 09/26/2024 6:04 AM CDT us Palma Blount MD LAB BLOOD ORDERABLES Emelyn l Result PATRICIA WYATT ([place]) 1 [facility] [place] [address] * POCT glucose (09/26/2024 2:39 AM CDT) Glucose, POC 132 70 - 199 mg/dL Blood 09/26/2024 2:39 AM CDT 09/26/2024 2:39 AM CDT us Palma Blount MD LAB POCT ORDERABLES - DEV ICE Final Result Performing Organization Address City/[facility]/ZIP Co de Phone Number PATRICIA WYATT ([place]) 1 [facility] [place] [address] * POCT glucose (09/25/2024 8:09 PM CDT) Glucose, POC 113 70 - 199 mg/dL Blood 09/25/2024 8:09 PM CDT 09/25/2024 8:09 PM CDT us Palma Blount MD LAB POCT ORDERABLES - DEV ICE Final Result Performing Organization Address City/[facility]/ZIP Co de Phone Number PATRICIA WYATT ([place]) 1 [facility] [place] [employer] [place] [address] * POCT glucose (09/25/2024 4:46 PM CDT) Glucose, POC 139 70 - 199 mg/dL Blood 09/25/2024 4:46 PM CDT 09/25/2024 4:46 PM CDT us Palma Blount MD LAB POCT ORDERABLES - DEV ICE Final Result PATRICIA WYATT ([place]) 1 [facility] [place] [address] * POCT glucose (09/25/2024 11:42 AM CDT) Glucose, POC 130 70 - 199 mg/dL Blood 09/25/2024 11:4 2 AM CDT 09/25/2024 11:42 AM CDT Palma Blount MD LAB POCT ORDERABLES - DEV ICE Final Result Performing Organization Address City/[facility]/ZIP Co de Phone Number PATRICIA WYATT ([place]) 1 [facility] [place] [address] * eGFR (09/25/2024 7:47 AM CDT) eGFR [...] BLOOD ORDERABLES Emelyn l Result PATRICIA WYATT ([place]) [address] [place] [address] * (ABNORMAL) CBC without differential (09/25/2024 7:47 AM CDT) [facility] WBC 7.49 3.80 - 9.90 K/cumm Hgb [...] Emelyn evans Result [facility]IA [facility] ([place]) 1 [facility] Department [place] [address] * (ABNORMAL) Basic metabolic panel (09/25/2024 7:47 AM CDT) [facility] Sodium 138 135 - 145 mmol/L Potassium, pl 3.1(L) 3.3 - 4.9 mmol/L [facility] ([place]) Chloride 99 97 - 110 mmol/L [facility] ([place]) CO2 24 22 - 32 mmol/L [facility] ([place]) Anion gap 15 2 - 15 mmol/L [facility] ([place]) BUN 12 6 - 25 mg/dL [facility] ([place]) Creatinine 0.83 0.60 - 1.10 mg/dL [facility] ([place]) Glucose 166 70 - 199 mg/dL [facility] ([place]) Comment: Interpretive Data Fasting glucose >/= [...] 2022. Calcium 8.5 8.5 - 10.3 mg/dL [facility] ([place]) Blood 09/25/2024 7:47 AM CDT 09/25/2024 7:59 AM CDT us Palma Blount MD LAB BLOOD ORDERABLES Emelyn l Result [facility] ([place]) 1 [facility] [employer] [place] [address] * POCT glucose (09/25/2024 7:44 AM CDT) Glucose, POC 136 70 - 199 mg/dL Blood 09/25/2024 7:44 AM CDT 09/25/2024 7:44 AM CDT Palma Blount MD LAB POCT ORDERABLES - DEV ICE Final Result Performing Organization Address City/[facility]/ZIP Co de Phone Number PATRICIA [facility] ([place]) 1 [facility] [place] [address] * POCT glucose (09/25/2024 2:57 AM CDT) Glucose, POC 121 70 - 199 mg/dL Blood 09/25/2024 2:57 AM CDT 09/25/2024 2:57 AM CDT Palma Blount MD LAB POCT ORDERABLES - DEV ICE Final Result Performing Organization Address [facility]/ZIP Co de Phone Number [facility] ([place]) 1 [facility] [place] [address] * POCT glucose (09/24/2024 7:27 PM CDT) Glucose, POC 130 70 - 199 mg/dL Blood 09/24/2024 7:27 PM CDT 09/24/2024 7:27 PM CDT Palma Blount MD LAB POCT ORDERABLES - DEV ICE Final Result Performing Organization Address [facility]/ZIP Co de Phone Number PATRICIA [facility] ([place]) 1 [facility] [place] [address] * POCT glucose (09/24/2024 4:30 PM CDT) Glucose, POC 126 70 - 199 mg/dL Blood 09/24/2024 4:30 PM CDT 09/24/2024 4:30 PM CDT Palma Blount MD LAB POCT ORDERABLES - DEV ICE Final Result Performing Organization Address City/[facility]/ZIP Co de Phone Number PATRICIA [facility] ([place]) 1 [facility] [place] [address] * POCT glucose (09/24/2024 11:14 AM CDT) Glucose, POC 156 70 - 199 mg/dL Blood 09/24/2024 11:1 4 AM CDT 09/24/2024 11:14 AM CDT us Palma Blount MD LAB POCT ORDERABLES - DEV ICE Final Result PATRICIA WYATT ([place]) 1 [facility] [place] [address] * POCT glucose (09/24/2024 7:41 AM CDT) Glucose, POC 148 70 - 199 mg/dL Blood 09/24/2024 7:41 AM CDT 09/24/2024 7:41 AM CDT Palma Blount MD LAB POCT ORDERABLES - DEV ICE Final Result Performing Organization Address City/[facility] Co de Phone Number PATRICIA Burk[place]) 1 [facility] [place] [address] * eGFR (09/24/2024 7:28 AM CDT) eGFR [...] Emelyn l Result [facility] ([place]) 1 [facility] [place] [address] * (ABNORMAL) CBC without differential (09/24/2024 7:28 [...] Emelyn l Result PATRICIA WYATT ([place]) 1 [facility] [place] [address] * (ABNORMAL) Basic metabolic panel (09/24/2024 7:28 AM CDT) Sodium 136 135 - 145 mmol/L Potassium, pl 3.6 3.3 - 4.9 mmol/L [facility] ([place]) Chloride 98 97 - 110 mmol/L [facility] ([place]) CO2 23 22 - 32 mmol/L [facility] ([place]) Anion gap 15 2 - 15 mmol/L [facility] ([place]) BUN 14 6 - 25 mg/dL [facility] ([place]) Creatinine 0.93 0.60 - 1.10 mg/dL [facility] ([place]) Glucose 138 70 - 199 mg/dL [facility] ([place]) Comment: Interpretive Data Fasting glucose >/= [...] 2022. Calcium 8.4(L) 8.5 - 10.3 mg/dL [facility] ([place]) Blood 09/24/2024 7:28 AM CDT 09/24/2024 8:12 AM CDT Palma Blount MD LAB BLOOD ORDERABLES Emelyn l Result Performing Organization Address City/[facility]/ZIP Co de Phone Number PATRICIA [facility] ([place]) 1 [facility] [place] [address] * POCT glucose (09/24/2024 2:59 AM CDT) Glucose, POC 134 70 - 199 mg/dL Blood 09/24/2024 2:59 AM CDT 09/24/2024 2:59 AM CDT Palma Blount MD LAB POCT ORDERABLES - DEV ICE Final Result Performing Organization Address City/[facility]/ZIP Co de Phone Number PATRICIA [facility] ([place]) 1 [facility] [place] [address] * POCT glucose (09/23/2024 7:56 PM CDT) Glucose, POC 142 70 - 199 mg/dL Blood 09/23/2024 7:56 PM CDT 09/23/2024 7:56 PM CDT Palma Blount MD LAB POCT ORDERABLES - DEV ICE Final Result PATRICIA WYATT ([place]) 1 [place] [address] * POCT glucose (09/23/2024 4:47 PM CDT) Glucose, POC 147 70 - 199 mg/dL Blood 09/23/2024 4:47 PM CDT 09/23/2024 4:47 PM CDT us Palma Blount MD LAB POCT ORDERABLES - DEV ICE Final Result PATRICIA WYATT ([place]) 1 [facility] [place] [address] * Potassium (09/23/2024 4:05 PM CDT) Potassium, pl 3.9 3.3 - 4.9 mmol/L Blood 09/23/2024 4:05 PM CDT 09/23/2024 4:18 PM CDT Palma Blount MD LAB BLOOD ORDERABLES Emelyn l Result PATRICIA WYATT ([place]) 1 [facility] [place] [address] * POCT glucose (09/23/2024 11:46 AM CDT) Glucose, POC 128 70 - 199 mg/dL Blood 09/23/2024 11:4 6 AM CDT 09/23/2024 11:46 AM CDT Palma Blount MD LAB POCT ORDERABLES - DEV ICE Final Result Performing Organization Address City/[facility]/ZIP Co de Phone Number PATRICIA WYATT ([place]) 1 [facility] [place] [address] * POCT glucose (09/23/2024 7:57 AM CDT) Glucose, POC 137 70 - 199 mg/dL Blood 09/23/2024 7:57 AM CDT 09/23/2024 7:57 AM CDT Palma Blount MD LAB POCT ORDERABLES - DEV ICE Final Result Performing Organization Address [facility] Co de Phone Number PATRICIA WYATT ([place]) 1 [facility] [place] [address] * (ABNORMAL) eGFR (09/23/2024 5:22 AM CDT) eGFR 48(L) >=60 mL/min/1. 73 m2 Comment: [...] LAB BLOOD ORDERABLES Emelyn cristina Result PATRICIA [facility] ([place]) 1 [facility] [place] [address] * (ABNORMAL) Differential, auto (09/23/2024 5:22 AM CDT) Neutrophil abs 8.33(H) 1.50 - 6.50 K/cumm Imm gran abs 0.06 0.00 - 0.10 K/cumm [facility] ([place]) Lymphocyte abs 0.67(L) 0.80 - 3.30 K/cumm [facility] ([place]) Monocyte abs 0.69 0.20 - 0.80 K/cumm [facility] ([place]) Eosinophil abs 0.07 0.00 - 0.50 K/cumm [facility] ([place]) Basophil abs 0.03 0.00 - 0.10 K/cumm [facility] ([place]) Neutrophil pct 84.6 % [facility] ([place]) Comment: Interpretive Data Percent cell count reference ranges are not reported, since discordance with absolute values may lead to misinterpretation of CBC data. Current Interpretive Data was last revised on 2017. Imm gran pct 0.6 % [facility] ([place]) Comment: Interpretive Data Percent cell count reference ranges are not reported, since discordance with absolute values may lead to misinterpretation of CBC data. Current Interpretive Data was last revised on 2017. Lymphocyte pct 6.8 % [facility] ([place]) Comment: Interpretive Data Percent cell count reference ranges are not reported, since discordance with absolute values may lead to misinterpretation of CBC data. Current Interpretive Data was last revised on 2017. Monocyte pct 7.0 % [facility] ([place]) Comment: Interpretive Data [...] MD LAB BLOOD ORDERABLES Emelyn evans Result [facility] ([place]) 1 [facility] [place] [address] * (ABNORMAL) CBC with auto differential (09/23/2024 [...] Emelyn evans Result PATRICIA WYATT ([place]) 1 [facility] [place] [address] * (ABNORMAL) Comprehensive metabolic panel (09/23/2024 5:22 AM CDT) Sodium 135 135 - 145 mmol/L Potassium, pl 2.7(C) 3.3 - 4.9 mmol/L [facility] ([place]) Comment:Critical Result call ed by [email or web address] at 2024-09-23 07:13:16. Result Read Back by [...] classification and Diagnosis of Diabetes Diabetes Care 202; 46: S19-S40. Current interpretive data was last [...] ([place]) AST 43 10 - 45 Units/L [facility] ([place]) Comment:Slightly Hemolyzed S pecimen Blood 09/23/2024 5:22 AM CDT 09/23/2024 6:21 AM CDT us Tangela Mcarthur MD LAB BLOOD ORDERABLES Emelyn l Result PATRICIA WYATT ([place]) 1 [facility] [place] [address] * POCT glucose (09/23/2024 1:59 AM CDT) Glucose, POC 166 70 - 199 mg/dL Blood 09/23/2024 1:59 AM CDT 09/23/2024 1:59 AM CDT Palma Blount MD LAB POCT ORDERABLES - DEV ICE Final Result Performing Organization Address [facility]/ZIP Co de Phone Number PATRICIA WYATT ([place]) 1 [facility] [place] [address] * POCT glucose (09/22/2024 7:50 PM CDT) Glucose, POC 155 70 - 199 mg/dL Blood 09/22/2024 7:50 PM CDT 09/22/2024 7:50 PM CDT Palma Blount MD LAB POCT ORDERABLES - DEV ICE Final Result Performing Organization Address City/[facility]/ZIP Co de Phone Number PATRICIA WYATT ([place]) 1 [facility] [place] [address] * Blood culture Blood (09/22/2024 6:29 PM CDT) Report Final Report: No growth Comment:Testing performed by : [facility], [address] [place]., [address] Blood 09/22/2024 6:29 PM CDT 09/22/2024 10:02 [...] performance characteristics have been verified by the [facility] Microbiology [facility]. For questions about this culture, contact the Microbiology Laboratory at [phone]. Interpretive data was last revised on 24. Palma Blount MD LAB MICROBIOLOGY - GENERA L ORDERABLES Final Result PATRICIA WYATT ([place]) 1 [facility] [place] [address] * Blood culture Blood (09/22/2024 6:29 PM CDT) Report Final Report: No growth Comment:Testing performed by : [facility], [address] [place]., [address] Blood 09/22/2024 6:29 PM CDT 09/22/2024 10:01 [...] performance characteristics have been verified by the [facility]. For questions about this culture, contact the Microbiology Laboratory at [phone]. Interpretive data was last revised on 24. Palma Blount MD LAB MICROBIOLOGY - GENERA L ORDERABLES Final Result PATRICIA WYATT ([place]) 1 [facility] [place] [address] * POCT glucose (09/22/2024 3:31 PM CDT) [facility] Glucose, POC 132 70 - 199 mg/dL Blood 09/22/2024 3:31 PM CDT 09/22/2024 3:31 PM CDT Palma Blount MD LAB POCT ORDERABLES - DEV ICE Final Result PATRICIA WYATT ([place]) 1 [facility] [place] [address] * (ABNORMAL) POCT glucose (09/22/2024 12:05 PM CDT) Glucose, POC 256(H) 70 - 199 mg/dL Blood 09/22/2024 12:0 5 PM CDT 09/22/2024 12:05 PM CDT us Palma Blount MD LAB POCT ORDERABLES - DEV ICE Final Result Performing Organization Address City/[facility] Co de Phone Number PATRICIA WYATT ([place]) 1 [facility] [place] [address] * (ABNORMAL) eGFR (09/22/2024 10:43 AM CDT) [facility] eGFR 38(L) >=60 mL/min/1. 73 m2 Comment: [...] Emelyn l Result PATRICIA [facility] ([place]) 1 [facility] [place] [address] * (ABNORMAL) CBC without differential (09/22/2024 10:43 [...] Emelyn l Result PATRICIA [facility] ([place]) 1 [facility] [place] [address] * Magnesium (09/22/2024 10:43 AM CDT) Magnesium 2.4 1.4 - 2.5 mg/dL Blood 09/22/2024 10:4 3 AM CDT 09/22/2024 10:55 AM CDT Palma Blount MD LAB BLOOD ORDERABLES Emelyn l Result Performing Organization Address [facility] Co de Phone Number PATRICIA RICHARDSON) 1 [facility] [place] [address] * (ABNORMAL) Hemoglobin A1c (09/22/2024 10:43 AM CDT) Hgb A1C 7.4(H) 4.0 - 5.6 % Estimated Average Glucose 166 mg/dL [facility] ([place]) Comment: The ADA recommends reporting an estimated Average Glucose (eAG) with all Hemoglobin A1c results using the equation derived from a study of 507 normal and diabetic adults. Minority populations were underrepresented and children were not included. (Diabetes Care 31:5547-3852, 2008). The eAG is not equivalent to a fasting glucose. Blood 09/22/2024 10:4 3 AM CDT 09/22/2024 11:41 AM CDT Palma Blount MD LAB BLOOD ORDERABLES Emelyn l Result Performing Organization Address City/[facility] Co de Phone Number PATRICIA WYATT ([place]) 1 [facility] [place] [address] * (ABNORMAL) Basic metabolic panel (09/22/2024 10:43 AM CDT) Sodium 131(L) 135 - 145 mmol/L Potassium, pl 3.6 3.3 - 4.9 mmol/L [facility] ([place]) Chloride 93(L) 97 - 110 mmol/L [facility] ([place]) CO2 22 22 - 32 mmol/L [facility] ([place]) Anion gap 16(H) 2 - 15 mmol/L [facility] ([place]) BUN 34(H) 6 - 25 mg/dL [facility] ([place]) Creatinine 1.54(H) 0.60 - 1.10 mg/dL [facility] ([place]) Glucose 267(H) 70 - 199 mg/dL [facility] ([place]) Comment: Interpretive Data Fasting glucose >/= [...] classification and Diagnosis of Diabetes Diabetes Care 202; 46: S19-S40. Current interpretive data was last revised 2022. Calcium 8.1(L) 8.5 - 10.3 mg/dL PATRICIA WYATT ([place]) Blood 09/22/2024 10:4 3 AM CDT 09/22/2024 10:55 AM CDT Palma Blount MD LAB BLOOD ORDERABLES Emelyn l Result Performing Organization Address City/[facility]/ZIP Co de Phone Number PATRICIA WYATT ([place]) 1 [facility] [place] [address] * POCT glucose (09/22/2024 8:04 AM CDT) Glucose, POC 171 70 - 199 mg/dL Blood 09/22/2024 8:04 AM CDT 09/22/2024 8:04 AM CDT Palma Blount MD LAB POCT ORDERABLES - DEV ICE Final Result PATRICIA WYATT ([place]) 1 [facility] [place] [employer] [place] [address] * (ABNORMAL) Blood culture Blood Blood (09/22/2024 2:52 AM CDT) Direct Specimen Exam Stain: Gram Negative Bacilli Time to culture positivity (aerobic media): 9.0 hours Comment:Testing performed by : [facility], 1 [facility] [place] [address] Report Final Report: Escherichia coli For susceptibility results, refer to accession number [id number] on the blood culture from 09/22/2024 (.) PATRICIA YOSELIN ([place]) Comment:Testing performed by : [facility], 1 [facility], [place]., [address] Organism ESCHERICHIA COLI LIZZ WYATT ([place]) Blood [...] performance characteristics have been verified by the [facility]biology [facility]. For questions about this culture, contact the Microbiology Laboratory at [phone]. Interpretive data was last revised on 24. us Tangela Mcarthur MD LAB MICROBIOLOGY - GENERA L ORDERABLES Final Result PATRICIA WYATT ([place]) 1 [facility] [place] [address] * (ABNORMAL) Troponin T high-sensitivity 6-hour (09/22/2024 [...] 2:49 AM CDT 09/22/2024 2:55 AM CDT us Tangela Mcarthur MD LAB BLOOD ORDERABLES Emelyn evans Result PATRICIA WYATT ([place]) 1 [facility] [place] [address] * (ABNORMAL) Blood culture Blood Blood (09/22/2024 2:49 AM CDT) Pathologist [facility] Direct Specimen Exam Molecular Analysis: Presumptive Escherichia coli detected by chase ePlex BCID-GN panel. This test does not exclude the possibility of a mixed bacterial infection. Notification of: Presumptive Escherichia coli called to and read back by: Mirta García MT [phone] on 09/22/2024 17:32:03 by: Esperanza Sands MT Test result called to and read back by Marbella HUBER on 09/22/2024 17:56:28 by Mirta García. Comment:Testing performed by : [facility], [address] [facility] [place] [address] Direct Specimen Exam Stain: Gram Negative Bacilli Time to culture positivity (anaerobic media): 8.1 hours Time to culture positivity (aerobic media): 9.1 hours Notification of: Gram Negative Bacilli called to and read back by: Danae García.PR [phone] on 09/22/2024 15:22:29 by: Gayatri [email or web address].MLS Test result called to and read back by Marbella HUBER on 09/22/2024 16:15:54 by Mirta García. PATRICIA WYATT ([place]) Comment:Testing performed by : [facility], [address] [place]., [address] Report Final Report: Escherichia coli (.) PATRICIA WYATT ([place]) Comment:Testing performed by : [facility], [address] [place]., [address] Organism ESCHERICHIA COLI PATRICIA WYATT ([place]) Blood (Blood) 09/22/2024 2:4 9 AM CDT 09/22/2024 6:44 AM CDT Narrative LIZZANNE WYATT ([place]) - 09/25/2024 1:57 PM CDT [...] performance characteristics have been verified by the [facility]. For questions about this culture, contact the Microbiology Laboratory at [phone]. Interpretive data was last revised on 24. [...] GENERA L ORDERABLES Final Result PATRICIA WYATT ([place]) 1 [facility] [place] [address] * Sepsis Lactate w/ Reflex (09/22/2024 1:53 AM CDT) Sepsis Lactate 1.3 0.7 - 2.0 mmol/L Blood 09/22/2024 1:53 AM CDT 09/22/2024 1:58 AM CDT us Tangela Mcarthur MD LAB BLOOD ORDERABLES Emelyn l Result Performing Organization Address [facility] Co de Phone Number PATRICIA WYATT ([place]) 1 [facility] [place] [address] * CT Abdomen Pelvis WO Contrast (09/22/2024 [...] Dandre Kang M.D. KH: ARUN Report ID: [id number] Reading Location: [place] [address] Procedure Note Dandre Kang MD - 09/22/2024 [...] Dandre Kang M.D. KH: ARUN Report ID: [id number] Reading Location: [place] [address] Tangela Mcarthur MD IMG CT PROCEDURES Final [...] tendency for uric acid stone formation. Source: [employer] Current Interpretive Data was last revised on [...] Reflex to microscopic UA will be performed. [facility]ER[facility]NE [facility] ([place]) Urine 09/21/2024 11:4 2 PM CDT 09/21/2024 11:50 PM CDT us Tangela Mcarthur MD LAB MICROBIOLOGY - GENERA L ORDERABLES Final Result Performing Organization Address [facility] Co de Phone Number PATRICIA [facility] ([place]) 1 [facility] [employer] [place] [address] * (ABNORMAL) Urinalysis, microscopic only (09/21/2024 11:42 PM CDT) WBC, ur >50(A) 0 - 5 /HPF RBC, ur 6-10(A) 0 - 2 /HPF [facility] ([place]) Epithelial cells, squamous, ur 1-5 0 - 5 /HPF CERNER [facility] ([place]) Bacteria, ur 1+(A) [facility] ([place]) Mucous, ur Present(A) LIZZNER A ([place]) Culture Reflex Comment Reflex to urine culture will be performed. PATRICIA [facility] ([place]) Urine 09/21/2024 11:4 2 PM CDT 09/21/2024 11:50 PM CDT us Leland Nunez MD LAB URINE ORDERABLES Final Re sult Performing Organization Address City/[facility] Co de Phone Number [facility] ([place] 1 [facility] [place] [address] * (ABNORMAL) Urine culture Urine (09/21/2024 11:42 PM CDT) Report Final Report: Greater than or equal to 100,000 colonies/mL of Escherichia coli Greater than or equal to 100,000 colonies/mL of Escherichia coli #2 (.) Comment:Testing performed by : [facility], [address] [facility], [place]., [address] Organism ESCHERICHIA COLI [facility]IA [facility] ([place]) Organism ESCHERICHIA COLI [facility] ([place]) Urine 09/21/2024 11:4 2 PM CDT 09/22/2024 3:36 AM CDT Narrative [facility]IA [facility] ([place]) - 09/24/2024 10:10 AM CDT Urine culture reflexed based upon urinalysis results. Testing performed by [facility] ([phone]) Organism Antibiotic Method Susceptibility Escherichia coli Ampicillin [...] INTERPRETATION Susceptible Escherichia coli Cefdinir INTERPRETATION Susceptible us Leland Nunez MD LAB MICROBIOLOGY - GENERAL OR DERABLES Final Result PATRICIA YOSELIN ([place]) 1 [facility] [place] [address] * (ABNORMAL) Troponin T high-sensitivity 2-hour (09/21/2024 11:09 PM CDT) Trop T hs 21(H) <=14 ng/L Comment: Interpretive Data For further hscTnT resources including the diagnostic algorithm and an aid in interpretation, copy and paste this link: https://nrl.testcatalog.org/show/hsTrop Current Interpretive Data last revised 2020. Trop T hs delta 2 ng/L [facility] ([place]) Trop T hs interp Insignificant CERNER YOSELIN ([place]) Blood 09/21/2024 11:0 9 PM CDT 09/21/2024 11:15 PM CDT us Tangela Mcarthur MD LAB BLOOD ORDERABLES Emelyn l Result PATRICIA WYATT ([place]) 1 [facility] [place] [address] * (ABNORMAL) Sepsis Lactate w/ Reflex (09/21/2024 11:09 PM CDT) Sepsis Lactate 3.9(H) 0.7 - 2.0 mmol/L Blood 09/21/2024 11:0 9 PM CDT 09/21/2024 11:15 PM CDT Tangela Mcarthur MD LAB BLOOD ORDERABLES Emelyn l Result PATRICIA WYATT ([place]) 1 [facility] [place] [address] * ECG 12 lead (09/21/2024 11:08 PM CDT) 09/21/2024 11:0 8 PM CDT Narrative [facility] - 09/22/2024 9:30 AM CDT Vent Rate: 101 bpm RR Interval: 594 msec MT Interval: 163 msec QRS Duration: 94 msec QT Interval: 278 msec QTC Interval: 336 msec P-R-T Nelson: 34 - -22 - 47 degrees IMPRESSION: [...] Mcarthur MD ECG ORDERABLES Final Res ult [employer] [facility] * CT Head WO Contrast (09/21/2024 9:19 [...] Manuel Haro M.D. AG: ALEX Report ID: [id number] Reading Location: [id number] Procedure Note Manuel Haro MD - 09/21/2024 [...] Manuel Haro M.D. AG: ALEX Report ID: [id number] Reading Location: [id number] Georgette LUGO [facility] CT PROCEDURES Final Result * XR Kub [...] Manuel Haro M.D. AG: ALEX Report ID: [id number] Reading Location: [id number] Procedure Note Manuel Haro MD - 09/21/2024 [...] Manuel Haro M.D. AG: ALEX Report ID: [id number] Reading Location: [id number] us Tangela Mcarthur MD IMG XR PROCEDURES Final [...] Manuel Haro M.D. AG: ALEX Report ID: [id number] Reading Location: [id number] Procedure Note Manuel Haro MD - 09/21/2024 [...] Manuel Haro M.D. AG: AG Report ID: [id number] Reading Location: [place] [address] us Leland Nunez MD IMG XR PROCEDURES Final Resul t * (ABNORMAL) POCT glucose (09/21/2024 8:45 PM CDT) Glucose, POC 293(H) 70 - 199 mg/dL Blood 09/21/2024 8:45 PM CDT 09/21/2024 8:45 PM CDT us Notinfile Unknown LAB POCT ORDERABLES - DEVICE F inal Result Performing Organization Address City/[facility] Co de Phone Number [facility]IA [facility] ([place]) 1 [facility] [place] [address] * (ABNORMAL) Troponin T high-sensitivity series (baseline, [...] MD LAB BLOOD ORDERABLES Emelyn l Result [facility] ([place]) 1 [facility] [place] [place] [address] * (ABNORMAL) eGFR (09/21/2024 8:35 PM CDT) eGFR 32(L) >=60 mL/min/1. 73 m2 Comment: [...] data was last reviewed 2021. Blood 09/21/2024 8:3 5 PM CDT 09/21/2024 9:18 PM CDT Tangela Mcarthur MD LAB BLOOD ORDERABLES Emelyn evans Result [facility] ([place]) 1 [facility] Department of Laboratories [place], [place] [address] * (ABNORMAL) Differential, auto (09/21/2024 8:35 PM CDT) Neutrophil abs 13.47(H) 1.50 - 6.50 K/cumm [...] Emelyn evans Result PATRICIA WYATT ([place]) 1 [facility] [place] [address] * (ABNORMAL) CBC with auto differential (09/21/2024 [...] ORDERABLES Emelyn l Result Performing Organization Address City/[facility] Co de Phone Number [facility] ([place]) 1 [facility] [place] [address] * Lipase (09/21/2024 8:35 PM CDT) Lipase 25 10 - 99 Units/L Blood 09/21/2024 8:35 PM CDT 09/21/2024 9:18 PM CDT Tangela Mcarthur MD LAB BLOOD ORDERABLES Emelyn l Result Performing Organization Address City/[facility]/ZIP Co de Phone Number [facility] ([place]) 1 [facility] [place] [address] * (ABNORMAL) Comprehensive metabolic panel (09/21/2024 8:35 PM CDT) Sodium 129(L) 135 - 145 mmol/L Potassium, pl 2.5(C) 3.3 - 4.9 mmol/L [facility] ([place]) Comment:Critical Result call ed by [email or web address] at 2024-09-21 22:02:23. Result Read Back by [...] LAB BLOOD ORDERABLES Emelyn l Result PATRICIA [facility] ([place]) 1 [facility] [place] [address] * SCAN - RADIOLOGY/IMAGING (08/24/2024) Anatomical Region Laterality Modality Other us Provider Scanning Final Result * Hepatitis C antibody (05/13/2017 4:52 PM HAND HEEL SEAT FITTER) Hep C Ab Nonreactive Nonreactive [facility] Comment: Interpretive Data Positive and greyzone results should be confirmed by a molecular method. If positive or greyzone, a second separately collected sample should be submitted for Hepatitis C Virus RNA. Detection and Quantitation by Real-Time Reverse Senior Compensation Consultant-PCR.Current Interpretive data was last revised on 2016. Blood specimen (specimen) 05/13/2017 4:52 PM HAND HEEL SEAT FITTER 05/13/2017 5:18 PM HAND HEEL SEAT FITTER Narrative [facility] - 05/14/2017 9:38 AM HAND HEEL SEAT FITTER Nereida Ramirez MD LAB MICROBIOLOGY - GENERAL ORDERABLES Edited Result - Final [facility] Department [place] [address] from Last 3 Months or Most Recently Relevant to Health Maintenance Insurance [facility] MEDICARE ADVANTAGE MEDICARE IDPA [facility] IDPA [facility] MEDICARE ADVANTAGE Advance Directives For more information, please contact: [phone] * Full Code (Latest Code Status on File) Date Activated Date Inactivated Comments 09/22/2024 2:44 PM 09/26/2024 5:53 PM * Full Code Date Activated Date Inactivated Comments 11/15/2019 2:35 PM 11/15/2019 7:49 PM Care Teams Welding Equipment Repairer Supervisor Relationship Specialty Start Date End Date No Crow NP [address] [place] [address] PCP - General Family Medicine 09/21/24 Nereida Ramirez MD Medical Oncologist/Shank Sorter Medical Oncology 06/13/20
--- OUTSIDE RECORDS SUMMARY | 2024-10-05 12:05 | XMS_ITS | Encounter Summary ---
[facility] Address [address] [place] [address] Care Team Providers Care Marine Design Engineer Name Role Phone Spencer Fuentes MD Primary Care Provider [phone] Encounter Details Date Type Department Care Team [...] Type: Triage Call Addendum Date and Time [id number] Presenting Problem: Caregiver Roslyn She is incoherent. [...] statosis Medications: Meds revewied with caller Per [employer] Medication reactions: Amitripyline, Codeine, Latex and Sulfa <<<<<<<< TRIAGE NOTE >>>>>>>> Triage Note: Soft Crab Shedder Shereen Shoemaker added this note on Nov [...] on filedocumented in this encounter Care Teams Marine Design Engineer Relationship Specialty Start Date End Date Spencer Fuentes MD [address] [place] [address] PCP - General Family Practice 01/08/17 03/02/22 documented as of this encounter
--- OUTSIDE RECORDS SUMMARY | 2024-10-05 12:05 | XMS_ITS | Encounter Summary ---
Author Organization [facility] Address [address] [place] [address] Care Team Providers Care Rn Hospice Name Role Phone Unavailable Primary Care Provider Unavailabl e Encounter Details Date Type Department Care Team (Late st Contact Info) Description 08/28/2022 Abstract [facility] Oncology and Hematology - Adam [address] [place] [id number] Yasir Hong, RN Social History Tobacco Use [...]
--- OUTSIDE RECORDS SUMMARY | 2024-10-05 12:05 | XMS_ITS | Encounter Summary ---
Author Organization [facility] Address [address] [place] [address] Care Team Providers Care Outpatient Surgery Rn Name Role Phone Félix Pineda MD Unavailable [phone] Rajiv Sherman MD Unavailable [phone] Davi Herman MD Unavailable [phone] Rand Whalen MD Primary Care Provider Reason for Referral * Consultation (Routine) - Closed Specialty Diagnoses / Procedures Referred By Contjose t Referred To Contact Neurology Diagnoses Nonintractable epilepsy without status epilepticus, unspecified epilepsy type (HCC) Liliane Johnson MD [address] [place] [address] Phone: tel: fax: [facility] - Neurology [address] [place] [address] Phone: tel: fax: Referral ID Status Reason Start Date Expiration Date V isits Requested Visits Authorized [id number] Closed Specialty Services Required 03/31/2024 03/31/2025 1 1 QUE DEALER Encounter Details Date Type Department Care Team (Latest Contact Info) Description 03/31/2024 Transcribe Orders [facility] - Centralized Scheduling [facility] [place] [address] Liliane Johnson MD [address] [place] [address] Nonintractable epilepsy without status epilepticus, unspecified epilepsy [...] Primary documented in this encounter Care Teams Outpatient Surgery Rn Relationship Specialty Start Date End Date Rand Whalen MD [address] [place] [address] PCP - General 10/11/21 Félix Pineda MD Family Medicine 07/31/14 Rajiv Sherman MD Neurology 10/13/12 Davi Herman MD [address] [address] Car Bracer Cardiology 06/22/14 documented as of this encounter
--- OUTSIDE RECORDS SUMMARY | 2024-10-05 12:05 | XMS_ITS | Clinical Summary ---
Author Organization [facility] Address [address] [place] [address] Care Team Providers Care Lockstitch Front Edge Tape Sewer Name Role Phone Félix Pineda MD Unavailable [phone] Rajiv Sherman MD Unavailable [phone] Davi Herman MD Unavailable [phone] Rand Whalen MD Primary Care Provider Source Comments [facility],non-owned Affiliates and Associated Physician Practices is amultiple site organization consisting of ambulatory clinics and hospital sitesin [place], [place], [place] and [place]. This disclosure is being madepursuant to the Care Everywhere program and may not contain all information available regarding this patient. Last updated 18.[facility] Allergies Active Allergy Reactions [...] 12:14 PM CDT Height 160 cm (5' 3) 10/25/2014 12:14 PM CDT Body Mass Index [...] patient's age to complete [place] [address] MEDICARE [facility] MEDICARE MEDICARE MEDICAID - OUT OF [facility] MEDICARE MEDICAID - OUT OF STATE MEDICARE MEDICAID - OUT OF STATE MEDICARE Care Teams Lockstitch Front Edge Tape Sewer Relationship Specialty Start Date End Date Rand Whalen MD [address] [facility] [address] PCP - General 10/11/21 Félix Pineda MD Family Medicine 07/31/14 Rajiv Sherman MD Neurology 10/13/12 Davi Herman MD [address] [address] Bobbin Dumper Cardiology 06/22/14
--- OUTSIDE RECORDS SUMMARY | 2024-10-05 12:05 | XMS_ITS | Encounter Summary ---
Author Organization [facility] Address [address] [place] [address] Care Team Providers Care Sheep Killer Name Role Phone Spencer Fuentes MD Primary Care Provider [phone] Nereida Ramirez MD Unavailable [phone] Rand Whalen MD Primary Care Provider Rand Whalen MD Primary Care Provider No Crow NP Primary Care Provider [phone] Encounter Details Date Type Department Care Team (Late st Contact Info) Description 11/13/2019 Telephone [facility] [address] [place] [address] Fabby Almendarez, RT Social History Tobacco Use Types Packs/Day Years Used Date Smoking Tobacco: Former E-cigarettes Quit: 05/05/2013 Smokeless Tobacco: Never Comments:eciggs last 5 years Comments Unknown Sex and Gender Information Value Date Recorded Sex Assigned at Not on file Legal Sex Female 6:51 AM ROBOTICS SPECIALIST Gender Identity Not on file Sexual Orientation Not on file documented as of this encounter Plan of Treatment Not on file documented as of this encounter Visit Diagnoses Not on filedocumented in this encounter Care Teams Sheep Killer Relationship Specialty Start Date End Date Spencer Fuentes MD [address] [place] [address] PCP - General 04/01/17 01/26/21 Rand Whalen MD [address] [place] [address] PCP - General Family Practice 01/27/21 03/26/24 Rand Whalen MD [address] [place] [address] [address] PCP - General Family Practice 03/27/24 09/20/24 No Crow NP [address] [place] [address] PCP - General Family Medicine 09/21/24 Nereida Ramirez MD [address] [place] [address] Medical Oncologist/Men'S Leather Dress Belt Maker Medical Oncology 06/13/20 documented as of this encounter
--- OUTSIDE RECORDS SUMMARY | 2024-10-05 12:05 | XMS_ITS | Continuity of Care Document ---
Author Organization [facility] Address [address] [place] [address] [facility] [address] [place] [address] Phone Care Team Providers Care Javascript Ui Developer Name Role Phone Colin Tyson Unavailable Unavailable Procedures Procedure Date Eye Exam, New Patient Advance Directives Directive Yes / No Effective Date File Name No Information Encounters Encounter Description Practice Location Reason(s) For Visit Diagnoses Date Provider Providers Copied on Encounter [facility], [address] [place] [address] [address], [place], [place], [id number], [place] tel:[phone] [facility] No Information [phone] Marbella Colin. [address] [facility], [place], [address], [place]. tel:[phone] Family History Family Member Type Diagnosis Age At Onset No Information Payers Payer name Insurance type Covered democrat ID Authoriza tion(s) Medicare [facility] [id number] Medicaid [facility] [id number] Social History Type Description Quantity Date Captured [...]
--- OUTSIDE RECORDS SUMMARY | 2024-10-05 12:05 | XMS_ITS | Clinical Summary ---
Author Organization [facility] Address [address] [place] [phone] Phone Care Team Providers Care Psychological Operations Name Role Phone Unavailable Primary Care Provider [...] at bedtime. Active fluticasone (FLONASE) 50 mcg/spray [place], Suspension Administer 2 Sprays in each nostril daily. Active viatamin B complex-vitamin [id number]-dgmd -folic acid 106 mg iron- 1 mg [...] 08/09/2014 Overview (08/09/2014): S/p cardiac cath at [facility] following Dr. Herman EF 40 [...] Comments Blood Pressure 99/75 03/24/2017 3:03 PM VICE INVESTIGATOR Pulse 107 03/24/2017 3:03 PM VICE INVESTIGATOR Temperature 36.9 C (98.5 F) 03/24/2017 3:03 PM VICE INVESTIGATOR Respiratory Rate 18 02/22/2017 1:24 PM CDT Oxygen Saturation 95% 09/21/2014 1:11 PM CDT Inhaled Oxygen Concentration - - Weight 84.1 kg (185 lb 6.4 oz) 03/24/2017 3:03 P M VICE INVESTIGATOR Height 160 cm (5' 3) 03/24/2017 3:03 PM VICE INVESTIGATOR Body Mass Index 32.84 03/24/2017 3:03 PM VICE INVESTIGATOR Plan of Treatment Health Maintenance Due Date [...] Advance Directives For more information, please contact: [phone] Documents on File Type Date Recorded Patient Fork Operator Expl anation Advance Directive POA 10/24/2014 11:30 AM Advance Directive POA * Full Code (Latest Code Status on File) Date Activated Date Inactivated Comments 09/21/2014 12:04 PM 09/21/2014 3:21 PM
[2024-10-05 13:14] LABS: Add Urine Microscopic? YES; Appearance Urine Turbid (Clear); Bacteria Urine None Seen /hpf; Bilirubin Urine Negative (Negative); Blood Urine 3+ (Negative); Color Urine Yellow (Yellow); Glucose Urine UA 3+ mg/dL (Negative); Ketones Urine Trace mg/dL (Negative); Leukocyte Esterase Ur 2+ LEU/UL (Negative); Nitrate Urine Negative (Negative); Non Pathogenic Casts 0-2; Protein Urine 2+ mg/dL (Negative); Specific Grav Ur 1.021 (1.001-1.035); Squamous Epithelial Cell Urine Few /hpf (Few); Urobilinogen Urine 0.2 mg/dL (<2.0); WBC Urine >100 /hpf (0-3); pH Urine 6.5 (5.0-9.0)
[2024-10-05 13:42] LABS: Alanine Aminotransferase 35 U/L (6-35); Albumin Level 4.5 g/dL (3.5-5.1); Alkaline Phosphatase 176 U/L (38-126); Anion Gap 10 mmol/L (4-12); Aspartate Amino Transferase 57 U/L (14-36); Bilirubin,Total 0.6 mg/dL (0.2-1.3); Blood Urea Nitrogen 27 mg/dL (7-17); Calcium 10.4 mg/dL (8.4-10.2); Carbon Dioxide 34 mmol/L (22-30); Chloride 95 mmol/L (98-107); Estimated Glomerular Filt Rate 43; Glucose 210 mg/dL (65-110); Potassium 3.6 mmol/L (3.4-5.0); Sodium 139 mmol/L (137-145); Total Protein 7.9 g/dL (6.3-8.2)
== END 2024-10-05 11:00 | disposition home or self-care (01) ==
LOC: ANHGOSHLAB 11:00
PROVIDERS: PCP Family Medicine; Visit Provider Family Medicine
DX: E87.6 Hypokalemia (principal); I10 Essential (primary) hypertension; N12 Tubulo-interstitial nephritis, not specified as acute or chronic; N39.0 Urinary tract infection, site not specified
CPT/HCPCS: 36415; 80053; 81001; 87086

== ENCOUNTER 2024-10-24 14:39 | Outpatient (CLI) | payer MEDICARE, MEDICAID, SELFPAY ==
[2024-10-24 19:28] LABS: Magnesium 2.2 mg/dL (1.6-2.3)
[2024-10-24 20:03] LABS: Free T4 Free Thyroxine 0.98 ng/dL (0.78-2.19); Vitamin D 25 Hydroxy 18.5 ng/mL
[2024-10-24 20:37] LABS: Alanine Aminotransferase 32 U/L (6-35); Albumin Level 4.4 g/dL (3.5-5.1); Alkaline Phosphatase 165 U/L (38-126); Anion Gap 12 mmol/L (4-12); Aspartate Amino Transferase 41 U/L (14-36); Bilirubin,Total 0.4 mg/dL (0.2-1.3); Blood Urea Nitrogen 19 mg/dL (7-17); Calcium 9.7 mg/dL (8.4-10.2); Carbon Dioxide 29 mmol/L (22-30); Chloride 97 mmol/L (98-107); Cholesterol 172 mg/dL (0-200); Estimated Glomerular Filt Rate 52; Glucose 197 mg/dL (65-110); HDL Direct 44 mg/dL; Potassium 3.2 mmol/L (3.4-5.0); Sodium 138 mmol/L (137-145); Total Protein 7.6 g/dL (6.3-8.2); Triglycerides 131 mg/dL (<150)
[2024-10-24 20:48] LABS: LDL Cholesterol Direct 91 mg/dL
[2024-10-24 21:04] LABS: Creatinine Urine 75.2 mg/dL
[2024-10-24 21:07] LABS: Thyroid Stimulating Hormone 0.728 uIU/mL (0.465-4.680)
[2024-10-24 21:08] LABS: MALB Creatinine Ratio 10.8 mg/g (0-30); Microalbumin Urine Random 8.1 mg/L (0-16.7)
[2024-10-24 21:33] LABS: Vitamin B12 > 1000.0 pg/mL (239-931)
== END 2024-10-24 14:40 | disposition home or self-care (01) ==
PROVIDERS: Internal Medicine Cardiovascular Disease; PCP Family Medicine; Visit Provider Nurse Practitioner Family
DX: E11.65 Type 2 diabetes mellitus with hyperglycemia (principal); I10 Essential (primary) hypertension; Z79.4 Long term (current) use of insulin; E78.5 Hyperlipidemia, unspecified
CPT/HCPCS: 36415; 80053; 80061; 82043; 82306; 82607; 83735; 84439; 84443

== ENCOUNTER 2024-11-16 07:51 | Outpatient (CLI) | payer MEDICARE, MEDICAID, SELFPAY ==
--- OUTSIDE RECORDS SUMMARY | 2024-11-16 08:02 | XMS_ITS | Encounter Summary ---
Author Organization [facility] Address [address] [place] [address] Care Team Providers Care Pin Sorter And Bagger Name Role Phone Unavailable Primary Care Provider Unavailabl e Encounter Details Date Type Department Care Team (Late st Contact Info) Description 08/28/2022 Abstract [facility] Oncology and Hematology - [address] [place] [address] Yasir Hong, RN Social History Tobacco Use [...]
--- OUTSIDE RECORDS SUMMARY | 2024-11-16 08:03 | XMS_ITS | Clinical Summary ---
Author Organization [facility] Address [address] [place] [phone] Care Team Providers Care Workers Compensation Paralegal Name Role Phone Nereida Ramirez MD Unavailable [phone] No Crow NP Primary Care Provider [phone] Allergies Active Allergy Reactions Criticality Noted Date [...] TABLET BY MOUTH THREE TIMES A DAY 4 Active dicyclomine (BENTYL) 10 mg capsule Take 1 capsule (10 mg total) by mouth Active gabapentin (NEURONTIN) 300 mg capsule Take 1 capsule (300 mg total) by mouth 3 (three) times a day 5 Active lamoTRIgine (LaMICtal) 100 mg tablet Take [...] daily Active UNABLE TO FIND Med Name: [facility]- 1 1/2 months 05/05/18 2.50 oz a month-oils and smoking, gummies Active insulin aspart U-100 (NovoLOG) 100 unit/mL injection Inject 40 Units under the skin 3 (three) times a day before meals Active pantoprazole DR (PROTONIX) 40 mg EC tablet PANTOPRAZOLE SODIUM 40 MG ORAL TABLET DELAYED RELEASE 0 Active hydrOXYzine (ATARAX) 50 mg tablet Take [...] DAY NEEDED FOR SEVERE ANXIETY 30 DAYS 2 Active ketoconazole (NIZORAL) 2 % cream APPLY 1 APPLICATION TOPICALLY ON THE SKIN TWICE A DAY 2 Active HumuLIN R U-500 500 unit/mL (3 mL) CONCENTRATED pen for injection 3 Active zaleplon (SONATA) 5 mg capsule TAKE 1 CAPSULE BY MOUTH AT BEDTIME NEEDED 3 Active potassium chloride ER 20 mEq CR tablet Take 1 tablet (20 mEq total) by mouth 2 (two) times a day for 3 days 6 tablet 5 Active aspirin 81 mg enteric coated tabletIndication s:Follicular 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) Take by mouth 5 Active Jardiance 10 mg tabletIndication s:Follicular 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) daily Active Januvia 100 mg tabletIndication s:Follicular 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) Take 1 tablet (100 mg total) by mouth daily 5 Active terbinafine (LamiSIL) 250 mg tabletIndication s: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 Herman EF 40 %, AR stage 4, and RCA 50% Hepatic steatosis 08/09/2014 Severe aortic regurgitation 08/09/2014 Overview (10/12/2017): Overview: For possible AVR Arthralgia of multiple joints 05/04/2014 Fibromyalgia 03/01/2014 Hyperglycemia 03/01/2014 IBS (irritable bowel syndrome) 03/01/2014 Neurogenic bladder 03/01/2014 MS (multiple sclerosis) 10/13/2012 Encounters Date Type Department Care Team Description 10/23/2024 12:12 PM CDT - 10/23/2024 11:59 PM CDT Hospital Encounter [facility] [address] [place] [address] Discharge Disposition: Discharge to home or self care 10/20/2024 Documentation [facility] Oncology [address] [place] [address] [address] [place] [address] August, [place] Medical Records Request ([facility]) 10/17/2024 Documentation [facility] Oncology [address] [place] [address] [address] [place] [address] Teresa Arellano RMA Appointment 10/13/2024 Documentation [facility]cology [address] [place] [address] [address] [place] [address] Teresa Arellano RMA Appointment 10/03/2024 Orders Only [facility] [address] [place] [address] [address] [place] [address] Teena Crowe Follicular 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) (Primary Dx) 09/29/2024 [facility] Post Discharge Follow up phone call [facility] Medical Care [address] [place] [address] Maite Valdez RN 09/28/2024 11:17 PM CDT - 09/29/2024 3:28 AM CDT Emergency [facility] Emergency Department [address] [place] [address] Leland Nunez MD Dysuria (Primary Dx) Discharge Disposition: Discharge to home or self care 09/28/2024 11:30 AM CDT Office Visit [facility] Oncology [address] [place] [phone] Nereida Ramirez MD Follicular lymphoma C82.98 (Primary Dx); Follicular 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) 09/28/2024 10:45 AM CDT Lab [facility] - Lab Collection [address] [place] [address] Follicular lymphoma C82.98 09/28/2024 10:30 AM CDT Lab [facility]cology Lab [address] [place] [phone] 09/26/2024 Telephone [facility]cology [address] [place] [address] [address] [place] [address] Teresa Arellano, RMA 09/21/2024 10:37 PM CDT - 09/26/2024 1:53 PM CDT Hospital Encounter [facility] Medical Care [address] [place] [address] Tangela Mcarthur MD Huynh, Kiet T., MD Kheirkhahan, Nazanin, MD Nations, Matthew Austin, DO Pyelonephritis (Primary Dx) Discharge Disposition: Discharge to home or self care 09/05/2024 Documentation [facility] Oncology [facility] Floor [address] [place] [address] August, [facility] Appointment 09/01/2024 Telephone [facility]cology [facility] 6 [place] [phone] Teresa Arellano, A 08/24/2024 Orders Only [facility] Scanning, Provider from Last 3 Months Immunizations Immunization Administration [...] drink = 0.6 oz pur e alcohol) [facility] Utilities Answer Date Recorded In the past 12 months has e electric, gas, oil, or water [employer] threatened to shut off services in your [...] often do you attend chur ch or evangelical services? Never 09/22/2024 Do you belong to any clubs o r organizations such as moravian groups, unions, fraternal or athletic groups, or [...] any time in the past 12 m [facility], were you homeless or living in a halfway (including now)? Yes 09/22/2024 Personal Safety Answer Date Recorded Have you ever been in or are you currently in a harmful physical or emotional relationship or is someone making you feel afraid or unsafe? Denies 09/28/2024 Comments No Sex and Gender Information Value Date Recorded Sex Assigned at Not on file Legal Sex Female 6:51 AM [employer] Gender Identity Not on file Sexual Orientation [...] season) 2024 02/26/2021, 08/06/2020, 07/16/2020 Influenza Vaccine (#1) 2025 2, 02/26/2021, 02/26/2021, Additional history exists Hepatitis C Screening Completed 05/13/2017 Procedures Procedure Name Priority Date/Time Associated Diagnosis Comments NEURO MR OUTSIDE REFERENCE Routine 10/23/2024 12:12 PM CDT URINALYSIS AND REFLEX TO MICROSCOPIC [...] ANTIBODY Routine Gen Lab 05/13/2017 4:52 PM [employer] from Last 3 Months or Most Recently Relevant to Health Maintenance Results * Neuro MR Outside Reference (10/23/2024 12:12 PM CDT) Impressions RAD_PACS[facility] - 10/23/2024 12:12 PM CDT These images are for Reference purposes only and have not been reviewed by [facility]. There will be no report generated by a [facility] Radiologist. Narrative RAD_PACS_[facility] - 10/23/2024 12:12 PM CDT EXAMINATION: Images For Reference Purposes Only us Nereida Ramirez MD IMG MRI PROCEDURES Final R esult [facility] * (ABNORMAL) Urinalysis reflex to microscopic and culture Urine, bladder (09/29/2024 12:20 AM CDT) Color, ur Yellow Yellow Clarity, ur Clear Clear [facility] ([place]) Specific gravity, ur 1.011 1.003 - 1.030 [facility] ([place]) pH, [...] tendency for uric acid stone formation. Source: [facility] Current Interpretive Data was last revised on 2017 Protein, ur ql Negative Negative [facility] ([place]) Glucose, ur ql 4+(A) Negative [facility] ([place]) Ketones, ur Negative Negative [facility] ([place]) Bilirubin, ur Negative Negative [facility] ([place]) Blood, ur Negative Negative [facility] ([place]) Urobilinogen, ur <2.0 <2.0 mg/dL [facility] ([place]) Nitrite, ur Negative Negative [facility] A ([place]) Leukocyte esterase, ur Negative Negative [facility] ([place]) UA reflex comment Reflex conditions for microscopic UA and culture not met. [facility] ([place]) Urine, bladder 09/29/2024 12 :20 AM CDT 09/29/2024 12:23 AM CDT Bria LUGO LAB MICROBIOLOGY - GENERA L ORDERABLES Final Result PATRICIA [facility] ([place]) 1 [facility] [place] [address] * Sepsis Lactate w/ Reflex (09/28/2024 11:47 PM CDT) Pathologist [facility] Sepsis Lactate 1.3 0.7 - 2.0 mmol/L Blood 09/28/2024 11:4 7 PM CDT 09/28/2024 11:51 PM CDT Bria LUGO LAB BLOOD ORDERABLES Emelyn l Result [facility] ([place]) 1 [facility] Department [place] [address] * eGFR (09/28/2024 11:47 PM CDT) eGFR [...] Result [facility]IA [facility] ([place]) 1 [facility] [place] [address] * (ABNORMAL) Differential, auto (09/28/2024 11:47 PM [...] BLOOD ORDERABLES Emelyn evans Result PATRICIA YOSEL[facility] ([place]) 1 [facility] [place] [address] * (ABNORMAL) CBC with auto differential (09/28/2024 11:47 PM CDT) WBC 8.53 3.80 - 9.90 K/cumm Hgb 13.5 11.9 - 15.5 g/dL [facility] ([place]) Hct 41.6 35.6 - 45.5 % [facility] ([place]) Plt 288 150 - 400 K/cumm [facility] ([place]) MPV 8.9(L) 9.1 - 12.3 fL [facility] ([place]) RBC 4.88 3.90 - 5.20 M/cumm [facility] ([place]) MCV 85.2 81.3 - 96.4 fL [facility] ([place]) MCH 27.7 27.1 - 33.3 pg [facility] ([place]) MCHC 32.5 32.3 - 35.7 g/dL [facility] ([place]) RDW CV 16.2(H) 11.1 - 14.9 % [facility] ([place]) RDW SD 50.2(H) 35.7 - 48.1 fL [facility] ([place]) NRBC abs 0.00 0.00 - 0.01 K/cumm [facility] ([place]) Blood 09/28/2024 11:4 7 PM CDT 09/28/2024 11:51 PM CDT us Bria LUGO LAB BLOOD ORDERABLES Emelyn evans Result [facility] ([place]) 1 [facility] Department [place] [address] * (ABNORMAL) Comprehensive metabolic panel (09/28/2024 11:47 PM CDT) Sodium 137 135 - 145 mmol/L Potassium, pl 4.2 3.3 - 4.9 mmol/L [facility] ([place]) Comment:Moderately Hemolyzed Specimen. Results may be affected. Chloride 97 97 - 110 mmol/L [facility] ([place]) CO2 25 22 - 32 mmol/L [facility] ([place]) Anion gap 16(H) 2 - 15 mmol/L [facility] ([place]) BUN 14 6 - 25 mg/dL [facility] ([place]) Creatinine 1.05 0.60 - 1.10 mg/dL [facility] ([place]) Glucose 131 70 - 199 mg/dL [facility] ([place]) Comment: Interpretive Data Fasting [...] 2022. Calcium 8.8 8.5 - 10.3 mg/dL [facility] ([place]) Bilirubin, total 0.5 0.1 - 1.2 mg/dL [facility] ([place]) Protein, pl 6.9 6.5 - 8.5 g/dL [facility] ([place]) Albumin 3.4(L) 3.5 - 5.0 g/dL [facility] ([place]) Alk phos 177(H) 40 - 130 Units/L [facility] ([place]) ALT 45 7 - 45 Units/L [facility] ([place]) Comment: Hemolysis present. Results may be affected. Moderately Hemolyzed Specimen AST 61(H) 10 - 45 Units/L [facility] ([place]) Comment: Hemolysis present. Results may be affected. Moderately Hemolyzed Specimen Blood 09/28/2024 11:4 7 PM CDT 09/28/2024 11:51 PM CDT Bria White PA LAB BLOOD ORDERABLES Emelyn l Result [facility] ([place]) 1 [facility] [place] [address] * POCT glucose (09/28/2024 10:58 PM CDT) Glucose, POC 154 70 - 199 mg/dL Blood 09/28/2024 10:5 8 PM CDT 09/28/2024 10:58 PM CDT Notinfile Unknown LAB POCT ORDERABLES - DEVICE F inal Result [facility] ([place]) 1 [facility] [place] [address] * (ABNORMAL) Urinalysis reflex to microscopic and culture Urine (09/28/2024 5:31 PM CDT) Color, ur Yellow Yellow Clarity, ur Turbid(A) Clear [facility] A ([place]) Specific gravity, ur 1.014 1.003 - 1.030 [...] tendency for uric acid stone formation. Source: [facility] [place] Current Interpretive Data was last revised on [...] MICROBIOLOGY - GENERAL OR DERABLES Final Result [facility] ([place]) 1 [facility] Department [place] [address] * (ABNORMAL) Urinalysis, microscopic only (09/28/2024 5:31 [...] 5:31 PM CDT 09/28/2024 5:39 PM CDT Leland Nunez MD LAB URINE ORDERABLES Final Re sult PAT[facility]IA [facility] ([place]) [address] [place] [address] [place] [address] * Urine culture Urine (09/28/2024 5:31 PM CDT) Report Final Report: Less than 100,000 colonies/mL (clinically insignificant growth based on current clinical standards) Comment:Testing performed by : [facility], 1 [place]., [address] Organism (CLINICALLY INSIGNIFICANT GROWTH [facility] ([place]) Urine 09/28/2024 5:3 1 PM CDT 09/28/2024 8:14 PM CDT Narrative [facility] ([place]) - 09/30/2024 12:42 AM CDT Urine culture reflexed based upon urinalysis results. Testing performed by [facility] ([phone]) us Fco Corrigan MD LAB MICROBIOLOGY - GENERAL O RDERABLES Final Result Performing Organization Address [facility] Co de Phone Number PAT[facility]IA [facility] ([place]) [address] [place] [address] [place] [address] * (ABNORMAL) eGFR (09/28/2024 10:40 AM CDT) [...] 09/28/2024 10:59 AM CDT us Inna Stahl DENTAL SURGEON LAB BLOOD ORDERABLES Final Result PATRICIA DALY [facility] Department [place] [address] * Differential, auto (09/28/2024 10:40 AM CDT) Neutrophil abs 5.92 1.50 - 6.50 K/cumm Comment:Testing performed by : [facility], [address] [place] [phone] Lymphocyte abs 1.87 0.80 - 3.30 K/cumm PATRICIA DALY Comment:Testing performed by : [facility], [address] [place] [phone] Monocyte abs 0.21 0.20 - 0.80 K/cumm PATRICIA DALY Comment:Testing performed by : [facility], [address] [place] [phone] Eosinophil abs 0.11 0.00 - 0.50 K/cumm PATRICIA DALY Comment:Testing performed by : [facility], [address] [place] [phone] Basophil abs 0.07 0.00 - 0.10 K/cumm PATRICIA DALY Comment:Testing performed by : [facility], [address] [place] [phone] Neutrophil pct 72.4 % PATRICIA DALY Comment: Interpretive Data Percent cell count reference ranges are not reported, since discordance with absolute values may lead to misinterpretation of CBC data. Current Interpretive Data was last revised on 2017. Testing performed by: [facility], [address] [place] [phone] Lymphocyte pct 22.8 % [facility] Comment: Interpretive Data Percent cell count reference ranges are not reported, since discordance with absolute values may lead to misinterpretation of CBC data. Current Interpretive Data was last revised on 2017. Testing performed by: [facility], [address] [place] [phone] Monocyte pct 2.6 % [facility] Comment: Interpretive Data Percent cell count reference ranges are not reported, since discordance with absolute values may lead to misinterpretation of CBC data. Current Interpretive Data was last revised on 2017. Testing performed by: [facility], [address] [place] [phone] Eosinophil pct 1.4 % CERANNE [facility] Comment: Interpretive Data Percent cell count reference ranges are not reported, since discordance with absolute values may lead to misinterpretation of CBC data. Current Interpretive Data was last revised on 2017. Testing performed by: [facility], [address] [place] [phone] Basophil pct 0.8 % [facility] Comment: Interpretive Data Percent cell count reference ranges are not reported, since discordance with absolute values may lead to misinterpretation of CBC data. Current Interpretive Data was last revised on 2017. Testing performed by: [facility], [address] [place] [phone] Blood 09/28/2024 10:4 0 AM CDT 09/28/2024 10:57 AM CDT us Inna Stahl NP LAB BLOOD ORDERABLES Final Result LIZZANNE MALIKA [facility] Department [place] [address] * (ABNORMAL) CBC with auto differential (09/28/2024 10:40 AM CDT) Pathologist [facility] WBC 8.18 3.80 - 9.90 K/cumm Comment:Testing performed by : [facility], [address] [place], [place] [phone] Hgb 14.0 11.9 - 15.5 g/dL [facility] Comment:Testing performed by : [facility], [address] [place], [place] [phone] Hct 41.0 35.6 - 45.5 % [facility]ER [facility] Comment:Testing performed by : [facility], [address] [place], [place] [phone] Plt 324 150 - 400 K/cumm C[facility]ER BJ Comment:Testing performed by : [facility], [address] [place], [place] [phone] MPV 7.4 6.8 - 10.4 fL [facility] Comment:Testing performed by : [facility], [address] [place], [place] [phone] RBC 5.01 3.90 - 5.20 M/cumm C[facility]ER [facility]J Comment:Testing performed by : [facility], [address] [place] [address] MCV 81.7 81.3 - 96.4 fL [facility] Comment:Testing performed by : [facility], [address] [place], [place] [phone] MCH 27.9 27.1 - 33.3 pg [facility] Comment:Testing performed by : [facility], [address] [place] [address] MCHC 34.1 32.3 - 35.7 g/dL [facility] Comment:Testing performed by : [facility], [address] [place] [address] RDW CV 16.0(H) 11.1 - 14.9 % [facility] Comment:Testing performed by : [facility], [address] [place] [address] NRBC abs 0.00 0.00 - 0.01 K/cumm [facility] BJ Comment:Testing performed by : [facility], [address] [place] [address] Blood 09/28/2024 10:4 0 AM CDT 09/28/2024 10:57 AM CDT Inna Stahl NP LAB BLOOD ORDERABLES Final Result Performing Organization Address City/[facility]/ZIP Co de Phone Number [facility] [place] [address] * (ABNORMAL) Lactate dehydrogenase (LD) (09/28/2024 10:40 AM CDT) Lactate dehydrogenase (LDH) 254(H) 100 - 250 Units/L Blood 09/28/2024 10:4 0 AM CDT 09/28/2024 10:59 AM CDT Inna Stahl NP LAB BLOOD ORDERABLES Final Result Performing Organization Address [facility] [place] [address] * (ABNORMAL) Comprehensive metabolic panel (09/28/2024 10:40 AM CDT) Pathologist [facility] Sodium 142 135 - 145 mmol/L Potassium, pl 3.6 3.3 - 4.9 mmol/L [facility] Chloride 103 97 - 110 mmol/L [facility] CO2 28 22 - 32 mmol/L [facility] Anion gap 11 2 - 15 mmol/L [facility] BUN 17 6 - 25 mg/dL [facility] Creatinine 1.17(H) 0.60 - 1.10 mg/dL [facility] Glucose 83 70 - 199 mg/dL [facility] Comment: Interpretive Data Fasting glucose >/= 126 [...] Calcium 9.5 8.5 - 10.3 mg/dL C[facility] Bilirubin, total 0.4 0.1 - 1.2 mg/dL CERNER [facility] Protein, pl 7.0 6.5 - 8.5 g/dL [facility] Albumin 3.5 3.5 - 5.0 g/dL CERNER [facility] Alk phos 192(H) 40 - 130 Units/L [facility] ALT 51(H) 7 - 45 Units/L [facility] AST 68(H) 10 - 45 Units/L [facility]ER [facility] Blood 09/28/2024 10:4 0 AM CDT 09/28/2024 10:59 AM CDT Inna Stahl DENTAL SURGEON LAB BLOOD ORDERABLES Final Result PATRICIA DALY [facility] Department [place] [address] * POCT glucose (09/26/2024 11:22 AM CDT) Glucose, POC 111 70 - 199 mg/dL Blood 09/26/2024 11:2 2 AM CDT 09/26/2024 11:22 AM CDT Demetris Kapadia LAB POCT ORDERABLES - DEVICE Final Result PATRICIA [facility] ([place]) 1 [facility] Department of Laboratories [place], [place] [id number] * POCT glucose (09/26/2024 7:43 AM CDT) Glucose, POC 182 70 - 199 mg/dL Blood 09/26/2024 7:43 AM CDT 09/26/2024 7:43 AM CDT Demetris Adria Kapadia DO LAB POCT ORDERABLES - DEVICE Final Result Performing Organization Address City/[facility]/ZIP Co de Phone Number [facility] ([place]) 1 [facility] [place] [address] * eGFR (09/26/2024 5:27 AM CDT) eGFR [...] 5:27 AM CDT 09/26/2024 6:04 AM CDT Palma Blount MD LAB BLOOD ORDERABLES Emelyn l Result [facility]IA [facility] ([place]) 1 [facility] [place] [address] * Magnesium (09/26/2024 5:27 AM CDT) Magnesium 1.8 1.4 - 2.5 mg/dL Blood 09/26/2024 5:27 AM CDT 09/26/2024 8:36 AM CDT Demetris Kapadia DO LAB BLOOD ORDERABLES F inal Result [facility]IA [facility] ([place]) 1 [facility] [place] [address] * (ABNORMAL) Basic metabolic panel (09/26/2024 5:27 AM CDT) Sodium 139 135 - 145 mmol/L Potassium, pl 3.0(C) 3.3 - 4.9 mmol/L [facility] ([place]) Comment:Critical Result call ed by [email or web address] at 2024-09-26 06:56:59. Result Read Back by [...] 5:27 AM CDT 09/26/2024 6:04 AM CDT Palma Blount MD LAB BLOOD ORDERABLES Emelyn l Result [facility]IA [facility] ([place]) 1 [facility] [place] [address] * POCT glucose (09/26/2024 2:39 AM CDT) Glucose, POC 132 70 - 199 mg/dL Blood 09/26/2024 2:39 AM CDT 09/26/2024 2:39 AM CDT Palma Blount MD LAB POCT ORDERABLES - DEV ICE Final Result PAT[facility]IA [facility] ([place]) 1 [place] [address] * POCT glucose (09/25/2024 8:09 PM CDT) Glucose, POC 113 70 - 199 mg/dL Blood 09/25/2024 8:09 PM CDT 09/25/2024 8:09 PM CDT Palma Blount MD LAB POCT ORDERABLES - DEV ICE Final Result PAT[facility]IA [facility] ([place]) 1 [facility] [place] [address] * POCT glucose (09/25/2024 4:46 PM CDT) Glucose, POC 139 70 - 199 mg/dL Blood 09/25/2024 4:46 PM CDT 09/25/2024 4:46 PM CDT Palma Blount MD LAB POCT ORDERABLES - DEV ICE Final Result [facility]IA [facility] ([place]) 1 [facility] [place] [address] * POCT glucose (09/25/2024 11:42 AM CDT) Glucose, POC 130 70 - 199 mg/dL Blood 09/25/2024 11:4 2 AM CDT 09/25/2024 11:42 AM CDT Palma Blount MD LAB POCT ORDERABLES - DEV ICE Final Result Performing Organization Address City/[facility]/ZIP Co de Phone Number [facility]IA [facility] ([place]) [address] [place] [address] [place] [address] * eGFR (09/25/2024 7:47 AM CDT) eGFR [...] 7:47 AM CDT 09/25/2024 8:00 AM CDT Palma Blount MD LAB BLOOD ORDERABLES Emelyn l Result PATRICIA [facility] ([place]) 1 [facility] [place] [address] * (ABNORMAL) CBC without differential (09/25/2024 7:47 AM CDT) WBC 7.49 3.80 - 9.90 K/cumm Hgb [...] Result [facility] ([place]) 1 [facility] [place] [address] * (ABNORMAL) Basic metabolic panel (09/25/2024 7:47 AM CDT) Sodium 138 135 - 145 mmol/L Potassium, pl 3.1(L) 3.3 - 4.9 mmol/L [facility] ([place]) Chloride 99 97 - 110 mmol/L [facility] ([place]) CO2 24 22 - 32 mmol/L [facility] ([place]) Anion gap 15 2 - 15 mmol/L [facility] ([place]) BUN 12 6 - 25 mg/dL [facility] ([place]) Creatinine 0.83 0.60 - 1.10 mg/dL [facility] ([place]) Glucose 166 70 - 199 mg/dL [facility] ([place]) [...] 2022. Calcium 8.5 8.5 - 10.3 mg/dL PATRICIA WYATT ([place]) Blood 09/25/2024 7:47 AM CDT 09/25/2024 7:59 AM CDT Palma Blount MD LAB BLOOD ORDERABLES Emelyn l Result Performing Organization Address City/[facility]/ZIP Co de Phone Number PATRICIA WYATT ([place]) 1 [facility] [place] [address] * POCT glucose (09/25/2024 7:44 AM CDT) Glucose, POC 136 70 - 199 mg/dL Blood 09/25/2024 7:44 AM CDT 09/25/2024 7:44 AM CDT Palma Blount MD LAB POCT ORDERABLES - DEV ICE Final Result PATRICIA [facility] ([place]) 1 [facility] [place] [address] * POCT glucose (09/25/2024 2:57 AM CDT) Glucose, POC 121 70 - 199 mg/dL Blood 09/25/2024 2:57 AM CDT 09/25/2024 2:57 AM CDT Palma Blount MD LAB POCT ORDERABLES - DEV ICE Final Result PATRICIA WYATT ([place]) 1 [facility] [place] [address] * POCT glucose (09/24/2024 7:27 PM CDT) Glucose, POC 130 70 - 199 mg/dL Blood 09/24/2024 7:27 PM CDT 09/24/2024 7:27 PM CDT Palma Blount MD LAB POCT ORDERABLES - DEV ICE Final Result PATRICIA WYATT ([place]) 1 [facility] [place] [address] * POCT glucose (09/24/2024 4:30 PM CDT) Glucose, POC 126 70 - 199 mg/dL Blood 09/24/2024 4:30 PM CDT 09/24/2024 4:30 PM CDT Palma Blount MD LAB POCT ORDERABLES - DEV ICE Final Result PATRICIA WYATT ([place]) 1 [facility] [place] [address] * POCT glucose (09/24/2024 11:14 AM CDT) Glucose, POC 156 70 - 199 mg/dL Blood 09/24/2024 11:1 4 AM CDT 09/24/2024 11:14 AM CDT Palma Blount MD LAB POCT ORDERABLES - DEV ICE Final Result PATRICIA WYATT ([place]) 1 [facility] [place] [address] * POCT glucose (09/24/2024 7:41 AM CDT) Glucose, POC 148 70 - 199 mg/dL Blood 09/24/2024 7:41 AM CDT 09/24/2024 7:41 AM CDT Palma Blount MD LAB POCT ORDERABLES - DEV ICE Final Result Performing Organization Address City/[facility]/ZIP Co de Phone Number PATRICIA WYATT ([place]) 1 [facility] [place] [address] * eGFR (09/24/2024 7:28 AM CDT) eGFR [...] ORDERABLES Emelyn l Result Performing Organization Address City/[facility]/ZIP Co de Phone Number [facility] ([place]) 1 [facility] [place] [address] * (ABNORMAL) CBC without differential (09/24/2024 7:28 [...] MD LAB BLOOD ORDERABLES Emelyn evans Result [facility] ([place]) 1 [facility] [place] [address] * (ABNORMAL) Basic metabolic panel (09/24/2024 7:28 AM CDT) Sodium 136 135 - 145 mmol/L Potassium, pl 3.6 3.3 - 4.9 mmol/L [facility] ([place]) Chloride 98 97 - 110 mmol/L [facility] ([place]) CO2 23 22 - 32 mmol/L [facility] ([place]) Anion gap 15 2 - 15 mmol/L [facility] ([place]) BUN 14 6 - 25 mg/dL [facility] ([place]) Creatinine 0.93 0.60 - 1.10 mg/dL [facility] ([place]) Glucose 138 70 - 199 mg/dL [facility] ([place]) Comment: Interpretive Data Fasting [...] 2022. Calcium 8.4(L) 8.5 - 10.3 mg/dL [facility] ([place]) Blood 09/24/2024 7:28 AM CDT 09/24/2024 8:12 AM CDT Palma Blount MD LAB BLOOD ORDERABLES Emelyn l Result PATRICIA [facility] ([place]) 1 [facility] [place] [address] * POCT glucose (09/24/2024 2:59 AM CDT) Glucose, POC 134 70 - 199 mg/dL Blood 09/24/2024 2:59 AM CDT 09/24/2024 2:59 AM CDT Palma Blount MD LAB POCT ORDERABLES - DEV ICE Final Result Performing Organization Address City/[facility]/ZIP Co de Phone Number PATRICIA [facility] ([place]) 1 [facility] [place] [address] * POCT glucose (09/23/2024 7:56 PM CDT) Glucose, POC 142 70 - 199 mg/dL Blood 09/23/2024 7:56 PM CDT 09/23/2024 7:56 PM CDT us Palma Blount MD LAB POCT ORDERABLES - DEV ICE Final Result PATRICIA WYATT [place]) 1 [facility] [place] [address] * POCT glucose (09/23/2024 4:47 PM CDT) Glucose, POC 147 70 - 199 mg/dL Blood 09/23/2024 4:47 PM CDT 09/23/2024 4:47 PM CDT us Palma Blount MD LAB POCT ORDERABLES - DEV ICE Final Result Performing Organization Address [facility] Co de Phone Number PATRICIA WYATT ([place]) 1 [facility] [place] [address] * Potassium (09/23/2024 4:05 PM CDT) Potassium, pl 3.9 3.3 - 4.9 mmol/L Blood 09/23/2024 4:05 PM CDT 09/23/2024 4:18 PM CDT us Palma Blount MD LAB BLOOD ORDERABLES Emelyn l Result Performing Organization Address City/[facility]/ZIP Co de Phone Number PATRICIA WYATT [place]) 1 [facility] [place] [address] * POCT glucose (09/23/2024 11:46 AM CDT) Glucose, POC 128 70 - 199 mg/dL Blood 09/23/2024 11:4 6 AM CDT 09/23/2024 11:46 AM CDT Palma Blount MD LAB POCT ORDERABLES - DEV ICE Final Result PATRICIA WYATT ([place]) 1 [facility] [place] [address] * POCT glucose (09/23/2024 7:57 AM CDT) Glucose, POC 137 70 - 199 mg/dL Blood 09/23/2024 7:57 AM CDT 09/23/2024 7:57 AM CDT us Palma Blount MD LAB POCT ORDERABLES - DEV ICE Final Result Performing Organization Address City/[facility] Co de Phone Number PATRICIA WYATT ([place]) 1 [facility] [place] [address] * (ABNORMAL) eGFR (09/23/2024 5:22 AM CDT) Pathologist [facility] eGFR 48(L) >=60 mL/min/1. 73 m2 Comment: [...] data was last reviewed 2021. Blood 09/23/2024 5:2 2 AM CDT 09/23/2024 6:21 AM CDT us Tangela Mcarthur MD LAB BLOOD ORDERABLES Emelyn cristina Result PATRICIA WYATT ([place]) 1 [facility] [place] [address] * (ABNORMAL) Differential, auto (09/23/2024 5:22 AM CDT) Neutrophil abs 8.33(H) 1.50 - 6.50 K/cumm Imm gran abs 0.06 0.00 - 0.10 K/cumm [facility] ([place]) Lymphocyte abs 0.67(L) 0.80 - 3.30 K/cumm [facility] ([place]) Monocyte abs 0.69 0.20 - 0.80 K/cumm [facility] ([place]) Eosinophil abs 0.07 0.00 - 0.50 K/cumm [facility] ([place]) Basophil abs 0.03 0.00 - 0.10 K/cumm [facility] ([place]) Neutrophil pct 84.6 % [facility] ([place]) Comment: Interpretive Data Percent cell count reference ranges are not reported, since discordance with absolute values may lead to misinterpretation of CBC data. Current Interpretive Data was last revised on 2017. Imm gran pct 0.6 % [facility] ([place]) Comment: Interpretive Data Percent cell count reference ranges are not reported, since discordance with absolute values may lead to misinterpretation of CBC data. Current Interpretive Data was last revised on 2017. Lymphocyte pct 6.8 % [facility] ([place]) Comment: Interpretive Data Percent cell count reference ranges are not reported, since discordance with absolute values may lead to misinterpretation of CBC data. Current Interpretive Data was last revised on 2017. Monocyte pct 7.0 % [facility] ([place]) Comment: Interpretive Data Percent cell count reference ranges are not reported, since discordance with absolute values may lead to misinterpretation of CBC data. Current Interpretive Data was last revised on 2017. Eosinophil pct 0.7 % [facility] ([place]) Comment: Interpretive Data Percent cell count reference [...] Result [facility] ([place]) 1 [facility] [place] [address] * (ABNORMAL) CBC with auto differential (09/23/2024 [...] BLOOD ORDERABLES Emelyn cristina Result PATRICIA [facility] ([place]) 1 [facility] [place] [address] * (ABNORMAL) Comprehensive metabolic panel (09/23/2024 5:22 AM CDT) Sodium 135 135 - 145 mmol/L Potassium, pl 2.7(C) 3.3 - 4.9 mmol/L [facility] ([place]) Comment:Critical Result call ed by [email or web address] at 2024-09-23 07:13:16. Result Read Back by [...] ([place]) AST 43 10 - 45 Units/L [facility] ([place]) Comment:Slightly Hemolyzed S pecimen Blood 09/23/2024 5:22 AM CDT 09/23/2024 6:21 AM CDT Tangela Mcarthur MD LAB BLOOD ORDERABLES Emelyn l Result PATRICIA WYATT ([place]) 1 [facility] [place] [address] * POCT glucose (09/23/2024 1:59 AM CDT) Glucose, POC 166 70 - 199 mg/dL Blood 09/23/2024 1:59 AM CDT 09/23/2024 1:59 AM CDT Palma Blount MD LAB POCT ORDERABLES - DEV ICE Final Result PATRICIA [facility] ([place]) 1 [facility] [place] [address] * POCT glucose (09/22/2024 7:50 PM CDT) Glucose, POC 155 70 - 199 mg/dL Blood 09/22/2024 7:50 PM CDT 09/22/2024 7:50 PM CDT Palma Blount MD LAB POCT ORDERABLES - DEV ICE Final Result PATRICIA WYATT ([place]) 1 [facility] [place] [address] * Blood culture Blood (09/22/2024 6:29 PM CDT) Report Final Report: No growth Comment:Testing performed by : [facility], [address] [facility], [place]., [address] Blood 09/22/2024 6:29 PM CDT 09/22/2024 10:02 [...] performance characteristics have been verified by the [facility]. For questions about this culture, contact the Microbiology Laboratory at [phone]. Interpretive data was last revised on 24. Palma Blount MD LAB MICROBIOLOGY - GENERA L ORDERABLES Final Result PATRICIA WYATT ([place]) 1 [facility] [place] [address] * Blood culture Blood (09/22/2024 6:29 PM CDT) Report Final Report: No growth Comment:Testing performed by : [facility], [address] [place]., [address] Blood 09/22/2024 6:29 PM CDT 09/22/2024 10:01 PM CDT Narrative PATRICIA RICHARDSON) - 09/27/2024 7:00 AM CDT Collection->Peripheral 1. [...] performance characteristics have been verified by the [facility]. For questions about this culture, contact the Microbiology Laboratory at [phone]. Interpretive data was last revised on 24. Palma Blount MD LAB MICROBIOLOGY - GENERA L ORDERABLES Final Result PATRICIA WYATT ([place]) 1 [facility] [place] [address] * POCT glucose (09/22/2024 3:31 PM CDT) [facility] Signature Glucose, POC 132 70 - 199 mg/dL Blood 09/22/2024 3:31 PM CDT 09/22/2024 3:31 PM CDT Palma Blount MD LAB POCT ORDERABLES - DEV ICE Final Result PATRICIA WYATT ([place]) 1 [facility] [place] [address] * (ABNORMAL) POCT glucose (09/22/2024 12:05 PM CDT) Glucose, POC 256(H) 70 - 199 mg/dL Blood 09/22/2024 12:0 5 PM CDT 09/22/2024 12:05 PM CDT Palma Blount MD LAB POCT ORDERABLES - DEV ICE Final Result Performing Organization Address City/[facility]/ZIP Co de Phone Number PATRICIA WYATT ([place]) 1 [facility] [place] [address] * (ABNORMAL) eGFR (09/22/2024 10:43 AM CDT) [...] ORDERABLES Emelyn l Result Performing Organization Address City/[facility]/ZIP Co de Phone Number PATRICIA WYATT ([place]) 1 [facility] [place] [address] * (ABNORMAL) CBC without differential (09/22/2024 10:43 [...] ORDERABLES Emelyn l Result Performing Organization Address City/[facility]/ZIP Co de Phone Number PATRICIA WYATT ([place]) 1 [facility] [place] [address] * Magnesium (09/22/2024 10:43 AM CDT) Magnesium 2.4 1.4 - 2.5 mg/dL Blood 09/22/2024 10:4 3 AM CDT 09/22/2024 10:55 AM CDT us Palma Blount MD LAB BLOOD ORDERABLES Meelyn l Result [facility] ([place]) 1 [facility] [place] [address] * (ABNORMAL) Hemoglobin A1c (09/22/2024 10:43 AM CDT) Hgb A1C 7.4(H) 4.0 - 5.6 % Estimated Average Glucose 166 mg/dL [facility] ([place]) Comment: The ADA recommends reporting an estimated Average Glucose (eAG) with all Hemoglobin A1c results using the equation derived from a study of 507 normal and diabetic adults. Minority populations were underrepresented and children were not included. (Diabetes Care 31:6184-1941, 2008). The eAG is not equivalent to a fasting glucose. Blood 09/22/2024 10:4 3 AM CDT 09/22/2024 11:41 AM CDT Palma Blount MD LAB BLOOD ORDERABLES Emelyn l Result PATRICIA WYATT ([place]) 1 [facility] [place] [address] * (ABNORMAL) Basic metabolic panel (09/22/2024 10:43 AM CDT) [facility] Sodium 131(L) 135 - 145 mmol/L Potassium, pl 3.6 3.3 - 4.9 mmol/L [facility] ([place]) Chloride 93(L) 97 - 110 mmol/L [facility] ([place]) CO2 22 22 - 32 mmol/L [facility] ([place]) Anion gap 16(H) 2 - 15 mmol/L [facility] ([place]) BUN 34(H) 6 - 25 mg/dL [facility] ([place]) Creatinine 1.54(H) 0.60 - 1.10 mg/dL [facility] ([place]) Glucose 267(H) 70 - 199 mg/dL [facility] ([place]) Comment: Interpretive Data Fasting [...] ORDERABLES Emelyn l Result Performing Organization Address City/[facility]/ZIP Co de Phone Number PATRICIA WYATT ([place]) 1 [facility] [place] [address] * POCT glucose (09/22/2024 8:04 AM CDT) Glucose, POC 171 70 - 199 mg/dL Blood 09/22/2024 8:04 AM CDT 09/22/2024 8:04 AM CDT Palma Blount MD LAB POCT ORDERABLES - DEV ICE Final Result Performing Organization Address City/[facility]/ZIP Co de Phone Number PATRICIA WYATT ([place]) [address] [place] [address] * (ABNORMAL) Blood culture Blood Blood (09/22/2024 2:52 AM CDT) Direct Specimen Exam Stain: Gram Negative Bacilli Time to culture positivity (aerobic media): 9.0 hours Comment:Testing performed by : [facility], [address] [place] [address], [place]., [address] Report Final Report: Escherichia coli For susceptibility results, refer to accession number [id number] on the blood culture from 09/22/2024 (.) PATRICIA WYATT ([place]) Comment:Testing performed by : [facility], [address] [place] [address], [place]., [address] Organism ESCHERICHIA COLI LIZZ WYATT ([place]) Blood [...] performance characteristics have been verified by the [facility]. For questions about this culture, contact the Microbiology Laboratory at [phone]. Interpretive data was last revised on 24. Tangela Mcarthur MD LAB MICROBIOLOGY - GENERA L ORDERABLES Final Result PATRICIA WYATT ([place]) 1 [facility] [place] [address] * (ABNORMAL) Troponin T high-sensitivity 6-hour (09/22/2024 [...] LAB BLOOD ORDERABLES Emelyn cristina Result PATRICIA YOSELIN ([place]) 1 [facility] [place] [address] * (ABNORMAL) Blood culture Blood Blood (09/22/2024 2:49 AM CDT) Direct Specimen Exam Molecular Analysis: Presumptive Escherichia coli detected by chase ePlex BCID-GN panel. This test does not exclude the possibility of a mixed bacterial infection. Notification of: Presumptive Escherichia coli called to and read back by: Mirta García MT [phone] on 09/22/2024 17:32:03 by: Esperanza Sands MT Test result called to and read back by Marbella HUBER on 09/22/2024 17:56:28 by Mirta García. Comment:Testing performed by : [facility], [address] [place] [address]., [id number] Direct Specimen Exam Stain: Gram Negative Bacilli Time to culture positivity (anaerobic media): 8.1 hours Time to culture positivity (aerobic media): 9.1 hours Notification of: Gram Negative Bacilli called to and read back by: Danae [email or web address].ME [phone] on 09/22/2024 15:22:29 by: [email or web address] Test result called to and read back by Marbella Guzman RN, MCU on 09/22/2024 16:15:54 by Mirta García. PATRICIA W[facility]ATT ([place]) Comment:Testing performed by : [facility], [address] [place] [address]., [id number] Report Final Report: Escherichia coli (.) PATRICIA WYATT ([place]) Comment:Testing performed by : [facility], [address] [facility], [place]., [address] Organism ESCHERICHIA COLI PATRICIA YOSELIN ([place]) Blood (Blood) 09/22/2024 2:4 9 AM CDT 09/22/2024 6:44 AM CDT Narrative PATRICIA YOSELIN ([place]) - 09/25/2024 1:57 PM CDT Collection->Peripheral [...] performance characteristics have been verified by the [facility]. For questions about this culture, contact the Microbiology Laboratory at [phone]. Interpretive data was last revised on 24. [...] MICROBIOLOGY - GENERA L ORDERABLES Final Result LIZZANNE WYATT ([place]) 1 [facility] [place] [phone] * Sepsis Lactate w/ Reflex (09/22/2024 1:53 AM CDT) Sepsis Lactate 1.3 0.7 - 2.0 mmol/L Blood 09/22/2024 1:53 AM CDT 09/22/2024 1:58 AM CDT Tangela Mcarthur MD LAB BLOOD ORDERABLES Emelyn l Result PATRICIA WYATT ([place]) 1 [facility] [place] [address] * CT Abdomen Pelvis WO Contrast (09/22/2024 [...] Dandre Kang M.D. KH: ARUN Report ID: [id number] Reading Location: [place] [address] Procedure Note Dandre Kang MD - 09/22/2024 [...] Dandre Kang M.D. KH: ARUN Report ID: [id number] Reading Location: [id number] Tangela Mcarthur MD IMG CT PROCEDURES Final [...] tendency for uric acid stone formation. Source: [place] [employer] Current Interpretive Data was last revised on [...] Result PATRICIA WYATT ([place]) 1 [facility] [place] [address] * (ABNORMAL) Urinalysis, microscopic only (09/21/2024 11:42 [...] Final Re sult PATRICIA WYATT ([place]) 1 [facility] [place] [address] * (ABNORMAL) Urine culture Urine (09/21/2024 11:42 PM CDT) Report Final Report: Greater than or equal to 100,000 colonies/mL of Escherichia coli Greater than or equal to 100,000 colonies/mL of Escherichia coli #2 (.) Comment:Testing performed by : [facility], [address] [facility], [place]., [address] Organism ESCHERICHIA COLI [facility] ([place]) Organism [facility]CHERICHIA COLI [facility] ([place]) Urine 09/21/2024 11:4 2 PM CDT 09/22/2024 3:36 AM CDT Narrative [facility] ([place]) - 09/24/2024 10:10 AM CDT Urine culture reflexed based upon urinalysis results. Testing performed by [facility] ([phone]) Organism Antibiotic Method Susceptibility Escherichia coli Ampicillin [...] - GENERAL OR DERABLES Final Result PATRICIA [facility] ([place]) 1 [facility] [place] [address] * (ABNORMAL) Troponin T high-sensitivity 2-hour (09/21/2024 11:09 PM CDT) Trop T hs 21(H) <=14 ng/L Comment: Interpretive Data For further hscTnT resources including the diagnostic algorithm and an aid in interpretation, copy and paste this link: https://nrl.testcatalog.org/show/hsTrop Current Interpretive Data last revised 2020. Trop T hs delta 2 ng/L [facility] ([place]) Trop T hs interp Insignificant [facility] ([place]) Blood 09/21/2024 11:0 9 PM CDT 09/21/2024 11:15 PM CDT us Tangela Mcarthur MD LAB BLOOD ORDERABLES Emelyn l Result PATRICIA WYATT ([place]) 1 [facility] [place] [address] * (ABNORMAL) Sepsis Lactate w/ Reflex (09/21/2024 11:09 PM CDT) Sepsis Lactate 3.9(H) 0.7 - 2.0 mmol/L Blood 09/21/2024 11:0 9 PM CDT 09/21/2024 11:15 PM CDT us Tangela Mcarthur MD LAB BLOOD ORDERABLES Emelyn l Result Performing Organization Address [facility] Co de Phone Number PATRICIA WYATT ([place]) 1 [facility] [place] [address] * ECG 12 lead (09/21/2024 11:08 PM CDT) 09/21/2024 11:0 8 PM CDT Narrative [facility] [email or web address] - 09/22/2024 9:30 AM CDT Vent Rate: 101 bpm RR Interval: 594 msec PA Interval: 163 msec QRS Duration: 94 msec QT Interval: 278 msec QTC Interval: 336 msec P-R-T [place]: 34 - -22 - 47 degrees IMPRESSION: [...] Mcarthur MD ECG ORDERABLES Final Res ult Performing Organization Address City/[facility]/ZIP Co de Phone Number [email or web address] [facility] * CT Head WO Contrast (09/21/2024 9:19 [...] Manuel Haro M.D. AG: ALEX Report ID: [id number] Reading Location: [id number] Procedure Note Manuel Haro MD - 09/21/2024 [...] Manuel Haro M.D. AG: ALEX Report ID: [id number] Reading Location: [id number] [facility] IM CT PROCEDURES Final Result * XR Kub [...] Manuel Haro M.D. AG: ALEX Report ID: [id number] Reading Location: [id number] Procedure Note Manuel Haro MD - 09/21/2024 [...] Manuel Haro M.D. AG: ALEX Report ID: [id number] Reading Location: [id number] Tangela Mcarthur MD IMG XR PROCEDURES Final [...] Manuel Haro M.D. AG: ALEX Report ID: [id number] Reading Location: [id number] Procedure Note Manuel Haro MD - 09/21/2024 [...] Manuel Haro M.D. AG: AG Report ID: [id number] Reading Location: [id number] us Leland Nunez MD IMG XR PROCEDURES Final Resul t * (ABNORMAL) POCT glucose (09/21/2024 8:45 PM CDT) [facility] Glucose, POC 293(H) 70 - 199 mg/dL Blood 09/21/2024 8:45 PM CDT 09/21/2024 8:45 PM CDT us Notinfile Unknown LAB POCT ORDERABLES - DEVICE F inal Result [facility] ([place]) [address] [place] [address] [place] [address] * (ABNORMAL) Troponin T high-sensitivity series (baseline, 2hr, 4hr, 6hr) (09/21/2024 8:35 PM CDT) [facility] Trop T hs 19(H) <=14 ng/L Comment: Interpretive Data For further hscTnT resources including the diagnostic algorithm and an aid in interpretation, copy and paste this link: https://nrl.testcatalog.org/show/hsTrop Current Interpretive Data last revised 2020. Blood 09/21/2024 8:35 PM CDT 09/21/2024 10:59 PM CDT us Tangela Mcarthur MD LAB BLOOD ORDERABLES Emelyn l Result [facility] ([place]) [address] [place] [address] [place] [address] * (ABNORMAL) eGFR (09/21/2024 8:35 PM CDT) [facility] eGFR 32(L) >=60 mL/min/1. 73 m2 Comment: [...] MD LAB BLOOD ORDERABLES Emelyn l Result [facility] ([place]) 1 [facility] Department of Laboratories [place], [place] [id number] * (ABNORMAL) Differential, auto (09/21/2024 8:35 PM [...] Emelyn l Result PATRICIA WYATT ([place]) 1 [facility] [place] [address] * (ABNORMAL) CBC with auto differential (09/21/2024 8:35 PM CDT) WBC 14.69(H) 3.80 - 9.90 K/cumm Hgb 16.3(H) 11.9 - 15.5 g/dL [facility] ([place]) Hct 48.2(H) 35.6 - 45.5 % [facility] ([place]) Plt 158 150 - 400 K/cumm [facility] ([place]) MPV 9.9 9.1 - 12.3 fL [facility] ([place]) RBC 5.87(H) 3.90 - 5.20 M/cumm [facility] ([place]) MCV 82.1 81.3 - 96.4 fL [facility] ([place]) MCH 27.8 27.1 - 33.3 pg [facility] ([place]) MCHC 33.8 32.3 - 35.7 g/dL [facility] ([place]) RDW CV 14.6 11.1 - 14.9 % [facility] ([place]) RDW SD 43.6 35.7 - 48.1 fL [facility] ([place]) NRBC abs 0.00 0.00 - 0.01 K/cumm [facility] ([place]) Blood 09/21/2024 8:35 PM CDT 09/21/2024 8:59 PM CDT Tangela Mcarthur MD LAB BLOOD ORDERABLES Emelyn l Result PATRICIA WYATT ([place]) 1 [facility] [place] [address] * Lipase (09/21/2024 8:35 PM CDT) Pathologist [facility] Lipase 25 10 - 99 Units/L Blood 09/21/2024 8:35 PM CDT 09/21/2024 9:18 PM CDT Tangela Mcarthur MD LAB BLOOD ORDERABLES Emelyn l Result [facility] ([place]) 1 [facility] [place] [address] * (ABNORMAL) Comprehensive metabolic panel (09/21/2024 8:35 PM CDT) Sodium 129(L) 135 - 145 mmol/L Potassium, pl 2.5(C) 3.3 - 4.9 mmol/L [facility] ([place]) Comment:Critical Result call ed by [email or web address] at 2024-09-21 22:02:23. Result Read Back by Jyana Yusuf ER charge Chloride 87(L) 97 - [...] BLOOD ORDERABLES Emelyn l Result [facility] ([place]) 1 [facility] [place] [address] * SCAN - RADIOLOGY/IMAGING (08/24/2024) Anatomical Region Laterality Modality Other us Provider Scanning Edited Result - Final * Hepatitis C antibody (05/13/2017 4:52 PM TEACHING MUSIC LESSONS) Hep C Ab Nonreactive Nonreactive [facility]RICIA [facility] Comment: Interpretive Data Positive and greyzone results should be confirmed by a molecular method. If positive or greyzone, a second separately collected sample should be submitted for Hepatitis C Virus RNA. Detection and Quantitation by Real-Time Reverse Security Sme-PCR.Current Interpretive data was last revised on 2016. Blood specimen (specimen) 05/13/2017 4:52 PM TEACHING MUSIC LESSONS 05/13/2017 5:18 PM TEACHING MUSIC LESSONS Narrative PATRICIA [facility] - 05/14/2017 9:38 AM TEACHING MUSIC LESSONS us Nereida Ramirez MD LAB MICROBIOLOGY - GENERAL ORDERABLES Edited Result - Final PATRICIA DALY [facility] Department [place] [address] from Last 3 Months or Most Recently Relevant to Health Maintenance Insurance [id number] MEDICARE ADVANTAGE MEDICARE [facility] Address: [facility] [address] [place] [address] [facility] MEDICARE ADVANTAGE Advance Directives For more information, please contact: [phone] * Full Code (Latest Code Status on File) Date Activated Date Inactivated Comments 09/22/2024 2:44 PM 09/26/2024 5:53 PM * Full Code Date Activated Date Inactivated Comments 11/15/2019 2:35 PM 11/15/2019 7:49 PM Care Teams Workers Compensation Paralegal Relationship Specialty Start Date End Date No Crow NP [address] [place] [address] PCP - General Family Medicine 09/21/24 Nereida Ramirez MD Medical Oncologist/Deputy City Clerk Medical Oncology 06/13/20
--- OUTSIDE RECORDS SUMMARY | 2024-11-16 08:03 | XMS_ITS | Continuity of Care Document ---
Author Organization [facility] Address [address] [place] [address] [facility] [address] [place] [address] Phone Care Team Providers Care Dual Rate Dealer Name Role Phone Colin Tyson Unavailable Unavailable Procedures Procedure Date Eye Exam, New Patient Advance Directives Directive Yes / No Effective Date File Name No Information Encounters Encounter Description Practice Location Reason(s) For Visit Diagnoses Date Provider Providers Copied on Encounter [facility], [address] [place] [address] [address], [place], [place], [id number], [place] tel:[phone] [facility] No Information [phone] 0 Marbella Colin. [address] [facility] [address], [place], [address], [place]. tel:[phone] Family History Family Member Type Diagnosis Age At Onset No Information Payers Payer name Insurance type Covered republican ID Authoriza tion(s) Medicare [facility] [id number] Medicaid [facility] [id number] Social History Type Description Quantity Date Captured [...]
--- OUTSIDE RECORDS SUMMARY | 2024-11-16 08:03 | XMS_ITS | Clinical Summary ---
Author Organization [facility] Address [address] [place] [address] Care Team Providers Care Orthotic Fitter Name Role Phone Félix Pineda MD Unavailable [phone] Rajiv Sherman MD Unavailable [phone] Davi Herman MD Unavailable [phone] Rand Whalen MD Primary Care Provider Source Comments [facility],non-owned Affiliates and Associated Physician Practices is amultiple site organization consisting of ambulatory clinics and hospital sitesin [place], [place], [place] and [place]. This disclosure is being madepursuant to the Care Everywhere program and may not contain all information available regarding this patient. Last updated 18.[facility] Allergies Active Allergy Reactions Criticality Noted [...] MAMMOGRAM 1965 MEDICARE AWV 12 MONTHS 1964 HIV SCREENING 1979 HEPATITIS C SCREENING 06/17/1982 DTAP/TDAP/TD VACCINES (1 - Tdap) 1983 PAP SMEAR 1985 PNEUMOCOCCAL VACCINE 50+ (1 of 1 - PCV) 2014 ZOSTER VACCINE (1 of 2) 2014 COVID-19 VACCINE (4 - season) 2024 02/26/2021, 08/06/2020, 07/16/2020 DEPRESSION SCREENING 05/03/2024 INFLUENZA VACCINE (#1) 2025 2, 02/26/2021, 03/05/2020, Additional history exists Respiratory Syncytial [...] patient's age to complete [place] [address] MEDICARE [facility] MEDICARE MEDICARE MEDICAID - OUT OF [facility] MEDICARE MEDICAID - OUT OF STATE MEDICARE MEDICAID - OUT OF STATE MEDICARE Care Teams Orthotic Fitter Relationship Specialty Start Date End Date Rand Whalen MD [address] [place] [address] PCP - General 10/11/21 Félix Pineda MD Family Medicine 07/31/14 Rajiv Sherman MD Neurology 10/13/12 Davi Herman MD [address] [address] Prospecting Observer Cardiology 06/22/14
--- OUTSIDE RECORDS SUMMARY | 2024-11-16 08:03 | XMS_ITS | Encounter Summary ---
Author Organization [facility] Address [address] [facility] [place] [address] Care Team Providers Care Short Order Fry Cook Name Role Phone Félix Pineda MD Unavailable [phone] Rajiv Sherman MD Unavailable [phone] Davi Herman MD Unavailable [phone] Rand Whalen MD Primary Care Provider Reason for Referral * Consultation (Routine) - Closed Specialty Diagnoses / Procedures Referred By Contjose t Referred To Contact Neurology Diagnoses Nonintractable epilepsy without status epilepticus, unspecified epilepsy type (HCC) Liliane Johnson MD [address] [place] [address] Phone: tel: fax: [facility] - Neurology [address] [place] [address] Phone: tel: fax: Referral ID Status Reason Start Date Expiration Date V isits Requested Visits Authorized [id number] Closed Specialty Services Required 03/31/2024 03/31/2025 1 1 CH TREATING ASSISTANT Encounter Details Date Type Department Care Team (Latest Contact Info) Description 03/31/2024 Transcribe Orders [facility] - Centralized Scheduling [facility] [place] [address] Liliane Johnson MD [address] [place] [address] Nonintractable epilepsy without status epilepticus, unspecified epilepsy [...] Primary documented in this encounter Care Teams Short Order Fry Cook Relationship Specialty Start Date End Date Rand Whalen MD [address] [place] [address] PCP - General 10/11/21 Félix Pineda MD Family Medicine 07/31/14 Rajiv Sherman MD Neurology 10/13/12 Davi Herman MD [address] [address] Highway Maintenance Supervisor Cardiology 06/22/14 documented as of this encounter
--- OUTSIDE RECORDS SUMMARY | 2024-11-16 08:03 | XMS_ITS | Clinical Summary ---
Author Organization [facility] Address [address] [place] [phone] Phone Care Team Providers Care Normalizer Name Role Phone Unavailable Primary Care Provider [...] at bedtime. Active fluticasone (FLONASE) 50 mcg/spray Curlew, Suspension Administer 2 Sprays in each nostril daily. Active viatamin B complex-vitamin U-pdburdob-ossh -folic acid 106 mg iron- 1 mg [...] 08/09/2014 Overview (08/09/2014): S/p cardiac cath at [facility] following Dr. Herman EF 40 %, AR [...] Comments Blood Pressure 99/75 03/24/2017 3:03 PM BOOKKEEPING ASSISTANT Pulse 107 03/24/2017 3:03 PM BOOKKEEPING ASSISTANT Temperature 36.9 C (98.5 F) 03/24/2017 3:03 PM BOOKKEEPING ASSISTANT Respiratory Rate 18 02/22/2017 1:24 PM CDT Oxygen Saturation 95% 09/21/2014 1:11 PM CDT Inhaled Oxygen Concentration - - Weight 84.1 kg (185 lb 6.4 oz) 03/24/2017 3:03 P M BOOKKEEPING ASSISTANT Height 160 cm (5' 3) 03/24/2017 3:03 PM BOOKKEEPING ASSISTANT Body Mass Index 32.84 03/24/2017 3:03 PM BOOKKEEPING ASSISTANT Plan of Treatment Health Maintenance Due Date Last Done Comments DTAP/TDAP/TD VACCINES (1 - Tdap) 1983 HPV/Cotest (21-29) 1985 CERVICAL CANCER SCREENING 1994 HPV/Cotest (30-65) 1994 PAP SMEAR 1994 BREAST CANCER SCREENING 2004 COLORECTAL SCREENING 2009 FIT-DNA Q 3 years 2009 FIT/FOBT Q 1 year 2009 ZOSTER VACCINE (1 of 2) 2014 Colorectal Cancer Screening 09/22/2019 Flex Sig/CT Colonography Q 5 years 09/22/20192014 HEPATITIS B VACCINES (1 of 3 - Risk 3-dose series) RSV VACCINE (60+ or ) (1 - Risk 60-74 years 1-dose series) 2024 INFLUENZA VACCINE (#1) 2024 02/26/2014 Insurance MEDICARE PART A AND B [place]ICAID [place] Advance Directives For more information, please contact: [phone] Documents on File Type Date Recorded Patient Applications Coordinator Expl anation Advance Directive POA 10/24/2014 11:30 AM Advance Directive POA * Full Code (Latest Code Status on File) Date Activated Date Inactivated Comments 09/21/2014 12:04 PM 09/21/2014 3:21 PM
--- OUTSIDE RECORDS SUMMARY | 2024-11-16 08:03 | XMS_ITS | Encounter Summary ---
Author Organization [facility] Address [address] [place] [address] Care Team Providers Care Programming Instructor Name Role Phone Spencer Fuentes MD Primary Care Provider [phone] Nereida Ramirez MD Unavailable Rand Whalen MD Primary Care Provider Rand Whalen MD Primary Care Provider No Crow NP Primary Care Provider [phone] Encounter Details Date Type Department Care Team (Late st Contact Info) Description 11/13/2019 Telephone [facility]iology [facility] [address] [place] [address] Fabby Almendarez, RT Social History Tobacco Use Types Packs/Day Years Used Date Smoking Tobacco: Former E-cigarettes Quit: 05/05/2013 Smokeless Tobacco: Never Comments:eciggs last 5 years Comments Unknown Sex and Gender Information Value Date Recorded Sex Assigned at Not on file Legal Sex Female 6:51 AM OFFICE ASSISTANCE Gender Identity Not on file Sexual Orientation Not on file documented as of this encounter Plan of Treatment Not on file documented as of this encounter Visit Diagnoses Not on filedocumented in this encounter Care Teams Programming Instructor Relationship Specialty Start Date End Date Spencer Fuentes MD [address] [place] [address] PCP - General 04/01/17 01/26/21 Rand Whalen MD [address] [place] [address] PCP - General Family Practice 01/27/21 03/26/24 Rand Whalen MD [address] [place] [address] [address] PCP - General Family Practice 03/27/24 09/20/24 No Crow NP [address] [place] [address] PCP - General Family Medicine 09/21/24 Nereida Ramirez MD [address] [place] [address] Medical Oncologist/Foreclosure Home Inspector Medical Oncology 06/13/20 documented as of this encounter
--- OUTSIDE RECORDS SUMMARY | 2024-11-16 08:03 | XMS_ITS | Encounter Summary ---
Author Organization [facility] Address [address] [place] [address] Care Team Providers Care Math And Science Division Chair Name Role Phone Spencer Fuentes MD Primary Care Provider [phone] Encounter Details Date Type Department Care Team [...] Type: Triage Call Addendum Date and Time [id number] Presenting Problem: Caregiver Roslyn She is incoherent. [...] statosis Medications: Meds revewied with caller Per Quvium Medication reactions: Amitripyline, Codeine, Latex and Sulfa <<<<<<<< TRIAGE NOTE >>>>>>>> Triage Note: Hydrography Teacher Shereen Shoemaker added this note on Nov [...] on filedocumented in this encounter Care Teams Math And Science Division Chair Relationship Specialty Start Date End Date Spencer Fuentes MD [address] [place] [address] PCP - General Family Practice 01/08/17 03/02/22 documented as of this encounter
--- OUTSIDE RECORDS SUMMARY | 2024-11-16 08:03 | XMS_ITS ---
Author Organization [facility] Address [address] [place] [address] Care Team Providers Care Inside Tester Name Role Phone Rudy Keenan Primary Care Provider REASON FOR VISIT 3 Month Psych F/U & Med Refill Social History Sex Assigned At : Social History Observation Description Sex Assigned At Female Encounters Encounter Location Date Provider Diagnosis [address] [place] [address] 05/30/2024 Rudy Keenan Plan Of Treatment No Information Progress Notes * Evangelina BARLOW SDOB:0 1965 (59 yo F)Acc No.[id number]:05/30/2024 UNLOCKED PROGRESS NOTE Patient: Evangelina DENIS Provider: Negin Keenan DNP, PMHNP-BC :1965 A ge:58 Y S ex:Female Date:05/30/2024 Address:[address] [facility] Subjective: * Chief Complaints: * 1 . 3 Month Psych F/U & Med Refill. * Medical History: Objective: * Vitals: Assessment: Plan: * Treatment: * * Electronic signature of Sarahy Keenan APRN, [id number] on 11/16/2024 at 08:02 AM CDT Sign off status: Pending * Provider: Negin Keenan DNP, PMHNP-BC Date: 0 05/30/2024 Generated for Printi ng/Faxing/eTransmitting on: 0 11/16/2024 08:02 AM CDT
--- OUTSIDE RECORDS SUMMARY | 2024-11-16 08:03 | XMS_ITS | Patient Health Record ---
Author Organization [facility] Address [address] [place] [address] Care Team Providers Care Commercial Instructor Supervisor Name Role Phone Rudy Keenan Primary Care Provider [phone] Allergies Allergen (clinical drug ingredient) Drug/Non Drug [...] TAKE 1 TABLET BY MOUTH TWICE A DAY; Duration: 90 days Active Mirtazapine 45 MG 1 tablet at bedtime Orally Once a day; Duration: 90 days Active hydrOXYzine Pamoate 50 MG 1 capsule Orally three times a day; Duration: 90 days As needed for anxiety Active Atorvastatin Calcium 40 MG 1 tablet Oral ly Once a day Active Gabapentin 300 MG 1 capsule Orally Once a day Active Aspirin 81 81 MG 1 tablet Orally Once a day Active Jardiance 10 MG 1 tablet Orally Once a day; Duration: 30 day(s) Active Cyclobenzaprine HCl 10 MG [...] lamoTRIgine 100 MG 1 tablet Once a day; Duration: 90 days Active ARIPiprazole 10 MG 1 tablet Once a day; Duration: 90 days Active Vilazodone HCl 40 MG 1 tablet with food Once a day; Duration: 90 days Active QUEtiapine Fumarate 300 MG 2 tablets in the evening Once a day; Duration: 90 days Active Immunizations Vaccine Route Administration Date Status Comme nts COVID-19 Pfizer Vaccine 1ST IM Intramuscular 02/26/2021 Administered Given at [facility]. Lot#[id number]. FLU VAC NO PRSV 4VAL 6 mo+ IM Intramuscular 02/26/2021 Administered Given at [facility]. Man:Seqirus. Lot:[id number] Social History Tobacco Use: Social History Observation Description Date Details (start date - stop date) Never Smoker NA - NA Sex Assigned At : Social History Observation Description Sex Assigned At Female Tobacco Control (Standard) Question Answer Notes Tobacco use: Nonsmoker Problems Problem Type SNOMED Code ICD Code Onset Dates Problem Status W/U Status Risk Notes Problem Information temporarily unavailable Generalized anxiety disorder (F41.1) Active confirmed Problem Information temporarily unavailable Bipolar 1 disorder, depressed, moderate (F31.32) Active confirmed Vital Signs Heart Rate 71 /min 03/09/2024 Temperature 97.1 degrees Fahrenheit 03/09/2024 Respiratory Rate 14 /min 03/09/2024 Blood pressure diastolic 62 mm Hg 03/09/2024 Oximetry 95 % 03/09/2024 Height 63 in 03/09/2024 Blood pressure systolic 100 mm Hg 03/09/2024 Weight 205.2 lbs 03/09/2024 BMI 36.35 kg/m2 03/09/2024 Encounters Encounter Location Date Provider Diagnosis [address] [place] [address] 11/25/2023 Rudy Keenan Bipolar 1 disorder, depressed, moderate F31.32 and Generalized anxiety disorder F41.[address] [place] [address] 03/09/2024 Rudy Keenan Bipolar 1 disorder, depressed, moderate F31.32 and Generalized anxiety disorder F41.[address] [place] [address] 08/15/2024 Rudy Keenan Bipolar 1 disorder, depressed, moderate F31.32 and Generalized anxiety disorder F41.[address] [place] [place] [address] 05/29/2024 Rudy Keenan [address] [place] [address] 08/08/2024 Rudy Keenan Bipolar 1 disorder, depressed, moderate F31.[address] [place] [address] 08/10/2024 Rudy Keenan Bipolar 1 disorder, depressed, moderate F31.32 and Generalized anxiety disorder F41.1 Assessments Encounter Date Diagnosis (ICD Code) Assessment Notes Treatment Notes Treatment Clinical Notes Section Notes 08/08/2024 Bipolar 1 disorder, depressed, moderate (ICD-10 - F31.32) 08/15/2024 Bipolar 1 disorder, depressed, moderate (ICD-10 - F31.32) Client doing well, no tx plan changes needed. 08/10/2024 Bipolar 1 disorder, depressed, moderate (ICD-10 - F31.32) 11/25/2023 Bipolar 1 disorder, depressed, moderate (ICD-10 - F31.32) 03/09/2024 Bipolar 1 disorder, depressed, moderate (ICD-10 - F31.32) 11/25/2023 Generalized anxiety disorder (ICD-10 - F41.1) 03/09/2024 Generalized anxiety disorder (ICD-10 - F41.1) 08/10/2024 Generalized anxiety disorder (ICD-10 - F41.1) 08/15/2024 Generalized anxiety disorder (ICD-10 - F41.1) Client doing well, no tx plan changes needed. 11/25/2023 Other Discussed sleep hygiene and caffeine [...] number to the 24-hour crisis line at [facility]. Questions addressed. Client verbalized understanding of all [...] number to the 24-hour crisis line at [facility]. Questions addressed. Client verbalized understanding of all [...] number to the 24-hour crisis line at [facility]. Questions addressed. Client verbalized understanding of all information and is agreeable to treatment plan. Client doing well, no tx plan changes needed. Plan Of Treatment No Information Insurance Providers Payer Name Payer Address Payer Phone Subscriber Number Group Number Insured Name Patient Relationship to Insured Coverage Start Date Coverage End Date [facility] [address] [address] [place] [address] [id number] Evangelina Mckeon Self - patient is the insured 2 2 [facility] Medicare Assure [address] [address] [place] [address] [id number] Evangelina Mckeon Self - patient is the insured 5 5 [facility] Claims Department [address] [place] [address] [phone] [id number] Evangelina Mckeon Self - patient is the insured 1 MEDICAID [address] [place] [address] [id number] Evangelina Mckeon Self - patient is the insured 3 3 MEDICARE PART A [address] [place] [address] [id number] Evangelina Mckeon Self - patient is the insured 3 Medical (General) History Medical History History [...] History Reason Date(Month/Year) Tripped and Fell on [place], breaking 2 fingers 09/08/2021 Extreme Dehydration & Out of control blood sugars - [facility] 09/08/2021
--- OUTSIDE RECORDS SUMMARY | 2024-11-16 08:03 | XMS_ITS | Clinical Summary ---
Author Organization [facility] Address [address] [place] [address] Care Team Providers [employer] Name Role Phone Rand Whalen MD Primary Care Provider Allergies Active Allergy Reactions Criticality Noted Date Comments Amitriptyline Hcl Vomiting 10/18/2024 Codeine Hallucinations 10/18/2024 Looses depth perception Latex Rash Low 10/18/2024 Metformin Vomiting 10/18/2024 Morphine Itching 01/08/2017 Not listed Sulfa Antibiotics Unknown 10/19/2024 Trazodone Fatigue 01/08/2017 Knocks her out Medications Insulin Regular Human (HUMULIN R U-500 KWIKPEN SC) Inject 1 Units into the skin 3 (three) times daily as needed. Per sliding scale Active albuterol (ALBUTEROL SULFATE) (5 MG/ML) 0.5% nebulizer solution Take 0.5 mLs (2.5 mg total) by nebulization every 6 (six) hours as needed for Wheezing. Active atorvastatin (LIPITOR) 80 MG tablet Take 1 tablet (80 mg total) by mouth nightly at bedtime. Active albuterol sulfate HFA 108 (90 Base) MCG/ACT inhaler Inhale 2 puffs into the lungs every 6 (six) hours as needed for Wheezing. Active dicyclomine (BENTYL) 20 MG tablet Take 1 tablet (20 mg total) by mouth 3 (three) times daily. Active gabapentin (NEURONTIN) 300 MG capsule Take 1 capsule (300 mg total) by mouth 3 (three) times daily. Active hydrOXYzine (ATARAX) 50 MG tablet Take 1 tablet (50 mg total) by mouth 3 (three) times daily as needed for Anxiety. Active empagliflozin (JARDIANCE) 25 MG tabletIndications :Hold am of cataract surgery Take 1 tablet (25 mg total) by mouth daily. Indications: Hold am of cataract surgery Active pantoprazole EC (PROTONIX) 40 MG tablet Take 1 tablet (40 mg total) by mouth daily. Active potassium chloride CR (KLOR-CON M) 20 MEQ tablet Take 1 tablet (20 mEq total) by mouth 2 (two) times daily. Active vilazodone (VIIBRYD) 40 MG tablet Take 1 tablet (40 mg total) by mouth daily. Take with food Active lamoTRIgine (LAMICTAL) 100 MG tablet Take 1 tablet (100 mg total) by mouth daily. Active SITagliptin (JANUVIA) 100 MG tabletIndications :Hold am of cataract of surgey Take 1 tablet (100 mg total) by mouth daily. Indications: Hold am of cataract of surgey Active mirtazapine (REMERON TAL-TAB) 45 MG disintegrating tablet Take 1 tablet (45 mg total) by mouth nightly at bedtime. Active tiZANidine (ZANAFLEX) 2 MG tablet Take 1 tablet (2 mg total) by mouth 3 (three) times daily. Active triamterene-hydro CHLOROthiazide (DYAZIDE) 37.5-25 MG capsule Take 1 capsule by mouth daily. Active ARIPiprazole (ABILIFY) 10 MG tablet Take 1 tablet (10 mg total) by mouth daily. Active propranolol (INDERAL) 10 MG tablet Take 1 tablet (10 mg total) by mouth 2 (two) times daily. Active QUEtiapine (SEROQUEL) 300 MG tablet Take 1 tablet (300 mg total) by mouth 3 (three) times daily. Active Multiple Vitamin (DAILY VITES) Tab Take 1 tablet by mouth daily. Active fluticasone propionate (FLONASE) 50 MCG/ACT nasal spray 2 sprays by Nasal route daily. Active vitamin D3 (D-5000) 125 mcg Tab Take 400 Units by mouth daily. Active cetirizine (ZYRTEC) 10 MG tablet Take 1 tablet (10 mg total) by mouth daily. Active aspirin 81 MG chewable tablet Chew 1 tablet (81 mg total) by mouth daily. Active hydrOXYzine (VISTARIL) 50 MG capsule Take 1 capsule (50 mg total) by mouth every 8 (eight) hours as needed. 2024 Discontinued Ferrous Sulfate (IRON OR) Take 1 tablet by mouth daily. 2024 Discontinued Encounters Date Type Department Care Team Description 10/30/2024 11:32 AM CDT - 10/30/2024 12:10 PM CDT Surgery [facility] [address] [place] [id number] Jamaal Billings MD CATARACT REMOVAL WITH IOL IMPLANT 10/30/2024 11:15 AM CDT Anesthesia Event [facility] [address] [place] [id number] Derrick Marquez CRNA Bell, Lisa M, CRNA 10/30/2024 10:16 AM CDT - 10/30/2024 12:08 PM CDT Hospital Encounter [facility] [address] [place] [id number] Jamaal Billings MD Discharge Disposition: Home or Self Care (Routine Discharge) 10/30/2024 Travel from Last 3 Months Social History Tobacco Use Types Packs/Day Years Used Date Smoking Tobacco: Every Day Cigarettes Smokeless Tobacco: Current Tobacco Cessation:Ready to Q uit: Not Asked; Counseling Given: Not Answered Comments:vaps Alcohol Use Standard Drinks/Week Comments Yes 0 (1 standard drink = 0.6 oz pur e alcohol) rarely Comments No Sex and Gender Information Value Date Recorded Sex Assigned at Not on file Legal Sex Female 8:38 AM CDT Gender Identity Not on file Sexual Orientation Not on file Last Filed Vital Signs Vital Sign Reading Time Taken Comments Blood Pressure 148/97 10/30/2024 11:53 AM CDT Pulse 84 10/30/2024 11:53 AM CDT Temperature 36 C (96.8 F) 10/30/2024 10:36 AM CDT Respiratory Rate 16 10/30/2024 11:53 AM CDT Oxygen Saturation 94% 10/30/2024 11:53 AM CDT Inhaled Oxygen Concentration - - Weight 87.5 kg (193 lb) 10/30/2024 10:36 AM CDT Height 160 cm (5' 3) 10/30/2024 10:36 AM CDT Body Mass Index 34.19 10/30/2024 10:36 AM CDT Plan of Treatment Upcoming Encounters Date Type Department Care Team (Latest Contact Info) Description 11/27/2024 12:01 PM CDT Hospital Encounter [facility] [address] [place] [address] Jamaal Billings MD [address] [place] [address] 11/27/2024 12:01 PM CDT - 11/27/2024 12:42 PM CDT Surgery [facility] [address] [place] [address] Jamaal Billings MD [address] [place] [id number] LEFT CATARACT REMOVAL WITH IOL IMPLANT Scheduled Procedures Name Priority Associated Diagnoses Date/Ti me CATARACT REMOVAL WITH IOL IMPLANT H25.12 11/27/2024 12:01 PM CDT Health Maintenance Due Date Last Done Comments Colorectal Cancer Screening Colonoscopy (10 Years) 1964 Annual Physical 1967 Hepatitis C 1982 DTaP, Tdap and Td Vaccines ( 1 - Tdap) 1983 Mammogram Screening 2004 Zoster Vaccines (1 of 2) 2014 Pneumococcal Vaccine: 50+ Years (3 of 3 - PCV20 or PCV21) 03/08/2023 03/08/2018, 04/07/2016 COVID-19 Vaccine (4 - 2023-2 5 season) 2024 02/26/2021, 08/06/2020, 07/16/2020 RSV Immunization or 60+ Years (1 - 1-dose 75+ series) 2039 Meningococcal B Vaccine Aged Out No l onger eligible based on patient's age to complete this topic Meningococcal Vaccine Aged Out No wang johana eligible based on patient's age to complete this topic RSV Immunizations Under 20 Months Aged Out No longer eligible b ased on patient's age to complete this topic Goals Goal Patient Goal Type Associated Problems Recent Progress Patient-Stated? Author Autogenerat ed Goal Care Plan Autogenerated Problem No Tatum Santoyo CNA Medical Devices Implanted Type Area Scallop Cutter Machine Device Identifier Shelf Expiration Date Model / Serial / Lot Iol [employer]plicity Dcb00 - [id number] Implanted:Qty: 1 on 10/30/2024 by Jamaal Billings MD at [facility] Lens Right: Eye [employer] [id number] 12/19/2026 DCB00 / [id number] / Procedures Procedure Name Priority Date/Time Associated Diagnosis Comments POCT GLUCOSE - DOCKED DEVICE Routine 10/30/2024 12:05 PM CDT REMV CATARACT EXTRACAP,INSERT LENS 10/30/2024 11:14 AM CDT H25.11 Case Notes C POCT GLUCOSE - DOCKED DEVICE Routine 10/30/2024 11:02 AM CDT from Last 3 Months Results * (ABNORMAL) POCT glucose (10/30/2024 12:05 PM CDT) Only the most recent of2 resultswithin the time period is included. [facility] GLUCOSE POC 145(H) 70 - 110 mg/dL 10/30/2024 12:28 PM CDT [facility] 10/30/2024 12:0 5 PM CDT us Jamaal Billings MD POCT ORDERABLES - DEVICE Emelyn l Result [facility] [address] [place] [address], from Last 3 Months Additional Health Concerns Active Problems Noted Date Diagnosed Date Autogenerated Problem 11/15/2024 Insurance [facility] MEDICAID Care Teams [employer] Relationship Specialty Start Date End Date Rand Whalen MD [address] [facility] [address] [place] [address] PCP - General FAMILY PRACTICE 10/24/24
--- OUTSIDE RECORDS SUMMARY | 2024-11-16 08:04 | XMS_ITS | Referral Summary ---
Author Organization [facility] Address [address] [place] [address] Care Team Providers Care Staff Air [employer] Officer Name Role Phone Nereida Ramirez MD Unavailable [phone] No Crow NP Primary Care Provider [phone] Encounters Date Type Department Care Team Description 10/23/2024 12:12 PM CDT - 10/23/2024 11:59 PM CDT Hospital Encounter [facility] [address] [place] [address] Discharge Disposition: Discharge to home or self care 10/20/2024 Documentation [facility] Oncology [address] [place] [phone] DaveyAugust, Sepideh Medical Records Request ([facility]) 10/17/2024 Documentation [facility] Oncology [address] [place] [phone] Teresa Arellano RMA Appointment 10/13/2024 Documentation [facility] Oncology [address] [place] [phone] Teresa Arellano RMA Appointment 10/03/2024 Orders Only [facility] Oncology [address] [place] [phone] Teena Crowe Follicular 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) (Primary Dx) 09/29/2024 [facility] Post Discharge Follow up phone call [address] [place] [address] Maite Valdez RN 09/28/2024 11:17 PM CDT - 09/29/2024 3:28 AM CDT Emergency [facility] Emergency Department [address] [place] [address] Leland Nunez MD Dysuria (Primary Dx) Discharge Disposition: Discharge to home or self care 09/28/2024 10:45 AM CDT Lab [facility] - Lab Collection [address] [place] [address] Floor 6 [place] [address] Follicular lymphoma C82.98 09/28/2024 11:30 AM CDT Office Visit [facility] Oncology [address] [place] [address] 6 [place] [phone] Nereida Ramirez MD Follicular lymphoma C82.98 (Primary Dx); Follicular 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) 09/28/2024 10:30 AM CDT Lab [facility] Oncology Lab [address] [place] [phone] 09/26/2024 Telephone [facility] Oncology [address] [place] [phone] Teresa Arellano RMA 09/21/2024 10:37 PM CDT - 09/26/2024 1:53 PM CDT Hospital Encounter [address] [address] Tangela Mcarthur MD Huynh, Kiet T., MD Kheirkhahan, Nazanin, MD Nations, Matthew Austin, DO Pyelonephritis (Primary Dx) Discharge Disposition: Discharge to home or self care 09/05/2024 Documentation [facility] Oncology [address] [place] [phone] August, A Appointment 09/01/2024 Telephone [facility] Oncology [address] [place] [address] 6 [place] [phone] Teresa Arellano RMA 08/24/2024 Orders Only [facility] Scanning, Provider from Last 3 Months Allergies Active Allergy [...] daily Active UNABLE TO FIND Med Name: [facility] marijoni- 1 1/2 months 05/05/18 2.50 oz a [...] 09/22/2024 Abnormal findings on diagnostic imaging of sam t 01/27/2021 Follicular lymphoma C82.98 09/23/2017 CAD (coronary artery disease) 08/09/2014 Overview (10/12/2017): Overview: S/p cardiac cath at [facility] following Dr. Herman EF [...] drink = 0.6 oz pur e alcohol) [facility] Utilities Answer Date Recorded In the past 12 months has e electric, gas, oil, or water company [...] often do you attend chur ch or baptism services? Never 09/22/2024 Do you belong to any clubs o r organizations such as alevism groups, unions, fraternal or athletic groups, or [...] any time in the past 12 m [facility], were you homeless or living in a detention (including now)? Yes 09/22/2024 Personal Safety Answer Date Recorded Have you ever been in or are you currently in a harmful physical or emotional relationship or is someone making you feel afraid or unsafe? 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 There will be no report generated by a [facility] Radiologist. Narrative RAD_PACS_BJ - 10/23/2024 12:12 PM [...] tendency for uric acid stone formation. Source: [employer] Current Interpretive Data was last revised [...] MICROBIOLOGY - GENERA L ORDERABLES Final Result [facility] 1 [facility] [place] [address] * Sepsis Lactate w/ Reflex (09/28/2024 11:47 PM CDT) Sepsis Lactate 1.3 0.7 - 2.0 mmol/L Blood 09/28/2024 11:4 7 PM CDT 09/28/2024 11:51 PM CDT Bria LUGO LAB BLOOD ORDERABLES Emelyn l Result [facility] ([place]) 1 [facility] [place] [address] * eGFR (09/28/2024 11:47 PM CDT) eGFR [...] CDT us Bria LUGO LAB BLOOD ORDERABLES Eemlyn evans Result [facility] ([place]) 1 [facility] [place] [address] * (ABNORMAL) Differential, auto (09/28/2024 11:47 PM [...] Eosinophil pct 1.9 % [facility] ([place]) Comment: Interpretive Data Percent cell count reference [...] LAB BLOOD ORDERABLES Emelyn evans Result PATRICIA [facility] ([place]) 1 [facility] [place] [address] * (ABNORMAL) CBC with auto differential (09/28/2024 11:47 PM CDT) WBC 8.53 3.80 - 9.90 K/cumm Hgb 13.5 11.9 - 15.5 g/dL [facility] ([place]) Hct 41.6 35.6 - 45.5 % [facility] ([place]) Plt 288 150 - 400 K/cumm [facility] ([place]) MPV 8.9(L) 9.1 - 12.3 fL [facility] ([place]) RBC 4.88 3.90 - 5.20 M/cumm [facility] ([place]) MCV 85.2 81.3 - 96.4 fL [facility] ([place]) MCH 27.7 27.1 - 33.3 pg [facility] ([place] MCHC 32.5 32.3 - 35.7 g/dL [facility] ([place]) RDW CV 16.2(H) 11.1 - 14.9 % [facility] ([place]) RDW SD 50.2(H) 35.7 - 48.1 fL [facility] ([place]) NRBC abs 0.00 0.00 - 0.01 K/cumm [facility] ([place]) Blood 09/28/2024 11:4 7 PM CDT 09/28/2024 11:51 PM CDT Bria LUGO LAB BLOOD ORDERABLES Emelyn evans Result [facility] ([place]) 1 [facility] [place] [address] * (ABNORMAL) Comprehensive metabolic panel (09/28/2024 11:47 PM CDT) Sodium 137 135 - 145 mmol/L Potassium, pl 4.2 3.3 - 4.9 mmol/L [facility] ([place] Comment:Moderately Hemolyzed Specimen. Results may be affected. Chloride 97 97 - 110 mmol/L [facility] ([place] CO2 25 22 - 32 mmol/L [facility] ([place]) Anion gap 16(H) 2 - 15 mmol/L [facility] ([place] BUN 14 6 - 25 mg/dL [facility] ([place]) Creatinine 1.05 0.60 - 1.10 mg/dL [facility] ([place] Glucose 131 70 - 199 mg/dL [facility] ([place] Comment: Interpretive Data Fasting glucose [...] PA LAB BLOOD ORDERABLES Emelyn l Result [facility] ([place]) 1 [facility] [employer] [facility] [place] [address] * POCT glucose (09/28/2024 10:58 PM CDT) Glucose, POC 154 70 - 199 mg/dL Blood 09/28/2024 10:5 8 PM CDT 09/28/2024 10:58 PM CDT us Notinfile Unknown LAB POCT ORDERABLES - DEVICE F inal Result [facility] ([place]) 1 [facility] [employer] [facility] [place] [address] * (ABNORMAL) Urinalysis reflex to microscopic and culture Urine (09/28/2024 5:31 PM CDT) Color, ur Yellow Yellow Clarity, ur Turbid(A) Clear [facility] ([place]) Specific gravity, ur 1.014 1.003 - [...] tendency for uric acid stone formation. Source: [facility] Current Interpretive Data was last revised on 2017 Protein, ur ql Negative Negative [facility] ([place]) Glucose, ur ql 3+(A) Negative [facility] ([place]) Ketones, ur Negative Negative [facility] ([place]) Bilirubin, ur Negative Negative [facility] ([place]) Blood, ur 1+(A) Negative [facility] ([place]) Urobilinogen, ur <2.0 <2.0 mg/dL [facility] ([place] Nitrite, ur Negative Negative [facility] ([place]) Leukocyte esterase, ur 3+(A) Negative [facility] ([place]) UA reflex comment Reflex to microscopic UA will be performed. [facility] ([place]) Urine 09/28/2024 5:31 PM CDT 09/28/2024 5:39 PM CDT us Leland Nunez MD LAB MICROBIOLOGY - GENERAL OR DERABLES Final Result [facility] ([place]) 1 [facility] [place] [address] * (ABNORMAL) Urinalysis, microscopic only (09/28/2024 5:31 PM CDT) WBC, ur 11-20(A) 0 - 5 /HPF RBC, ur 6-10(A) 0 - 2 /HPF [facility] ([place]) Epithelial cells, squamous, ur 11-20(A) 0 - 5 /HPF [facility] ([place]) Bacteria, ur Trace(A) [facility] ([place]) Culture Reflex Comment Reflex to urine culture will be performed. PAT[facility]IA YOSELIN ([place]) Urine 09/28/2024 5:31 PM CDT 09/28/2024 5:39 PM CDT us Leland Nunez MD LAB URINE ORDERABLES Final Re sult Performing Organization Address [facility]/ZIP Co de Phone Number PAT[facility]IA [facility] ([place]) 1 [facility] [place] [address] * Urine culture Urine (09/28/2024 5:31 PM CDT) Report Final Report: Less than 100,000 colonies/mL (clinically insignificant growth based on current clinical standards) Comment:Testing performed by : [facility], 1 [place] [address] Organism (CLINICALLY INSIGNIFICANT GROWTH [facility]AI [facility] ([place]) Urine 09/28/2024 5:31 PM CDT 09/28/2024 8:14 PM CDT Narrative [facility] ([place] - 09/30/2024 12:42 AM CDT Urine culture reflexed based upon urinalysis results. Testing performed by [facility] Micro[facility] ([phone]) us Fco Corrigan MD LAB MICROBIOLOGY - GENERAL O RDERABLES Final Result Performing Organization Address [facility] [[email or web address]] Co de Phone Number [facility]IA [facility] ([place]) 1 [facility] [place] [address] * (ABNORMAL) eGFR (09/28/2024 10:40 AM CDT) [...] Stahl NP LAB BLOOD ORDERABLES Final Result PATRICIA [facility] One [facility] Department [place] [address] * Differential, auto (09/28/2024 10:40 AM CDT) Neutrophil abs 5.92 1.50 - 6.50 K/cumm Comment:Testing performed by : [facility], [address] [place], [place] [phone] Lymphocyte abs 1.87 0.80 - 3.30 K/cumm [facility] Comment:Testing performed by : [facility], [address] [place] [address] Monocyte abs 0.21 0.20 - 0.80 K/cumm PATRICIA DALY Comment:Testing performed by : [facility], [address] [place] [address] Eosinophil abs 0.11 0.00 - 0.50 K/cumm PATRICIA BJ Comment:Testing performed by : [facility], [address] [place] [address] Basophil abs 0.07 0.00 - 0.10 K/cumm [facility] BJ Comment:Testing performed by : [facility], [address] [place] [address] Neutrophil pct 72.4 % CERANNE DALY Comment: Interpretive Data Percent cell count reference ranges are not reported, since discordance with absolute values may lead to misinterpretation of CBC data. Current Interpretive Data was last revised on 2017. Testing performed by: [facility], [address] [place] [phone] Lymphocyte pct 22.8 % PATRICIA DALY Comment: Interpretive Data Percent cell count reference ranges are not reported, since discordance with absolute values may lead to misinterpretation of CBC data. Current Interpretive Data was last revised on 2017. Testing performed by: [facility], [address] [place] [phone] Monocyte pct 2.6 % PATRICIA DALY Comment: Interpretive Data Percent cell count reference ranges are not reported, since discordance with absolute values may lead to misinterpretation of CBC data. Current Interpretive Data was last revised on 2017. Testing performed by: [facility], [address] [place] [address] Eosinophil pct 1.4 % PATRICIA DALY Comment: Interpretive Data Percent cell count reference ranges are not reported, since discordance with absolute values may lead to misinterpretation of CBC data. Current Interpretive Data was last revised on 2017. Testing performed by: [facility], [address] [place] [phone] Basophil pct 0.8 % PATRICIA DALY Comment: Interpretive Data Percent cell count reference ranges are not reported, since discordance with absolute values may lead to misinterpretation of CBC data. Current Interpretive Data was last revised on 2017. Testing performed by: [facility], [address] [place] [phone] Blood 09/28/2024 10:4 0 AM CDT 09/28/2024 10:57 AM CDT us Inna Stahl SERVICE AIDE LAB BLOOD ORDERABLES Final Result [facility] Department [place] [address] * (ABNORMAL) CBC with auto differential (09/28/2024 10:40 AM CDT) WBC 8.18 3.80 - 9.90 K/cumm Comment:Testing performed by : [facility], [address] [place] [address] Hgb 14.0 11.9 - 15.5 g/dL [facility] BJ Comment:Testing performed by : [facility], [address] [place] [address] Hct 41.0 35.6 - 45.5 % [facility]J Comment:Testing performed by : [facility], [address] [place] [address] Plt 324 150 - 400 K/cumm [facility] BJ Comment:Testing performed by : [facility], [address] [place] [address] MPV 7.4 6.8 - 10.4 fL [facility]J Comment:Testing performed by : [facility], [address] [place] [address] RBC 5.01 3.90 - 5.20 M/cumm [facility] BJ Comment:Testing performed by : [facility], [address] [place] [address] MCV 81.7 81.3 - 96.4 fL [facility] BJ Comment:Testing performed by : [facility], [address] [place] [address] MCH 27.9 27.1 - 33.3 pg [facility]J Comment:Testing performed by : [facility], [address] [place] [address] MCHC 34.1 32.3 - 35.7 g/dL [facility] Comment:Testing performed by : [facility], [address] [place] [address] RDW CV 16.0(H) 11.1 - 14.9 % [facility] Comment:Testing performed by : [facility], [address] [place] [address] NRBC abs 0.00 0.00 - 0.01 K/cumm [facility] Comment:Testing performed by : [facility], [address] [place] [phone] Blood 09/28/2024 10:4 0 AM CDT 09/28/2024 10:57 AM CDT Inna Stahl NP LAB BLOOD ORDERABLES Final Result Performing Organization Address City/[facility]/ZIP Co de Phone Number [facility] Department [place] [address] * (ABNORMAL) Lactate dehydrogenase (LD) (09/28/2024 10:40 AM CDT) Pathologist [facility] Lactate dehydrogenase (LDH) 254(H) 100 - 250 Units/L Blood 09/28/2024 10:4 0 AM CDT 09/28/2024 10:59 AM CDT [facility] LAB BLOOD ORDERABLES Final Result Performing Organization Address [facility] de Phone Number [facility] [place] [address] * (ABNORMAL) Comprehensive metabolic panel (09/28/2024 10:40 AM CDT) Pathologist [facility] Sodium 142 135 - 145 mmol/L Potassium, pl 3.6 3.3 - 4.9 mmol/L [facility] Chloride 103 97 - 110 mmol/L [facility] CO2 28 22 - 32 mmol/L [facility] Anion gap 11 2 - 15 mmol/L [facility] BUN 17 6 - 25 mg/dL [facility] Creatinine 1.17(H) 0.60 - 1.10 mg/dL [facility] Glucose 83 70 - 199 mg/dL [facility] Comment: Interpretive Data Fasting glucose >/= 126 [...] Calcium 9.5 8.5 - 10.3 mg/dL [facility] Bilirubin, total 0.4 0.1 - 1.2 mg/dL [facility] Protein, pl 7.0 6.5 - 8.5 g/dL [facility] Albumin 3.5 3.5 - 5.0 g/dL [facility] Alk phos 192(H) 40 - 130 Units/L [facility] ALT 51(H) 7 - 45 Units/L [facility] AST 68(H) 10 - 45 Units/L [facility] Blood 09/28/2024 10:4 0 AM CDT 09/28/2024 10:59 AM CDT Inna Stahl SERVICE AIDE LAB BLOOD ORDERABLES Final Result PATRICIA DALY [facility] Department [place] [address] * POCT glucose (09/26/2024 11:22 AM CDT) Glucose, POC 111 70 - 199 mg/dL Blood 09/26/2024 11:2 2 AM CDT 09/26/2024 11:22 AM CDT Demetris Kapadia LAB POCT ORDERABLES - DEVICE Final Result PATRICIA [facility] 1 [facility] Department of Laboratories [place], [place] [id number] * POCT glucose (09/26/2024 7:43 AM CDT) Glucose, POC 182 70 - 199 mg/dL Blood 09/26/2024 7:43 AM CDT 09/26/2024 7:43 AM CDT Demetris Kapadia DO LAB POCT ORDERABLES - DEVICE Final Result [facility]IA [facility] [place]) 1 [facility] [employer] [facility] [place] [address] * eGFR (09/26/2024 5:27 AM CDT) eGFR [...] BLOOD ORDERABLES Emelyn l Result [facility] ([place]) 1 [facility] Department [place] [employer] [place] [address] * Magnesium (09/26/2024 5:27 AM CDT) Magnesium 1.8 1.4 - 2.5 mg/dL Blood 09/26/2024 5:27 AM CDT 09/26/2024 8:36 AM CDT Demetris Covington Steffi RAINES LAB BLOOD ORDERABLES F inal Result PTARICIA [facility] ([place]) 1 [facility] [place] [address] * (ABNORMAL) Basic metabolic panel (09/26/2024 5:27 AM CDT) Sodium 139 135 - 145 mmol/L Potassium, pl 3.0(C) 3.3 - 4.9 mmol/L [facility] ([place]) Comment:Critical Result call ed by [email or web address] at 2024-09-26 06:56:59. Result Read Back by [...] Emelyn l Result PATRICIA [facility] ([place]) 1 [facility] [place] [address] * POCT glucose (09/26/2024 2:39 AM CDT) Glucose, POC 132 70 - 199 mg/dL Blood 09/26/2024 2:39 AM CDT 09/26/2024 2:39 AM CDT us Palma Blount MD LAB POCT ORDERABLES - DEV ICE Final Result [facility]IA [facility] ([place]) 1 [place] [address] * POCT glucose (09/25/2024 8:09 PM CDT) Glucose, POC 113 70 - 199 mg/dL Blood 09/25/2024 8:09 PM CDT 09/25/2024 8:09 PM CDT us Palma Blount MD LAB POCT ORDERABLES - DEV ICE Final Result PAT[facility]IA [facility] ([place]) 1 [facility] [place] [address] * POCT glucose (09/25/2024 4:46 PM CDT) Glucose, POC 139 70 - 199 mg/dL Blood 09/25/2024 4:46 PM CDT 09/25/2024 4:46 PM CDT Palma Blount MD LAB POCT ORDERABLES - DEV ICE Final Result PAT[facility]IA [facility] ([place]) 1 [facility] [place] [address] * POCT glucose (09/25/2024 11:42 AM CDT) Glucose, POC 130 70 - 199 mg/dL Blood 09/25/2024 11:4 2 AM CDT 09/25/2024 11:42 AM CDT Palma Blount MD LAB POCT ORDERABLES - DEV ICE Final Result Performing Organization Address City/[facility]/ZIP Co de Phone Number PATRICIA [facility] ([place]) [address] [place] [address] [place] [address] * eGFR (09/25/2024 7:47 AM CDT) [facility] eGFR 81 >=60 mL/min/1. 73 m2 Comment: [...] Emelyn l Result PATRICIA [facility]ATT ([place]) 1 [facility] Department [place] [employer] [place] [address] * (ABNORMAL) CBC without differential (09/25/2024 7:47 AM CDT) [facility] WBC 7.49 3.80 - 9.90 K/cumm [...] MD LAB BLOOD ORDERABLES Emelyn evans Result [facility] ([place]) 1 [facility] [place] [address] * (ABNORMAL) Basic metabolic panel (09/25/2024 7:47 AM CDT) Pathologist [facility] Sodium 138 135 - 145 mmol/L Potassium, pl 3.1(L) 3.3 - 4.9 mmol/L [facility] ([place]) Chloride 99 97 - 110 mmol/L [facility] ([place]) CO2 24 22 - 32 mmol/L [facility] ([place] Anion gap 15 2 - 15 mmol/L [facility] ([place]) BUN 12 6 - 25 mg/dL [facility] ([place]) Creatinine 0.83 0.60 - 1.10 mg/dL [facility] ([place]) Glucose 166 70 - 199 mg/dL [facility]IA [facility] ([place]) Comment: Interpretive Data Fasting glucose >/= [...] Calcium 8.5 8.5 - 10.3 mg/dL [facility] ([place]) Blood 09/25/2024 7:47 AM CDT 09/25/2024 7:59 AM CDT Palma Blount MD LAB BLOOD ORDERABLES Emelyn l Result [facility]ICIA [facility] ([place]) 1 [facility] [employer] [facility] [place] [address] * POCT glucose (09/25/2024 7:44 AM CDT) Glucose, POC 136 70 - 199 mg/dL Blood 09/25/2024 7:44 AM CDT 09/25/2024 7:44 AM CDT Palma Blount MD LAB POCT ORDERABLES - DEV ICE Final Result [facility] ([place] 1 [facility] [place] [address] * POCT glucose (09/25/2024 2:57 AM CDT) Glucose, POC 121 70 - 199 mg/dL Blood 09/25/2024 2:57 AM CDT 09/25/2024 2:57 AM CDT us Palma Blount MD LAB POCT ORDERABLES - DEV ICE Final Result [facility]IA [facility] ([place]) 1 [facility] [place] [address] * POCT glucose (09/24/2024 7:27 PM CDT) Glucose, POC 130 70 - 199 mg/dL Blood 09/24/2024 7:27 PM CDT 09/24/2024 7:27 PM CDT us Palma Blount MD LAB POCT ORDERABLES - DEV ICE Final Result Performing Organization Address [facility] [[email or web address]] Co de Phone Number PATRICIA [facility] ([place]) 1 [facility] [place] [address] * POCT glucose (09/24/2024 4:30 PM CDT) Glucose, POC 126 70 - 199 mg/dL Blood 09/24/2024 4:30 PM CDT 09/24/2024 4:30 PM CDT us Palma Blount MD LAB POCT ORDERABLES - DEV ICE Final Result Performing Organization Address City/[facility]/ZIP Co de Phone Number PATR[facility]IA [facility] ([place]) 1 [facility] [place] [address] * POCT glucose (09/24/2024 11:14 AM CDT) Glucose, POC 156 70 - 199 mg/dL Blood 09/24/2024 11:1 4 AM CDT 09/24/2024 11:14 AM CDT us Palma Blount MD LAB POCT ORDERABLES - DEV ICE Final Result PAT[facility]IA [facility] ([place]) 1 [facility] [place] [address] * POCT glucose (09/24/2024 7:41 AM CDT) Glucose, POC 148 70 - 199 mg/dL Blood 09/24/2024 7:41 AM CDT 09/24/2024 7:41 AM CDT Palma Blount MD LAB POCT ORDERABLES - DEV ICE Final Result Performing Organization Address City/[facility]/ZIP Co de Phone Number [facility]IA [facility] ([place]) 1 [facility] [place] [address] * eGFR (09/24/2024 7:28 AM CDT) eGFR [...] BLOOD ORDERABLES Emelyn l Result PATRICIA [facility] ([place]) [address] [place] [address] * (ABNORMAL) CBC without differential (09/24/2024 7:28 AM CDT) [facility] WBC 7.29 3.80 - 9.90 K/cumm Hgb [...] RDW SD 47.2 35.7 - 48.1 fL [facility] ([place] NRBC abs 0.00 0.00 - 0.01 K[facility]cumm [facility] ([place]) Blood 09/24/2024 7:28 AM CDT 09/24/2024 8:12 AM CDT us Palma Blount MD LAB BLOOD ORDERABLES Emelyn evans Result [facility] ([place]) 1 [facility] [place] [address] * (ABNORMAL) Basic metabolic panel (09/24/2024 7:28 AM CDT) [facility] Sodium 136 135 - 145 mmol/L Potassium, pl 3.6 3.3 - 4.9 mmol/L [facility] ([place]) Chloride 98 97 - 110 mmol/L [facility] ([place]) CO2 23 22 - 32 mmol/L [facility] ([place]) Anion gap 15 2 - 15 mmol/L [facility] ([place]) BUN 14 6 - 25 mg/dL [facility] ([place]) Creatinine 0.93 0.60 - 1.10 mg/dL [facility] ([place]) Glucose 138 70 - 199 mg/dL [facility] ([place]) Comment: Interpretive Data Fasting glucose [...] 2022. Calcium 8.4(L) 8.5 - 10.3 mg/dL [facility] ([place]) Blood 09/24/2024 7:28 AM CDT 09/24/2024 8:12 AM CDT Palma Blount MD LAB BLOOD ORDERABLES Emelyn l Result [facility] ([place]) 1 [facility] [employer] [place] [address] * POCT glucose (09/24/2024 2:59 AM CDT) Glucose, POC 134 70 - 199 mg/dL Blood 09/24/2024 2:59 AM CDT 09/24/2024 2:59 AM CDT Palma Blount MD LAB POCT ORDERABLES - DEV ICE Final Result Performing Organization Address City/[facility]/ZIP Co de Phone Number [facility] ([place]) 1 [facility] [place] [employer] [place] [address] * POCT glucose (09/23/2024 7:56 PM CDT) Glucose, POC 142 70 - 199 mg/dL Blood 09/23/2024 7:56 PM CDT 09/23/2024 7:56 PM CDT Palma Blount MD LAB POCT ORDERABLES - DEV ICE Final Result [facility]IA [facility] ([place]) 1 [facility] [place] [address] * POCT glucose (09/23/2024 4:47 PM CDT) Glucose, POC 147 70 - 199 mg/dL Blood 09/23/2024 4:47 PM CDT 09/23/2024 4:47 PM CDT Palma Blount MD LAB POCT ORDERABLES - DEV ICE Final Result Performing Organization Address City/[facility]/ZIP Co de Phone Number PATRICIA [facility] ([place]) [address] [place] [address] [place] [address] * Potassium (09/23/2024 4:05 PM CDT) [facility] Potassium, pl 3.9 3.3 - 4.9 mmol/L Blood 09/23/2024 4:05 PM CDT 09/23/2024 4:18 PM CDT Palma Blount MD LAB BLOOD ORDERABLES Emelyn l Result [facility] ([place]) 1 [facility] [place] [address] * POCT glucose (09/23/2024 11:46 AM CDT) Glucose, POC 128 70 - 199 mg/dL Blood 09/23/2024 11:4 6 AM CDT 09/23/2024 11:46 AM CDT Palma Blount MD LAB POCT ORDERABLES - DEV ICE Final Result PATRICIA [facility] ([place]) [address] [place] [address] [place] [address] * POCT glucose (09/23/2024 7:57 AM CDT) Glucose, POC 137 70 - 199 mg/dL Blood 09/23/2024 7:57 AM CDT 09/23/2024 7:57 AM CDT Palma Blount MD LAB POCT ORDERABLES - DEV ICE Final Result Performing Organization Address City/[facility] [[email or web address]] Co de Phone Number PATRICIA Burk[place]) 1 [facility] [place] [address] * (ABNORMAL) eGFR (09/23/2024 5:22 AM CDT) [...] BLOOD ORDERABLES Emelyn evans Result PATRICIA [facility] ([place]) 1 [facility] [place] [address] * (ABNORMAL) Differential, auto (09/23/2024 5:22 AM CDT) Neutrophil abs 8.33(H) 1.50 - 6.50 K/cumm Imm gran abs 0.06 0.00 - 0.10 K/cumm [facility] ([place]) Lymphocyte abs 0.67(L) 0.80 - 3.30 K/cumm [facility] ([place]) Monocyte abs 0.69 0.20 - 0.80 K/cumm [facility] ([place]) Eosinophil abs 0.07 0.00 - 0.50 K/cumm [facility] ([place]) Basophil abs 0.03 0.00 - 0.10 K/cumm [facility] ([place]) Neutrophil pct 84.6 % [facility] ([place]) Comment: Interpretive Data Percent cell count reference ranges are not reported, since discordance with absolute values may lead to misinterpretation of CBC data. Current Interpretive Data was last revised on 2017. Imm gran pct 0.6 % [facility] ([place]) Comment: Interpretive Data Percent cell count reference ranges are not reported, since discordance with absolute values may lead to misinterpretation of CBC data. Current Interpretive Data was last revised on 2017. Lymphocyte pct 6.8 % [facility] ([place]) Comment: Interpretive Data Percent cell count reference ranges are not reported, since discordance with absolute values may lead to misinterpretation of CBC data. Current Interpretive Data was last revised on 2017. Monocyte pct 7.0 % [facility] ([place]) Comment: Interpretive Data Percent cell count reference ranges are not reported, since discordance with absolute values may lead to misinterpretation of CBC data. Current Interpretive Data was last revised on 2017. Eosinophil pct 0.7 % [facility] ([place]) Comment: Interpretive Data Percent cell count reference [...] Emelyn evans Result [facility] ([place]) 1 [facility] [place] [address] * (ABNORMAL) CBC with auto differential (09/23/2024 [...] Emelyn evans Result PATRICIA [facility] ([place]) 1 [facility] [place] [address] * (ABNORMAL) Comprehensive metabolic panel (09/23/2024 5:22 AM CDT) Sodium 135 135 - 145 mmol/L Potassium, pl 2.7(C) 3.3 - 4.9 mmol/L [facility] ([place]) Comment:Critical Result call ed by [email or web address] at 2024-09-23 07:13:16. Result Read Back by [...] Alk phos 158(H) 40 - 130 Units/L [facility] ([place]) ALT 37 7 - 45 Units/L [facility] ([place]) AST 43 10 - 45 Units/L [facility] ([place]) Comment:Slightly Hemolyzed S pecimen Blood 09/23/2024 5:22 AM CDT 09/23/2024 6:21 AM CDT us Tangela Mcarthur MD LAB BLOOD ORDERABLES Emelyn l Result PAT[facility]IA [facility] ([place]) 1 [facility] [employer] [place] [address] * POCT glucose (09/23/2024 1:59 AM CDT) Glucose, POC 166 70 - 199 mg/dL Blood 09/23/2024 1:59 AM CDT 09/23/2024 1:59 AM CDT us Palma Blount MD LAB POCT ORDERABLES - DEV ICE Final Result Performing Organization Address City/[facility]/ZIP Co de Phone Number PATRICIA [facility] ([place]) 1 [facility] [place] [place] [address] * POCT glucose (09/22/2024 7:50 PM CDT) Glucose, POC 155 70 - 199 mg/dL Blood 09/22/2024 7:50 PM CDT 09/22/2024 7:50 PM CDT Palma Blount MD LAB POCT ORDERABLES - DEV ICE Final Result Performing Organization Address City/[facility]/ZIP Co de Phone Number PATRICIA [facility] ([place]) 1 [facility] [place] [address] * Blood culture Blood (09/22/2024 6:29 PM CDT) Report Final Report: No growth Comment:Testing performed by : [facility], 1 [place] [address] Blood 09/22/2024 6:29 PM CDT 09/22/2024 10:02 [...] performance characteristics have been verified by the [facility] Microbiology Laboratory. For questions about this culture, contact the Microbiology Laboratory at [phone]. Interpretive data was last revised on 24. Palma Blount MD LAB MICROBIOLOGY - GENERA L ORDERABLES Final Result PATRICIA [facility] ([place]) 1 [facility] [place] [address] * Blood culture Blood (09/22/2024 6:29 PM CDT) Report Final Report: No growth Comment:Testing performed by : [facility], 1 [place]., [address] Blood 09/22/2024 6:29 PM CDT 09/22/2024 10:01 [...] performance characteristics have been verified by the [facility]biology [facility]. For questions about this culture, contact the Microbiology Laboratory at [phone]. Interpretive data was last revised on 24. Palma Blount MD LAB MICROBIOLOGY - GENERA L ORDERABLES Final Result Performing Organization Address City/[facility]/ZIP Co de Phone Number PATRICIA [facility] ([place]) 1 [facility] [employer] [place] [address] * POCT glucose (09/22/2024 3:31 PM CDT) [facility] Signature Glucose, POC 132 70 - 199 mg/dL Blood 09/22/2024 3:31 PM CDT 09/22/2024 3:31 PM CDT Palma Blount MD LAB POCT ORDERABLES - DEV ICE Final Result Performing Organization Address City/[facility]/ZIP Co de Phone Number PATRICIA [facility] ([place]) 1 [facility] Department [place] [employer] [place] [address] * (ABNORMAL) POCT glucose (09/22/2024 12:05 PM CDT) Glucose, POC 256(H) 70 - 199 mg/dL Blood 09/22/2024 12:0 5 PM CDT 09/22/2024 12:05 PM CDT Palma Blount MD LAB POCT ORDERABLES - DEV ICE Final Result Performing Organization Address City/[facility]/ZIP Co de Phone Number PATRICIA [facility] ([place]) 1 [facility] [place] [place] [address] * (ABNORMAL) eGFR (09/22/2024 10:43 AM CDT) [...] Emelyn l Result PATRICIA [facility] ([place]) 1 [facility] [place] [place] [address] * (ABNORMAL) CBC without differential (09/22/2024 10:43 [...] Emelyn l Result [facility] ([place]) 1 [facility] [place] [address] * Magnesium (09/22/2024 10:43 AM CDT) Magnesium 2.4 1.4 - 2.5 mg/dL Blood 09/22/2024 10:4 3 AM CDT 09/22/2024 10:55 AM CDT Palma Blount MD LAB BLOOD ORDERABLES Emelyn l Result Performing Organization Address [facility] [[email or web address]] Co de Phone Number [facility] ([place]) 1 [facility] [place] [address] * (ABNORMAL) Hemoglobin A1c (09/22/2024 10:43 AM CDT) Hgb A1C 7.4(H) 4.0 - 5.6 % Estimated Average Glucose 166 mg/dL [facility] ([place]) Comment: The ADA recommends reporting an estimated Average Glucose (eAG) with all Hemoglobin A1c results using the equation derived from a study of 507 normal and diabetic adults. Minority populations were underrepresented and children were not included. (Diabetes Care 31:5889-9317, 2008). The eAG is not equivalent to a fasting glucose. Blood 09/22/2024 10:4 3 AM CDT 09/22/2024 11:41 AM CDT Palma Blount MD LAB BLOOD ORDERABLES Emelyn l Result Performing Organization Address [facility] [[email or web address]] Co de Phone Number PATRICIA [facility] ([place]) 1 [facility] [place] [address] * (ABNORMAL) Basic metabolic panel (09/22/2024 10:43 AM CDT) Sodium 131(L) 135 - 145 mmol/L Potassium, pl 3.6 3.3 - 4.9 mmol/L [facility] ([place]) Chloride 93(L) 97 - 110 mmol/L [facility] ([place]) CO2 22 22 - 32 mmol/L [facility] ([place]) Anion gap 16(H) 2 - 15 mmol/L [facility] ([place]) BUN 34(H) 6 - 25 mg/dL [facility] ([place]) Creatinine 1.54(H) 0.60 - 1.10 mg/dL [facility] ([place]) Glucose 267(H) 70 - 199 mg/dL [facility] ([place]) Comment: Interpretive Data Fasting glucose [...] Emelyn l Result PATRICIA [facility] ([place]) 1 [facility] [employer] [place] [address] * POCT glucose (09/22/2024 8:04 AM CDT) Glucose, POC 171 70 - 199 mg/dL Blood 09/22/2024 8:04 AM CDT 09/22/2024 8:04 AM CDT Palma Blount MD LAB POCT ORDERABLES - DEV ICE Final Result [facility]RICIA [facility] ([place]) 1 [facility] [place] [address] * (ABNORMAL) Blood culture Blood Blood (09/22/2024 2:52 AM CDT) Direct Specimen Exam Stain: Gram Negative Bacilli Time to culture positivity (aerobic media): 9.0 hours Comment:Testing performed by : [facility], 1 [facility], [place]., [address] Report Final Report: Escherichia coli For susceptibility results, refer to accession number [id number] on the blood culture from 09/22/2024 (.) [facility]IA [facility] ([place]) Comment:Testing performed by : [facility], 1 [facility], [place]., [address] Organism ESCHERICHIA COLI LIZZ ANNE YOSELIN ([place]) Blood (Blood) 09/22/2024 2:5 2 AM [...] performance characteristics have been verified by the [facility] Microbiology Laboratory. For questions about this culture, contact the Microbiology Laboratory at [phone]. Interpretive data was last revised on 24. Tangela Mcarthur MD LAB MICROBIOLOGY - GENERA L ORDERABLES Final Result PATRICIA [facility] ([place]) 1 [facility] [place] [address] * (ABNORMAL) Troponin T high-sensitivity 6-hour (09/22/2024 [...] Emelyn evans Result PATRICIA [facility] ([place]) 1 [facility] [place] [address] * (ABNORMAL) Blood culture Blood Blood (09/22/2024 2:49 AM CDT) Direct Specimen Exam Molecular Analysis: Presumptive Escherichia coli detected by chase ePlex BCID-GN panel. This test does not exclude the possibility of a mixed bacterial infection. Notification of: Presumptive Escherichia coli called to and read back by: Mirta García MT [phone] on 09/22/2024 17:32:03 by: Esperanza Sands MT Test result called to and read back by Marbella Guzman RN MCU on 09/22/2024 17:56:28 by Mirta García. Comment:Testing performed by : [facility], [address] [place] [address]., [id number] Direct Specimen Exam Stain: Gram Negative Bacilli Time to culture positivity (anaerobic media): 8.1 hours Time to culture positivity (aerobic media): 9.1 hours Notification of: Gram Negative Bacilli called to and read back by: Danae García.MT [phone] on 09/22/2024 15:22:29 by: Gayatri Alexander.MLS Test result called to and read back by Marbella Guzman RN, MCU on 09/22/2024 16:15:54 by Mirta García. PAT[facility]IA [facility] ([place]) Comment:Testing performed by : [facility], [address] [place] [address]., [id number] Report Final Report: Escherichia coli (.) LI[facility]NE [facility] ([place]) Comment:Testing performed by : [facility], 1 [facility], [place]., [address] Organism ESCHERICHIA COLI [facility] ([place]) Blood (Blood) 09/22/2024 2:4 9 [...] performance characteristics have been verified by the [facility]biology [facility]. For questions about this culture, contact the Microbiology Laboratory at [phone]. Interpretive data was last revised on 24. [...] ORDERABLES Final Result PATRICIA [facility] ([place]) 1 [facility] [place] [address] * Sepsis Lactate w/ Reflex (09/22/2024 1:53 AM CDT) Sepsis Lactate 1.3 0.7 - 2.0 mmol/L Blood 09/22/2024 1:53 AM CDT 09/22/2024 1:58 AM CDT Tangela Mcarthur MD LAB BLOOD ORDERABLES Emelyn l Result PATRICIA W[facility] [place]) 1 [facility] Department [place] [employer] [place] [address] * CT Abdomen Pelvis WO Contrast (09/22/2024 [...] Dandre Kang M.D. KH: ARUN Report ID: [id number] Reading Location: [id number] Procedure Note Dandre Knag MD - 09/22/2024 EXAM DESCRIPTION: CT ABDOMEN [...] Dandre Kang M.D. KH: ARUN Report ID: [id number] Reading Location: [place] [address] Tangela Mcarthur MD IMG CT PROCEDURES Final [...] tendency for uric acid stone formation. Source: [place] myDocket Current Interpretive Data was last revised on [...] ORDERABLES Final Result PATRICIA [facility] ([place]) 1 [facility] [place] [address] * (ABNORMAL) Urinalysis, microscopic only (09/21/2024 11:42 [...] ORDERABLES Final Re sult PATRICIA [facility] ([place]) [address] [place] [address] [place] [address] * (ABNORMAL) Urine culture Urine (09/21/2024 11:42 PM CDT) Report Final Report: Greater than or equal to 100,000 colonies/mL of Escherichia coli Greater than or equal to 100,000 colonies/mL of Escherichia coli #2 (.) Comment:Testing performed by : [facility], 1 [facility], [place]., [address] Organism ESCHERICHIA COLI [facility] ([place]) Organism ESCHERICHIA COLI [facility] ([place]) Urine 09/21/2024 11:4 2 PM CDT 09/22/2024 3:36 AM CDT Narrative [facility] ([place]) - 09/24/2024 10:10 AM CDT Urine culture reflexed based upon urinalysis results. Testing performed by [facility]biology [facility] ([phone]) Organism Antibiotic Method Susceptibility Escherichia coli Ampicillin [...] - GENERAL OR DERABLES Final Result [facility] ([place]) 1 [facility] [place] [address] * (ABNORMAL) Troponin T high-sensitivity 2-hour (09/21/2024 [...] ORDERABLES Emelyn l Result Performing Organization Address City/[facility]/ZIP Co de Phone Number PATRICIA [facility] ([place]) 1 [facility] [place] [place] [address] * (ABNORMAL) Sepsis Lactate w/ Reflex (09/21/2024 11:09 PM CDT) Sepsis Lactate 3.9(H) 0.7 - 2.0 mmol/L Blood 09/21/2024 11:0 9 PM CDT 09/21/2024 11:15 PM CDT us Tangela Mcarthur MD LAB BLOOD ORDERABLES Emelyn l Result Performing Organization Address [facility] [[email or web address]] Co de Phone Number PATRICIA [facility] ([place]) 1 [facility] [place] [place] [address] * ECG 12 lead (09/21/2024 11:08 PM CDT) 09/21/2024 11:0 8 PM CDT Narrative Send Word [employer] - 09/22/2024 9:30 AM CDT Vent Rate: 101 bpm RR Interval: 594 msec [place] Interval: 163 msec QRS Duration: 94 msec QT Interval: 278 msec QTC Interval: 336 msec P-R-T [place]: 34 - -22 - 47 degrees IMPRESSION: [...] ORDERABLES Final Res ult Performing Organization Address City/[facility] [[email or web address]] Co de Phone Number [facility]str [facility] * CT Head WO Contrast (09/21/2024 9:19 [...] Manuel Haro M.D. AG: ALEX Report ID: [id number] Reading Location: [id number] Procedure Note Manuel Haro MD - 09/21/2024 [...] Manuel Haro M.D. AG: ALEX Report ID: [id number] Reading Location: [id number] [facility]ED[facility] Final Result * XR Kub [...] Manuel Haro M.D. AG: ALEX Report ID: [id number] Reading Location: [id number] Procedure Note Manuel Haro MD - 09/21/2024 [...] Manuel Haro M.D. AG: ALEX Report ID: [id number] Reading Location: [id number] Tangela Mcarthur MD IMG XR PROCEDURES Final [...] Manuel Haro M.D. AG: ALEX Report ID: [id number] Reading Location: [id number] Procedure Note Manuel Haro MD - 09/21/2024 [...] Manuel Haro M.D. AG: AG Report ID: [id number] Reading Location: [id number] us Leland Nunez MD IMG XR PROCEDURES Final Resul t * (ABNORMAL) POCT glucose (09/21/2024 8:45 PM CDT) Pathologist [facility] Glucose, POC 293(H) 70 - 199 mg/dL Blood 09/21/2024 8:45 PM CDT 09/21/2024 8:45 PM CDT us Notinfile Unknown LAB POCT ORDERABLES - DEVICE F inal Result Performing Organization Address [facility] [[email or web address]] Co de Phone Number [facility] ([place]) [address] [place] [address] [place] [address] * (ABNORMAL) Troponin T high-sensitivity series (baseline, 2hr, 4hr, 6hr) (09/21/2024 8:35 PM CDT) [facility] Trop T hs 19(H) <=14 ng/L Comment: Interpretive Data For further hscTnT resources including the diagnostic algorithm and an aid in interpretation, copy and paste this link: https://nrl.testcatalog.org/show/hsTrop Current Interpretive Data last revised 2020. Blood 09/21/2024 8:35 PM CDT 09/21/2024 10:59 PM CDT us Tangela Mcarthur MD LAB BLOOD ORDERABLES Emelyn l Result [facility] ([place]) 1 [facility] [place] [address] * (ABNORMAL) eGFR (09/21/2024 8:35 PM CDT) [facility] eGFR 32(L) >=60 mL/min/1. 73 m2 Comment: [...] MD LAB BLOOD ORDERABLES Emelyn l Result [facility] ([place]) 1 [facility] Department of Laboratories [place], [place] [address] * (ABNORMAL) Differential, auto (09/21/2024 8:35 PM [...] revised on 2017. Monocyte pct 2.7 % [facility] ([place]) Comment: Interpretive Data [...] revised on 2017. Basophil pct 0.4 % [facility] ([place]) Comment: Interpretive Data Percent cell count reference ranges are not reported, since discordance with absolute values may lead to misinterpretation of CBC data. Current Interpretive Data was last revised on 2017. Blood 09/21/2024 8:35 PM CDT 09/21/2024 8:59 PM CDT us Tangela Mcarthur MD LAB BLOOD ORDERABLES Emelyn l Result PATRICIA W[facility]ATT ([place]) 1 [facility] Department of Laboratories [place], [place] [address] * (ABNORMAL) CBC with auto differential (09/21/2024 8:35 PM CDT) WBC 14.69(H) 3.80 - 9.90 K/cumm Hgb 16.3(H) 11.9 - 15.5 g/dL PATRICIA [facility] ([place]) Hct 48.2(H) 35.6 - 45.5 % [...] RDW SD 43.6 35.7 - 48.1 fL [facility] ([place]) NRBC abs 0.00 0.00 - 0.01 K/cumm [facility] ([place]) Blood 09/21/2024 8:35 PM CDT 09/21/2024 8:59 PM CDT Tangela Mcarthur MD LAB BLOOD ORDERABLES Emelyn l Result Performing Organization Address City/[facility] [[email or web address]] Co de Phone Number PATRICIA WYATT ([place]) 1 [facility] [place] [address] * Lipase (09/21/2024 8:35 PM CDT) Pathologist [facility] Lipase 25 10 - 99 Units/L Blood 09/21/2024 8:35 PM CDT 09/21/2024 9:18 PM CDT Tangela Mcarthur MD LAB BLOOD ORDERABLES Emelyn l Result PATRICIA WYATT ([place]) 1 [facility] [place] [address] * (ABNORMAL) Comprehensive metabolic panel (09/21/2024 8:35 PM CDT) Sodium 129(L) 135 - 145 mmol/L Potassium, pl 2.5(C) 3.3 - 4.9 mmol/L [facility] ([place]) Comment:Critical Result call ed by [email or web address] at 2024-09-21 22:02:23. Result Read Back by [...] BLOOD ORDERABLES Emelyn l Result [facility] ([place]) 1 [facility] [place] [address] * SCAN - RADIOLOGY/IMAGING (08/24/2024) Anatomical Region Laterality Modality Other us Provider Scanning Edited Result - Final * Hepatitis C antibody (05/13/2017 4:52 PM LAWN CARE TECHNICIAN) Hep C Ab Nonreactive Nonreactive [facility] Comment: Interpretive Data Positive and greyzone results should be confirmed by a molecular method. If positive or greyzone, a second separately collected sample should be submitted for Hepatitis C Virus RNA. Detection and Quantitation by Real-Time Reverse Fabric Inspector-PCR.Current Interpretive data was last revised on 2016. Blood specimen (specimen) 05/13/2017 4:52 PM LAWN CARE TECHNICIAN 05/13/2017 5:18 PM LAWN CARE TECHNICIAN Narrative PATRICIA [facility] - 05/14/2017 9:38 AM LAWN CARE TECHNICIAN Nereida Ramirez MD LAB MICROBIOLOGY - GENERAL ORDERABLES Edited Result - Final Performing Organization Address City/[facility]/ZIP Co de Phone Number PATRICIA DALY [facility] Department [place] [address] from Last 3 Months or Most Recently Relevant to Health Maintenance Insurance [facility] MEDIC[facility] [employer] Address[facility] [address] [place] [address] [facility] IDPA [facility] MEDICARE ADVANTAGE [facility] Address: [address] [address] [place] [address] Advance Directives For more information, please contact: [phone] * Full Code (Latest Code Status on File) Date Activated Date Inactivated Comments 09/22/2024 2:44 PM 09/26/2024 5:53 PM * Full Code Date Activated Date Inactivated Comments 11/15/2019 2:35 PM 11/15/2019 7:49 PM Care Teams Staff Air Defense Officer Relationship Specialty Start Date End Date No Crow NP [address] [place] [address] PCP - General Family Medicine 09/21/24 Nereida Ramirez MD Medical Oncologist/Puncher Medical Oncology 06/13/20
--- OUTSIDE RECORDS SUMMARY | 2024-11-16 08:04 | XMS_ITS | Encounter Summary ---
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 Gender Identity Not on file Sexual Orientation Not on file documented as of this encounter Plan of Treatment Not on file documented as of this encounter Procedures Procedure Name Priority Date/Time Associated Diagnosis Comments SCAN - RADIOLOGY/IMAGING 08/24/2024 documented in this encounter Results * SCAN - RADIOLOGY/IMAGING (08/24/2024) Anatomical Region Laterality Modality Other us Provider Scanning Edited Result - Final documented in this encounter Visit Diagnoses Not on filedocumented in this encounter Care Teams Photogrammetric Stereo Compiler Relationship Specialty Start Date End Date Rand Whalen MD [address] [facility] [address] [address] PCP - General Family Practice 03/27/24 09/20/24 No Crow NP [address] [place] [address] PCP - General Family Medicine 09/21/24 Nereida Ramirez MD Medical Oncologist/Natural Gas Treating Unit Operator Medical Oncology 06/13/20 documented as of this encounter
--- OUTSIDE RECORDS SUMMARY | 2024-11-16 08:04 | XMS_ITS ---
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 Herman EF [...]
[2024-12-10 15:57] VITALS: BMI 33.6
--- NOTE | 2024-12-10 15:57 | P.SLEEP_ITS ---
Sleep Study Date of Study: 11/16/24 Ordering Provider: Rand Whalen MD Interpreting Physician: Marquita Andrade DO Sleep Study Type: Polysomnogram Height: 1.6 m Weight: 86.183 kg Body Mass Index: 33.6 Neck Circumference (inches): 14.5 [place]: 3 Reason for Sleep Study Previously diagnosed with sleep apnea but is not compliant with CPAP therapy. Sleep History The patient is a 59-year-old female who had a sleep study ordered by her primary care physician for evaluation of sleep apnea. The patient was previously diagnosed with sleep apnea but is not compliant with CPAP therapy. She denies awakening from sleep short of breath. She rarely awakens at night with heartburn, belching, or cough. She snores loudly enough that others complain. She denies grinding her teeth during sleep. She is constantly awakened by pain during the night. She wakes up feeling stiff in the morning. She wakes up with sore or achy muscles. She wakes up with pain in the neck, spine, and other joints. She goes to bed at 10 p.m. every night. It takes her 5 minutes or less to fall asleep. She wakes up once throughout the night to urinate and is able to fall back asleep immediately. She wakes up at 6:30 a.m. every morning. She gets 6 to 7 hours of sleep per night. She does not stay in bed after waking up in the morning. She currently lives with her friends as she is homeless. She denies consuming any caffeinated beverages within 2 hours of bedtime. She denies engaging in physical exercise before bedtime. She denies reading and watching television before falling asleep. She denies taking naps in the afternoon or the evening. She consumes 1 to 2 caffeinated beverages per day. She consumes 1 alcoholic beverage per day. She quit smoking cigarettes in 1976. She uses medical marijuana for pain control. 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 Environmental allergies Chronic low back pain Essential (primary) hypertension GERD without esophagitis Bipolar 1 disorder Fibromyalgia Patient's sister states patient does not have fibromyalgia Missed x 3 IBS (irritable colon syndrome) Multiple sclerosis Patient's sister states patient does not have MS Lupus Patient's sister states patient does not have Lupus Seizure Cancer Follicular Lymphoma Back pain Asthma Anxiety Surgical History Surgical History H/O colonoscopy Jan 2023 History of dilation and curettage History of hysterectomy, supracervical Hx of appendectomy Family History Family History Father Blood clot in vein Alcoholism Carotid artery disease Cerebrovascular accident Other ADD (attention deficit disorder) Family history of malignant neoplasm of breast in first degree relative Mother Anxiety Sibling Anxiety Arthritis Asthma COPD (chronic obstructive pulmonary disease) Depression Sibling Anxiety Depression Sibling Anxiety Depression Sibling Anxiety Depression Grandparent Arthritis Social History Social History Social History: 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 She uses medical marijuana with her PCP Caffeine-daily Smoking packs per day: 2 Smoking cigarettes per day: 40.0 Years smoked: 33 Smoking pack-years: 66.00 Smoking status: Former smoker Tobacco type: cigarettes Second hand tobacco smoke exposure: No Smoking end date: 05/03/13 Additional smoking assessment comments: smokes seldom at current date Alcohol intake: never Alcohol use details: rare use Substance use: current Substance use type: marijuana Other substance usage details: medical marijuana card Do You Feel Safe in your Home?: Yes Lack of Transportation: No Lack of Food: Sometimes True Current Housing: I Have Housing Concerned About Future Housing: YES Difficulty Paying Gas/Electric Bills: No Difficulty Paying for Meds: No Currently Unemployed: No Education: High School Diploma/GED Difficulty w/ Childcare or Family Care: No Living arrangements: with friend(s) Occupation/Education: other Additional occupation/education comments: disabled Gender identity (if verbalized by the patient): Female Spiritual care concerns: No Medications Home Medications ?Medication ?Instructions ?Recorded ?Confirmed ?Type gabapentin 300 mg capsule 300 mg PO TID #90 caps 12/25/19 11/08/24 Rx lamotrigine 100 mg tablet 100 mg PO DAILY 09/09/21 11/08/24 History quetiapine 300 mg tablet 600 mg PO QHS 09/11/21 11/08/24 History vilazodone 40 mg tablet (Viibryd) 40 mg PO QAM 09/11/21 11/08/24 History blood-glucose sensor (FreeStyle #6 ea 07/08/23 11/08/24 Rx Kadeem 3 Sensor device) blood-glucose,therapeutic massage technician,cont #1 ea 07/08/23 11/08/24 Rx (FreeStyle Kadeem 3 [place]) dicyclomine 20 mg tablet See Rx Instructions .Route 07/31/24 11/08/24 Rx .COMPLEX #360 tabs empagliflozin 25 mg tablet 25 mg PO DAILY #90 tabs 08/03/24 11/08/24 Rx (Jardiance) albuterol sulfate 2.5 mg/3 mL 2.5 mg (3 mL) inhalation Q4-6H PRN 08/22/24 11/08/24 Rx (0.083 %) solution for nebulization shortness of breath or wheezing #180 mL albuterol sulfate 90 mcg/actuation 1 inh inhalation Q4H PRN shortness 08/22/24 11/08/24 Rx aerosol inhaler (Ventolin HFA) of breath or wheezing #8.5 grams nystatin 100,000 unit/gram topical 1 applic topical BID 14 days #60 08/22/24 11/08/24 Rx powder grams atorvastatin 80 mg tablet 80 mg PO QHS 10/05/24 11/08/24 History pantoprazole 40 mg tablet,delayed 40 mg PO DAILY 10/05/24 11/08/24 History release propranolol 10 mg tablet 10 mg PO BID anxiety 10/05/24 11/08/24 History tizanidine 2 mg tablet 2 mg PO Q8H PRN 10/05/24 11/08/24 History aripiprazole 10 mg tablet 10 mg PO DAILY 10/24/24 11/08/24 History hydroxyzine pamoate 50 mg capsule 50 mg PO TID 10/24/24 11/08/24 History mirtazapine 45 mg tablet 45 mg PO QHS 10/24/24 11/08/24 History cholecalciferol (vitamin D3) 1,250 1,250 mcg PO WEEKLY #14 caps 10/25/24 11/08/24 Rx mcg (50,000 unit) capsule potassium chloride 20 mEq 20 meq PO BID #180 tabs 10/25/24 11/08/24 Rx tablet,extended release sitagliptin phosphate 100 mg 100 mg PO DAILY #90 tabs 11/01/24 11/08/24 Rx tablet (Januvia) triamterene 37.5 1 tablet PO DAILY #30 tabs 11/01/24 11/08/24 Rx mg-hydrochlorothiazide 25 mg tablet insulin regular hum U-500 conc 500 125 unit (0.25 mL) subcut DAILY 11/08/24 11/08/24 Rx unit/mL(3 mL) subcut pen #24 mL cephalexin 500 mg capsule 500 mg PO Q8H #15 caps 11/16/24 Rx Sleep Procedure A full night polysomnogram using the [employer] multi-channel system recorded the standard physiologic parameters including EEG, EOG, submentalis EMG, anterior tibialis EMG, EKG, body position, nasal and oral airflow using n boy pressure sensor and thermistor.? Respiratory parameters of chest and abdominal movements were recorded with Respiratory Inductance Plethysmography belts. Oxygen saturation was recorded by pulse oximetry. Video monitoring was also performed. Sleep stages, periodic limb movements, and EEG arousals were scored in 30 second epochs according to the criteria of the AASM Scoring Manual. The Apnea-Hypopnea Index was calculated using CMS guidelines for definition of hypopnea with 4% O2 desaturations while scoring respiratory events. Sleep Architecture The total recording time was 433.5 minutes.? The total sleep time was 410.5 minutes. Sleep latency was 4.9 minutes. REM latency was 64.5 minutes. Sleep efficiency was 94.7%. The patient had 17 awakenings for an awakening index of 2.5. Wake after sleep onset time was 18.0 minutes. The patient spent 15.5 minutes, 3.8% of total sleep time in Stage N1. The patient spent 93.0 minutes, 22.7% in Stage N2. The patient spent 181.5 minutes, 44.2% in Stage N3. The patient spent 120.5 minutes, 29.4% in Stage REM sleep. Respiratory Analysis The patient had 13 hypopneas, 4 obstructive apneas, 1 mixed apnea and 3 central apneas for an overall Apnea Hypopnea Index of 3.1. The REM Apnea Hypopnea Index was 5.0. The NREM Apnea Hypopnea Index was 2.9. The patient had a Central Apnea Hypopnea Index of 0.4. There was no evidence of Vinay-Juarez Respirations. Arousals There were 58 total arousals for an arousal index of 8.5. There were 41 spontaneous arousals for an index of 6.0. There were 2 arousals due to respiratory events for an index of 0.3. There were 0 arousals due to periodic limb movements for an index of 0.? There were 8 arousals due to isolated limb movements for an index of 1.2. Periodic Limb Movements The patient had 73 isolated limb movements with an index of 10.7. The patient had 72 periodic limb movements with an index of 10.5. Patient had a total of 145 limb movements with a total limb movement index of 21.2. Oximetry Data The patient had an average oxygen saturation of 91.3% in sleep with a minimum oxygen saturation of 83.0% and a maximum oxygen saturation of 98.0%. The patient had 14 oxygen desaturations that were 4% or greater resulting in an Oxygen Desaturation Index of 2.0.? The patient spent 84 minutes, 19.60% of total sleep time with an oxygen saturation below 88%. Snoring Profile Snoring was present intermittently throughout the study. Cardiac Profile The EKG showed normal sinus rhythm. No arrhythmias or premature beats were seen. The patient had an average pulse rate of 75.7 bpm with a minimum pulse of rate of 69.0 bpm and a maximum pulse rate of 87.0 bpm.? EEG Profile No signs of seizure activity seen. Assessment and Plan Assessment and Plan (1) Nocturnal hypoxemia: Code(s): G47.34 - Idiopathic sleep related nonobstructive alveolar hypoventilation Status: Acute Assessment and Plan: The patient had an overall AHI of 3.1 with desaturation down to 83%. This is not consistent with sleep-disordered breathing. The patient was started on supplemental oxygen at 1 lpm due to persistent hypoxemia in the absence of respiratory events. The supplemental oxygen was titrated to 2 lpm and the patient's SpO2 remained above 90%. I recommend that the patient use 2 lpm of supplemental oxygen when sleeping. I recommend that the patient have a 2 view CXR and complete PFT for further evaluation of underlying lung disease. The patient has a history of asthma but is not currently on any maintenance inhalers. Data The data obtained during this sleep study is adequate for interpretation. Certification This sleep study has been reviewed by a board certified sleep medicine physician.
== END 2024-11-17 06:56 | disposition home or self-care (01) ==
LOC: ANHCSM 08:00
PROVIDERS: PCP Family Medicine; Visit Provider Family Medicine
DX: G47.33 Obstructive sleep apnea (adult) (pediatric) (principal); Z99.89 Dependence on other enabling machines and devices
CPT/HCPCS: 95810

== ENCOUNTER 2025-01-03 11:47 | Outpatient (CLI) | payer MEDICARE, MEDICAID, SELFPAY ==
--- OUTSIDE RECORDS SUMMARY | 2009-12-13 08:15 | XMS_ITS | Continuity of Care Document ---
Author Organization [facility] Address [address] [place] [address] [facility] [address] [place] [address] Phone Care Team Providers Care Mixing Machine Attendant Name Role Phone Colin Tyson Unavailable Unavailable Procedures Procedure Date Eye Exam, New Patient Advance Directives Directive Yes / No Effective Date File Name No Information Encounters Encounter Description Practice Location Reason(s) For Visit Diagnoses Date Provider Providers Copied on Encounter [facility], [id number] [place] [address] [address], [place], [place], [id number], [place] tel:[phone] [facility] No Information 3-201 0 Marbella Colin. [address] [facility] [address], [place], [address], [place]. tel:[phone] Family History Family Member Type Diagnosis Age At Onset No Information Payers Payer name Insurance type Covered alliance party ID Authoriza tion(s) Medicare [facility] [id number] Medicaid [facility] [id number] Social History Type Description Quantity Date Captured [...]
--- OUTSIDE RECORDS SUMMARY | 2025-01-03 13:30 | XMS_ITS | Encounter Summary ---
Author Organization [facility] Healthcare Address [address] [place] [address] Care Team Providers Care Drosser Name Role Phone Spencer Fuentes MD Primary Care Provider [phone] Nereida Ramirez MD Unavailable [phone] Rand Whalen MD Primary Care Provider Rand Whalen MD Primary Care Provider No Crow NP Primary Care Provider [phone] Encounter Details Date Type Department Care Team (Late st Contact Info) Description 11/13/2019 Telephone [facility] [address] [place] [address] Fabby Almendarez, RT Social History Tobacco Use Types Packs/Day Years Used Date Smoking Tobacco: Former E-cigarettes Quit: 05/05/2013 Smokeless Tobacco: Never Comments:eciggs last 5 years Comments Unknown Sex and Gender Information Value Date Recorded Sex Assigned at Not on file Legal Sex Female 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 Gender Identity Not on file Sexual Orientation Not on file documented as of this encounter Plan of Treatment Not on file documented as of this encounter Visit Diagnoses Not on filedocumented in this encounter Care Teams Drosser Relationship Specialty Start Date End Date Spencer Fuentes MD [address] [place] [address] PCP - General 04/01/17 01/26/21 Rand Whalen MD [address] [place] [address] PCP - General Family Practice 01/27/21 03/26/24 Rand Whalen MD [address] [place] [address] [address] PCP - General Family Practice 03/27/24 09/20/24 No Crow NP [address] [place] [address] PCP - General Family Medicine 09/21/24 Nereida Ramirez MD [address] [place] [address] Medical Oncologist/Senior Animal Trainer Medical Oncology 06/13/20 documented as of this encounter
--- OUTSIDE RECORDS SUMMARY | 2025-01-03 13:30 | XMS_ITS | Encounter Summary ---
Author Organization [facility] Address [address] [place] [address] Care Team Providers Care Refrigerator Glazier Name Role Phone Spencer Fuentes MD Primary Care Provider [phone] Encounter Details Date Type Department Care Team [...] Type: Triage Call Addendum Date and Time [id number] Presenting Problem: Caregiver Roslyn She is incoherent. [...] statosis Medications: Meds revewied with caller Per [employer] Medication reactions: Amitripyline, Codeine, Latex and Sulfa <<<<<<<< TRIAGE NOTE >>>>>>>> Triage Note: Business Intelligence Analyst Shereen Shoemaker added this note on Nov [...] on filedocumented in this encounter Care Teams Refrigerator Glazier Relationship Specialty Start Date End Date Spencer Fuentes MD [address] [place] [address] PCP - General Family Practice 01/08/17 03/02/22 documented as of this encounter
--- OUTSIDE RECORDS SUMMARY | 2025-01-03 13:30 | XMS_ITS | Encounter Summary ---
Author Organization [facility] Address [address] [place] [address] Care Team Providers Care Intermodal Customer Service Name Role Phone Unavailable Primary Care Provider Unavailabl e Encounter Details Date Type Department Care Team (Late st Contact Info) Description 08/28/2022 Abstract [facility] Oncology and Hematology - [address] [place] [id number] Yasir Hong, RN Social History Tobacco Use [...]
--- OUTSIDE RECORDS SUMMARY | 2025-01-03 13:31 | XMS_ITS | Clinical Summary ---
Author Organization [facility] Address [address] [place] [address] Care Team Providers Care Site Supervisor Name Role Phone Rand Whalen MD Primary [...] for Anxiety. Active empagliflozin (JARDIANCE) 25 MG tabletIndications: Hold am of cataract surgery Take 1 tablet [...] mouth daily. Active SITagliptin (JANUVIA) 100 MG tabletIndications: Hold am of cataract of surgey Take 1 tablet (100 mg total) by mouth daily. Indications: Hold am of cataract of surgey Active mirtazapine (REMERON TAL-TAB) 45 MG disintegrating tablet Take 1 tablet (45 mg total) by mouth nightly at bedtime. Active tiZANidine (ZANAFLEX) 2 MG tablet Take 1 tablet (2 mg total) by mouth 3 (three) times daily. Active triamterene-hydroC HLOROthiazide (DYAZIDE) 37.5-25 MG capsule Take 1 capsule [...] (81 mg total) by mouth daily. Active Encounters Date Type Department Care Team Description 11/27/2024 12:42 PM CDT Anesthesia Event [facility] [address] [place] [address] Shira Richmond, Chalino Altamirano MD 11/27/2024 10:15 AM CDT - 11/27/2024 3:48 PM CDT Hospital Encounter [facility] [address] [place] [address] Jamaal Billings MD Discharge Disposition: Home or Self Care (Routine Discharge) 11/27/2024 Travel 10/30/2024 11:32 AM CDT - 10/30/2024 12:10 PM CDT Surgery [facility] [address] [place] [address] Jamaal Billings MD CATARACT REMOVAL WITH IOL IMPLANT 10/30/2024 11:15 AM CDT Anesthesia Event [facility] [address] [place] [address] Derrick Marquez CRNA Bell, Lisa M, CRNA 10/30/2024 10:16 AM CDT - 10/30/2024 12:08 PM CDT Hospital Encounter [facility] [address] [place] [address] Jamaal Billings MD Discharge Disposition: Home or [...] CDT Inhaled Oxygen Concentration - - Weight 86.2 kg (190 lb) 11/20/2024 10:11 AM CDT Height 160 cm (5' 3) 11/20/2024 10:11 AM CDT Body Mass Index 33.66 11/20/2024 10:11 AM CDT Plan of Treatment Health Maintenance [...] on patient's age to complete this topic Medical Devices Implanted Type Area Government Auditor Device Identifier Shelf Expiration Date Model / Serial / Lot Iol [employer] Simplicity Dcb00 - [id number] Implanted:Qty: 1 on 10/30/2024 by Jamaal Billings MD at [facility] Lens Right: Eye [employer] [id number] 12/19/2026 DCB00 / [id number] / Procedures Procedure Name Priority Date/Time Associated [...] of2 resultswithin the time period is included. GLUCOSE POC 145(H) 70 - 110 mg/dL 10/30/2024 12:28 PM CDT [facility] 10/30/2024 12:0 5 PM CDT us Jamaal Billings MD POCT ORDERABLES - DEVICE Emelyn l Result [facility] [address] [place] [address], [place] [phone] from Last 3 Months Insurance [facility] MEDICAID Care Teams Site Supervisor Relationship Specialty Start Date End Date Rand Whalen MD [address] [facility] [address] [place] [address] PCP - General FAMILY PRACTICE 10/24/24
--- OUTSIDE RECORDS SUMMARY | 2025-01-03 13:33 | XMS_ITS | Encounter Summary ---
Author Organization [facility] Address [address] [place] [address] Care Team Providers Care House Cleaner Supervisor Name Role Phone Félix Pineda MD Unavailable [phone] Rajiv Sherman MD Unavailable [phone] Davi Herman MD Unavailable [phone] Rand Whalen MD Primary Care Provider Reason for Referral * Consultation (Routine) - Closed Specialty Diagnoses / Procedures Referred By Contjose t Referred To Contact Neurology Diagnoses Nonintractable epilepsy without status epilepticus, unspecified epilepsy type (HCC) Liliane Johnson MD [address] [place] [address] Phone: tel: fax: [facility] - Neurology [address] [place] [address] Phone: tel: fax: Referral ID Status Reason Start Date Expiration Date V isits Requested Visits Authorized [id number] Closed Specialty Services Required 03/31/2024 03/31/2025 1 1 RING MACHINE OPERATOR Encounter Details Date Type Department Care Team (Latest Contact Info) Description 03/31/2024 Transcribe Orders [facility] - Centralized Scheduling [facility] [place] [address] Liliane Johnson MD [address] [place] [address] Nonintractable epilepsy without status epilepticus, unspecified epilepsy [...] Primary documented in this encounter Care Teams House Cleaner Supervisor Relationship Specialty Start Date End Date Rand Whalen MD [address] [place] [address] PCP - General 10/11/21 Félix Pineda MD Family Medicine 07/31/14 Rajiv Sherman MD Neurology 10/13/12 Davi Herman MD [address] [address] Care Management Associate Cardiology 06/22/14 documented as of this encounter
--- OUTSIDE RECORDS SUMMARY | 2025-01-03 13:33 | XMS_ITS | Clinical Summary ---
Author Organization [facility] Address [address] [place] [address] Phone Care Team Providers Care Electrical Equipment Assembler Name Role Phone Unavailable Primary Care Provider [...] at bedtime. Active fluticasone (FLONASE) 50 mcg/spray [place], Suspension Administer 2 Sprays in each nostril daily. Active viatamin B complex-vitamin H-cbzxbxnj-uahu -folic acid 106 mg iron- 1 mg [...] 08/09/2014 Overview (08/09/2014): S/p cardiac cath at [facility] following Dr. Herman EF 40 %, [...] Comments Blood Pressure 99/75 03/24/2017 3:03 PM MUSIC THERAPIST Pulse 107 03/24/2017 3:03 PM MUSIC THERAPIST Temperature 36.9 C (98.5 F) 03/24/2017 3:03 PM MUSIC THERAPIST Respiratory Rate 18 02/22/2017 1:24 PM CDT Oxygen Saturation 95% 09/21/2014 1:11 PM CDT Inhaled Oxygen Concentration - - Weight 84.1 kg (185 lb 6.4 oz) 03/24/2017 3:03 P M MUSIC THERAPIST Height 160 cm (5' 3) 03/24/2017 3:03 PM MUSIC THERAPIST Body Mass Index 32.84 03/24/2017 3:03 PM MUSIC THERAPIST Plan of Treatment Health Maintenance Due Date [...] Advance Directives For more information, please contact: [phone] Documents on File Type Date Recorded Patient Stamp Redemption Clerk Expl anation Advance Directive POA 10/24/2014 11:30 AM Advance Directive POA * Full Code (Latest Code Status on File) Date Activated Date Inactivated Comments 09/21/2014 12:04 PM 09/21/2014 3:21 PM
--- OUTSIDE RECORDS SUMMARY | 2025-01-03 13:33 | XMS_ITS | Clinical Summary ---
Author Organization [facility] Address [address] [place] [address] Care Team Providers Care Fire Department Marine Engineer Name Role Phone Félix Pineda MD Unavailable [phone] Rajiv Sherman MD Unavailable [phone] Davi Herman MD Unavailable [phone] Rand Whalen MD Primary Care Provider Source Comments [facility],non-owned Affiliates and Associated Physician Practices is amultiple site organization consisting of ambulatory clinics and hospital sitesin [place], [place], [place] and [place]. This disclosure is being madepursuant to the Care Everywhere program and may not contain all information available regarding this patient. Last updated 18.[facility] Allergies Active Allergy Reactions Criticality Noted Date [...] patient's age to complete [place] [address] MEDICARE [facility] MEDICARE MEDICARE MEDICAID - OUT OF STATE MEDICARE MEDICAID - OUT OF STATE MEDICARE MEDICAID - OUT OF STATE MEDICARE Care Teams Fire Department Marine Engineer Relationship Specialty Start Date End Date Rand Whalen MD [address] [facility] [place] [address] PCP - General 10/11/21 Félix Pineda MD Family Medicine 07/31/14 Rajiv Sherman MD Neurology 10/13/12 Davi Herman MD [address] [address] Food And Nutrition Services Supervisor Cardiology 06/22/14
--- OUTSIDE RECORDS SUMMARY | 2025-01-03 13:34 | XMS_ITS | Clinical Summary ---
Author Organization [facility] Address [address] [place] [address] Care Team Providers Care Catalyst Operator Name Role Phone Nereida Ramirez MD Unavailable [phone] No Crow NP Primary Care Provider Allergies Active Allergy Reactions [...] [facility]- 1 1/2 months 05/05/18 2.50 oz a [...] Overview (10/12/2017): Overview: S/p cardiac cath at [facility] following Dr. Herman EF 40 %, AR stage 4, and RCA 50% Hepatic steatosis 08/09/2014 Severe aortic regurgitation 08/09/2014 Overview (10/12/2017): Overview: For possible AVR Arthralgia of multiple joints 05/04/2014 Fibromyalgia 03/01/2014 Hyperglycemia 03/01/2014 IBS (irritable bowel syndrome) 03/01/2014 Neurogenic bladder 03/01/2014 MS (multiple sclerosis) 10/13/2012 Encounters Date Type Department Care Team Description 11/27/2024 Telephone [facility] Medicine Epilepsy [address] [facility] [place] Advanced [facility] [address] [place] [address] [place] [address] Juana Hendrix RN 10/23/2024 12:12 PM CDT - 10/23/2024 11:59 PM CDT Hospital Encounter [facility] ([facility]) [address] [place] [address] Discharge Disposition: Discharge to home or self care 10/20/2024 Documentation [facility] Medicine Oncology [address] [facility] [address] [place] [address] August, A Medical Records Request ([facility]) 10/17/2024 Documentation [facility] Medicine Oncology [address] [facility] [address] [place] [address] Teresa Arellano RMA Appointment 10/13/2024 Documentation [facility] Oncology [address] [place] [address] 6 [place] [address] Teresa Arellano RMA Appointment 10/03/2024 Orders Only [facility] Oncology [address] [place] [phone] Teena Crowe Follicular 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) (Primary Dx) from Last 3 Months Immunizations Immunization Administration [...] - (Added by TW Conv) Bipolar disorder Bipolar disorde r (manic depression) - (Added by TW Conv) Convulsions (HCC) Seizures - (Ad ded by TW Conv) 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 No 09/22/2024 Social Connection and Isolation Panel Answer Date Recorded In a typical week, how many times do you talk on the phone with family, friends, or neighbors? Three times a week 09/22/2024 How often do you get togethe r with friends or relatives? Three times a week 09/22/2024 How often do you attend chur ch or jew services? Never 09/22/2024 Do you belong to any clubs o r organizations such as adventist groups, unions, fraternal or athletic groups, or [...] time in the past 12 m [facility], were you homeless or living in a mcc (including now)? Yes 09/22/2024 Personal Safety Answer Date Recorded Have you ever been in or are you currently in a harmful physical or emotional relationship or is someone making you feel afraid or unsafe? Denies 09/28/2024 Comments No Sex and Gender Information Value Date Recorded Sex Assigned at Not on file Legal Sex Female 6:51 AM INLAYER SILVER Gender Identity Not on file Sexual Orientation [...] Pneumococcal vaccine <65 (3 of 3 - PCV20 or PCV21) 04/07/2021 03/08/2018, 04/07/2016 Covid-19 Vaccine (4 - 2023-2 5 season) 2024 02/26/2021, 08/06/2020, 07/16/2020 Influenza Vaccine (#1) 2025 2, 02/26/2021, 02/26/2021, Additional history exists Hepatitis C Screening Completed 05/13/2017 Procedures Procedure Name Priority Date/Time Associated Diagnosis Comments NEURO MR OUTSIDE REFERENCE Routine 10/23/2024 12:12 PM CDT HEPATITIS C ANTIBODY Routine Gen Lab 05/13/2017 4:52 PM INLAYER SILVER from Last 3 Months or Most Recently Relevant to Health Maintenance Results * Neuro MR Outside Reference (10/23/2024 12:12 PM CDT) Impressions [facility] - 10/23/2024 12:12 PM CDT These images are for Reference purposes only and have not been reviewed by [facility] Radiology. There will be no report generated by a [facility] Radiologist. Narrative [facility] - 10/23/2024 12:12 PM CDT EXAMINATION: Images For Reference Purposes Only us Nereida Ramirez MD IMG MRI PROCEDURES Final R esult [facility] * Hepatitis C antibody (05/13/2017 4:52 PM INLAYER SILVER) Hep C Ab Nonreactive Nonreactive [facility] Comment: Interpretive Data Positive and greyzone results should be confirmed by a molecular method. If positive or greyzone, a second separately collected sample should be submitted for Hepatitis C Virus RNA. Detection and Quantitation by Real-Time Reverse Aircraft Maintenance Technician-PCR.Current Interpretive data was last revised on 2016. Blood specimen (specimen) 05/13/2017 4:52 PM INLAYER SILVER 05/13/2017 5:18 PM INLAYER SILVER Narrative PATRICIA DALY - 05/14/2017 9:38 AM INLAYER SILVER Nereida Ramirez MD LAB MICROBIOLOGY - GENERAL ORDERABLES Edited Result - Final [facility] Department [place] [address] from Last 3 Months or Most Recently Relevant to Health Maintenance Insurance [facility] MEDICARE ADVANTAGE IDDE MEDICARE [facility] Address: [address] [address] [place] [address] IDPA [facility] IDPA [facility] MEDICARE ADVANTAGE Advance Directives For more information, please contact: [phone] * Full Code (Latest Code Status on File) Date Activated Date Inactivated Comments 09/22/2024 2:44 PM 09/26/2024 5:53 PM * Full Code Date Activated Date Inactivated Comments 11/15/2019 2:35 PM 11/15/2019 7:49 PM Care Teams Catalyst Operator Relationship Specialty Start Date End Date No Crow NP [address] [place] [address] PCP - General Family Medicine 09/21/24 Nereida Ramirez MD Medical Oncologist/Oil Mixer Medical Oncology 06/13/20
--- OUTSIDE RECORDS SUMMARY | 2025-01-03 13:34 | XMS_ITS | Encounter Summary ---
Author Organization [facility] Address [address] [place] [address] Phone Care Team Providers Care Bioinformatics Research Technician Name Role Phone Nereida Ramirez MD Unavailable [phone] Rand Whalen MD Primary Care Provider No Crow NP Primary Care Provider [phone] Encounter Details Date Type Department Care Team [...] on file Legal Sex Female 6:51 AM FOREIGN COLLECTION CLERK Gender Identity Not on file Sexual Orientation [...] on filedocumented in this encounter Care Teams Bioinformatics Research Technician Relationship Specialty Start Date End Date Rand Whalen MD [address] [facility] [address] [address] PCP - General Family Practice 03/27/24 09/20/24 No Crow NP [address] [place] [address] PCP - General Family Medicine 09/21/24 Nereida Ramirez MD Medical Oncologist/Stock Turner Medical Oncology 06/13/20 documented as of this encounter
--- OUTSIDE RECORDS SUMMARY | 2025-01-03 13:34 | XMS_ITS ---
Author Organization [facility] Address [address] [place] [address] Care Team Providers Care Senior Engineering Manager Name Role Phone Nereida Ramirez MD Unavailable [phone] No Crow NP Primary Care Provider [phone] Active Problems Problem Noted Date Diagnosed Date Pyelonephritis 09/22/2024 Abnormal findings on diagnostic imaging of breas t 01/27/2021 Follicular lymphoma C82.98 09/23/2017 CAD (coronary artery disease) 08/09/2014 Overview (10/12/2017): Overview: S/p cardiac cath at [facility] following Dr. Herman EF 40 %, [...]
[2025-01-03 13:36] LABS: Alanine Aminotransferase 22 U/L (6-35); Albumin Level 4.4 g/dL (3.5-5.1); Alkaline Phosphatase 118 U/L (38-126); Anion Gap 9 mmol/L (4-12); Aspartate Amino Transferase 35 U/L (14-36); Bilirubin,Total 0.4 mg/dL (0.2-1.3); Blood Urea Nitrogen 22 mg/dL (7-17); Calcium 9.8 mg/dL (8.4-10.2); Carbon Dioxide 31 mmol/L (22-30); Chloride 101 mmol/L (98-107); Estimated Glomerular Filt Rate 47; Glucose 122 mg/dL (65-110); Potassium 3.9 mmol/L (3.4-5.0); Sodium 141 mmol/L (137-145); Total Protein 7.3 g/dL (6.3-8.2)
== END 2025-01-03 11:48 | disposition home or self-care (01) ==
LOC: ANHGOSHLAB 11:48
PROVIDERS: PCP Family Medicine; Visit Provider Family Medicine
DX: E87.6 Hypokalemia (principal); I10 Essential (primary) hypertension; Z79.899 Other long term (current) drug therapy
CPT/HCPCS: 36415; 80053

== ENCOUNTER 2025-01-08 11:42 | Outpatient (CLI) | payer MEDICARE, MEDICAID, SELFPAY ==
--- OUTSIDE RECORDS SUMMARY | 2009-12-13 08:15 | XMS_ITS | Continuity of Care Document ---
Author Organization [facility] Address [address] [place] [address] [facility] [address] [place] [address] Phone Care Team Providers Care Bone Grinder Name Role Phone Colin Tyson Unavailable Unavailable Procedures Procedure Date Eye Exam, New Patient Advance Directives Directive Yes / No Effective Date File Name No Information Encounters Encounter Description Practice Location Reason(s) For Visit Diagnoses Date Provider Providers Copied on Encounter [facility], [id number] [place] [address] [address], [place], [place], [id number], [place] tel:[phone] [facility] No Information 3-201 0 Marbella Colin. [address] [facility] [address], [place], [address], [place]. tel:[phone] Family History Family Member Type Diagnosis Age At Onset No Information Payers Payer name Insurance type Covered republican ID Authoriza tion(s) Medicare [facility] [id number] Medicaid [facility] [id number] Social History Type Description Quantity Date Captured Comments Sex Female Smoking Status No Information Chief Complaint And Reason For Visit No Information Reason For Referral Reason For Referral No Information History Of Present Illness Encounter Date Complaint History Of Prese nt Illness No Information Functional Status Date Functional Assessmen t No Information Instructions Date Instruction Additional Infor mation No Information Assessments Type Assessment Date No Information Patient Care Teams Name Effective Dates (start - stop) Status Members No Information
--- OUTSIDE RECORDS SUMMARY | 2024-05-30 06:00 | XMS_ITS ---
Author Organization [facility] Address [address] [place] [address] Care Team Providers Care [employer] Name Role Phone Rudy Keenan Primary Care Provider REASON FOR VISIT 3 Month Psych F/U & Med Refill Social History Sex Assigned At : Social History Observation Description Sex Assigned At Female Encounters Encounter Location Date Provider Diagnosis [address] [place] [address] 05/30/2024 Rudy Keenan Plan Of Treatment No Information Progress Notes * Evangelina BARLOW SDOB:0 1965 (59 yo F)Acc No.[id number]:05/30/2024 UNLOCKED PROGRESS NOTE Patient: Evangelina DENIS Provider: Negin Keenan DNP, PMHNP-BC :1965 A ge:58 Y S ex:Female Date:05/30/2024 Address:[address] [facility] Subjective: * Chief Complaints: * 1 . 3 Month Psych F/U & Med Refill. * Medical History: Objective: * Vitals: Assessment: Plan: * Treatment: * * Electronic signature of Sarahy Keenan APRN, [id number] on 01/08/2025 at 11:59 AM CDT Sign off status: Pending * Provider: Negin Keenan DNP, PMHNP-BC Date: 0 05/30/2024 Generated for Printi ng/Faxing/eTransmitting on: 0 01/08/2025 11:59 AM CDT
--- OUTSIDE RECORDS SUMMARY | 2024-11-28 11:00 | XMS_ITS ---
Author Organization [facility] Address [address] [place] [address] Care Team Providers Care Network Relations Consultant Name Role Phone Rudy Keenan Primary Care Provider REASON FOR VISIT 3 Month Psych F/U & Med Refill, last seen 08/15/24 Medications Medication SIG (Take, Route, Frequency, Duration) Notes Start Date End Date Status Propranolol HCl 10 MG TAKE 1 TABLET BY MOUTH TWICE A DAY; Duration: 90 days Active hydrOXYzine Pamoate 50 MG 1 capsule Orally three times a day; Duration: 90 days As needed for anxiety Active Cyclobenzaprine HCl 10 MG 1 tablet at be dtime as needed Orally Once a day Active Pantoprazole Sodium 40 MG 1 tablet Orall y Once a day Active Januvia 25 MG as directed Orally Active Mirtazapine 45 MG 1 tablet at bedtime Orally Once a day; Duration: 90 days Active QUEtiapine Fumarate 300 MG 2 tablets in the evening Once a day; Duration: 90 days Active lamoTRIgine 100 MG 1 tablet Once a day; Duration: 90 days Active ARIPiprazole 10 MG 1 tablet Once a day; Duration: 90 days Active Vilazodone HCl 40 MG 1 tablet with food Once a day; Duration: 90 days Active Aspirin 81 81 MG 1 tablet Orally Once a day Active Jardiance 10 MG 1 tablet Orally Once a day; Duration: 30 day(s) Active Ozempic (0.25 or 0.5 MG/DOSE) 2 MG/1.5ML as directed Subcutaneous Not-Taking Atorvastatin Calcium 40 MG 1 tablet Oral ly Once a day Active Gabapentin 300 MG 1 capsule Orally Once a day Active hydroCHLOROthiazide 12.5 MG 1 capsule in the morning Orally Once a day Active HumuLIN R U-500 KwikPen 500 UNIT/ML as directed Subcutaneous Active Social History Sex Assigned At : Social History Observation Description Sex Assigned At Female Encounters Encounter Location Date Provider Diagnosis [address] [place] [address] 11/28/2024 Rudy Keenan Plan Of Treatment No Information Progress Notes * Evangelina BARLOW SDOB:0 1965 (59 yo F)Acc No.[id number]:11/28/2024 UNLOCKED PROGRESS NOTE Patient: Evangelina DENIS Provider: Negin Keenan, MARIAH, PMHNP-BC :1965 A ge:59 Y S ex:Female Date:11/28/2024 Address:[address] [place], [place] [id number] Subjective: * Chief Complaints: * 1 . 3 Month Psych F/U & Med Refill, last seen 08/15/24. * Medical History: * Medications: T aking Januvia 25 MG Tablet as directed Orally , Taking Cyclobenzaprine HCl 10 MG Tablet 1 tablet at bedtime as needed Orally Once a day , Taking Pantoprazole Sodium 40 MG Tablet Delayed Release 1 tablet Orally Once a day , Taking hydroCHLOROthiazide 12.5 MG Capsule 1 capsule in the morning Orally Once a day , Taking HumuLIN R U- 500 KwikPen 500 UNIT/ML Solution Pen-injector as directed Subcutaneous , Taking Atorvastatin Calcium 40 MG Tablet 1 tablet Orally Once a day , Taking Gabapentin 300 MG Capsule 1 capsule Orally Once a day , Taking Aspirin 81 81 MG Tablet Chewable 1 tablet Orally Once a day , Taking Jardiance 10 MG Tablet 1 tablet Orally Once a day , Taking Mirtazapine 45 MG Tablet 1 tablet at bedtime Orally Once a day , Taking lamoTRIgine 100 MG Tablet 1 tablet Once a day , Taking ARIPiprazole 10 MG Tablet 1 tablet Once a day , Taking Vilazodone HCl 40 MG Tablet 1 tablet with food Once a day , Taking QUEtiapine Fumarate 300 MG Tablet 2 tablets in the evening Once a day , Taking Propranolol HCl 10 MG Tablet TAKE 1 TABLET BY MOUTH TWICE A DAY , Taking hydrOXYzine Pamoate 50 MG Capsule 1 capsule Orally three times a day As needed for anxiety, Not-Taking Ozempic (0.25 or 0.5 MG/DOSE) 2 MG/1.5ML Solution Pen- injector as directed Subcutaneous Objective: * Vitals: Assessment: Plan: * Treatment: * * Electronic signature of Sarahy Keenan APRN, [id number] on 01/08/2025 at 11:59 AM CDT Sign off status: Pending * Provider: Negin Keenan DNP, PMHNP- Date: 0 11/28/2024 Generated for Nawaf lozano/Rimma/Kaila on: 0 01/08/2025 11:59 AM CDT
--- NOTE | ~2025-01-08 | XR_ITS ---
EXAMINATION: XR chest 2V 01/08/2025 12:27 INDICATION: Shortness of breath PROCEDURE: 2 view chest COMPARISON: 03/03/2024 FINDINGS: The lungs are clear. The cardiomediastinal silhouette is within normal limits. There are no pleural effusions. There is no pneumothorax suspected. IMPRESSION: 1: NO ACUTE CARDIOPULMONARY DISEASE. Reviewed, dictated and finalized at location O.
--- OUTSIDE RECORDS SUMMARY | 2025-01-08 11:59 | XMS_ITS | Encounter Summary ---
Author Organization [facility] Address [address] [place] [address] Care Team Providers Care Assistant Produce Manager Name Role Phone Unavailable Primary Care Provider Unavailabl e Encounter Details Date Type Department Care Team (Late st Contact Info) Description 08/28/2022 Abstract [facility] Oncology and Hematology - [address] [place] [address] Yasir Hong, RN Social History Tobacco Use [...]
--- OUTSIDE RECORDS SUMMARY | 2025-01-08 11:59 | XMS_ITS | Encounter Summary ---
Author Organization [facility] Address [address] [place] [address] Care Team Providers Care Telehealth Case Manager Name Role Phone Spencer Fuentes MD Primary Care Provider [phone] Encounter Details Date Type Department Care Team [...] Type: Triage Call Addendum Date and Time [id number] Presenting Problem: Caregiver Roslyn She is incoherent. [...] statosis Medications: Meds revewied with caller Per [employer] Medication reactions: Amitripyline, Codeine, Latex and Sulfa <<<<<<<< TRIAGE NOTE >>>>>>>> Triage Note: Concrete Mixer Loader Truck Mounted Shereen Shoemaker added this note on Nov [...] on filedocumented in this encounter Care Teams Telehealth Case Manager Relationship Specialty Start Date End Date Spencer Fuentes MD [address] [place] [address] PCP - General Family Practice 01/08/17 03/02/22 documented as of this encounter
--- OUTSIDE RECORDS SUMMARY | 2025-01-08 11:59 | XMS_ITS | Encounter Summary ---
Author Organization [facility] Address [address] [place] [address] Care Team Providers Care Wireless Technician Name Role Phone Spencer Fuentes MD Primary Care Provider [phone] Nereida Ramirez MD Unavailable [phone] Rand Whalen MD Primary Care Provider Rand Whalen MD Primary Care Provider No Crow NP Primary Care Provider [phone] Encounter Details Date Type Department Care Team (Late st Contact Info) Description 11/13/2019 Telephone [facility] [address] [place] [address] Fabby Almendarez, RT Social History Tobacco Use Types Packs/Day Years Used Date Smoking Tobacco: Former E-cigarettes Quit: 05/05/2013 Smokeless Tobacco: Never Comments:eciggs last 5 years Comments Unknown Sex and Gender Information Value Date Recorded Sex Assigned at Not on file Legal Sex Female 6:51 AM ENROLLMENT MANAGER Gender Identity Not on file Sexual Orientation Not on file documented as of this encounter Plan of Treatment Not on file documented as of this encounter Visit Diagnoses Not on filedocumented in this encounter Care Teams Wireless Technician Relationship Specialty Start Date End Date Spencer Fuentes MD [address] [place] [address] PCP - General 04/01/17 01/26/21 Rand Whalen MD [address] [place] [address] PCP - General Family Practice 01/27/21 03/26/24 Rand Whalen MD [address] [place] [address] [address] PCP - General Family Practice 03/27/24 09/20/24 No Crow NP [address] [place] [address] PCP - General Family Medicine 09/21/24 Nereida Ramirez MD [address] [place] [address] Medical Oncologist/Court Commissioner Medical Oncology 06/13/20 documented as of this encounter
--- OUTSIDE RECORDS SUMMARY | 2025-01-08 12:00 | XMS_ITS | Encounter Summary ---
Author Organization [facility] Address [address] [place] [address] Care Team Providers Care Critical Care Nurse Specialist Name Role Phone Félix Pineda MD Unavailable Rajiv Sherman MD Unavailable [phone] Davi Herman MD Unavailable [phone] Rand Whalen MD Primary Care Provider Reason for Referral * Consultation (Routine) - Closed Specialty Diagnoses / Procedures Referred By Contjose t Referred To Contact Neurology Diagnoses Nonintractable epilepsy without status epilepticus, unspecified epilepsy type (HCC) Liliane Johnson MD [address] [place] [address] Phone: tel: fax: [facility] - Neurology [address] [place] [address] Phone: tel: fax: Referral ID Status Reason Start Date Expiration Date V isits Requested Visits Authorized [id number] Closed Specialty Services Required 03/31/2024 03/31/2025 1 1 PARAMEDIC Encounter Details Date Type Department Care Team (Latest Contact Info) Description 03/31/2024 Transcribe Orders [facility] - Centralized Scheduling [facility] [place] [address] Liliane Johnson MD [address] [place] [address] Nonintractable epilepsy without status epilepticus, unspecified epilepsy [...] Primary documented in this encounter Care Teams Critical Care Nurse Specialist Relationship Specialty Start Date End Date Rand Whalen MD [address] [place] [address] PCP - General 10/11/21 Félix Pineda MD Family Medicine 07/31/14 Rajiv Sherman MD Neurology 10/13/12 Davi Herman MD [address] [address] Inside Sales Engineer Cardiology 06/22/14 documented as of this encounter
--- OUTSIDE RECORDS SUMMARY | 2025-01-08 12:00 | XMS_ITS | Encounter Summary ---
Author Organization [facility] Address [address] [place] [address] Phone Care Team Providers Care Fur Dressing Supervisor Name Role Phone Nereida Ramirez MD Unavailable [phone] Rand Whalen MD Primary Care Provider No Crow NP Primary Care Provider Encounter Details Date Type [...] on file Legal Sex Female 6:51 AM PROJECT MANAGEMENT ADVISOR Gender Identity Not on file Sexual Orientation [...] on filedocumented in this encounter Care Teams Fur Dressing Supervisor Relationship Specialty Start Date End Date Rand Whalen MD [address] [facility] [address] [address] PCP - General Family Practice 03/27/24 09/20/24 No Crow NP [address] [place] [address] PCP - General Family Medicine 09/21/24 Nereida Ramirez MD Medical Oncologist/Staff Genetic Counselor Medical Oncology 06/13/20 documented as of this encounter
--- OUTSIDE RECORDS SUMMARY | 2025-01-08 12:00 | XMS_ITS ---
Author Organization [facility] Address [address] [place] [address] Care Team Providers Care Ad Operations Associate Name Role Phone Nereida Ramirez MD Unavailable [phone] No Crow NP Primary Care Provider [phone] Active Problems Problem Noted Date Diagnosed Date Pyelonephritis 09/22/2024 Abnormal findings on diagnostic imaging of breas t 01/27/2021 Follicular lymphoma C82.98 09/23/2017 CAD (coronary artery disease) 08/09/2014 Overview (10/12/2017): Overview: S/p cardiac cath at [facility] following Dr. Herman EF 40 %, AR [...]
--- OUTSIDE RECORDS SUMMARY | 2025-01-08 12:00 | XMS_ITS | Patient Health Record ---
[facility] Organization [facility] Address [address] [place] [address] Care Team Providers Care Data Management Engineer Name Role Phone Rudy Keenan Primary Care [...] Duration) Notes Start Date End Date Status ARIPiprazole 10 MG 1 tablet Once a [...] as needed Orally Once a day Active Propranolol HCl 10 MG 1 tablet Orally twice a day; Duration: 90 days Active Januvia 25 MG as directed Orally Active hydroCHLOROthiazide 12.5 MG 1 capsule in the morning Orally Once a day Active Pantoprazole Sodium 40 MG 1 tablet Orall y Once a day Active Atorvastatin Calcium 40 MG 1 tablet Oral ly Once a day Active HumuLIN R U-500 KwikPen 500 UNIT/ML as directed Subcutaneous Active lamoTRIgine 100 MG 1 tablet Once a day; Duration: 90 days Active Aspirin 81 81 MG 1 tablet Orally Once a day Active Mirtazapine 45 MG 1 tablet at bedtime Orally Once a day; Duration: 90 days Active Gabapentin 300 MG 1 capsule Orally Once a day Active Ozempic (0.25 or 0.5 MG/DOSE) 2 MG/1.5ML as directed Subcutaneous Not-Taking Jardiance 10 MG 1 tablet Orally Once a day; Duration: 30 day(s) Active Immunizations Vaccine Route Administration Date Status Comme nts COVID-19 Pfizer Vaccine 1ST IM Intramuscular 02/26/2021 Administered Given at [facility]. Lot#[id number]. FLU VAC NO PRSV 4VAL 6 mo+ IM Intramuscular 02/26/2021 Administered Given at [facility]. Man:Seqirus. [id number] Social History Tobacco Use: Social History Observation Description Date Details (start date - stop date) Never Smoker NA - NA Sex Assigned At : Social History Observation Description Sex Assigned At Female Tobacco Control (Standard) Question Answer Notes Tobacco use: Nonsmoker Problems Problem Type SNOMED Code ICD Code Onset Dates Problem Status W/U Status Risk Notes Problem Generalized anxiety disorder (18036662) Generalized anxiety disorder (F41.1) Active confirmed Problem Bipolar affective disorder, currently depressed, moderate (461036237) Bipolar 1 disorder, depressed, moderate (F31.32) Active confirmed Vital Signs Heart Rate 71 /min 03/09/2024 Temperature 97.1 degrees Fahrenheit 03/09/2024 Respiratory Rate 14 /min 03/09/2024 Oximetry 95 % 03/09/2024 Blood pressure diastolic 62 mm Hg 03/09/2024 Height 63 in 03/09/2024 Blood pressure systolic 100 mm Hg 03/09/2024 Weight 205.2 lbs 03/09/2024 BMI 36.35 kg/m2 03/09/2024 Encounters Encounter Location Date Provider Diagnosis [address] [place] [address] 03/09/2024 Rudy Keenan Bipolar 1 disorder, depressed, moderate F31.32 and Generalized anxiety disorder F41.[address] [place] [address] 08/15/2024 Rudy Keenan Bipolar 1 disorder, depressed, moderate F31.32 and Generalized anxiety disorder F41.[address] [address] 12/07/2024 Rudy Keenan Bipolar 1 disorder, depressed, moderate F31.32 and Generalized anxiety disorder F41.[address] [place] [address] 05/29/2024 Rudy Keenan [address] [address] 08/08/2024 Rudy Keenan Bipolar 1 disorder, depressed, moderate F31.[address] [address] 08/10/2024 Rudy Keenan Bipolar 1 disorder, depressed, moderate F31.32 and Generalized anxiety disorder F41.[address], [place] [address] 11/28/2024 Rudy Keenan Bipolar 1 disorder, depressed, moderate F31.32 and Generalized anxiety disorder F41.1 Assessments Encounter Date Diagnosis (ICD Code) Assessment Notes Treatment Notes Treatment Clinical Notes Section Notes 03/09/2024 Bipolar 1 disorder, depressed, moderate (ICD-10 - F31.32) 08/08/2024 Bipolar 1 disorder, depressed, moderate (ICD-10 - F31.32) 08/10/2024 Bipolar 1 disorder, depressed, moderate (ICD-10 - F31.32) 08/15/2024 Bipolar 1 disorder, depressed, moderate (ICD-10 - F31.32) Client doing well, no tx plan changes needed. 11/28/2024 Bipolar 1 disorder, depressed, moderate (ICD-10 - F31.32) 12/07/2024 Bipolar 1 disorder, depressed, moderate (ICD-10 - F31.32) Client doing well, no treatment plan changes needed. 12/07/2024 Generalized anxiety disorder (ICD-10 - F41.1) Client doing well, no treatment plan changes needed. 11/28/2024 Generalized anxiety disorder (ICD-10 - F41.1) 08/15/2024 Generalized anxiety disorder (ICD-10 - F41.1) Client doing well, no tx plan changes needed. 08/10/2024 Generalized anxiety disorder (ICD-10 - F41.1) 03/09/2024 Generalized anxiety disorder (ICD-10 - F41.1) 08/15/2024 Other Discussed sleep hygiene and caffeine [...] number to the 24-hour crisis line at [facility]. Questions addressed. Client verbalized understanding of all information and is agreeable to treatment plan. Client doing well, no tx plan changes needed. 03/09/2024 Other Discussed sleep hygiene and caffeine [...] number to the 24-hour crisis line at [facility]. Questions addressed. Client verbalized understanding of all information and is agreeable to treatment plan. 12/07/2024 Other Discussed sleep hygiene and caffeine intake [...] number to the 24-hour crisis line at [facility]. Questions addressed. Client verbalized understanding of all information and is agreeable to treatment plan. Client doing well, no treatment plan changes needed. Plan Of Treatment No Information Insurance Providers Payer Name Payer Address Payer Phone Subscriber Number Group Number Insured Name Patient Relationship to Insured Coverage Start Date Coverage End Date [facility] [address] [address] [place] [address] [id number] Kartik-Sa rgSherrie lorenzonda Self - patient is the insured 2 2 [facility] Medicare Assure [address] [address] [place] [address] [id number] Kartik-Sa rgentSherrieEvangelina Self - patient is the insured 5 5 [facility] Medicare [address] [address] [place] [address] [id number] Kartik-Sa rgentSherrieEvangelina Self - patient is the insured 5 [facility] Att[facility] Claims Department [address] [place] [address] [id number] Kartik-Sa rgSherrie lorenzonda Self - patient is the insured 1 MEDICAID [address] [place] [address] [id number] Kartik-Sa rgent Evangelina Self - patient is the insured 3 3 MEDICARE PART A [address] [place] [address] [id number] Kartik-Sa rgent Evangelina Self - patient is the insured 3 5 Medical (General) History Medical History History ICD [...] History Reason Date(Month/Year) Tripped and Fell on [place], breaking 2 fingers 09/08/2021 Extreme Dehydration & Out of control blood sugars - [facility] 09/08/2021
--- OUTSIDE RECORDS SUMMARY | 2025-01-08 12:00 | XMS_ITS | Clinical Summary ---
Author Organization [facility] Address [address] [place] [address] Care Team Providers Care Medicare Biller Name Role Phone Nereida Ramirez MD Unavailable [phone] No Crow NP Primary Care Provider [phone] Allergies Active Allergy Reactions Criticality Noted Date [...] daily Active UNABLE TO FIND Med Name: [facility]- 1 1/2 months 05/05/18 2.50 oz a [...] Overview (10/12/2017): Overview: S/p cardiac cath at [facility] following Dr. Herman EF 40 %, AR stage 4, and RCA 50% Hepatic steatosis 08/09/2014 Severe aortic regurgitation 08/09/2014 Overview (10/12/2017): Overview: For possible AVR Arthralgia of multiple joints 05/04/2014 Fibromyalgia 03/01/2014 Hyperglycemia 03/01/2014 IBS (irritable bowel syndrome) 03/01/2014 Neurogenic bladder 03/01/2014 MS (multiple sclerosis) 10/13/2012 Encounters Date Type Department Care Team Description 11/27/2024 Telephone [facility] Medicine Epilepsy [address] [facility] Advanced [facility] 6th [place] [address] [place] [address] Juana Hendrix RN 10/23/2024 12:12 PM CDT - 10/23/2024 11:59 PM CDT Hospital Encounter [facility] ([facility]) [facility] [place] [address] Discharge Disposition: Discharge to home or self care 10/20/2024 Documentation [facility] Medicine Oncology [address] [facility] [place] [address] [place] [address] August, A Medical Records Request ([facility]) 10/17/2024 Documentation [facility] Medicine Oncology [address] [facility] [place] [address] [place] [phone] Teresa Arellano RMA Appointment 10/13/2024 Documentation [facility] Oncology [address] [place] [address] [address] [place] [phone] Teresa Arellano RMA Appointment from Last 3 Months Immunizations Immunization Administration [...] drink = 0.6 oz pur e alcohol) [facility] Utilities Answer Date Recorded In the past 12 months has e [employer], gas, oil, or water [employer] threatened to shut off services in your [...] often do you attend chur ch or hoahaoism services? Never 09/22/2024 Do you belong to any clubs o r organizations such as jew groups, unions, fraternal or athletic groups, or [...] any time in the past 12 m [facility], were you homeless or living in [...] on file Legal Sex Female 6:51 AM AD TAKER Gender Identity Not on file Sexual Orientation [...] 02/26/2021, 08/06/2020, 07/16/2020 Influenza Vaccine (#1) 2025 , 02/26/2021, 02/26/2021, Additional history exists Hepatitis C Screening Completed 05/13/2017 Procedures Procedure Name Priority Date/Time Associated Diagnosis Comments NEURO MR OUTSIDE REFERENCE Routine 10/23/2024 12:12 PM CDT HEPATITIS C ANTIBODY Routine Gen Lab 05/13/2017 4:52 PM AD TAKER from Last 3 Months or Most Recently Relevant to Health Maintenance Results * Neuro MR Outside Reference (10/23/2024 12:12 PM CDT) Impressions [facility] - 10/23/2024 12:12 PM CDT These images are for Reference purposes only and have not been reviewed by [facility]. There will be no report generated by a [facility]iologist. Narrative [facility] - 10/23/2024 12:12 PM CDT EXAMINATION: Images For Reference Purposes Only us Nereida Ramirez MD IMG MRI PROCEDURES Final R esult [facility] * Hepatitis C antibody (05/13/2017 4:52 PM AD TAKER) Hep C Ab Nonreactive Nonreactive [facility] Comment: Interpretive Data Positive and greyzone results should be confirmed by a molecular method. If positive or greyzone, a second separately collected sample should be submitted for Hepatitis C Virus RNA. Detection and Quantitation by Real-Time Reverse Licensed Nurse Practitioner-PCR.Current Interpretive data was last revised on 2016. Blood specimen (specimen) 05/13/2017 4:52 PM AD TAKER 05/13/2017 5:18 PM AD TAKER Narrative PATRICIA HUNTER - 05/14/2017 9:38 AM AD TAKER Nereida Ramirez MD LAB MICROBIOLOGY - GENERAL ORDERABLES Edited Result - Final PATRICIA DALY [facility] Department [place] [address] from Last 3 Months or Most Recently Relevant to Health Maintenance Insurance [facility] MEDICARE ADVANTAGE [place] [address] [facility] OTHER Address: [address] [place] [address] IDPA [facility] MEDICARE ADVANTAGE Advance Directives For more information, please contact: [phone] * Full Code (Latest Code Status on File) Date Activated Date Inactivated Comments 09/22/2024 2:44 PM 09/26/2024 5:53 PM * Full Code Date Activated Date Inactivated Comments 11/15/2019 2:35 PM 11/15/2019 7:49 PM Care Teams Medicare Biller Relationship Specialty Start Date End Date No Crow NP [address] [place] [address] PCP - General Family Medicine 09/21/24 Nereida Ramirez MD Medical Oncologist/Customer Field Representative Medical Oncology 06/13/20
--- OUTSIDE RECORDS SUMMARY | 2025-01-08 12:00 | XMS_ITS | Clinical Summary ---
Author Organization [facility] Address [address] [place] [address] Care Team Providers Care Precision Machine Operator Name Role Phone Félix Pineda MD Unavailable [phone] Rajiv Sherman MD Unavailable [phone] Davi Herman MD Unavailable [phone] Rand Whalen MD Primary Care Provider Source Comments [facility],non-owned Affiliates and Associated Physician Practices is amultiple site organization consisting of ambulatory clinics and hospital sitesin [place], [place], [place] and [place]. This disclosure is being madepursuant to the Care Everywhere program and may not contain all information available regarding this patient. Last updated 18.[facility] Allergies Active Allergy Reactions Criticality Noted Date [...] 2014 ZOSTER VACCINE (1 of 2) 2014 DEPRESSION SCREENING 05/03/2024 COVID-19 VACCINE (4 - season) 2025 02/26/2021, 08/06/2020, 07/16/2020 INFLUENZA VACCINE (#1) 2025 2, 02/26/2021, 03/05/2020, [...] patient's age to [place] [address] MEDICARE [facility] MEDICARE MEDICARE MEDICAID - OUT OF STATE MEDICARE MEDICAID - OUT OF STATE MEDICARE MEDICAID - OUT OF STATE MEDICARE Care Teams Precision Machine Operator Relationship Specialty Start Date End Date Rand Whalen MD [address] [facility] [address] PCP - General 10/11/21 Félix Pineda MD Family Medicine 07/31/14 Rajiv Sherman MD Neurology 10/13/12 Davi Herman MD [address] [address] Supervisor Border Department Cardiology 06/22/14
--- OUTSIDE RECORDS SUMMARY | 2025-01-08 12:00 | XMS_ITS | Clinical Summary ---
Author Organization [facility] Address [address] [place] [address] Phone Care Team Providers Care Mediation Commissioner Name Role Phone Unavailable Primary Care Provider [...] 4 times daily as needed. Active aspirin (KAIRSHMA CHEWABLE) 81 mg Tablet, Chewable Take 81 [...] at bedtime. Active fluticasone (FLONASE) 50 mcg/spray [place], Suspension Administer 2 Sprays in each nostril daily. Active viatamin B complex-vitamin G-dgzboudr-nrgk -folic acid 106 mg iron- 1 mg [...] 08/09/2014 Overview (08/09/2014): S/p cardiac cath at [facility] following Dr. Herman EF 40 %, [...] Comments Blood Pressure 99/75 03/24/2017 3:03 PM LICENSED PSYCHOLOGIST Pulse 107 03/24/2017 3:03 PM LICENSED PSYCHOLOGIST Temperature 36.9 C (98.5 F) 03/24/2017 3:03 PM LICENSED PSYCHOLOGIST Respiratory Rate 18 02/22/2017 1:24 PM CDT Oxygen Saturation 95% 09/21/2014 1:11 PM CDT Inhaled Oxygen Concentration - - Weight 84.1 kg (185 lb 6.4 oz) 03/24/2017 3:03 P M LICENSED PSYCHOLOGIST Height 160 cm (5' 3) 03/24/2017 3:03 PM LICENSED PSYCHOLOGIST Body Mass Index 32.84 03/24/2017 3:03 PM LICENSED PSYCHOLOGIST Plan of Treatment Health Maintenance Due Date [...] Advance Directives For more information, please contact: [phone] Documents on File Type Date Recorded 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
--- NOTE | 2025-01-10 10:21 | WPDPFTINT ---
PFT Procedure Performed PFT Procedure Performed Spirometry with Pre/Post Bronchodilator Plethysmography (Lung Vol) Diffusing Cap (DLCO) Flow Vol Loop PFT Interpretation DOS: 01/08/2025 REQUESTING: Dr Whalen REASON FOR TESTING: Nocturnal hypoxemia PULMONARY FUNCTION TESTS Results are reliable and reproducible. Repeatability of spirometry FEV1 maneuver pre and post bronchodilator is Grade A. Adam: GLI 2012 reference equations were used. Spirometry: The pre-bronchodilator FEV1 is 1.74 L, 72%, mildly reduced. The pre-bronchodilator FVC is 2.17 L, 71%, mildly reduced. The FEV1/FVC ratio is 80%, normal. After bronchodilator, the FEV1 is unchanged, 1.74 L. After bronchodilator, the FVC is unchanged, 2.14 L, -1%. The FEV1/FVC ratio is 82%. Lung volumes: The total lung capacity is 3.90 L, 80%. The functional residual capacity is 2.19 L, 79%. The residual volume is 1.73 L, 89%. The RV/TLC is 44%. Airway resistance is increased. Diffusion: DLCO is 12.3, 58%, decreased. The DLCO/VA is 4.94, 110%, normal. Flow volume loop: The flow volume loop shows 2 loops which are normal. IMPRESSION: This study shows mild reduction in FEV1 and FVC with a normal FEV1/FVC ratio without response to bronchodilator. This pattern is called PRISm, preserved ratio impaired spirometry. The lung volumes are normal with the total lung capacity on the low end of the normal. The diffusion is mildly decreased, corrects for alveolar volume. This is a non-specific pattern clinical correlation is recommended. Lack of response to bronchodilator should not preclude use if clinically indicated. There are no prior studies for comparison. PRISm can be associated with a higher risk of respiratory and cardiovascular problems. This can be linked to obesity, being underweight and sometimes restrictive lung lung disease. Joann Gallegos MD
== END 2025-01-08 11:43 | disposition home or self-care (01) ==
LOC: ANHPFT 11:45
PROVIDERS: PCP Family Medicine; Visit Provider Family Medicine
DX: G47.34 Idiopathic sleep related nonobstructive alveolar hypoventilation (principal); J45.20 Mild intermittent asthma, uncomplicated
CPT/HCPCS: 71046; 94060; 94726; 94729

== ENCOUNTER 2025-03-22 10:05 | Outpatient (CLI) | payer MEDICARE, MEDICAID, SELFPAY ==
--- NOTE | ~2025-03-22 | CT_ITS ---
EXAMINATION: CT lung screening DATE: 03/22/2025 10:30 INDICATION: Z87.891 - Personal history of nicotine dependence TECHNIQUE: Computed tomography (CT) of the chest was performed without intravenous contrast. Additional 3D reconstructions utilizing coronal maximum intensity projection (MIP) were performed. Automated exposure control and iterative reconstruction technique were employed. The dose-length product was 13 3.22 mGy-cm. COMPARISON: None FINDINGS: Lungs are clear with no suspicious pulmonary nodules, pneumonia, pulmonary edema or pleural effusion. Heart size is normal. Atherosclerotic 1 artery calcification and aortic valve calcification. No pericardial effusion. Thoracic aorta is normal in caliber. No pathologically enlarged thoracic lymphadenopathy. There are couple exophytic cyst at the upper pole of left kidney measuring up to 2.2 cm. Mild thoracic spondylosis. IMPRESSION: 1. Lung-RADS category 1: Negative. Continue annual screening with noncontrast low-dose chest CT in 12 months. Reviewed, dictated and finalized at location A. EL TECHNICIAN IMPRESSION: 1. Lung-RADS category 1: Negative. Continue annual screening with noncontrast l ow-dose chest CT in 12 months.
== END 2025-03-22 10:06 | disposition home or self-care (01) ==
PROVIDERS: PCP Family Medicine; Visit Provider Family Medicine
DX: Z12.2 Encounter for screening for malignant neoplasm of respiratory organs (principal); Z87.891 Personal history of nicotine dependence
CPT/HCPCS: 71271